=== PATIENT | male | born 1950 | race Caucasian/White ===

== ENCOUNTER → 2017-02-24 | Outpatient (CLI) | payer MEDICARE ==
[2017-02-24 10:04] LABS: Blood Urea Nitrogen 18 mg/dL (9-20); Non-African American GFR(MDRD) >60 (>60 ml/min/1.73 sqM)
--- NOTE | 2017-02-24 11:41 | CT ---
EXAMINATION TYPE: CT abdomen pelvis w con DATE OF EXAM: 02/24/2017 REFERENCE: Previous study dated 05/04/2014. HISTORY: R31.0 gross hematuria HISTORY: Gross hematuria and slow urine flow CT DLP: 1908.3 mGy Automated exposure control for dose reduction was used. TECHNIQUE: Helical acquisition through the abdomen and pelvis was obtained following the oral ingesti on of with Oral Contrast and following intravenous administration of 100 mL of Omnipaque 300. The christos a was reformatted in axial, coronal and sagittal projections. FINDINGS: There is dependent atelectasis within the dependent portions of the lungs. There is no ple ural or pericardial fluid. The heart is not enlarged. There is coronary artery and other vascular emiliano cifications present. Within the abdomen, the liver is mildly prominent measuring 19 cm. There is mild fatty infiltration o f the liver. The gallbladder is contracted. The spleen is normal. Both adrenal glands are normal. There is a 7.9 mm, nonobstructing stone in the posterior lower pole calyx of the left kidney. There i s a simple appearing 2.2 cm cyst involving the upper pole of the left kidney. There is A bladder is unremarkable. There is radiation seeds within the prostate gland. There are scattered diverticula within the left side of the colon. There is no radiographic evidence of diverticulitis. The appendix is normal. Small bowel loops are normal. There is no free fluid and no free air identified. There is degenerative disc disease, hypertrophic spondylosis and facet arthropathy within the spine. No bony destructive lesion is seen. IMPRESSION: 1. NONOBSTRUCTING LEFT RENAL CALCULUS. 2. MULTIPLE, SIMPLE APPEARING LEFT RENAL CYST. 3. HEPATOMEGALY AND FATTY INFILTRATION OF THE LIVER. 4. UNCOMPLICATED DIVERTICULAR DISEASE OF THE LEFT SIDE OF THE COLON. 5. DEGENERATIVE CHANGE WITHIN THE SPINE.
== END | disposition home or self-care (01) ==
LOC: RADCTMAIN 09:30
PROVIDERS: ATTEND Urology
DX: N20.0 Calculus of kidney (principal); K76.0 Fatty (change of) liver, not elsewhere classified; K57.90 Diverticulosis of intestine, part unspecified, without perforation or abscess without bleeding
CPT/HCPCS: 82565; 84520; 74177; 36415; Q9967

== ENCOUNTER → 2020-05-26 | Outpatient (CLI) | payer MEDICARE ==
[2020-05-26 10:11] LABS: African American GFR (CKD) >90 (>60 ml/min/1.73 sqM); Blood Urea Nitrogen 16 mg/dL (9-20); Non-African American GFR(CKD) 87 (>60 ml/min/1.73 sqM)
--- NOTE | 2020-05-26 14:45 | NM ---
EXAMINATION TYPE: NM bone scan whole body DATE OF EXAM: 05/26/2020 COMPARISON: CT 05/26/2020 HISTORY: Prostate cancer Delayed whole-body scanning was performed following the injection of 25.2 mCi Tc 99m MDP. Images acq uired 3.5 hours post injection. FINDINGS: There are too numerous to count focal lesions involving the ribs, spine, pelvis, proximal lower extre mities and left upper extremity, shoulders, calvarium and mandible. Soft tissue uptake within normal limits. IMPRESSION: Metastatic disease.
--- NOTE | 2020-05-29 09:33 | CT ---
EXAMINATION TYPE: CT ChestAbdPelvis w con DATE OF EXAM: 05/26/2020 COMPARISON: CT abdomen pelvis 02/24/2017. Nuclear medicine bone scan 05/26/2020. HISTORY: Elevated PSA, history of prostate cancer CT DLP: 2515 mGycm Automated exposure control for dose reduction was used. CONTRAST: CT scan of the chest, abdomen and pelvis is performed with Oral Contrast and with IV Contrast, patien t injected with 100 mL of Isovue 300. FINDINGS: LUNGS: Lungs are grossly clear. No concerning parenchymal mass or nodule identified. No pleural effus ion. No pneumothorax. The tracheobronchial tree is patent. MEDIASTINUM/SOFT TISSUES: No axillary, hilar, or mediastinal lymphadenopathy greater than 1 cm. Cardi ac size is normal. Calcified coronary artery disease. No pericardial effusion. Ascending thoracic aor tic ectasia measures 4.2 cm. LIVER: Normal. BILIARY SYSTEM: Normal. PANCREAS: Normal. SPLEEN: Normal. ADRENALS: Normal. KIDNEYS: There is a 10 mm nonobstructing calculus of the left renal lower pole. There is moderate lef t hydronephrosis and hydroureter.. No evidence of ureteral or bladder calculi. No right hydronephrosi s. Left-sided renal cyst redemonstrated. BOWEL: No evidence of obstruction or thickening. Colonic diverticulosis. No acute diverticulitis. PERITONEUM: Normal. LYMPH NODES: No lymphadenopathy. PELVIS: Prostate brachytherapy seeds. There is noncircumferential asymmetric thickening of the incomp letely distended urinary bladder, (3:112 and 3:112). VASCULATURE: There is infrarenal abdominal aortic ectasia measuring 2.7 cm AP. MUSCULOSKELETAL: Sclerotic lesion of the left iliac bone is new versus 02/24/2017. Sclerosis of the T9 and T2. There are a few additional areas of scattered subtle sclerosis correspond ing with same day nuclear medicine bone scan, however many of these lesions have no clear CT correlat e. There are 2 nondisplaced rib fractures with healing callus formation at left ribs 6 and 7. IMPRESSION: 1. Multifocal osseous metastatic disease, with many of the lesions better appreciated on same day nuc lear medicine bone scan. 2 healing left rib fractures are also seen. 2. Asymmetric noncircumferential bladder thickening is limited in evaluation due to incomplete urinar y bladder distention. There is also new moderate left hydronephrosis and hydroureter, with no obstruc ting urolithiasis seen. Differential includes mass lesion. Recommend correlation with CT cystoscopy. 3. Left 10 mm nonobstructing renal calculus. 4. Ascending thoracic aortic 4.2 cm ectasia.
== END | disposition home or self-care (01) ==
LOC: RADNMMAIN 09:31
PROVIDERS: ATTEND Urology
DX: C79.9 Secondary malignant neoplasm of unspecified site (principal); C61 Malignant neoplasm of prostate
CPT/HCPCS: 82565; 84520; 71260; 74177; 36415; 78306; A9503; Q9967

== ENCOUNTER → 2021-02-13 | Outpatient (CLI) | payer MEDICARE ==
--- NOTE | 2021-02-13 13:03 | CT ---
EXAMINATION TYPE: CT ChestAbdPelvis w con DATE OF EXAM: 02/13/2021 COMPARISON: 05/26/2028 HISTORY: Prostate CA CT DLP: 2244.3 mGycm CONTRAST: CT scan of the chest, abdomen and pelvis is performed with Oral Contrast and with IV Contrast, patien t injected with 50 mL of Isovue 300. CT Chest: LUNGS: The lungs are clear and free of infiltrate or atelectasis. No pulmonary nodule or mass is det ected. No pleural effusion or CT evidence of interstitial lung disease. MEDIASTINUM: Mild aneurysmal changes in the thoracic aorta unchanged from prior study approximately 4 .2 cm. The heart is not enlarged. No evidence for mediastinal mass or adenopathy. HILAR STRUCTURES: No evidence for mass. No hilar adenopathy is appreciated. OTHER: No significant abnormality. CONTRAST CT ABDOMEN AND PELVIS FINDINGS: LIVER/GB: No calcified gallstones. No space occupying hepatic lesion. Biliary tree is of normal ca liber. PANCREAS: No inflammation. No distinct mass. SPLEEN: No splenic enlargement. No lesion seen. ADRENALS: No nodule. No thickening. KIDNEYS/BLADDER: Interval development of severe left-sided hydronephrosis secondary to a distal left ureteral calculus measuring 9 point millimeters which is approximately 9 cm from the UVJ.. Moderate r ight-sided interval hydronephrosis noted as well. All no obstructing right-sided calculus appreciated with certainty. Renal cystic changes redemonstrated. Foci of air within the urinary bladder poorly c haracterized. Prostate gland seeds are in place. BOWEL: Normal appendix. Normal bowel caliber. No inflammation. GENITAL ORGANS: No gross abnormality. LYMPH NODES: No greater than 1cm abdominal or pelvic lymph nodes are appreciated. AORTA: No significant abnormality. OSSEOUS STRUCTURES: Blastic metastases are redemonstrated throughout the visualized axial skeleton. OTHER: No significant additional abnormality is seen. IMPRESSION: 1. Interval development of severe left-sided hydronephrosis secondary to an obstructing 9.5 mm distal left ureteral calculus. 2. Moderate right-sided hydronephrosis has developed in the interval as well without obstructing calc ulus visualized. 3. Blastic metastatic disease unchanged from prior study.
--- NOTE | 2021-02-13 15:54 | NM ---
EXAMINATION TYPE: NM bone scan whole body DATE OF EXAM: 02/13/2021 COMPARISON: Bone scan from 05/26/2020, CT 02/13/2021 HISTORY: Prostate cancer, C 61 Delayed whole-body scanning was performed following the injection of 23.8 mCi Tc 99m MDP. Images acq uired 3 hours post injection. FINDINGS: There is been progression in the number of foci of increased uptake to include the bilateral humeri, bilateral femurs and bilateral ribs. There is some improvement in the distribution of uptake, for exa mple posterior left 10th rib shows an improvement in uptake, uptake within the thoracic and upper lum bar spine also shows less intensity is compared to prior exam as does the calvarial lesion in the man dible lesion. The left kidney does not show uptake. IMPRESSION: There is mixed response. Hydronephrotic left kidney.
== END | disposition home or self-care (01) ==
LOC: RADNMMAIN 09:38
PROVIDERS: ATTEND Internal Medicine Hematology & Oncology
DX: C61 Malignant neoplasm of prostate (principal); N13.2 Hydronephrosis with renal and ureteral calculous obstruction
CPT/HCPCS: 82565; 84520; 71260; 74177; 36415; 78306; A9503; Q9967

== ENCOUNTER 2021-03-05 09:07 | Day surgery (SDC) | payer MEDICARE ==
--- NOTE | 2021-03-02 09:09 | P.HPIHPCON ---
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 He underwent a CT which showed evidence of bilateral hydronephrosis, and a 1 cm ureteral stone. He underwent an attempted ureteral stent placement but was unsuccessful secondary to invasion of bladder trigone from marce 10 prostate cancer. His creat is elevated to 1.6 from a baseline of 0.8. Discussed with him given his bilateral hydronephrosis, worsening creatinine and plan to start chemotherapy next step is to proceed with nephrostomy tube placement. Discussed with him the risk and benefit of the surgery. Discussed with him the left kidney is fairly atrophic and the plan would be to obtain a Mag3 renogram post nephrostomy tube placement. If split renal function is less than 10% will proceed with nephrectomy if >10% will need a PCNL. Consent for Procedure: I have explained the operation/procedure to the patient, including the risks, benefits, side effects, alternative therapies (including not receiving the proposed treatment or service), the likelihood of the patient achieving his/her goals, and potential recuperation problems for the procedure/sedation/analgesia, as well as any blood products, if indicated. I also explained to the patient the risks, benefits and side effects of the alternatives, as well as the risks related to not receiving the proposed procedure, care, treatment, or services. Past Medical History Past Medical History: Cancer, Hypertension Additional Past Medical History / Comment(s): PROSTATE CANCER (SEDUM IMPLANTS). RENAL CALCULI History of Any Multi-Drug Resistant Organisms: None Reported Past Surgical History: Heart Catheterization With Stent, Hernia Repair Additional Past Surgical History / Comment(s): LITHOTRIPSY Date of Last Stent Placement:: 2004 Past Psychological History: No Psychological Hx Reported Past Alcohol Use History: None Reported Past Drug Use History: None Reported Medications and Allergies Home Medications Medication Instructions Recorded Confirmed Type Aspirin 81 mg PO DAILY 05/06/14 05/06/14 History Lisinopril 20 mg PO QAM 05/06/14 05/09/14 History Hydrocodone/Acetaminophen [Boy[place] 1 each PO Q4HR PRN #30 tab 05/09/14 Rx 7.5-325] Allergies Allergy/AdvReac Type Severity Reaction Status Date / Time No Known Allergies Allergy Verified 05/06/14 14:16 Surgical - Exam - General no distress, no pain - Eyes PERRL, normal ocular movement - ENT normal mucosa, no hearing loss - Respiratory normal expansion, normal respiratory effort - Psychiatric oriented to time, oriented to person, oriented to place Assessment and Plan Assessment: 71 yo male with hx of bilateral hydronephrosis, and left ureteral stone -OR for bilateral PCN placement, this will be done by IR
[2021-03-02 10:15] VITALS: BMI 34.3
[~2021-03-05 09:07] MED LIST: CIPROFLOXACIN/DEXTROSE PMX 400 MG in DEXTROSE/WATER 1 200ML.BAG IVPB ONE; DEXTROSE IVPB ONE; LEVOFLOXACIN IVPB ONE; PMX IVPB ONE; WATER IVPB ONE
[2021-03-05] MEDS ORDERED: SODIUM CHLORIDE 0.9% 500 ML 500 ML IV ONE (09:32)
[2021-03-05 09:54] LABS: Glucose,Whole Blood 134 mg/dL (75-99)
[2021-03-05 10:02] LABS: Basophils % (A) 1 %; Eosinophils # (A) 0.1 k/uL (0-0.7); Eosinophils % (A) 3 %; HCT 29.4 % (39.0-53.0); HGB 9.9 gm/dL (13.0-17.5); Lymphocytes # (A) 0.9 k/uL (1.0-4.8); Lymphocytes % (A) 19 %; MCH 29.5 pg (25.0-35.0); MCHC 33.8 g/dL (31.0-37.0); MCV 87.4 fL (80.0-100.0); Mean Platelet Volume 7.4; Monocytes # (A) 0.3 k/uL (0-1.0); Monocytes % (A) 6 %; Neutrophils # (A) 3.4 k/uL (1.3-7.7); Neutrophils % (A) 71 %; Platelet Count 285 k/uL (150-450); RBC 3.37 m/uL (4.30-5.90); WBC 4.8 k/uL (3.8-10.6)
[2021-03-05 10:03] VITALS: RESP 16
[2021-03-05] MEDS ORDERED: fentaNYL (PF) 50 MCG/ML 2 ML AMP IV ONE (12:00)
[2021-03-05] MEDS ORDERED: LIDOCAINE 1% INJ 10MG/ML (20 ML MDV) SQ ONE (12:00)
[2021-03-05] MEDS ORDERED: IOPAMIDOL-250 50ML BTL IV ONE (12:11)
[2021-03-05] MEDS ORDERED: HYDROcodone/APAP 5-325MG 1 EACH TAB PO PRN (12:33)
[2021-03-05 12:39] LABS: Glucose,Whole Blood 147 mg/dL (75-99)
--- NOTE | 2021-03-05 12:49 | CT ---
EXAMINATION TYPE: CT Guided Neph New Access DATE OF EXAM: 03/05/2021 COMPARISON: NONE HISTORY: Bilateral hydronephrosis Procedure had been discussed with the patient, the risks, benefits, alternatives, were discussed and any questions were answered. Informed consent was obtained. The patient was in a semiprone position prepped and draped on the OR table in the usual sterile fashion. Utilizing CT guidance and a 15 cm length Chiba needle a single pass was made into a lower pole posterior calyx under fluoroscopic vanessa nce. An 0.018 guidewire is passed through the needle and there was placement of a 6-[place]e catheter sheath system. There was conversion to a 0.035 system was performed with passage of a guidewire int o the ureter. There is serial dilation 8 [place]e and placement of an 8 [place]e nephrostomy tube. Under CT guidance a single pass was made into a posterior mid pole calyx. An 0.018 guidewire was plac ed through the needle. Needle was removed and the remaining portion of the procedure is performed wit hin the CVL. Small amount contrast was instilled in the system. There is dilation 8 [place]e and placement 8 [place]e right nephrostomy tube. Approximately 1.2 minutes of fluoroscopy was provided. IMPRESSION: 1. Successful bilateral nephrostomy tube insertion under CT and fluoroscopic guidance.
--- NOTE | 2021-03-05 12:49 | IR ---
EXAMINATION TYPE: IR nephrostomy DATE OF EXAM: 03/05/2021 COMPARISON: NONE HISTORY: Nephrostomy tube insertion TECHNIQUE: Fluoroscopy. FINDINGS: Fluoroscopic guidance was provided during procedure 1.[address] dictation. IMPRESSION: As Above.
[2021-03-05 17:11] LABS: Glucose,Whole Blood 124 mg/dL (75-99)
[2021-03-05 20:33] LABS: Glucose,Whole Blood 137 mg/dL (75-99)
[2021-03-05] MEDS ORDERED: ATORVASTATIN 80 MG TAB PO SCH (21:00)
[2021-03-05] MEDS: METOPROLOL TARTRATE 12.5 MG TAB PO SCH (21:09)
[2021-03-05] MEDS: TAMSULOSIN 0.4 MG CAP.ER.24H PO SCH (21:09)
[2021-03-06 06:59] LABS: Glucose,Whole Blood 133 mg/dL (75-99)
[2021-03-06] MEDS ORDERED: amLODIPine 5 MG TAB PO SCH (09:00)
[2021-03-06] MEDS ORDERED: allopurinoL 100 MG TAB PO SCH (09:00)
[2021-03-06] MEDS: METOPROLOL TARTRATE 12.5 MG TAB PO SCH (10:04)
[2021-03-06] MEDS: TAMSULOSIN 0.4 MG CAP.ER.24H PO SCH (10:04)
[2021-03-06 11:56] LABS: Glucose,Whole Blood 116 mg/dL (75-99)
[2021-03-06 12:24] VITALS: BP 135/88; PULSE 74; TEMP 98.7
--- NOTE | 2021-03-06 12:54 | P.DS ---
Providers Attending physician: Armando Williamson MD Primary care physician: Stated None Hospital Course: this is a 71-year-old male with history of bilateral hydronephrosis, he underwent nephrostomy tube placement on March 05. Please see dictation by Dr. Ramirez for details of the procedure. Patient was having pain, post nephrostomy tube insertion, and he was admitted to the hospital for pain control. On postoperative day #1 he was doing well, his pain has resolved. He was discharged home with the bilateral nephrostomy tubes. At time of discharge he was tolerating a diet, ambulating, pain was controlled. The output from the right nephrostomy tube was clear, but from the left nephrostomy tube was hematuric but wasn't draining. Plan - Discharge Summary Discharge Rx Participant: Yes New Discharge Prescriptions: No Action Aspirin 81 mg PO DAILY Atorvastatin [Lipitor] 80 mg PO HS amLODIPine [Norvasc] 5 mg PO DAILY Losartan [Cozaar] 25 mg PO HS Tamsulosin [Flomax] 0.4 mg PO BID Metoprolol Tartrate [Lopressor] 12.5 mg PO BID Allopurinol [Zyloprim] 100 mg PO DAILY metFORMIN HCL [Glucophage] 500 mg PO HS metFORMIN HCL [Glucophage] 1,000 mg PO QAM Magnesium 250 mg PO DAILY Discharge Medication List Aspirin 81 mg PO DAILY 05/06/14 [History] Allopurinol [Zyloprim] 100 mg PO DAILY 03/02/21 [History] Atorvastatin [Lipitor] 80 mg PO HS 03/02/21 [History] Losartan [Cozaar] 25 mg PO HS 03/02/21 [History] Magnesium 250 mg PO DAILY 03/02/21 [History] Metoprolol Tartrate [Lopressor] 12.5 mg PO BID 03/02/21 [History] Tamsulosin [Flomax] 0.4 mg PO BID 03/02/21 [History] amLODIPine [Norvasc] 5 mg PO DAILY 03/02/21 [History] metFORMIN HCL [Glucophage] 1,000 mg PO QAM 03/02/21 [History] metFORMIN HCL [Glucophage] 500 mg PO HS 03/02/21 [History] Patient Instructions/Handouts: Nephrostomy Tube Care (DC) Activity/Diet/Wound Care/Special Instructions: If continue to have bloody output from the left nephrostomy tube can irrigate the nephrostomy tube once a day Discharge Disposition: HOME SELF-CARE
[2021-03-07] MEDS ORDERED: metFORMIN 500 MG TAB PO SCH ×2 (09:00→21:00)
== END 2021-03-06 16:46 | disposition home health service (06) ==
LOC: CATHCVL 09:07 → 5NMEDONC 15:09 → CATHCVL 03-06 16:46
PROVIDERS: ATTEND Urology
DX: N13.2 Hydronephrosis with renal and ureteral calculous obstruction (principal); I10 Essential (primary) hypertension; Z85.46 Personal history of malignant neoplasm of prostate; Z87.442 Personal history of urinary calculi; Z79.899 Other long term (current) drug therapy; Z79.82 Long term (current) use of aspirin; Z20.822 Contact with and (suspected) exposure to COVID-19
CPT/HCPCS: 50432 ×2; 85025; 87635; C1769 ×2; J2001; J3010; J0744; Q9966

== ENCOUNTER 2021-03-15 03:45 | Observation (INO) | payer MEDICARE ==
--- NOTE | 2021-03-15 04:32 | ED ---
Male Urogenital HPI - General Chief complaint: Urogenital Stated complaint: Back Pain Time Seen by Provider: 03/15/21 03:48 Source: patient, RN notes reviewed, old records reviewed Mode of arrival: ambulatory Limitations: no limitations - History of Present Illness Initial comments: This is a 71-year-old male DF for evaluation. Patient has history of severe prostate cancer with inability to urinate. Patient has bilateral nephrostomy tubes currently supposed to have stents placed in his ureters with her unable to be passed. Patient states a left nephrostomy tube does not work the right frustrated to start working last night with severe flank pain on the right side. Patient denies other complaints of fever. MD Complaint: other (Bilateral flank pain) -: hour(s) Location: right flank Severity: severe Severity scale (1-10): 8 Quality: sharp Consistency: constant Improves with: none Worsens with: none indwelling catheter (Patient has indwelling nephrostomy tubes) Reports: nausea/vomiting - Related Data Home Medications Medication Instructions Recorded Confirmed Aspirin 81 mg PO DAILY 05/06/14 03/05/21 Allopurinol [Zyloprim] 100 mg PO DAILY 03/02/21 03/05/21 Atorvastatin [Lipitor] 80 mg PO HS 03/02/21 03/05/21 Losartan [Cozaar] 25 mg PO HS 03/02/21 03/05/21 Magnesium 250 mg PO DAILY 03/02/21 03/05/21 Metoprolol Tartrate [Lopressor] 12.5 mg PO BID 03/02/21 03/05/21 Tamsulosin [Flomax] 0.4 mg PO BID 03/02/21 03/05/21 amLODIPine [Norvasc] 5 mg PO DAILY 03/02/21 03/05/21 metFORMIN HCL [Glucophage] 1,000 mg PO QAM 03/02/21 03/05/21 metFORMIN HCL [Glucophage] 500 mg PO HS 03/02/21 03/05/21 Allergies Allergy/AdvReac Type Severity Reaction Status Date / Time cephalexin [From Keflex] Allergy Diarrhea Verified 03/15/21 03:54 Review of Systems ROS Statement: Those systems with pertinent positive or pertinent negative responses have been documented in the HPI. ROS Other: All systems not noted in ROS Statement are negative. Past Medical History Past Medical History: Coronary Artery Disease (CAD), Cancer, Diabetes Mellitus, Hyperlipidemia, Hypertension, Prostate Disorder Additional Past Medical History / Comment(s): PROSTATE CANCER (SEDUM IMPLANTS). RENAL CALCULI,, gout, History of Any Multi-Drug Resistant Organisms: None Reported Past Surgical History: Coronary Bypass/CABG, Heart Catheterization, Hernia Repair, Joint Replacement Additional Past Surgical History / Comment(s): LITHOTRIPSY x 2, triple bypass 08/25/2018, rt knee replacement, elieser inguinal hernia and umbilical hernia repair, Past Anesthesia/Blood Transfusion Reactions: No Reported Reaction Date of Last Stent Placement:: 2004 Past Psychological History: No Psychological Hx Reported Smoking Status: Never smoker Past Alcohol Use History: None Reported Past Drug Use History: None Reported - Past Family History Mother Family Medical History: No Reported History General Exam General appearance: alert, in no apparent distress Head exam: Present: atraumatic, normocephalic, normal inspection Eye exam: Present: normal appearance, PERRL, EOMI. Absent: scleral icterus, conjunctival injection, periorbital swelling ENT exam: Present: normal exam, mucous membranes moist Neck exam: Present: normal inspection. Absent: tenderness, meningismus, lymphadenopathy Respiratory exam: Present: normal lung sounds bilaterally. Absent: respiratory distress, wheezes, rales, rhonchi, stridor Cardiovascular Exam: Present: regular rate, normal rhythm, normal heart sounds. Absent: systolic murmur, diastolic murmur, rubs, gallop, clicks GI/Abdominal exam: Present: soft, normal bowel sounds. Absent: distended, tenderness, guarding, rebound, rigid Extremities exam: Present: normal inspection, full ROM, normal capillary refill. Absent: tenderness, pedal edema, joint swelling, calf tenderness Back exam: Present: normal inspection Neurological exam: Present: alert, oriented X3, CN II-XII intact Psychiatric exam: Present: normal affect, normal mood Skin exam: Present: warm, dry, intact, normal color. Absent: rash Course Vital Signs 03/15/21 03/15/21 03:48 06:19 Temperature 97.9 F Pulse Rate 73 81 Respiratory 19 18 Rate Blood Pressure 118/72 115/71 O2 Sat by Pulse 99 98 Oximetry - Reevaluation(s) Reevaluation #1: 03/15/21 06:36 Medical records reviewed Reevaluation #2: 03/15/21 06:36 Patient's pain is currently well controlled - Consultations Consultation #1: Spoke with Dr. Mora who prefers admission for evaluation by interventional radiology Medical Decision Making - Medical Decision Making 71 male be admitted for evaluation, bilateral nephrostomy tubes malfunctioning. Patient will be admitted for interventional radiology - Lab Data Result diagrams: 03/15/21 05:06 03/15/21 05:06 Lab Results 03/15/21 03/15/21 Range/Units 05:06 05:06 WBC 4.5 (3.8-10.6) k/uL RBC 3.23 L (4.30-5.90) m/uL Hgb 9.6 L (13.0-17.5) gm/dL Hct 27.8 L (39.0-53.0) % MCV 86.1 (80.0-100.0) fL MCH 29.6 (25.0-35.0) pg MCHC 34.4 (31.0-37.0) g/dL RDW 13.2 (11.5-15.5) % Plt Count 262 (150-450) k/uL MPV 7.1 Neutrophils % 71 % Lymphocytes % 20 % Monocytes % 5 % Eosinophils % 3 % Basophils % 0 % Neutrophils # 3.2 (1.3-7.7) k/uL Lymphocytes # 0.9 L (1.0-4.8) k/uL Monocytes # 0.2 (0-1.0) k/uL Eosinophils # 0.1 (0-0.7) k/uL Basophils # 0.0 (0-0.2) k/uL Sodium 136 L (137-145) mmol/L Potassium 4.3 (3.5-5.1) mmol/L Chloride 104 (98-107) mmol/L Carbon Dioxide 26 (22-30) mmol/L Anion Gap 6 mmol/L BUN 19 (9-20) mg/dL Creatinine 1.32 H (0.66-1.25) mg/dL Est GFR (CKD-EPI)AfAm 63 (>60 ml/min/1.73 sqM) Est GFR (CKD-EPI)NonAf 54 (>60 ml/min/1.73 sqM) Glucose 142 H (74-99) mg/dL Calcium 8.5 (8.4-10.2) mg/dL Total Bilirubin 0.2 (0.2-1.3) mg/dL AST 38 (17-59) U/L ALT 11 (4-49) U/L Alkaline Phosphatase 950 H (38-126) U/L Total Protein 6.3 (6.3-8.2) g/dL Albumin 3.4 L (3.5-5.0) g/dL Amylase 75 (30-110) U/L Lipase 235 (23-300) U/L - Radiology Data Radiology results: report reviewed (X-ray KUB negative for acute disease), image reviewed Disposition Clinical Impression: Bilateral flank pain Disposition: ADMITTED IP TO THIS HOSP Condition: Fair Is patient prescribed a controlled substance at d/c from ED?: No
[2021-03-15] MEDS ORDERED: MORPHINE SULFATE 4 MG/ML SYRINGE IV STA (04:51)
--- NOTE | 2021-03-15 05:11 | XR ---
EXAMINATION TYPE: XR KUB DATE OF EXAM: 03/15/2021 COMPARISON: 05/16/2014 HISTORY: Nephrostomy tubes TECHNIQUE: 2 views FINDINGS: There are bilateral nephrostomy tubes. Bowel gas pattern is normal. There is no sign of int estinal obstruction or pneumoperitoneum. Fecal pattern is normal. I see no evidence of a mass. IMPRESSION: Nonacute abdomen. No definite calculus seen over the kidneys. There is clearing of 1 cm c alculus over the left upper quadrant compared to old exam.
[2021-03-15] MEDS ORDERED: MORPHINE SULFATE 4 MG/ML SYRINGE IVP STA (05:18)
[2021-03-15 05:24] LABS: Basophils % (A) 0 %; Eosinophils # (A) 0.1 k/uL (0-0.7); Eosinophils % (A) 3 %; HCT 27.8 % (39.0-53.0); HGB 9.6 gm/dL (13.0-17.5); Lymphocytes # (A) 0.9 k/uL (1.0-4.8); Lymphocytes % (A) 20 %; MCH 29.6 pg (25.0-35.0); MCHC 34.4 g/dL (31.0-37.0); MCV 86.1 fL (80.0-100.0); Mean Platelet Volume 7.1; Monocytes # (A) 0.2 k/uL (0-1.0); Monocytes % (A) 5 %; Neutrophils # (A) 3.2 k/uL (1.3-7.7); Neutrophils % (A) 71 %; Platelet Count 262 k/uL (150-450); RBC 3.23 m/uL (4.30-5.90); RDW 13.2 % (11.5-15.5); WBC 4.5 k/uL (3.8-10.6)
[2021-03-15 05:55] LABS: Albumin 3.4 g/dL (3.5-5.0); Calcium 8.5 mg/dL (8.4-10.2); Potassium 4.3 mmol/L (3.5-5.1); Total Bilirubin 0.2 mg/dL (0.2-1.3); Total Protein 6.3 g/dL (6.3-8.2)
[2021-03-15] MEDS ORDERED: DOCUSATE 100 MG CAP PO PRN (07:50)
[2021-03-15] MEDS ORDERED: ACETAMINOPHEN TAB 325 MG TAB PO PRN (07:50)
[2021-03-15] MEDS ORDERED: bisacodyL 5 MG TABLET.DR PO PRN (07:50)
[2021-03-15] MEDS ORDERED: MORPHINE SULFATE 4 MG/ML SYRINGE IV PRN (07:50)
[2021-03-15] MEDS ORDERED: NALOXONE 0.4 MG/ML 1 ML VIAL IV PRN (07:50)
[2021-03-15] MEDS ORDERED: HYDROcodone/APAP 5-325MG 1 EACH TAB PO PRN (07:50)
[2021-03-15 11:58] LABS: Appearance,Urine Clear (Clear); Bilirubin,Urine Negative (Negative); Blood,Urine Moderate (Negative); Color,Urine Yellow; Glucose,Urine (UA) Negative (Negative); Ketones,Urine Negative (Negative); Leukocyte Esterase,Urine Negative (Negative); Nitrite,Urine Negative (Negative); PH, Urine 5.5 (5.0-8.0); Protein,Urine Trace (Negative); RBC,Urine 36 /hpf (0-5); Specific Gravity,Urine 1.014 (1.001-1.035); Urobilinogen,Urine <2.0 mg/dL (<2.0); WBC,Urine 3 /hpf (0-5)
[2021-03-15 12:00] VITALS: BP 161/89; PULSE 80; RESP 16; TEMP 98
[2021-03-15 12:18] LABS: Glucose,Whole Blood 131 mg/dL (75-99)
[2021-03-15] MEDS ORDERED: INSULIN ASPART (NovoLOG) 100 UNIT/ML VIAL SQ SCH (12:30)
--- NOTE | 2021-03-15 13:00 | P.GSCN ---
History of Present Illness Consult date: 03/15/21 History of present illness: 71-year-old gentleman with metastatic prostate cancer, patient of who has bilateral nephrostomy tubes due to obstruction. Patient is tubes were placed over a week ago. He was in our office yesterday because of flank pain and perceived problems with the nephrostomy tubes. They're irrigated successfully in our office and re-taped up. He presented to the emergency room last night stating he had flank pain and leaking around the catheter. The patient is interviewed at the bedside. He states that he is feeling better and urine is draining through the nephrostomy tube present. I examined the patient and found that the small right nephrostomy tube was kinked as it was underneath the dressing. I and kinked it and then drained more freely. Its that he has no problems with the left side. No blood nor fever or chills. Review of Systems All systems: negative - Constitutional Denies fever, Denies weight loss - EENT Eyes: denies blurred vision Ears, nose, mouth and throat: Denies dysphagia - Cardiovascular Denies chest pain, Denies shortness of breath - Respiratory Denies cough, Denies 7 - Gastrointestinal Reports as per HPI - Genitourinary Denies dysuria, Denies hematuria - Integumentary Denies rash, Denies unusual bruising - Neurological Denies headaches, Denies syncope - Hematologic/Lymphatic Denies easy bleeding, Denies easy bruising Past Medical History Past Medical History: Coronary Artery Disease (CAD), Cancer, Diabetes Mellitus, Hyperlipidemia, Hypertension, Prostate Disorder Additional Past Medical History / Comment(s): PROSTATE CANCER (SEDUM IMPLANTS). RENAL CALCULI,, gout, History of Any Multi-Drug Resistant Organisms: None Reported Past Surgical History: Coronary Bypass/CABG, Heart Catheterization, Hernia Repair, Joint Replacement Additional Past Surgical History / Comment(s): LITHOTRIPSY x 2, triple bypass 08/25/2018, rt knee replacement, elieser inguinal hernia and umbilical hernia repair, Past Anesthesia/Blood Transfusion Reactions: No Reported Reaction Date of Last Stent Placement:: 2004 Past Psychological History: No Psychological Hx Reported Smoking Status: Never smoker Past Alcohol Use History: None Reported Past Drug Use History: None Reported - Past Family History Mother Family Medical History: No Reported History Medications and Allergies Home Medications Medication Instructions Recorded Confirmed Type Aspirin 81 mg PO DAILY 05/06/14 03/15/21 History Allopurinol [Zyloprim] 100 mg PO DAILY 03/02/21 03/15/21 History Atorvastatin [Lipitor] 80 mg PO HS 03/02/21 03/15/21 History Losartan [Cozaar] 25 mg PO HS 03/02/21 03/15/21 History Magnesium 250 mg PO BID 03/02/21 03/15/21 History Metoprolol Tartrate [Lopressor] 12.5 mg PO BID 03/02/21 03/15/21 History Tamsulosin [Flomax] 0.4 mg PO BID 03/02/21 03/15/21 History amLODIPine [Norvasc] 10 mg PO DAILY 03/02/21 03/15/21 History metFORMIN HCL [Glucophage] 1,000 mg PO QAM 03/02/21 03/15/21 History metFORMIN HCL [Glucophage] 500 mg PO HS 03/02/21 03/15/21 History Calcium Carbonate [Calcium] 600 mg PO DAILY 03/15/21 03/15/21 History Allergies Allergy/AdvReac Type Severity Reaction Status Date / Time cephalexin [From Keflex] AdvReac Diarrhea Verified 03/15/21 07:59 Surgical - Exam Vital Signs Temp Pulse Resp BP Pulse Ox 97.9 F 73 19 118/72 99 03/15/21 03:48 03/15/21 03:48 03/15/21 03:48 03/15/21 03:48 03/15/21 03:48 - General well developed, well nourished, no distress - ENT no hearing loss - Respiratory normal expansion, normal respiratory effort - Cardiovascular Rhythm: regular - Abdomen Nephrostomy tube draining right kidney, 6.5-[place]. It appears to be kinked. A normal left nephrostomy Abdomen: soft, non tender - Musculoskeletal normal posture - Psychiatric oriented to time, oriented to person, oriented to place, speech is normal, memory intact Results - Labs 03/15/21 05:06 03/15/21 05:06 Abnormal Lab Results - Last 24 Hours (Table) 03/15/21 03/15/21 03/15/21 Range/Units 05:06 05:06 05:06 RBC 3.23 L (4.30-5.90) m/uL Hgb 9.6 L (13.0-17.5) gm/dL Hct 27.8 L (39.0-53.0) % Lymphocytes # 0.9 L (1.0-4.8) k/uL Sodium 136 L (137-145) mmol/L Creatinine 1.32 H (0.66-1.25) mg/dL Glucose 142 H (74-99) mg/dL POC Glucose (mg/dL) (75-99) mg/dL Alkaline Phosphatase 950 H (38-126) U/L Albumin 3.4 L (3.5-5.0) g/dL Urine Protein Trace H (Negative) Urine Blood Moderate H (Negative) Urine RBC 36 H (0-5) /hpf 03/15/21 Range/Units 12:15 RBC (4.30-5.90) m/uL Hgb (13.0-17.5) gm/dL Hct (39.0-53.0) % Lymphocytes # (1.0-4.8) k/uL Sodium (137-145) mmol/L Creatinine (0.66-1.25) mg/dL Glucose (74-99) mg/dL POC Glucose (mg/dL) 131 H (75-99) mg/dL Alkaline Phosphatase (38-126) U/L Albumin (3.5-5.0) g/dL Urine Protein (Negative) Urine Blood (Negative) Urine RBC (0-5) /hpf Diabetes panel 03/15/21 Range/Units 05:06 Sodium 136 L (137-145) mmol/L Potassium 4.3 (3.5-5.1) mmol/L Chloride 104 (98-107) mmol/L Carbon Dioxide 26 (22-30) mmol/L BUN 19 (9-20) mg/dL Creatinine 1.32 H (0.66-1.25) mg/dL Glucose 142 H (74-99) mg/dL Calcium 8.5 (8.4-10.2) mg/dL AST 38 (17-59) U/L ALT 11 (4-49) U/L Alkaline Phosphatase 950 H (38-126) U/L Total Protein 6.3 (6.3-8.2) g/dL Albumin 3.4 L (3.5-5.0) g/dL Calcium panel 03/15/21 Range/Units 05:06 Calcium 8.5 (8.4-10.2) mg/dL Albumin 3.4 L (3.5-5.0) g/dL Pituitary panel 03/15/21 Range/Units 05:06 Sodium 136 L (137-145) mmol/L Potassium 4.3 (3.5-5.1) mmol/L Chloride 104 (98-107) mmol/L Carbon Dioxide 26 (22-30) mmol/L BUN 19 (9-20) mg/dL Creatinine 1.32 H (0.66-1.25) mg/dL Glucose 142 H (74-99) mg/dL Calcium 8.5 (8.4-10.2) mg/dL Adrenal panel 03/15/21 Range/Units 05:06 Sodium 136 L (137-145) mmol/L Potassium 4.3 (3.5-5.1) mmol/L Chloride 104 (98-107) mmol/L Carbon Dioxide 26 (22-30) mmol/L BUN 19 (9-20) mg/dL Creatinine 1.32 H (0.66-1.25) mg/dL Glucose 142 H (74-99) mg/dL Calcium 8.5 (8.4-10.2) mg/dL Total Bilirubin 0.2 (0.2-1.3) mg/dL AST 38 (17-59) U/L ALT 11 (4-49) U/L Alkaline Phosphatase 950 H (38-126) U/L Total Protein 6.3 (6.3-8.2) g/dL Albumin 3.4 L (3.5-5.0) g/dL Assessment and Plan Assessment: Impression: Metastatic prostate carcinoma with ureteral obstruction. Bilateral nephrostomy tubes. Recommendations: I dressed the right nephrostomy tube and found that it was kin ked. I instructed the and daughter on how to tape this so that it doesn't kinked and that it drained freely. They also understand how to irrigate it. From urologic standpoint he can be discharged home and follow-up with on March 27 as previously scheduled or sooner as needed. If the problem persists and he may need a larger nephrostomy tube.
--- NOTE | 2021-03-15 14:21 | P.DS ---
Providers Date of admission: 03/15/21 05:15 Expected date of discharge: 03/15/21 Attending physician: Mar Heck MD Consults: 03/15/21 05:15 Consult Physician Routine Consulting Provider: Gennaro Porter Consult Reason/Comments: nephrostomy tubes Do you want consulting provider notified?: Yes Primary care physician: Stated None Hospital Course: See same day H&P Patient Condition at Discharge: Good Plan - Discharge Summary New Discharge Prescriptions: No Action Aspirin 81 mg PO DAILY Atorvastatin [Lipitor] 80 mg PO HS amLODIPine [Norvasc] 10 mg PO DAILY Losartan [Cozaar] 25 mg PO HS Tamsulosin [Flomax] 0.4 mg PO BID Metoprolol Tartrate [Lopressor] 12.5 mg PO BID Allopurinol [Zyloprim] 100 mg PO DAILY metFORMIN HCL [Glucophage] 500 mg PO HS metFORMIN HCL [Glucophage] 1,000 mg PO QAM Magnesium 250 mg PO BID Calcium Carbonate [Calcium] 600 mg PO DAILY Discharge Medication List Aspirin 81 mg PO DAILY 05/06/14 [History] Allopurinol [Zyloprim] 100 mg PO DAILY 03/02/21 [History] Atorvastatin [Lipitor] 80 mg PO HS 03/02/21 [History] Losartan [Cozaar] 25 mg PO HS 03/02/21 [History] Magnesium 250 mg PO BID 03/02/21 [History] Metoprolol Tartrate [Lopressor] 12.5 mg PO BID 03/02/21 [History] Tamsulosin [Flomax] 0.4 mg PO BID 03/02/21 [History] amLODIPine [Norvasc] 10 mg PO DAILY 03/02/21 [History] metFORMIN HCL [Glucophage] 1,000 mg PO QAM 03/02/21 [History] metFORMIN HCL [Glucophage] 500 mg PO HS 03/02/21 [History] Calcium Carbonate [Calcium] 600 mg PO DAILY 03/15/21 [History] Follow up Appointment(s)/Referral(s): None,Stated [Primary Care Provider] - 1-2 days Gennaro Porter MD [STAFF PHYSICIAN] - 03/27/21 8:00 am Patient Instructions/Handouts: Nephrostomy Tube Care (DC)
--- NOTE | 2021-03-15 14:21 | P.HPIM ---
History of Present Illness H&P Date: 03/15/21 Chief Complaint: Flank Pain 71 year old man with metastatic prostate cancer with obstructive uropathy s/p b/l nephrostomy tubes presented with flank pain. Patient reports that he went to see his urology team due to flank pain and concerns that his R nephrostomy tube was not draining. While he was there, he had his tube adjusted due to a kinked off portion at the site of the bandaging. However, upon return home, he again developed flank pain and due to this concern presented to the ER for evaluation. Denies f/c, n/v/c/d, cp, abd pain, palps, cough, dyspnea, numbness/weakness. Review of Systems All Systems reviewed and pertinent positives and negatives noted in HPI, all other symptoms are negative Past Medical History Past Medical History: Coronary Artery Disease (CAD), Cancer, Diabetes Mellitus, Hyperlipidemia, Hypertension, Prostate Disorder Additional Past Medical History / Comment(s): PROSTATE CANCER (SEDUM IMPLANTS). RENAL CALCULI,, gout, History of Any Multi-Drug Resistant Organisms: None Reported Past Surgical History: Coronary Bypass/CABG, Heart Catheterization, Hernia Repair, Joint Replacement Additional Past Surgical History / Comment(s): LITHOTRIPSY x 2, triple bypass 08/25/2018, rt knee replacement, elieser inguinal hernia and umbilical hernia repair, Past Anesthesia/Blood Transfusion Reactions: No Reported Reaction Date of Last Stent Placement:: 2004 Past Psychological History: No Psychological Hx Reported Smoking Status: Never smoker Past Alcohol Use History: None Reported Past Drug Use History: None Reported - Past Family History Mother Family Medical History: No Reported History Medications and Allergies Home Medications Medication Instructions Recorded Confirmed Type Aspirin 81 mg PO DAILY 05/06/14 03/15/21 History Allopurinol [Zyloprim] 100 mg PO DAILY 03/02/21 03/15/21 History Atorvastatin [Lipitor] 80 mg PO HS 03/02/21 03/15/21 History Losartan [Cozaar] 25 mg PO HS 03/02/21 03/15/21 History Magnesium 250 mg PO BID 03/02/21 03/15/21 History Metoprolol Tartrate [Lopressor] 12.5 mg PO BID 03/02/21 03/15/21 History Tamsulosin [Flomax] 0.4 mg PO BID 03/02/21 03/15/21 History amLODIPine [Norvasc] 10 mg PO DAILY 03/02/21 03/15/21 History metFORMIN HCL [Glucophage] 1,000 mg PO QAM 03/02/21 03/15/21 History metFORMIN HCL [Glucophage] 500 mg PO HS 03/02/21 03/15/21 History Calcium Carbonate [Calcium] 600 mg PO DAILY 03/15/21 03/15/21 History Allergies Allergy/AdvReac Type Severity Reaction Status Date / Time cephalexin [From Keflex] AdvReac Diarrhea Verified 03/15/21 07:59 Physical Exam Vitals: Vital Signs Temp Pulse Pulse Resp BP BP Pulse Ox 03/15/21 11:53 98.0 F 80 16 161/89 96 03/15/21 10:21 72 18 130/79 98 03/15/21 07:37 98.3 F 72 16 121/86 97 03/15/21 06:19 81 18 115/71 98 03/15/21 03:48 97.9 F 73 19 118/72 99 Intake and Output 03/14/21 03/15/21 03/15/21 22:59 06:59 14:59 Other: Weight 111.13 kg Gen: awake, alert HEENT: normocephalic, atraumatic, good hearing acuity, moist mucous membranes Resp: good air exchange, breathing comfortably with no accessory muscle use CVS: good distal perfusion x 4, GI: soft, NTTP, ND : no SPT, right CVAT, thrasher catheter not present, bilateral nephrostomy tubes, right tube is draining well MSK: no pitting edema, no clubbing Neuro: non-focal, moving all extremities Psych: cooperative, euthymic mood Results CBC & Chem 7: 03/15/21 05:06 03/15/21 05:06 Labs: Abnormal Lab Results - Last 24 Hours (Table) 03/15/21 03/15/21 03/15/21 Range/Units 05:06 05:06 05:06 RBC 3.23 L (4.30-5.90) m/uL Hgb 9.6 L (13.0-17.5) gm/dL Hct 27.8 L (39.0-53.0) % Lymphocytes # 0.9 L (1.0-4.8) k/uL Sodium 136 L (137-145) mmol/L Creatinine 1.32 H (0.66-1.25) mg/dL Glucose 142 H (74-99) mg/dL POC Glucose (mg/dL) (75-99) mg/dL Alkaline Phosphatase 950 H (38-126) U/L Albumin 3.4 L (3.5-5.0) g/dL Urine Protein Trace H (Negative) Urine Blood Moderate H (Negative) Urine RBC 36 H (0-5) /hpf 03/15/21 Range/Units 12:15 RBC (4.30-5.90) m/uL Hgb (13.0-17.5) gm/dL Hct (39.0-53.0) % Lymphocytes # (1.0-4.8) k/uL Sodium (137-145) mmol/L Creatinine (0.66-1.25) mg/dL Glucose (74-99) mg/dL POC Glucose (mg/dL) 131 H (75-99) mg/dL Alkaline Phosphatase (38-126) U/L Albumin (3.5-5.0) g/dL Urine Protein (Negative) Urine Blood (Negative) Urine RBC (0-5) /hpf Assessment and Plan Assessment: Nephrostomy tube malfunction Metastatic prostate cancer Obstructive uropathy -Seen by urology, tube is now draining again on the right side after adjustment of the dressing -Urology educator family on appropriate dressing so that the drain does not kink off -Patient has follow-up with urology set up for March 27 -Patient flank pain has resolved -Patient was discharged home following urology evaluation.
== END 2021-03-15 14:05 | disposition home or self-care (01) ==
LOC: EC 03:45 → 6NMEDSUR 05:15
PROVIDERS: ADMIT Internal Medicine; ATTEND Internal Medicine
DX: T83.092A Other mechanical complication of nephrostomy catheter, initial encounter (principal); C61 Malignant neoplasm of prostate; C79.9 Secondary malignant neoplasm of unspecified site; N13.8 Other obstructive and reflux uropathy; E11.9 Type 2 diabetes mellitus without complications; E78.5 Hyperlipidemia, unspecified; I10 Essential (primary) hypertension; I25.10 Atherosclerotic heart disease of native coronary artery without angina pectoris; M10.9 Gout, unspecified; Z20.822 Contact with and (suspected) exposure to COVID-19; Z79.82 Long term (current) use of aspirin; Z79.84 Long term (current) use of oral hypoglycemic drugs; Z79.899 Other long term (current) drug therapy; Z88.1 Allergy status to other antibiotic agents; Z95.1 Presence of aortocoronary bypass graft; Z87.442 Personal history of urinary calculi; Z96.651 Presence of right artificial knee joint; Z98.890 Other specified postprocedural states
CPT/HCPCS: 96374; 99285 ×2; 36415; 80053; 82150; 83690; 85025; 81001; 87635; 74018; G0378; J2270

== ENCOUNTER → 2021-03-21 | Outpatient (CLI) | payer MEDICARE ==
[~2021-03-21] MED LIST changes: -CIPROFLOXACIN/DEXTROSE PMX 400 MG in DEXTROSE/WATER 1 200ML.BAG IVPB ONE; -DEXTROSE IVPB ONE; +FUROSEMIDE 10 MG/ML 2 ML VIAL IV ONE; -LEVOFLOXACIN IVPB ONE; -PMX IVPB ONE; -WATER IVPB ONE
--- NOTE | 2021-03-21 14:29 | NM ---
EXAMINATION TYPE: NM lasix renogram DATE OF EXAM: 03/21/2021 COMPARISON: NONE HISTORY: Hydronephrosis Following administration of 10.3 mCi Tc 99m MAG3 with 20mg Lasix. Immediate images post injection FINDINGS: Left: 12.5 %. Right: 87.5 %. Max renal flow left: 1.17 minutes. Max renal flow right: 87.5 minutes. Satisfactory accumulation of radiotracer within right renal collecting systems. There is reduced perf usion and uptake of radiotracer involving the left kidney. After the administration of Lasix, there i s delayed excretion from left collecting systems. Persistent hydronephrosis suspected bilaterally. T 1/2 left: NA minutes. T 1/2 right: 27.6 minutes. IMPRESSION: 1. Abnormal split renal function as noted above. This does appear to be concordant with the previous CT scan demonstrating left cortical renal thinning. 2. 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 3. Bilateral hydronephrosis.
== END | disposition home or self-care (01) ==
LOC: RADNMMAIN 12:39
PROVIDERS: ATTEND Urology
DX: N13.30 Unspecified hydronephrosis (principal)
CPT/HCPCS: 78708; A9562

== ENCOUNTER 2021-03-24 13:09 | Emergency (ER) | payer MEDICARE ==
[2021-03-24 13:13] VITALS: BP 109/72; PULSE 103; RESP 18; TEMP 97.5
--- NOTE | 2021-03-24 13:33 | ED ---
General Adult HPI - General Chief complaint: Recheck/Abnormal Lab/Rx Stated complaint: kidney problems Time Seen by Provider: 03/24/21 13:15 Source: patient, family, RN notes reviewed Mode of arrival: ambulatory Limitations: no limitations - History of Present Illness Initial comments: Patient is a pleasant 71-year-old male presenting to the emergency Department with leakage from his nephrostomy tube. Onset of symptoms was around 24 hours ago. Family did flush this without any problems. Patient has no discomfort. Patient is noticing leakage with minimal collection in the bag. This is occurring from the right side. Left side normally has normal output and this is unchanged. No fever. No abdominal pain. No vomiting. Patient has nephrostomy tubes for drainage secondary to history of prostate cancer. Tubes have been present for the past almost one month. Patient did have an episode of kinking week or 2 ago that resolved with unwinding of the tube. - Related Data Home Medications Medication Instructions Recorded Confirmed Aspirin 81 mg PO DAILY 05/06/14 03/15/21 Allopurinol [Zyloprim] 100 mg PO DAILY 03/02/21 03/15/21 Atorvastatin [Lipitor] 80 mg PO HS 03/02/21 03/15/21 Losartan [Cozaar] 25 mg PO HS 03/02/21 03/15/21 Magnesium 250 mg PO BID 03/02/21 03/15/21 Metoprolol Tartrate [Lopressor] 12.5 mg PO BID 03/02/21 03/15/21 Tamsulosin [Flomax] 0.4 mg PO BID 03/02/21 03/15/21 amLODIPine [Norvasc] 10 mg PO DAILY 03/02/21 03/15/21 metFORMIN HCL [Glucophage] 1,000 mg PO QAM 03/02/21 03/15/21 metFORMIN HCL [Glucophage] 500 mg PO HS 03/02/21 03/15/21 Calcium Carbonate [Calcium] 600 mg PO DAILY 03/15/21 03/15/21 Allergies Allergy/AdvReac Type Severity Reaction Status Date / Time cephalexin [From Keflex] AdvReac Diarrhea Verified 03/24/21 13:11 Review of Systems ROS Statement: Those systems with pertinent positive or pertinent negative responses have been documented in the HPI. ROS Other: All systems not noted in ROS Statement are negative. Constitutional: Denies: fever Eyes: Denies: eye pain ENT: Denies: ear pain Respiratory: Denies: cough Cardiovascular: Denies: chest pain Endocrine: Denies: fatigue Gastrointestinal: Denies: abdominal pain Genitourinary: Reports: as per HPI. Denies: dysuria Musculoskeletal: Denies: back pain Skin: Denies: rash Neurological: Denies: weakness Past Medical History Past Medical History: Coronary Artery Disease (CAD), Cancer, Diabetes Mellitus, Hyperlipidemia, Hypertension, Prostate Disorder Additional Past Medical History / Comment(s): PROSTATE CANCER (SEDUM IMPLANTS). RENAL CALCULI,, gout, History of Any Multi-Drug Resistant Organisms: None Reported Past Surgical History: Coronary Bypass/CABG, Heart Catheterization, Hernia Repair, Joint Replacement Additional Past Surgical History / Comment(s): LITHOTRIPSY x 2, triple bypass 08/25/2018, rt knee replacement, elieser inguinal hernia and umbilical hernia repair, Past Anesthesia/Blood Transfusion Reactions: No Reported Reaction Date of Last Stent Placement:: 2004 Past Psychological History: No Psychological Hx Reported Smoking Status: Never smoker Past Alcohol Use History: None Reported Past Drug Use History: None Reported - Past Family History Mother Family Medical History: No Reported History General Exam Limitations: no limitations General appearance: alert, in no apparent distress Head exam: Present: normocephalic Eye exam: Present: normal appearance Neck exam: Present: normal inspection Respiratory exam: Present: normal lung sounds bilaterally Cardiovascular Exam: Present: regular rate, normal rhythm GI/Abdominal exam: Present: soft. Absent: tenderness Back exam: Present: other (Right nephrostomy tube exit site without any fluid collection or abscess. No erythema or tenderness.) Psychiatric exam: Present: normal affect, normal mood Skin exam: Present: normal color Course Vital Signs 03/24/21 13:11 Temperature 97.5 F L Pulse Rate 103 H Respiratory 18 Rate Blood Pressure 109/72 O2 Sat by Pulse 97 Oximetry - Reevaluation(s) Reevaluation #1: 03/24/21 13:36 Case was discussed with Dr. Galvez who states they come and is not available at this time. He does recommend placing some sort of bag around the collection site and follow-up on Friday. 03/24/21 13:56 Attachment was removed and leg bag and tubing was taped to the distal and of the nephrostomy tube. Drainage of urine is occurring. Disposition Clinical Impression: Nephrostomy tube failure with subsequent urine leak Disposition: HOME SELF-CARE Condition: Stable Additional Instructions: Please follow-up with Dr. Williamson Friday as scheduled. Return for pain, fever, worsening or changing symptoms or other concerns. Is patient prescribed a controlled substance at d/c from ED?: No Referrals: Armando Williamson MD [STAFF PHYSICIAN] - 1-2 days Time of Disposition: 13:37
== END 2021-03-24 14:30 | disposition home or self-care (01) ==
LOC: EC 13:09
DX: T83.032A Leakage of nephrostomy catheter, initial encounter (principal); E11.9 Type 2 diabetes mellitus without complications; I10 Essential (primary) hypertension; E78.5 Hyperlipidemia, unspecified; I25.10 Atherosclerotic heart disease of native coronary artery without angina pectoris; M10.9 Gout, unspecified; Z79.82 Long term (current) use of aspirin; Z79.84 Long term (current) use of oral hypoglycemic drugs; Z79.899 Other long term (current) drug therapy; Z88.1 Allergy status to other antibiotic agents; Z95.1 Presence of aortocoronary bypass graft; Z85.46 Personal history of malignant neoplasm of prostate
CPT/HCPCS: 99283

== ENCOUNTER 2021-03-26 10:05 | Emergency (ER) | payer MEDICARE ==
[2021-03-26 10:44] VITALS: BP 103/76; PULSE 101; RESP 20; TEMP 98.3
--- NOTE | 2021-03-26 11:24 | ED ---
Recheck HPI - General Chief Complaint: Recheck/Abnormal Lab/Rx Stated Complaint: R kidney tube infection Time Seen by Provider: 03/26/21 10:56 Source: patient Mode of arrival: ambulatory Limitations: no limitations - History of Present Illness Initial Comments: 71-year-old male with history of prostate cancer and bilateral nephrostomy tubes presents to emergency Department with chief complaint of malfunctioning of the right side. Patient reports these were placed about 3 years ago but he could not called the physician who did it. Patient states he has a visiting nurse to typically comes once to twice per week to change the dressing on the nephrostomy sites. Daughter states she has noticed 1 of the sutures was beginning to be noticeable from nephrostomy site which was never the case before. She has also noticed some discharge from the region as well. States she can see the to moving in and out whenever he is breathing. Patient reports discomfort region. States the tube is otherwise draining well into the bag. - Related Data Home Medications Medication Instructions Recorded Confirmed Aspirin 81 mg PO DAILY 05/06/14 03/26/21 Allopurinol [Zyloprim] 100 mg PO DAILY 03/02/21 03/26/21 Atorvastatin [Lipitor] 80 mg PO HS 03/02/21 03/26/21 Losartan [Cozaar] 25 mg PO HS 03/02/21 03/26/21 Magnesium 250 mg PO BID 03/02/21 03/26/21 Metoprolol Tartrate [Lopressor] 12.5 mg PO BID 03/02/21 03/26/21 Tamsulosin [Flomax] 0.4 mg PO BID 03/02/21 03/26/21 amLODIPine [Norvasc] 10 mg PO DAILY 03/02/21 03/26/21 metFORMIN HCL [Glucophage] 1,000 mg PO DAILY 03/02/21 03/26/21 metFORMIN HCL [Glucophage] 500 mg PO HS 03/02/21 03/26/21 Calcium Carbonate [Calcium] 600 mg PO DAILY 03/15/21 03/26/21 Dexamethasone [Decadron] 8 mg PO DIRECTED 03/26/21 03/26/21 ondansetron HCL [Zofran] 8 mg PO Q6H PRN 03/26/21 03/26/21 Allergies Allergy/AdvReac Type Severity Reaction Status Date / Time cephalexin [From Keflex] AdvReac Diarrhea Verified 03/26/21 10:43 Review of Systems ROS Statement: Those systems with pertinent positive or pertinent negative responses have been documented in the HPI. ROS Other: All systems not noted in ROS Statement are negative. Past Medical History Past Medical History: Coronary Artery Disease (CAD), Cancer, Diabetes Mellitus, Hyperlipidemia, Hypertension, Prostate Disorder Additional Past Medical History / Comment(s): PROSTATE CANCER (SEDUM IMPLANTS). RENAL CALCULI,, gout, History of Any Multi-Drug Resistant Organisms: None Reported Past Surgical History: Coronary Bypass/CABG, Heart Catheterization, Hernia Repair, Joint Replacement Additional Past Surgical History / Comment(s): LITHOTRIPSY x 2, triple bypass , rt knee replacement, elieser inguinal hernia and umbilical hernia repair, Past Anesthesia/Blood Transfusion Reactions: No Reported Reaction Date of Last Stent Placement:: 2004 Past Psychological History: No Psychological Hx Reported Smoking Status: Never smoker Past Alcohol Use History: None Reported Past Drug Use History: None Reported - Past Family History Mother Family Medical History: No Reported History General Exam Limitations: no limitations General appearance: alert, in no apparent distress, obese Head exam: Present: atraumatic, normocephalic, normal inspection Eye exam: Present: normal appearance, PERRL, EOMI Pupils: Present: normal accommodation ENT exam: Present: normal exam, normal oropharynx, mucous membranes moist Neck exam: Present: normal inspection, full ROM. Absent: tenderness, lymphadenopathy Respiratory exam: Present: normal lung sounds bilaterally. Absent: respiratory distress, wheezes, rales, rhonchi, stridor, chest wall tenderness Cardiovascular Exam: Present: regular rate, normal rhythm, normal heart sounds. Absent: systolic murmur GI/Abdominal exam: Present: soft. Absent: distended, tenderness, guarding, rebound Extremities exam: Present: normal inspection, full ROM, normal capillary refill. Absent: tenderness Back exam: Present: full ROM. Absent: normal inspection (Bilateral nephrostomy. Small amount of excoriation near the nephrostomy symptoms no signs of infection. Suture line appears to be not tethered to the skin on the tube.) Neurological exam: Present: alert, oriented X3 Psychiatric exam: Present: normal affect, normal mood Skin exam: Present: warm, dry, intact, normal color Course Vital Signs 03/26/21 10:41 Temperature 98.3 F Pulse Rate 101 H Respiratory 20 Rate Blood Pressure 103/76 O2 Sat by Pulse 98 Oximetry Medical Decision Making - Medical Decision Making 71-year-old male with history of prostate cancer and bilateral nephrostomy tubes presents to emergency Department with chief complaint of malfunctioning of the right side. On physical examination, the urostomy tube appears to be draining well. No signs of infection near the ostomy site. I discussed the case with who states as long as the tube is functioning properly, they can follow up in outpatient basis. Patient requested symptomatic relief. I gave him 2 mg of morphine and discharged with Tylenol 3 starter pack. Return parameters were thoroughly discussed with patient Shane here. Case discussed with Disposition Clinical Impression: Nephrostomy tube displaced Disposition: HOME SELF-CARE Condition: Stable Instructions (If sedation given, give patient instructions): Nephrostomy Tube Care (ED) Additional Instructions: Please return to the Emergency Department if symptoms worsen or any other concerns. Follow-up with your urologist. Is patient prescribed a controlled substance at d/c from ED?: No Referrals: Nonstaff,Physician [Primary Care Provider] - 1-2 days Time of Disposition: 11:55
[2021-03-26] MEDS ORDERED: SODIUM CHLORIDE 0.9% 1,000 ML IV STA (11:30)
[2021-03-26] MEDS ORDERED: MORPHINE SULFATE 2 MG/ML SYRINGE IM ONE (11:53)
[2021-03-26] MEDS ORDERED: ACET/COD 300 MG/30 MG STARTER PACK 6 TAB BTL PO STA (11:53)
== END 2021-03-26 12:14 | disposition home or self-care (01) ==
LOC: EC 10:05
DX: T83.022A Displacement of nephrostomy catheter, initial encounter (principal); E11.9 Type 2 diabetes mellitus without complications; E78.5 Hyperlipidemia, unspecified; I10 Essential (primary) hypertension; I25.10 Atherosclerotic heart disease of native coronary artery without angina pectoris; Z79.82 Long term (current) use of aspirin; Z79.84 Long term (current) use of oral hypoglycemic drugs; Z85.46 Personal history of malignant neoplasm of prostate; Z95.1 Presence of aortocoronary bypass graft
CPT/HCPCS: 99283; 96372; J2270

== ENCOUNTER 2021-03-27 13:27 | Inpatient (IN) | payer MEDICARE ==
[2021-03-27] MEDS ORDERED: ONDANSETRON 4 MG/2 ML VIAL IVP PRN (20:41)
[2021-03-27] MEDS ORDERED: ACETAMINOPHEN TAB 325 MG TAB PO PRN (20:48)
[2021-03-27] MEDS: SODIUM CHLORIDE 0.9% 1,000 ML IV SCH (21:04)
[2021-03-27] MEDS: LOSARTAN 25 MG TAB PO SCH (21:07)
[2021-03-27] MEDS: MAGNESIUM OXIDE 400 MG TAB PO SCH (21:07)
[2021-03-27] MEDS: TAMSULOSIN 0.4 MG CAP.ER.24H PO SCH (21:07)
[2021-03-27] MEDS: ATORVASTATIN 80 MG TAB PO SCH (21:07)
[2021-03-27] MEDS: METOPROLOL TARTRATE 12.5 MG TAB PO SCH (21:07)
[2021-03-27 22:03] LABS: African American GFR (CKD) 61 (>60 ml/min/1.73 sqM); Anion Gap 8 mmol/L; Blood Urea Nitrogen 23 mg/dL (9-20); Calcium 7.7 mg/dL (8.4-10.2); Carbon Dioxide 24 mmol/L (22-30); Chloride 104 mmol/L (98-107); Glucose 143 mg/dL (74-99); Non-African American GFR(CKD) 52 (>60 ml/min/1.73 sqM); Potassium 4.3 mmol/L (3.5-5.1); Sodium 136 mmol/L (137-145)
[2021-03-27 22:16] LABS: Basophils # (A) 0.1 k/uL (0-0.2); Basophils % (A) 1 %; Eosinophils % (A) 0 %; HCT 24.7 % (39.0-53.0); HGB 8.4 gm/dL (13.0-17.5); Lymphocytes # (A) 0.8 k/uL (1.0-4.8); Lymphocytes % (A) 11 %; MCH 29.6 pg (25.0-35.0); MCHC 33.8 g/dL (31.0-37.0); MCV 87.5 fL (80.0-100.0); Mean Platelet Volume 6.6; Monocytes # (A) 0.4 k/uL (0-1.0); Monocytes % (A) 5 %; Neutrophils % (A) 81 %; Platelet Count 265 k/uL (150-450); RBC 2.83 m/uL (4.30-5.90); RDW 13.9 % (11.5-15.5)
[2021-03-27] MEDS ORDERED: MELATONIN 5 MG TABLET PO PRN (22:52)
[2021-03-27] MEDS: HYDROcodone/APAP 5-325MG 1 EACH TAB PO PRN (23:28)
[2021-03-27 23:32] LABS: Appearance,Urine Turbid (Clear); Bacteria,Urine Occasional /hpf; Bilirubin,Urine Negative (Negative); Blood,Urine Large (Negative); Color,Urine Yellow; Glucose,Urine (UA) Negative (Negative); Ketones,Urine Negative (Negative); Leukocyte Esterase,Urine Large (Negative); Nitrite,Urine Negative (Negative); PH, Urine 7.5 (5.0-8.0); Protein,Urine 3+ (Negative); RBC,Urine >182 /hpf (0-5); Specific Gravity,Urine 1.017 (1.001-1.035); Urobilinogen,Urine <2.0 mg/dL (<2.0); WBC,Urine >182 /hpf (0-5)
[2021-03-27 23:44] LABS: Appearance,Urine Cloudy (Clear); Bacteria,Urine Rare /hpf; Bilirubin,Urine Negative (Negative); Blood,Urine Small (Negative); Color,Urine Yellow; Glucose,Urine (UA) Negative (Negative); Ketones,Urine Negative (Negative); Leukocyte Esterase,Urine Moderate (Negative); Mucus,Urine Rare /hpf; Nitrite,Urine Positive (Negative); PH, Urine 5.5 (5.0-8.0); Protein,Urine 1+ (Negative); RBC,Urine 6 /hpf (0-5); Specific Gravity,Urine 1.011 (1.001-1.035); Squamous Epithelial Cell,Urine <1 /hpf (0-4); Urobilinogen,Urine <2.0 mg/dL (<2.0); WBC,Urine 41 /hpf (0-5)
[2021-03-28 00:31] LABS: Band Neutrophils % 23 %; Lymphocytes # (M) 1.08 k/uL (1.0-4.8); Metamyelocytes # (M) 0.07 k/uL (0); Metamyelocytes % 1 %; Monocytes # (M) 0.22 k/uL (0-1.0); Neutrophils % (M) 59 %; Nucleated Red Blood Cells 1 /100 WBC (0-0); Total Cells Counted 200; WBC 7.2 k/uL (3.8-10.6)
[2021-03-28 00:32] LABS: Anisocytosis (M) Present; Polychromasia Present
[2021-03-28 00:33] LABS: Large Platelets Present; Poikilocytosis (M) Present
[2021-03-28 05:45] LABS: HCT 22.9 % (39.0-53.0); HGB 7.8 gm/dL (13.0-17.5); MCH 29.7 pg (25.0-35.0); MCHC 34.1 g/dL (31.0-37.0); MCV 87.2 fL (80.0-100.0); Mean Platelet Volume 7.4; Platelet Count 229 k/uL (150-450); RBC 2.63 m/uL (4.30-5.90); RDW 13.6 % (11.5-15.5)
[2021-03-28 06:03] LABS: African American GFR (CKD) 59 (>60 ml/min/1.73 sqM); Anion Gap 5 mmol/L; Blood Urea Nitrogen 21 mg/dL (9-20); Calcium 7.4 mg/dL (8.4-10.2); Carbon Dioxide 25 mmol/L (22-30); Chloride 107 mmol/L (98-107); Glucose 127 mg/dL (74-99); Non-African American GFR(CKD) 51 (>60 ml/min/1.73 sqM); Potassium 4.1 mmol/L (3.5-5.1); Sodium 137 mmol/L (137-145)
[2021-03-28 07:28] LABS: Anisocytosis (M) Present; Band Neutrophils % 24 %; Eosinophils # (M) 0.08 k/uL (0-0.7); Metamyelocytes # (M) 0.08 k/uL (0); Metamyelocytes % 1 %; Monocytes # (M) 0.24 k/uL (0-1.0); Neutrophils % (M) 54 %; Nucleated Red Blood Cells 2 /100 WBC (0-0); Polychromasia Present; Total Cells Counted 200; WBC 7.9 k/uL (3.8-10.6)
[2021-03-28] MEDS: METOPROLOL TARTRATE 12.5 MG TAB PO SCH ×2 (09:10→21:12)
[2021-03-28] MEDS: MAGNESIUM OXIDE 400 MG TAB PO SCH ×2 (09:10→21:13)
[2021-03-28] MEDS: amLODIPine 10 MG TAB PO SCH (09:10)
[2021-03-28] MEDS: allopurinoL 100 MG TAB PO SCH (09:11)
[2021-03-28] MEDS: ASPIRIN 81 MG PO SCH (09:11)
[2021-03-28] MEDS: TAMSULOSIN 0.4 MG CAP.ER.24H PO SCH ×2 (09:11→21:13)
[2021-03-28] MEDS: CALCIUM CARBONATE 500 MG CHEWABLE PO SCH (09:11)
[2021-03-28] MEDS: SODIUM CHLORIDE 0.9% 1,000 ML IV SCH (09:16)
[2021-03-28 13:24] VITALS: BMI 32.5
[2021-03-28 17:17] LABS: Glucose,Whole Blood 138 mg/dL (75-99)
[2021-03-28] MEDS: HYDROcodone/APAP 5-325MG 1 EACH TAB PO PRN (17:39)
[2021-03-28] MEDS: INSULIN ASPART (NovoLOG) 100 UNIT/ML VIAL SQ SCH ×2 (17:42→21:13)
--- NOTE | 2021-03-28 17:53 | P.HPIM ---
History of Present Illness H&P Date: 03/28/21 Chief Complaint: syncope patient is [id number] male with a known history of hypertension, hyperlipidemia, diabetes type 2 [id number], coronary artery disease with history of CABG, prostate cancer , status post bilateral nephrostomy tube placement initially presented to [facility] status post syncopal episode at home. Patient states that she had an appointment with urology in the clinic around 8 PM yesterday. He was seen by Dr. Williamson and fixed his right nephrostomy tube which is leaking. He went homein the car, while he was stepping into his house, he suddenly feltlightheaded and fell outside the door. Patient states that he has been falling at least 5 times since he was placed onthe nephrostomy tubes.. Patient says that he was seen in the ER 3 timesdue to cloudiness in the urine. He was recommended to follow up in the urology clinic. At [facility] and was found to be febrile and tachycardia. He was started on antibiotics in the form of ceftriaxone for urinary tract infection. He was transferred as a direct admit for further follow-up of nephrostomy leak. patient denied any complaints of nausea or vomiting. Does have decreased oral intake recently. Loss of appetite. No complaints of chest pain or shortness of breath. No leg swelling. No cough or sputum production. Patient says that he has been having urinary incontinence as well. T-max 99.5 on admission Laboratory data showedWBC 7.2, hemoglobin 8.4 and platelets 265 Sodium 136 potassium 4.3, BUN 23 0.35, Urinalysis showedcloudy, nitrite positive, moderate leukocyte esterase and elevated RBCs and WBC counts. Review of Systems Constitutional: Patient denies any fever or chills . No generalized weakness or weight loss. Abdomen: Patient denied nausea vomiting and diarrhea and abdominal pain. Cardiovascular: Patient denies any chest pain or short of breath no palpitations. Respiratory: patient denied any cough or sputum production. No shortness of breath Neurologic: Patient denied any numbness or tingling headache. Musculoskeletal: Patient denies any complaints of joint swelling or deformity. Skin: Negative Psychiatric: Negative Endocrine: No heat or cold intolerance. No recent weight gain. Genitourinary: No dysuria or hematuria. All other 14 point ROS negative except the above Past Medical History Past Medical History: Coronary Artery Disease (CAD), Cancer, Diabetes Mellitus, Hyperlipidemia, Hypertension, Prostate Disorder Additional Past Medical History / Comment(s): PROSTATE CANCER (SEDUM IMPLANTS). RENAL CALCULI,, gout. History of Any Multi-Drug Resistant Organisms: None Reported Past Surgical History: Coronary Bypass/CABG, Heart Catheterization, Hernia Repair, Joint Replacement Additional Past Surgical History / Comment(s): LITHOTRIPSY x 2, triple bypass 08/25/2018, rt knee replacement, elieser inguinal hernia and umbilical hernia repair, Past Anesthesia/Blood Transfusion Reactions: No Reported Reaction Date of Last Stent Placement:: 2004 Past Psychological History: No Psychological Hx Reported Smoking Status: Former smoker, Never smoker Past Alcohol Use History: None Reported Past Drug Use History: None Reported - Past Family History Mother Family Medical History: No Reported History Medications and Allergies Home Medications Medication Instructions Recorded Confirmed Type Aspirin 81 mg PO DAILY 05/06/14 03/27/21 History Allopurinol [Zyloprim] 100 mg PO DAILY 03/02/21 03/27/21 History Atorvastatin [Lipitor] 80 mg PO HS 03/02/21 03/27/21 History Losartan [Cozaar] 25 mg PO HS 03/02/21 03/27/21 History Magnesium 250 mg PO BID 03/02/21 03/27/21 History Metoprolol Tartrate [Lopressor] 12.5 mg PO BID 03/02/21 03/27/21 History Tamsulosin [Flomax] 0.4 mg PO BID 03/02/21 03/27/21 History amLODIPine [Norvasc] 10 mg PO DAILY 03/02/21 03/27/21 History metFORMIN HCL [Glucophage] 1,000 mg PO DAILY 03/02/21 03/27/21 History metFORMIN HCL [Glucophage] 500 mg PO HS 03/02/21 03/27/21 History Calcium Carbonate [Calcium] 600 mg PO DAILY 03/15/21 03/27/21 History Dexamethasone [Decadron] 8 mg PO DIRECTED 03/26/21 03/27/21 History ondansetron HCL [Zofran] 8 mg PO DIRECTED PRN 03/26/21 03/27/21 History Allergies Allergy/AdvReac Type Severity Reaction Status Date / Time cephalexin [From Keflex] AdvReac Diarrhea Verified 03/27/21 19:27 Physical Exam Vitals: Vital Signs Temp Pulse Resp BP Pulse Ox 03/28/21 04:46 97.9 F 73 16 114/70 95 03/27/21 19:40 99.5 F 97 18 142/77 95 Intake and Output 03/27/21 03/28/21 03/28/21 22:59 06:59 14:59 Intake Total 950 Output Total 550 700 Balance 400 -700 Intake: Intake, IV Titration 950 Amount Sodium Chloride 0.9% 1, 900 000 ml @ 75 mls/hr IV . [id number] TATI Rx#:[id number] cefTRIAXone 1 gm In 50 Sodium Chloride 0.9% 50 ml @ 100 mls/hr IVPB Q24HR TATI Rx#:[id number] Output: Drainage 550 700 Left 200 Right 550 500 Other: Weight 109.09 kg 109.09 kg PHYSICAL EXAMINATION: Patient is lying in the bed comfortably, no acute distress, awake alert and oriented.. HEENT: Normocephalic. Neck is supple. Pupils reactive. Nostrils clear. Oral cavity is moist. Ears reveal no drainage. Neck reveals no JVD, carotid bruits, or thyromegaly. CHEST EXAMINATION: Trachea is central. Symmetrical expansion. Lung atkins clear to auscultation and percussion. CARDIAC: Normal S1, S2 with no gallops. No murmurs ABDOMEN: Soft. Bowel sounds normal. No organomegaly. No abdominal bruits. Bilateral nephrostomy tubes in place. Extremities: reveal no edema. No clubbing or cyanosis Neurologically awake, alert, oriented x3 with well-coordinated movements. No focal deficits noted Skin: No rash or skin lesions. Psychiatric: Coperative. Nonsuicidal Musculoskeletal: No joint swelling or deformity. Normal range of motion. Results CBC & Chem 7: 03/28/21 05:21 03/28/21 05:21 Labs: Abnormal Lab Results - Last 24 Hours (Table) 03/27/21 03/27/21 03/27/21 Range/Units 21:30 21:30 22:00 RBC 2.83 L (4.30-5.90) m/uL Hgb 8.4 L (13.0-17.5) gm/dL Hct 24.7 L (39.0-53.0) % Lymphocytes # 0.8 L (1.0-4.8) k/uL Metamyelocytes # (Man) 0.07 H (0) k/uL Nucleated RBCs 1 H (0-0) /100 WBC Sodium 136 L (137-145) mmol/L BUN 23 H (9-20) mg/dL Creatinine 1.35 H (0.66-1.25) mg/dL Glucose 143 H (74-99) mg/dL Calcium 7.7 L (8.4-10.2) mg/dL Urine Protein 3+ H (Negative) Urine Blood Large H (Negative) Ur Leukocyte Esterase Large H (Negative) Urine RBC >182 H (0-5) /hpf Urine WBC >182 H (0-5) /hpf Urine WBC Clumps Many H (None) /hpf Urine Bacteria Occasional H (None) /hpf Urine Mucus (None) /hpf 03/27/21 03/28/21 03/28/21 Range/Units 22:00 05:21 05:21 RBC 2.63 L (4.30-5.90) m/uL Hgb 7.8 L (13.0-17.5) gm/dL Hct 22.9 L (39.0-53.0) % Lymphocytes # (1.0-4.8) k/uL Metamyelocytes # (Man) 0.08 H (0) k/uL Nucleated RBCs 2 H (0-0) /100 WBC Sodium (137-145) mmol/L BUN 21 H (9-20) mg/dL Creatinine 1.39 H (0.66-1.25) mg/dL Glucose 127 H (74-99) mg/dL Calcium 7.4 L (8.4-10.2) mg/dL Urine Protein 1+ H (Negative) Urine Blood Small H (Negative) Ur Leukocyte Esterase Moderate H (Negative) Urine RBC 6 H (0-5) /hpf Urine WBC 41 H (0-5) /hpf Urine WBC Clumps Few H (None) /hpf Urine Bacteria Rare H (None) /hpf Urine Mucus Rare H (None) /hpf Microbiology - Last 24 Hours (Table) 03/27/21 22:00 Urine Culture - Preliminary Urine,Ureter 03/27/21 22:00 Urine Culture - Preliminary Urine,Ureter Thrombosis Risk Factor Assmnt - DVT/VTE Prophylaxis DVT/VTE Prophylaxis: Pharmacologic Prophylaxis ordered - Choose All That Apply Each Factor Represents 1 point: Obesity (BMI >25) Each Risk Factor Represents 2 Points: Age 61-74 years, Malignancy Other congenital or acquired thrombophilia - If yes, enter type in comment: No Thrombosis Risk Factor Assessment Total Risk Factor Score: 5 Thrombosis Risk Factor Assessment Level: High Risk Assessment and Plan Assessment: Acute complicated urinary tract infection with cloudy urine in the right nephrostomy tube. Syncope likely due to volume depletion and possible orthostatic hypotension Acute kidney injury likely prerenal. Hypovolemic hyponatremia Hypertension Hyperlipidemia Diabetes type 2 [id number] Prostate cancer. Plan for chemotherapy Coronary arteries with history of CABG and Previous history of smoking DVT prophylaxis Heparin subcu Plan: Patient will be continued on IV hydration with normal saline. Current ceftriaxone and follow-up urine cultures. Continue with home medications and blood pressure medications with parameters. Orthostatic vitals will be obtained. Monitor renal function. Urology was consulted for possible exchange of nephrostomy tubes. Oncology follow-up. Prognosis is guarded at this time. Time with Patient: Greater than 30
[2021-03-28 20:18] LABS: Glucose,Whole Blood 158 mg/dL (75-99)
[2021-03-28] MEDS: LOSARTAN 25 MG TAB PO SCH (21:13)
[2021-03-28] MEDS: ATORVASTATIN 80 MG TAB PO SCH (21:13)
[2021-03-29] MEDS: SODIUM CHLORIDE 0.9% 1,000 ML IV SCH ×2 (05:44→11:59)
[2021-03-29 05:49] LABS: HGB 7.8 gm/dL (13.0-17.5); MCH 29.8 pg (25.0-35.0); MCHC 34.1 g/dL (31.0-37.0); MCV 87.2 fL (80.0-100.0); Platelet Count 217 k/uL (150-450); RBC 2.64 m/uL (4.30-5.90); RDW 13.9 % (11.5-15.5)
[2021-03-29 06:19] LABS: Band Neutrophils % 17 %; Metamyelocytes # (M) 0.23 k/uL (0); Metamyelocytes % 2 %; Monocytes # (M) 0.23 k/uL (0-1.0); Neutrophils % (M) 72 %; Nucleated Red Blood Cells 1 /100 WBC (0-0); Total Cells Counted 200; WBC 11.4 k/uL (3.8-10.6)
[2021-03-29 06:21] LABS: Ovalocytes Present; Tear Drop Cells Present
[2021-03-29 07:03] LABS: Glucose,Whole Blood 142 mg/dL (75-99)
[2021-03-29] MEDS: TAMSULOSIN 0.4 MG CAP.ER.24H PO SCH (09:01)
[2021-03-29] MEDS: amLODIPine 10 MG TAB PO SCH (09:01)
[2021-03-29] MEDS: allopurinoL 100 MG TAB PO SCH (09:01)
[2021-03-29] MEDS: MAGNESIUM OXIDE 400 MG TAB PO SCH (09:01)
[2021-03-29] MEDS: ASPIRIN 81 MG PO SCH (09:01)
[2021-03-29] MEDS: CALCIUM CARBONATE 500 MG CHEWABLE PO SCH (09:01)
[2021-03-29] MEDS: METOPROLOL TARTRATE 12.5 MG TAB PO SCH (09:01)
[2021-03-29] MEDS: INSULIN ASPART (NovoLOG) 100 UNIT/ML VIAL SQ SCH ×2 (09:07→12:18)
[2021-03-29 09:43] LABS: African American GFR (CKD) 70.1 (60.0-200.0); Anion Gap 7.9 mmol/L (4.00-12.00); BUN/Creat Ratio 14.17 Ratio (12.00-20.00); Calcium 7.6 mg/dL (8.7-10.3); Carbon Dioxide 26.1 mmol/L (21.6-31.8); Non-African American GFR(CKD) 60.5 (60.0-200.0); Potassium 4.2 mmol/L (3.5-5.5)
[2021-03-29 11:41] LABS: Glucose,Whole Blood 131 mg/dL (75-99)
[2021-03-29] MEDS: HYDROcodone/APAP 5-325MG 1 EACH TAB PO PRN ×2 (11:59→17:55)
[2021-03-29 12:06] VITALS: BP 108/68; PULSE 75; RESP 17; TEMP 99
--- NOTE | 2021-03-29 12:52 | XR ---
EXAMINATION TYPE: XR Hip Limited AP view LT, XR femur LT 2 views DATE OF EXAM: 03/29/2021 Comparison: 02/13/2021 Clinical History: 71-year-old male recent fall, left leg pain Combined Findings: Brachytherapy seeds embedded in the prostate gland, partially visualized. The left hip joint appears intact. No displaced fracture on the frontal view. Subtle areas of patchy sclerosis throughout the left femoral shaft and also at the left ischial tuber osity. No acute fracture, subluxation, dislocation. Combined Impression (left hip and femur): No acute osseous abnormality seen. Patchy sclerosis left femoral shaft and left ischial tuberosity. 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
[2021-03-29 17:11] LABS: Glucose,Whole Blood 113 mg/dL (75-99)
--- NOTE | 2021-03-29 22:32 | P.GSCN ---
History of Present Illness Consult date: 03/29/21 Reason for Consult: malfunctioning nephrostomy tube History of present illness: 71 yo male that presented as a tranfer from [facility] with fever, fall and fatigue. He was recently seen in clinic and ED with complaint of leakge from the PCN site, his nephrostomy bag was changed, of note he denied any fever when seen in ED and clinic. Of note he has hx of castrate resistant metastatic prostate cancer, currently on chemotherapy by oncology, he has hx of bilateral hydronephrosis, he underwent a CT which showed evidence of bilateral hydronephrosis, and a 1 cm ureteral stone. He underwent an attempted ureteral stent placement but was unsuccessful secondary to invasion of bladder trigone from marce 10 prostate cancer. He subsquently underwent bilateral PCN placement by IR His creat improved to 1.3 from 1.6 from a baseline of 0.8. Patient had fast progression of his prostate cancer PSA increased to 64 in 02/2021 from 18 in 11/2020. Review of Systems - Constitutional Reports fever, Reports weakness - EENT Ears, nose, mouth and throat: Denies dysphagia - Cardiovascular Denies chest pain, Denies shortness of breath - Respiratory Denies cough, Denies 7 - Gastrointestinal Reports loss of appetite, Denies nausea, Denies vomiting - Genitourinary Denies dysuria, Denies hematuria - Integumentary Denies rash, Denies unusual bruising - Neurological Denies headaches, Denies syncope Past Medical History Past Medical History: Coronary Artery Disease (CAD), Cancer, Diabetes Mellitus, Hyperlipidemia, Hypertension, Prostate Disorder Additional Past Medical History / Comment(s): PROSTATE CANCER (SEDUM IMPLANTS). RENAL CALCULI,, gout. History of Any Multi-Drug Resistant Organisms: None Reported Past Surgical History: Coronary Bypass/CABG, Heart Catheterization, Hernia Repair, Joint Replacement Additional Past Surgical History / Comment(s): LITHOTRIPSY x 2, triple bypass 08/25/2018, rt knee replacement, elieser inguinal hernia and umbilical hernia repair, Past Anesthesia/Blood Transfusion Reactions: No Reported Reaction Date of Last Stent Placement:: 2004 Past Psychological History: No Psychological Hx Reported Smoking Status: Former smoker, Never smoker Past Alcohol Use History: None Reported Past Drug Use History: None Reported - Past Family History Mother Family Medical History: No Reported History Medications and Allergies Home Medications Medication Instructions Recorded Confirmed Type Aspirin 81 mg PO DAILY 05/06/14 03/27/21 History Allopurinol [Zyloprim] 100 mg PO DAILY 03/02/21 03/27/21 History Atorvastatin [Lipitor] 80 mg PO HS 03/02/21 03/27/21 History Losartan [Cozaar] 25 mg PO HS 03/02/21 03/27/21 History Magnesium 250 mg PO BID 03/02/21 03/27/21 History Metoprolol Tartrate [Lopressor] 12.5 mg PO BID 03/02/21 03/27/21 History Tamsulosin [Flomax] 0.4 mg PO BID 03/02/21 03/27/21 History amLODIPine [Norvasc] 10 mg PO DAILY 03/02/21 03/27/21 History metFORMIN HCL [Glucophage] 1,000 mg PO DAILY 03/02/21 03/27/21 History metFORMIN HCL [Glucophage] 500 mg PO HS 03/02/21 03/27/21 History Calcium Carbonate [Calcium] 600 mg PO DAILY 03/15/21 03/27/21 History Dexamethasone [Decadron] 8 mg PO DIRECTED 03/26/21 03/27/21 History ondansetron HCL [Zofran] 8 mg PO DIRECTED PRN 03/26/21 03/27/21 History Cefuroxime Axetil [Ceftin] 500 mg PO BID 7 Days #14 tab 03/29/21 Rx HYDROcodone/APAP 5-325MG [[place] 1 each PO Q6HR PRN 3 Days #12 tab 03/29/21 Rx 5-325] Ibuprofen [Motrin] 400 mg PO Q8HR PRN 7 Days #21 tab 03/29/21 Rx Allergies Allergy/AdvReac Type Severity Reaction Status Date / Time cephalexin [From Keflex] AdvReac Diarrhea Verified 03/27/21 19:27 Surgical - Exam Vital Signs Temp Pulse Resp BP Pulse Ox 99.5 F 97 18 142/77 95 03/27/21 19:40 03/27/21 19:40 03/27/21 19:40 03/27/21 19:40 03/27/21 19:40 - General no distress, no pain - Eyes PERRL, normal ocular movement - Respiratory normal expansion, normal respiratory effort - Genitourinary bilateral PCN site clean, urine clear in PCN bag - Psychiatric oriented to time, oriented to person, oriented to place Results - Labs 03/29/21 05:00 03/29/21 05:00 Abnormal Lab Results - Last 24 Hours (Table) 03/28/21 03/28/21 03/29/21 Range/Units 17:11 19:59 05:00 WBC 11.4 H (3.8-10.6) k/uL RBC 2.64 L (4.30-5.90) m/uL Hgb 7.8 L (13.0-17.5) gm/dL Hct 23.0 L (39.0-53.0) % Neutrophils # (Manual) 10.10 H (1.3-7.7) k/uL Lymphocytes # (Manual) 0.80 L (1.0-4.8) k/uL Metamyelocytes # (Man) 0.23 H (0) k/uL Nucleated RBCs 1 H (0-0) /100 WBC Glucose (70-110) mg/dL POC Glucose (mg/dL) 138 H 158 H (75-99) mg/dL Calcium (8.7-10.3) mg/dL 03/29/21 03/29/21 03/29/21 Range/Units 05:00 06:59 11:39 WBC (3.8-10.6) k/uL RBC (4.30-5.90) m/uL Hgb (13.0-17.5) gm/dL Hct (39.0-53.0) % Neutrophils # (Manual) (1.3-7.7) k/uL Lymphocytes # (Manual) (1.0-4.8) k/uL Metamyelocytes # (Man) (0) k/uL Nucleated RBCs (0-0) /100 WBC Glucose 144 H (70-110) mg/dL POC Glucose (mg/dL) 142 H 131 H (75-99) mg/dL Calcium 7.6 L (8.7-10.3) mg/dL Microbiology - Last 24 Hours (Table) 03/27/21 22:00 Urine Culture - Final Urine,Ureter Diabetes panel 03/29/21 Range/Units 05:00 Sodium 142 (135-145) mmol/L Potassium 4.2 (3.5-5.5) mmol/L Chloride 108 (96-109) mmol/L Carbon Dioxide 26.1 (21.6-31.8) mmol/L BUN 17.0 (9.0-27.0) mg/dL Creatinine 1.2 (0.6-1.5) mg/dL Glucose 144 H (70-110) mg/dL Calcium 7.6 L (8.7-10.3) mg/dL Calcium panel 03/29/21 Range/Units 05:00 Calcium 7.6 L (8.7-10.3) mg/dL Pituitary panel 03/29/21 Range/Units 05:00 Sodium 142 (135-145) mmol/L Potassium 4.2 (3.5-5.5) mmol/L Chloride 108 (96-109) mmol/L Carbon Dioxide 26.1 (21.6-31.8) mmol/L BUN 17.0 (9.0-27.0) mg/dL Creatinine 1.2 (0.6-1.5) mg/dL Glucose 144 H (70-110) mg/dL Calcium 7.6 L (8.7-10.3) mg/dL Adrenal panel 03/29/21 Range/Units 05:00 Sodium 142 (135-145) mmol/L Potassium 4.2 (3.5-5.5) mmol/L Chloride 108 (96-109) mmol/L Carbon Dioxide 26.1 (21.6-31.8) mmol/L BUN 17.0 (9.0-27.0) mg/dL Creatinine 1.2 (0.6-1.5) mg/dL Glucose 144 H (70-110) mg/dL Calcium 7.6 L (8.7-10.3) mg/dL Assessment and Plan Assessment: 71 yo male with 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 Hx of bilateral hydronephrosis secondary to obstruction from invasion of trigone from prostate cancer and 1 cm left ureteral stone. presents with possible UTI, he is been having difficulty managing his PCN. Discussed with him the option of eventually attempting anteograde stents, to address his hydronephrosis and he will need PCNL vs URS after stent placement to address his stone, he declined at this time and wants to seek a second opinion. The PCN are functioning properly, I see no signs of PCN malfunction or infection at PCN site, no indication to exchange at this time. -F/U on urine culture will need antibiotics based on culture susceptibilities once urine culture is confirmed
--- NOTE | 2021-03-30 01:34 | P.CONS ---
History of Present Illness - Reason for Consult Consult date: 03/29/21 Prostate cancer on chemotherapy. Anemia - History of Present Illness This is a 71 yr old WM, pt of Dr Real, who was diagnosed with prostate cancer in August/2005,his pre treatment PSA was 48.3,there was a nodule detected on HAYLEY,biopsies revealed poorly differentiated carcinoma involving all cores. Oncology history is as follows: On 10/16/2005,he was treated with brachytherapy and went on LHRH agonist. Then due to rising PSA he was put back on LHRH agonist in around 2008,his PSA on 10/21/2019 was less than 0.1. On 05/02/2020,PSA was up to 27.0,serum testosterone was 14.0. On 05/12/2020,repeat PSA was 35.2 On 05/26/2020,CT scan of chest/abdomen/pelvis revealed osseous mets,left hydronephrosis. On 05/26/2020,bone scan revealed diffuse osseous metastasis. He was started on xtandi at that time,however,he did not take it regulary due to his copay,but had been on it now since without interruption. he was also started on xgeva by urology. Repeat PSA on 08/29/2020 was 7.8. Repeat PSA on 11/27/2020 was 18.0. On 01/23/2021,PSA was 63.2 On 02/13/2021,bone scan revealed diffuse osseous mets,CT scan of ches t/abdomen/pelvis revealed diffuse osseous mets,no visceral disease,there was a left kidney stone causing hydronephrosis the patient subsequently had bilateral nephrostomy tubes placed treatment 03/12. He was started on chemotherapy with Taxotere on 03/20/21, and is status post 1 cycle. The patient came in this time, as he had had a syncopal episode at home, and when to [facility] from where he was transferred. He states that prior to the syncopal episode, he had had his nephrostomy tube adjusted, as it had been leaking. He reports 4-5 syncopal/near-syncopal episodes since he had the nephrostomy tubes placed. to me, he stated that he has had persistent UTI now for some time. Review of Systems Constitutional: Reports fatigue, Reports weakness Eyes: denies blurred vision, denies pain Ears: deny: decreased hearing, ear discharge, earache, tinnitus Ears, nose, mouth and throat: Denies headache, Denies sore throat Cardiovascular: Reports decreased exercise tolerance Respiratory: Denies cough Gastrointestinal: Reports constipation Genitourinary: Reports as per HPI, Reports hematuria (reports small amounts of blood per urethra.) Musculoskeletal: Reports muscle weakness Integumentary: Denies pruritus, Denies rash Neurological: Reports syncope, Reports weakness Psychiatric: Denies anxiety, Denies depression Endocrine: Reports fatigue Hematologic/Lymphatic: Reports as per HPI Past Medical History Past Medical History: Coronary Artery Disease (CAD), Cancer, Diabetes Mellitus, Hyperlipidemia, Hypertension, Prostate Disorder Additional Past Medical History / Comment(s): PROSTATE CANCER (SEDUM IMPLANTS). RENAL CALCULI,, gout. History of Any Multi-Drug Resistant Organisms: None Reported Past Surgical History: Coronary Bypass/CABG, Heart Catheterization, Hernia Repair, Joint Replacement Additional Past Surgical History / Comment(s): LITHOTRIPSY x 2, triple bypass , rt knee replacement, elieser inguinal hernia and umbilical hernia repair, Past Anesthesia/Blood Transfusion Reactions: No Reported Reaction Date of Last Stent Placement:: 2004 Past Psychological History: No Psychological Hx Reported Smoking Status: Former smoker, Never smoker Past Alcohol Use History: None Reported Past Drug Use History: None Reported - Past Family History Mother Family Medical History: No Reported History Medications and Allergies Home Medications Medication Instructions Recorded Confirmed Type Aspirin 81 mg PO DAILY 05/06/14 03/27/21 History Allopurinol [Zyloprim] 100 mg PO DAILY 03/02/21 03/27/21 History Atorvastatin [Lipitor] 80 mg PO HS 03/02/21 03/27/21 History Losartan [Cozaar] 25 mg PO HS 03/02/21 03/27/21 History Magnesium 250 mg PO BID 03/02/21 03/27/21 History Metoprolol Tartrate [Lopressor] 12.5 mg PO BID 03/02/21 03/27/21 History Tamsulosin [Flomax] 0.4 mg PO BID 03/02/21 03/27/21 History amLODIPine [Norvasc] 10 mg PO DAILY 03/02/21 03/27/21 History metFORMIN HCL [Glucophage] 1,000 mg PO DAILY 03/02/21 03/27/21 History metFORMIN HCL [Glucophage] 500 mg PO HS 03/02/21 03/27/21 History Calcium Carbonate [Calcium] 600 mg PO DAILY 03/15/21 03/27/21 History Dexamethasone [Decadron] 8 mg PO DIRECTED 03/26/21 03/27/21 History ondansetron HCL [Zofran] 8 mg PO DIRECTED PRN 03/26/21 03/27/21 History Cefuroxime Axetil [Ceftin] 500 mg PO BID 7 Days #14 tab 03/29/21 Rx HYDROcodone/APAP 5-325MG [[place] 1 each PO Q6HR PRN 3 Days #12 tab 03/29/21 Rx 5-325] Ibuprofen [Motrin] 400 mg PO Q8HR PRN 7 Days #21 tab 03/29/21 Rx Allergies Allergy/AdvReac Type Severity Reaction Status Date / Time cephalexin [From Keflex] AdvReac Diarrhea Verified 03/27/21 19:27 Physical Exam Vitals: Vital Signs Temp Pulse Resp BP Pulse Ox 03/29/21 12:06 99 F 75 17 108/68 96 03/29/21 04:45 98.2 F 77 16 121/74 94 L 03/28/21 19:53 99.2 F 80 16 111/67 96 Intake and Output 03/29/21 03/29/21 03/29/21 06:59 14:59 22:59 Output Total 1400 975 300 Balance -1400 -975 -300 Output: Drainage 800 975 300 Left 200 125 Right 600 850 300 Urine 600 Other: Voiding Method Ileal Conduit (Right) Ileal Conduit (Left) - Constitutional General appearance: no acute distress - EENT Eyes: EOMI, PERRLA ENT: hearing grossly normal, normal oropharynx - Neck Neck: no lymphadenopathy Thyroid: bilateral: normal size - Respiratory Respiratory: bilateral: CTA - Cardiovascular Rhythm: regular Heart sounds: normal: S1, S2 - Gastrointestinal General gastrointestinal: normal bowel sounds, soft - Genitourinary b/l nephrostomy tubes with somewhat cloudy urine - Integumentary Integumentary: normal - Neurologic Neurologic: CNII-XII intact - Musculoskeletal Musculoskeletal: generalized weakness, strength equal bilaterally - Psychiatric Psychiatric: A&O x's 3, appropriate affect Results CBC & Chem 7: 03/29/21 05:00 03/29/21 05:00 Labs: Abnormal Lab Results - Last 24 Hours (Table) 03/28/21 03/29/21 03/29/21 Range/Units 19:59 05:00 05:00 WBC 11.4 H (3.8-10.6) k/uL RBC 2.64 L (4.30-5.90) m/uL Hgb 7.8 L (13.0-17.5) gm/dL Hct 23.0 L (39.0-53.0) % Neutrophils # (Manual) 10.10 H (1.3-7.7) k/uL Lymphocytes # (Manual) 0.80 L (1.0-4.8) k/uL Metamyelocytes # (Man) 0.23 H (0) k/uL Nucleated RBCs 1 H (0-0) /100 WBC Glucose 144 H (70-110) mg/dL POC Glucose (mg/dL) 158 H (75-99) mg/dL Calcium 7.6 L (8.7-10.3) mg/dL 03/29/21 03/29/21 03/29/21 Range/Units 06:59 11:39 17:09 WBC (3.8-10.6) k/uL RBC (4.30-5.90) m/uL Hgb (13.0-17.5) gm/dL Hct (39.0-53.0) % Neutrophils # (Manual) (1.3-7.7) k/uL Lymphocytes # (Manual) (1.0-4.8) k/uL Metamyelocytes # (Man) (0) k/uL Nucleated RBCs (0-0) /100 WBC Glucose (70-110) mg/dL POC Glucose (mg/dL) 142 H 131 H 113 H (75-99) mg/dL Calcium (8.7-10.3) mg/dL Microbiology - Last 24 Hours (Table) 03/27/21 22:00 Urine Culture - Preliminary Urine,Ureter Presumptive Staph aureus 03/27/21 22:00 Urine Culture - Final Urine,Ureter Comments: left hip/femur x-ray report reviewed Assessment and Plan (1) Nephrostomy tube failure with subsequent urine leak Narrative/Plan: the patient had adjustment of tubes earlier in the day, and then developed a syncopal episode. He seems to attribute his syncopal episodes to the placement of the nephrostomy tubes. He was advised that this is highly unlikely. The patient does have abnormal urinalysis and may have a UTI. He states that he has been told that he has a chronic UTI. He was advised that this, and/or chemotherapy effect is much more likely the cause of of his weakness and syncopal episodes. - Urology has been consulted. Defer to them for management of nephrostomies. Status: Acute Code(s): N99.522 - MALFUNCTION OF INCONTINENT EXTERNAL STOMA OF URINARY TRACT SNOMED Code(s): 923929731 (2) Metastatic castration-resistant adenocarcinoma of prostate Narrative/Plan: diagnostic and therapeutic circumstances as described. The patient has has been started on chemotherapy. he denied any specific subjective side effects related to the chemotherapy directly. It is certainly possible that some of his weakness could be chemotherapy related. - Patient stated that at this time wanted to hold off on resuming chemotherapy detail his UTI is cleared. He was advised to follow-up with Dr. Gastelum as an outpatient to discuss the same Status: Acute Code(s): C61 - MALIGNANT NEOPLASM OF PROSTATE; Z19.2 - HORMONE RESISTANT MALIGNANCY STATUS SNOMED Code(s): 956602094 (3) Anemia Narrative/Plan: the patient did have anemia even prior to starting chemotherapy, with a hemoglobin of 9.8 in the office. This is felt to be hypoproliferative anemia likely due to metastatic malignancy. Further drop could be due to chemotherapy. As the patient's UA is abnormal, anemia of inflammation could also be a component. - Globin is in a safe range. Continue to monitor and transfuse for less than 7. - iron studies to rule out any component of blood loss Status: Acute Code(s): D64.9 - ANEMIA, UNSPECIFIED SNOMED Code(s): 083618880 Plan: due to admitting service and urology for treatment of possible UTI.
--- NOTE | 2021-03-30 16:00 | P.DS ---
Providers Date of admission: 03/27/21 18:44 Expected date of discharge: 03/29/21 Attending physician: Shayy Arguello Consults: 03/28/21 10:48 Consult Physician Routine Consulting Provider: Monica Gastelum Consult Reason/Comments: prostate CA, pt known Do you want consulting provider notified?: Yes Consult Physician Routine Consulting Provider: Armando Williamson Consult Reason/Comments: UTI, elieser. nephrostomy tube, pt known Do you want consulting provider notified?: Yes Primary care physician: Stated None Hospital Course: Discharge diagnosis Acute complicated urinary tract infection with cloudy urine in the right nephrostomy tube. Syncope likely due to volume depletion and possible orthostatic hypotension Acute kidney injury likely prerenal. Improved. Hypovolemic hyponatremia Hypertension Hyperlipidemia Diabetes type 2 [id number] Prostate cancer. Plan for chemotherapy Coronary arteries with history of CABG and Previous history of smoking DVT prophylaxis Heparin subcu Hospital course patient is [id number] male with a known history of hypertension, hyperlipidemia, diabetes type 2 [id number], coronary artery disease with history of CABG, prostate cancer , status post bilateral nephrostomy tube placement initially presented to [facility] status post syncopal episode at home. Patient states that she had an appointment with urology in the clinic around 8 PM yesterday. He was seen by Dr. Williamson and fixed his right nephrostomy tube which is leaking. He went homein the car, while he was stepping into his house, he suddenly feltlightheaded and fell outside the door. Patient states that he has been falling at least 5 times since he was placed onthe nephrostomy tubes.. Patient says that he was seen in the ER 3 timesdue to cloudiness in the urine. He was recommended to follow up in the urology clinic. At [facility] and was found to be febrile and tachycardia. He was started on antibiotics in the form of ceftriaxone for urinary tract infection. He was transferred as a direct admit for further follow-up of nephrostomy leak. patient denied any complaints of nausea or vomiting. Does have decreased oral intake recently. Loss of appetite. No complaints of chest pain or shortness of breath. No leg swelling. No cough or sputum production. Patient says that he has been having urinary incontinence as well. T-max 99.5 on admission Laboratory data showedWBC 7.2, hemoglobin 8.4 and platelets 265 Sodium 136 potassium 4.3, BUN 23 0.35, Urinalysis showedcloudy, nitrite positive, moderate leukocyte esterase and elevated RBCs and WBC counts. 03/29/2021 Patient is resting in the bed comfortably. Awake alert and oriented 3. Patient was seen by urology and recommends to continue percutaneous nephrostomy tubes at this time. No leakage noted. Patient activated his syncopal episode to his nephrostomy tubes. Patient would like second opinion regarding x-rays of tubes. Patient also was seen by oncology and off for chemotherapy. Patient would like to wait until the infection clears and does not want to be started at this time. hemoglobin is 7.8 and is stable. Renal function normalized. Urine culture showed staph aureus species. MSSA. The patient will be continued on oral antibiotic course. Patient was advised to follow with primary care physician and oncology and urology as an outpatient. Patient is able to ambulating the bathroom without any dizziness. Patient was discharged home today in stable condition. PHYSICAL EXAMINATION: Patient is lying in the bed comfortably, no acute distress, awake alert and oriented.. HEENT: Normocephalic. Neck is supple. Pupils reactive. Nostrils clear. Oral cavity is moist. Ears reveal no drainage. Neck reveals no JVD, carotid bruits, or thyromegaly. CHEST EXAMINATION: Trachea is central. Symmetrical expansion. Lung atkins clear to auscultation and percussion. CARDIAC: Normal S1, S2 with no gallops. No murmurs ABDOMEN: Soft. Bowel sounds normal. No organomegaly. No abdominal bruits. Bilateral nephrostomy tubes in place. Extremities: reveal no edema. No clubbing or cyanosis Neurologically awake, alert, oriented x3 with well-coordinated movements. No focal deficits noted Skin: No rash or skin lesions. Psychiatric: Coperative. Nonsuicidal Musculoskeletal: No joint swelling or deformity. Normal range of motion. Vitals: Vital Signs Temp Pulse Resp BP Pulse Ox 03/29/21 12:06 99 F 75 17 108/68 96 03/29/21 04:45 98.2 F 77 16 121/74 94 L 03/28/21 19:53 99.2 F 80 16 111/67 96 Intake and Output 03/29/21 03/29/21 03/29/21 06:59 14:59 22:59 Output Total 1400 975 300 Balance -1400 -975 -300 Output: Drainage 800 975 300 Left 200 125 Right 600 850 300 Urine 600 Other: Voiding Method Ileal Conduit (Right) Ileal Conduit (Left) Total time taken greater than 35 minutes including 18 minutes for counseling and coordination of care. Patient Condition at Discharge: Stable Plan - Discharge Summary Discharge Rx Participant: Yes New Discharge Prescriptions: New Ibuprofen [Motrin] 400 mg PO Q8HR PRN 7 Days #21 tab PRN Reason: Pain Cefuroxime Axetil [Ceftin] 500 mg PO BID 7 Days #14 tab HYDROcodone/APAP 5-325MG [[place] 5-325] 1 each PO Q6HR PRN 3 Days #12 tab PRN Reason: Pain Continue Aspirin 81 mg PO DAILY Atorvastatin [Lipitor] 80 mg PO HS amLODIPine [Norvasc] 10 mg PO DAILY Losartan [Cozaar] 25 mg PO HS Tamsulosin [Flomax] 0.4 mg PO BID Metoprolol Tartrate [Lopressor] 12.5 mg PO BID Allopurinol [Zyloprim] 100 mg PO DAILY metFORMIN HCL [Glucophage] 500 mg PO HS metFORMIN HCL [Glucophage] 1,000 mg PO DAILY Magnesium 250 mg PO BID Calcium Carbonate [Calcium] 600 mg PO DAILY ondansetron HCL [Zofran] 8 mg PO DIRECTED PRN PRN Reason: Nausea Dexamethasone [Decadron] 8 mg PO DIRECTED Discharge Medication List Aspirin 81 mg PO DAILY 05/06/14 [History] Allopurinol [Zyloprim] 100 mg PO DAILY 03/02/21 [History] Atorvastatin [Lipitor] 80 mg PO HS 03/02/21 [History] Losartan [Cozaar] 25 mg PO HS 03/02/21 [History] Magnesium 250 mg PO BID 03/02/21 [History] Metoprolol Tartrate [Lopressor] 12.5 mg PO BID 03/02/21 [History] Tamsulosin [Flomax] 0.4 mg PO BID 03/02/21 [History] amLODIPine [Norvasc] 10 mg PO DAILY 03/02/21 [History] metFORMIN HCL [Glucophage] 1,000 mg PO DAILY 03/02/21 [History] metFORMIN HCL [Glucophage] 500 mg PO HS 03/02/21 [History] Calcium Carbonate [Calcium] 600 mg PO DAILY 03/15/21 [History] Dexamethasone [Decadron] 8 mg PO DIRECTED 03/26/21 [History] ondansetron HCL [Zofran] 8 mg PO DIRECTED PRN 03/26/21 [History] Cefuroxime Axetil [Ceftin] 500 mg PO BID 7 Days #14 tab 03/29/21 [Rx] HYDROcodone/APAP 5-325MG [[place] 5-325] 1 each PO Q6HR PRN 3 Days #12 tab 03/29/21 [Rx] Ibuprofen [Motrin] 400 mg PO Q8HR PRN 7 Days #21 tab 03/29/21 [Rx] Follow up Appointment(s)/Referral(s): Armando Williamson MD [STAFF PHYSICIAN] - 1 Week Monica Gastelum MD [STAFF PHYSICIAN] - 1 Week Patient Instructions/Handouts: Cefuroxime (By mouth), Hydrocodone/Acetaminophen (By mouth), Ibuprofen (By mouth), Urinary Tract Infection in Men (DC), Nephrostomy Tube Care (DC) Discharge Disposition: HOME WITH HOME HEALTH SERVICES
== END 2021-03-29 18:53 | disposition home health service (06) | DRG 690 ==
LOC: 5NMEDONC 18:44
PROVIDERS: ADMIT Internal Medicine; ATTEND Internal Medicine
DX: N39.0 Urinary tract infection, site not specified (principal); N17.9 Acute kidney failure, unspecified; E87.1 Hypo-osmolality and hyponatremia; C79.51 Secondary malignant neoplasm of bone; E86.1 Hypovolemia; I10 Essential (primary) hypertension; E78.5 Hyperlipidemia, unspecified; B95.61 Methicillin susceptible Staphylococcus aureus infection as the cause of diseases classified elsewhere; D64.89 Other specified anemias; C61 Malignant neoplasm of prostate; I25.10 Atherosclerotic heart disease of native coronary artery without angina pectoris; E11.9 Type 2 diabetes mellitus without complications; M10.9 Gout, unspecified; Z87.891 Personal history of nicotine dependence; Z95.1 Presence of aortocoronary bypass graft; Z79.82 Long term (current) use of aspirin; Z87.442 Personal history of urinary calculi; Z79.899 Other long term (current) drug therapy; Z79.84 Long term (current) use of oral hypoglycemic drugs; Z93.6 Other artificial openings of urinary tract status; Z96.651 Presence of right artificial knee joint
CPT/HCPCS: 73501; 80048; 81001; 85025; 87077; 87086; 87186

== ENCOUNTER → 2021-04-03 | Outpatient (CLI) | payer MEDICARE ==
--- NOTE | 2021-04-03 13:06 | US ---
EXAMINATION TYPE: US venous doppler duplex LE LT DATE OF EXAM: 04/03/2021 12:49 PM COMPARISON: NONE CLINICAL HISTORY: M79.662 Lower left Limb pain R22.42 Swelling. Patient has left lateral thigh pain s manuel fall last Friday. SIDE PERFORMED: Left TECHNIQUE: The lower extremity deep venous system is examined utilizing real time linear array sonog alvin with graded compression, doppler sonography and color-flow sonography. VESSELS IMAGED: Common Femoral Vein Deep Femoral Vein Greater Saphenous Vein * Femoral Vein Popliteal Vein Proximal Calf Veins (* superficial vessels) Left Leg: Negative for acute DVT. Intimal wall thickening is noted in Left Upper Femoral Vein at evan ves suggesting stuck valves. No fluid is seen left lateral thigh at area of pain. IMPRESSION: Negative for acute DVT. Intimal wall thickening is noted in Left Upper Femoral Vein at v espinoza suggesting stuck valves. No fluid is seen left lateral thigh at area of pain.
== END | disposition home or self-care (01) ==
LOC: RADUSWWP 12:23
PROVIDERS: ATTEND Internal Medicine Hematology & Oncology
DX: S89.92XA Unspecified injury of left lower leg, initial encounter (principal)

== ENCOUNTER 2021-04-12 22:06 | Inpatient (IN) | payer MEDICARE ==
--- NOTE | 2021-04-12 22:32 | ED ---
Male Urogenital HPI - General Chief complaint: Urogenital Stated complaint: UTI Time Seen by Provider: 04/12/21 22:08 Source: patient, RN notes reviewed, old records reviewed Mode of arrival: ambulatory Limitations: no limitations - History of Present Illness Initial comments: This is a 71-year-old male to the ER for evaluation. Patient accepted in [facility], patient does follow-up with urology. This hospital patient does have bilateral nephrostomy tubes, coming in with or prior hospital call urinary tract infection and sepsis. Patient believes he has never completely got better from prior urinary tract infection. At this time is no significant complaints MD Complaint: dysuria, other (At other hospital patient chills weakness and fever) -: hour(s) Radiation: none Severity: moderate Severity scale (1-10): 6 Consistency: constant Improves with: none Worsens with: urination new medication (Recently off antibiotics) Reports: fever - Related Data Home Medications Medication Instructions Recorded Confirmed Aspirin 81 mg PO DAILY 05/06/14 03/27/21 Allopurinol [Zyloprim] 100 mg PO DAILY 03/02/21 03/27/21 Atorvastatin [Lipitor] 80 mg PO HS 03/02/21 03/27/21 Losartan [Cozaar] 25 mg PO HS 03/02/21 03/27/21 Magnesium 250 mg PO BID 03/02/21 03/27/21 Metoprolol Tartrate [Lopressor] 12.5 mg PO BID 03/02/21 03/27/21 Tamsulosin [Flomax] 0.4 mg PO BID 03/02/21 03/27/21 amLODIPine [Norvasc] 10 mg PO DAILY 03/02/21 03/27/21 metFORMIN HCL [Glucophage] 1,000 mg PO DAILY 03/02/21 03/27/21 metFORMIN HCL [Glucophage] 500 mg PO HS 03/02/21 03/27/21 Calcium Carbonate [Calcium] 600 mg PO DAILY 03/15/21 03/27/21 Dexamethasone [Decadron] 8 mg PO DIRECTED 03/26/21 03/27/21 ondansetron HCL [Zofran] 8 mg PO DIRECTED PRN 03/26/21 03/27/21 Previous Rx's Medication Instructions Recorded Cefuroxime Axetil [Ceftin] 500 mg PO BID 7 Days #14 tab 03/29/21 HYDROcodone/APAP 5-325MG [[place] 1 each PO Q6HR PRN 3 Days #12 tab 03/29/21 5-325] Ibuprofen [Motrin] 400 mg PO Q8HR PRN 7 Days #21 tab 03/29/21 Allergies Allergy/AdvReac Type Severity Reaction Status Date / Time cephalexin [From Keflex] AdvReac Diarrhea Verified 04/12/21 22:26 Review of Systems ROS Statement: Those systems with pertinent positive or pertinent negative responses have been documented in the HPI. ROS Other: All systems not noted in ROS Statement are negative. Past Medical History Past Medical History: Coronary Artery Disease (CAD), Cancer, Diabetes Mellitus, Hyperlipidemia, Hypertension, Prostate Disorder Additional Past Medical History / Comment(s): PROSTATE CANCER (SEDUM IMPLANTS). RENAL CALCULI,, gout. History of Any Multi-Drug Resistant Organisms: None Reported Past Surgical History: Coronary Bypass/CABG, Heart Catheterization, Hernia Repair, Joint Replacement Additional Past Surgical History / Comment(s): LITHOTRIPSY x 2, triple bypass 08/25/2018, rt knee replacement, elieser inguinal hernia and umbilical hernia repair, Past Anesthesia/Blood Transfusion Reactions: No Reported Reaction Date of Last Stent Placement:: 2004 Past Psychological History: No Psychological Hx Reported Smoking Status: Former smoker, Never smoker Past Alcohol Use History: None Reported Past Drug Use History: None Reported - Past Family History Mother Family Medical History: No Reported History General Exam Limitations: no limitations General appearance: alert, in no apparent distress Head exam: Present: atraumatic, normocephalic, normal inspection Eye exam: Present: normal appearance, PERRL, EOMI. Absent: scleral icterus, conjunctival injection, periorbital swelling ENT exam: Present: normal exam, mucous membranes moist Neck exam: Present: normal inspection. Absent: tenderness, meningismus, lymphadenopathy Respiratory exam: Present: normal lung sounds bilaterally. Absent: respiratory distress, wheezes, rales, rhonchi, stridor Cardiovascular Exam: Present: regular rate, normal rhythm, normal heart sounds. Absent: systolic murmur, diastolic murmur, rubs, gallop, clicks GI/Abdominal exam: Present: soft, normal bowel sounds. Absent: distended, tenderness, guarding, rebound, rigid Extremities exam: Present: normal inspection, full ROM, normal capillary refill. Absent: tenderness, pedal edema, joint swelling, calf tenderness Back exam: Present: normal inspection Neurological exam: Present: alert, oriented X3, CN II-XII intact Psychiatric exam: Present: normal affect, normal mood Skin exam: Present: warm, dry, intact, normal color. Absent: rash Course Vital Signs 04/12/21 22:15 Temperature 99.4 F Pulse Rate 94 Respiratory 18 Rate Blood Pressure 101/70 O2 Sat by Pulse 97 Oximetry - Reevaluation(s) Reevaluation #1: 04/12/21 23:08 Medical records reviewed Reevaluation #2: 04/12/21 23:08 Transferring paperwork is reviewed Reevaluation #3: 04/12/21 23:08 Patient informed results and questions answered Medical Decision Making - Medical Decision Making 71 male to the ER for evaluation has bilateral nephrostomy tubes, patient will be admitted for IV antibiotics secondary to urinary tract infection. Urology will be consult as they do follow with this patient Disposition Clinical Impression: UTI (urinary tract infection), Fever Disposition: ADMITTED IP TO THIS HOSP Condition: Good Is patient prescribed a controlled substance at d/c from ED?: No Referrals: Dayne Taylor DO [Primary Care Provider] - 1-2 days
[2021-04-12] MEDS ORDERED: MORPHINE SULFATE 4 MG/ML SYRINGE IV PRN (23:02)
[2021-04-12] MEDS ORDERED: NALOXONE 0.4 MG/ML 1 ML VIAL IV PRN (23:02)
[2021-04-12] MEDS ORDERED: ONDANSETRON 4 MG/2 ML VIAL IVP PRN (23:02)
[2021-04-12] MEDS ORDERED: PIPERACILLIN-TAZOBACTAM 3.375 GM in SODIUM CHLORIDE 0.9% 100 ML IVPB ONE (23:15)
[2021-04-13] MEDS: PIPERACILLIN-TAZOBACTAM 3.375 GM in SODIUM CHLORIDE 0.9% 100 ML IVPB SCH ×4 (00:01→23:19)
[2021-04-13] MEDS ORDERED: ACETAMINOPHEN TAB 500 MG TAB PO PRN (02:09)
[2021-04-13] MEDS ORDERED: IBUPROFEN 400 MG TAB PO PRN (02:11)
[2021-04-13 08:19] LABS: Anisocytosis Slight; Basophils % (A) 0 %; Eosinophils # (A) 0.1 k/uL (0-0.7); Eosinophils % (A) 1 %; HCT 21.6 % (39.0-53.0); Hypochromasia Slight; Lymphocytes # (A) 0.8 k/uL (1.0-4.8); Lymphocytes % (A) 8 %; MCH 30.2 pg (25.0-35.0); MCHC 32.2 g/dL (31.0-37.0); Mean Platelet Volume 7.2; Monocytes # (A) 0.3 k/uL (0-1.0); Monocytes % (A) 3 %; Neutrophils # (A) 9.3 k/uL (1.3-7.7); Neutrophils % (A) 88 %; Platelet Count 206 k/uL (150-450); WBC 10.6 k/uL (3.8-10.6)
[2021-04-13 08:20] LABS: MCV 93.8 fL (80.0-100.0)
[2021-04-13 08:26] LABS: Calcium 7.9 mg/dL (8.4-10.2); Magnesium 1.8 mg/dL (1.6-2.3); Phosphorus 3.4 mg/dL (2.5-4.5); Potassium 4.1 mmol/L (3.5-5.1); Total Bilirubin 0.6 mg/dL (0.2-1.3); Total Protein 5.8 g/dL (6.3-8.2)
[2021-04-13 08:53] LABS: Glucose,Whole Blood 200 mg/dL (75-99)
[2021-04-13] MEDS: INSULIN ASPART (NovoLOG) 100 UNIT/ML VIAL SQ SCH ×4 (09:34→20:27)
[2021-04-13 11:38] LABS: Glucose,Whole Blood 127 mg/dL (75-99)
[2021-04-13] MEDS ORDERED: ONDANSETRON 4 MG TAB PO PRN (11:46)
[2021-04-13] MEDS ORDERED: HYDROcodone/APAP 5-325MG 1 EACH TAB PO PRN (11:46)
--- NOTE | 2021-04-13 11:54 | P.HPIM ---
History of Present Illness 71-year-old male appears to have been transferred from outside hospital when he present today with fever and chills patient is having chills which started yesterday. Patient does have bilateral nephrostomy tubes patient was admitted with UTI do not have any available here did not have any chest x-ray is not available either. Patient was started on Zosyn. Patient nephrostomy chills were placed about a month ago. Patient does have history of prostate cancer appears to have been receiving chemotherapy for that patient has been following with urology for this prostate cancer. Patient is also found in acute renal failure with a creatinine of 1.25 to and his baseline was 1.2. Patient is fairly functional uses a walker when he is outside the house. REVIEW OF SYSTEMS: CONSTITUTIONAL: As mentioned in interval history HEENT: No recent visual problems or hearing problems. Denied any sore throat. CARDIOVASCULAR: No chest pain, orthopnea, PND, no palpitations, no syncope. PULMONARY: No shortness of breath, no cough, no hemoptysis. GASTROINTESTINAL: No diarrhea, no nausea, no vomiting, no abdominal pain. NEUROLOGICAL: No headaches, no weakness, no numbness. HEMATOLOGICAL: Denies any bleeding or petechiae. GENITOURINARY: Denies any burning micturition, frequency, or urgency. MUSCULOSKELETAL/RHEUMATOLOGICAL: Denies any joint pain, swelling, or any muscle pain. ENDOCRINE: Denies any polyuria or polydipsia. The rest of the 14-point review of systems is negative. PHYSICAL EXAMINATION: GENERAL: The patient is alert and oriented x3, not in any acute distress. Well developed, well nourished. HEENT: Pupils are round and equally reacting to light. EOMI. No scleral icterus. No conjunctival pallor. Normocephalic, atraumatic. No pharyngeal erythema. No thyromegaly. CARDIOVASCULAR: S1 and S2 present. No murmurs, rubs, or gallops. PULMONARY: Chest is clear to auscultation, no wheezing or crackles. ABDOMEN: Soft, nontender, nondistended, normoactive bowel sounds. No palpable organomegaly. And has bilateral nephrostomy tubes in place MUSCULOSKELETAL: No joint swelling or deformity. EXTREMITIES: No cyanosis, clubbing, or pedal edema. NEUROLOGICAL: Gross neurological examination did not reveal any focal deficits. As have generalized weakness and the muscle atrophy SKIN: No rashes. Assessment and plan -Sepsis: Possibility of urinary tract infection will also obtain a chest x-ray patient has been asked bilateral nephrostomy tubes, urology was consulted awaiting urine cultures and blood cultures -Acute renal failure prerenal azotemia/acute tubular necrosis may be related to sepsis patient is on losartan which will be held patient is bit hypotensive x- ray and have an hypertension patient is bit hypotensive possibly because of sepsis will temporally hold off on antidepressant medications at except for metoprolol -Diabetes mellitus: Hold off on metformin because of acute renal failure -Hyperlipidemia Hypertension #Coronary artery disease -Prostate cancer for which patient is actually receiving chemotherapy DVT prophylaxis: The cutaneous heparin Past Medical History Past Medical History: Coronary Artery Disease (CAD), Cancer, Diabetes Mellitus, Hyperlipidemia, Hypertension, Prostate Disorder Additional Past Medical History / Comment(s): PROSTATE CANCER (SEDUM IMPLANTS). RENAL CALCULI,, gout. History of Any Multi-Drug Resistant Organisms: None Reported Past Surgical History: Coronary Bypass/CABG, Heart Catheterization, Hernia Repair, Joint Replacement Additional Past Surgical History / Comment(s): LITHOTRIPSY x 2, triple bypass , rt knee replacement, elieser inguinal hernia and umbilical hernia repair, Past Anesthesia/Blood Transfusion Reactions: No Reported Reaction Date of Last Stent Placement:: 2004 Past Psychological History: No Psychological Hx Reported Smoking Status: Never smoker Past Alcohol Use History: None Reported Past Drug Use History: None Reported - Past Family History Mother Family Medical History: No Reported History Medications and Allergies Home Medications Medication Instructions Recorded Confirmed Type Aspirin 81 mg PO DAILY 05/06/14 04/13/21 History Allopurinol [Zyloprim] 100 mg PO DAILY 03/02/21 04/13/21 History Atorvastatin [Lipitor] 80 mg PO HS 03/02/21 04/13/21 History Losartan [Cozaar] 25 mg PO HS 03/02/21 04/13/21 History Magnesium 250 mg PO BID 03/02/21 04/13/21 History Metoprolol Tartrate [Lopressor] 12.5 mg PO BID 03/02/21 04/13/21 History Tamsulosin [Flomax] 0.4 mg PO BID 03/02/21 04/13/21 History amLODIPine [Norvasc] 10 mg PO DAILY 03/02/21 04/13/21 History metFORMIN HCL [Glucophage] 1,000 mg PO DAILY 03/02/21 04/13/21 History metFORMIN HCL [Glucophage] 500 mg PO HS 03/02/21 04/13/21 History Calcium Carbonate [Calcium] 600 mg PO DAILY 03/15/21 04/13/21 History Dexamethasone [Decadron] 8 mg PO DIRECTED 03/26/21 04/13/21 History ondansetron HCL [Zofran] 8 mg PO BID PRN 03/26/21 04/13/21 History Ibuprofen [Motrin] 400 mg PO Q8HR PRN 7 Days #21 tab 03/29/21 04/13/21 Rx HYDROcodone/APAP 5-325MG [[place] 1 tab PO Q6HR PRN 04/13/21 04/13/21 History 5-325] Allergies Allergy/AdvReac Type Severity Reaction Status Date / Time cephalexin [From Keflex] AdvReac Diarrhea Verified 04/13/21 09:38 Physical Exam Vitals: Vital Signs Temp Pulse Pulse Resp BP BP Pulse Ox 04/13/21 07:39 98.6 F 79 16 103/70 97 04/13/21 04:24 99.6 F 87 16 104/61 96 04/13/21 02:15 100.6 F H 04/13/21 00:20 99.6 F 107 H 16 115/68 94 L 04/13/21 00:12 99.0 F 92 16 108/78 98 04/12/21 22:15 99.4 F 94 18 101/70 97 Intake and Output 04/12/21 04/13/21 04/13/21 22:59 06:59 14:59 Output Total 400 Balance -400 Output: Drainage 400 Left 100 Right 300 Other: Voiding Method Toilet Weight 108.862 kg 108.862 kg Results CBC & Chem 7: 04/13/21 07:26 04/13/21 07:26 Labs: Abnormal Lab Results - Last 24 Hours (Table) 04/13/21 04/13/21 04/13/21 Range/Units 07:26 07:26 08:51 RBC 2.30 L (4.30-5.90) m/uL Hgb 7.0 L (13.0-17.5) gm/dL Hct 21.6 L (39.0-53.0) % RDW 17.0 H (11.5-15.5) % Neutrophils # 9.3 H (1.3-7.7) k/uL Lymphocytes # 0.8 L (1.0-4.8) k/uL Chloride 109 H (98-107) mmol/L BUN 25 H (9-20) mg/dL Creatinine 1.52 H (0.66-1.25) mg/dL Glucose 123 H (74-99) mg/dL POC Glucose (mg/dL) 200 H (75-99) mg/dL Calcium 7.9 L (8.4-10.2) mg/dL Alkaline Phosphatase 609 H (38-126) U/L Total Protein 5.8 L (6.3-8.2) g/dL Albumin 3.0 L (3.5-5.0) g/dL 04/13/21 Range/Units 11:37 RBC (4.30-5.90) m/uL Hgb (13.0-17.5) gm/dL Hct (39.0-53.0) % RDW (11.5-15.5) % Neutrophils # (1.3-7.7) k/uL Lymphocytes # (1.0-4.8) k/uL Chloride (98-107) mmol/L BUN (9-20) mg/dL Creatinine (0.66-1.25) mg/dL Glucose (74-99) mg/dL POC Glucose (mg/dL) 127 H (75-99) mg/dL Calcium (8.4-10.2) mg/dL Alkaline Phosphatase (38-126) U/L Total Protein (6.3-8.2) g/dL Albumin (3.5-5.0) g/dL Thrombosis Risk Factor Assmnt - Choose All That Apply Any of the Below Risk Factors Present?: No Other Risk Factors: Yes Each Risk Factor Represents 2 Points: Age 61-74 years Thrombosis Risk Factor Assessment Total Risk Factor Score: 2 Thrombosis Risk Factor Assessment Level: Low Risk
[2021-04-13] MEDS ORDERED: dexAMETHasone 4 MG TAB PO SCH (12:00)
--- NOTE | 2021-04-13 13:13 | XR ---
EXAMINATION TYPE: XR chest 2V DATE OF EXAM: 04/13/2021 COMPARISON: NONE HISTORY: Pneumonia TECHNIQUE: Frontal and lateral views of the chest are obtained. FINDINGS: There is no focal air space opacity, pleural effusion, or pneumothorax seen. The cardiac silhouette size is within normal limits. Patient is post median sternotomy. There are coronary arter y calcifications present. The osseous structures show evidence of sclerotic metastasis, there is thor acic spondylosis. The patient is rotated. Aorta is dense. IMPRESSION: Sclerotic bone metastasis, coronary artery disease
[2021-04-13 17:12] LABS: Glucose,Whole Blood 136 mg/dL (75-99)
[2021-04-13 17:37] LABS: Amorphous Sediment,Urine Rare /hpf; Appearance,Urine Cloudy (Clear); Bilirubin,Urine Negative (Negative); Blood,Urine Large (Negative); Color,Urine Light Red; Glucose,Urine (UA) Negative (Negative); Ketones,Urine Negative (Negative); Leukocyte Esterase,Urine Large (Negative); Nitrite,Urine Negative (Negative); Protein,Urine 1+ (Negative); RBC,Urine >182 /hpf (0-5); Specific Gravity,Urine 1.015 (1.001-1.035); Urobilinogen,Urine <2.0 mg/dL (<2.0); WBC,Urine 51 /hpf (0-5)
[2021-04-13 20:23] LABS: Glucose,Whole Blood 130 mg/dL (75-99)
[2021-04-13] MEDS: TAMSULOSIN 0.4 MG CAP.ER.24H PO SCH (20:39)
[2021-04-13] MEDS: ATORVASTATIN 80 MG TAB PO SCH (20:39)
[2021-04-13] MEDS: HEPARIN SODIUM,PORCINE/PF 5,000 UNIT/0.5 ML SYRINGE SQ SCH (20:39)
[2021-04-13] MEDS: METOPROLOL TARTRATE 12.5 MG TAB PO SCH (20:39)
[2021-04-14 07:05] LABS: Glucose,Whole Blood 120 mg/dL (75-99)
[2021-04-14] MEDS: INSULIN ASPART (NovoLOG) 100 UNIT/ML VIAL SQ SCH ×4 (07:06→22:09)
[2021-04-14] MEDS: HEPARIN SODIUM,PORCINE/PF 5,000 UNIT/0.5 ML SYRINGE SQ SCH ×2 (07:42→22:09)
[2021-04-14] MEDS: TAMSULOSIN 0.4 MG CAP.ER.24H PO SCH ×2 (07:42→22:08)
[2021-04-14] MEDS: CALCIUM CARBONATE 500 MG CHEWABLE PO SCH (07:42)
[2021-04-14] MEDS: METOPROLOL TARTRATE 12.5 MG TAB PO SCH ×2 (07:42→22:08)
[2021-04-14] MEDS: ASPIRIN 81 MG PO SCH (07:42)
[2021-04-14] MEDS: allopurinoL 100 MG TAB PO SCH (07:42)
[2021-04-14] MEDS: PIPERACILLIN-TAZOBACTAM 3.375 GM in SODIUM CHLORIDE 0.9% 100 ML IVPB SCH ×2 (07:43→16:04)
[2021-04-14 11:10] LABS: Glucose,Whole Blood 116 mg/dL (75-99)
--- NOTE | 2021-04-14 11:32 | P.PN ---
Subjective 71-year-old male appears to have been transferred from outside hospital when he present today with fever and chills patient is having chills which started yesterday. Patient does have bilateral nephrostomy tubes patient was admitted with UTI do not have any available here did not have any chest x-ray is not available either. Patient was started on Zosyn. Patient nephrostomy chills were placed about a month ago. Patient does have history of prostate cancer appears to have been receiving chemotherapy for that patient has been following with urology for this prostate cancer. Patient is also found in acute renal failure with a creatinine of 1.25 to and his baseline was 1.2. Patient is fairly functional uses a walker when he is outside the house. 04/14/2021 Patient still had fevers yesterday urine analysis was significantly abnormal, infectious disease will be consulted chest x-ray did not show any pneumonia. Constitutional: Denied any fatigue denied any fever. Cardio vascular: denied any chest pain, palpitations Gastrointestinal denied any nausea vomiting Pulmonary: Denied any shortness of breath cough Neurologic denied any new focal deficits All inpatient medications were reviewed and appropriate changes in these medications as dictated in the interval history and assessment and plan. PHYSICAL EXAMINATION: GENERAL: The patient is alert and oriented x3, not in any acute distress. Well developed, well nourished. HEENT: Pupils are round and equally reacting to light. EOMI. No scleral icterus. No conjunctival pallor. Normocephalic, atraumatic. No pharyngeal erythema. No thyromegaly. CARDIOVASCULAR: S1 and S2 present. No murmurs, rubs, or gallops. PULMONARY: Chest is clear to auscultation, no wheezing or crackles. ABDOMEN: Soft, nontender, nondistended, normoactive bowel sounds. No palpable organomegaly. And has bilateral nephrostomy tubes in place MUSCULOSKELETAL: No joint swelling or deformity. EXTREMITIES: No cyanosis, clubbing, or pedal edema. NEUROLOGICAL: Gross neurological examination did not reveal any focal deficits. As have generalized weakness and the muscle atrophy SKIN: No rashes. Assessment and plan -Sepsis: Possibility of urinary tract infection, continue Zosyn urology was consulted awaiting urine cultures and blood cultures -Acute renal failure prerenal azotemia/acute tubular necrosis may be related to sepsis patient is on losartan which will be held patient is bit hypotensive x- ray and have an hypertension patient is bit hypotensive possibly because of sepsis will temporally hold off on antidepressant medications at except for metoprolol -Diabetes mellitus: Hold off on metformin because of acute renal failure -Hyperlipidemia Hypertension #Coronary artery disease -Prostate cancer for which patient is actually receiving chemotherapy DVT prophylaxis: The cutaneous heparin Objective - Vital Signs Vital signs: Vital Signs Temp 98.7 F 04/14/21 07:35 Pulse 87 04/14/21 07:35 Resp 14 04/14/21 07:35 BP 123/67 04/14/21 07:35 Pulse Ox 95 04/14/21 07:35 Intake & Output 04/13/21 04/14/21 04/14/21 18:59 06:59 18:59 Intake Total 200 Output Total 940 200 Balance -940 -200 200 Intake: Oral 200 Output: Drainage 940 200 Left 100 Right 840 200 Other: Voiding Method Toilet Toilet - Labs CBC & Chem 7: 04/13/21 07:26 04/13/21 07:26 Labs: Abnormal Lab Results - Last 24 Hours (Table) 04/13/21 04/13/21 04/13/21 Range/Units 11:37 16:03 17:10 POC Glucose (mg/dL) 127 H 136 H (75-99) mg/dL Urine Protein 1+ H (Negative) Urine Blood Large H (Negative) Ur Leukocyte Esterase Large H (Negative) Urine RBC >182 H (0-5) /hpf Urine WBC 51 H (0-5) /hpf Amorphous Sediment Rare H (None) /hpf 04/13/21 04/14/21 04/14/21 Range/Units 20:21 07:01 11:09 POC Glucose (mg/dL) 130 H 120 H 116 H (75-99) mg/dL Urine Protein (Negative) Urine Blood (Negative) Ur Leukocyte Esterase (Negative) Urine RBC (0-5) /hpf Urine WBC (0-5) /hpf Amorphous Sediment (None) /hpf Microbiology - Last 24 Hours (Table) 04/13/21 16:03 Urine Culture - Preliminary Urine,Voided
--- NOTE | 2021-04-14 12:10 | P.GSCN ---
History of Present Illness Consult date: 04/14/21 Reason for Consult: UTI, hydronephrosis Requesting physician: Tor Dickey History of present illness: The patient is a 71-year-old white male with a complicated urologic history. He was diagnosed with prostate cancer in August 2005. His pretreatment PSA level was 48.3, and all biopsies revealed poorly differentiated adenocarcinoma. He was treated with combination radiation therapy and androgen deprivation therapy. He developed biochemical failure and was treated with androgen deprivation therapy. His PSA level was undetectable in September 2019, but january to 27 in April 2020 despite testosterone at castrate levels. A repeat PSA level was 35.2. A computed tomography scan of the abdomen and pelvis and bone scan were obtained, revealing diffuse bony metastases and left hydronephrosis. He was placed on a stand E. His PSA level dropped to 7.8 in August 2020, but january to 18.0 in November 2020. In January 2021 the PSA level increased to 63.2. Repeat imaging again showed diffuse bony metastases and bilateral hydronephrosis, worse on the left due to a 9 mm left distal ureteral calculus. He underwent attempted ureteral stent placement but this was unsuccessful due to invasion of the patient's bladder cancer into the bladder trigone. He underwent bilateral nephrostomy tube insertion last month and his serum creatinine level improved. He was started on Taxotere. He was hospitalized earlier this month with a UTI and is currently admitted with complaints of chills and weakness due to a presumed UTI. He is receiving IV antibiotics and feeling much better. Prior to nephrostomy tube placement, the patient states that he was experiencing significant urinary incontinence which is now improved somewhat. Review of Systems - Constitutional Reports chills, Reports weakness - Genitourinary Reports as per HPI Past Medical History Past Medical History: Coronary Artery Disease (CAD), Cancer, Diabetes Mellitus, Hyperlipidemia, Hypertension, Prostate Disorder Additional Past Medical History / Comment(s): PROSTATE CANCER (SEDUM IMPLANTS). RENAL CALCULI,, gout. History of Any Multi-Drug Resistant Organisms: None Reported Past Surgical History: Coronary Bypass/CABG, Heart Catheterization, Hernia Repair, Joint Replacement Additional Past Surgical History / Comment(s): LITHOTRIPSY x 2, triple bypass 08/25/2018, rt knee replacement, elieser inguinal hernia and umbilical hernia repair, Past Anesthesia/Blood Transfusion Reactions: No Reported Reaction Date of Last Stent Placement:: 2004 Past Psychological History: No Psychological Hx Reported Smoking Status: Never smoker Past Alcohol Use History: None Reported Past Drug Use History: None Reported - Past Family History Mother Family Medical History: No Reported History Medications and Allergies Home Medications Medication Instructions Recorded Confirmed Type Aspirin 81 mg PO DAILY 05/06/14 04/13/21 History Allopurinol [Zyloprim] 100 mg PO DAILY 03/02/21 04/13/21 History Atorvastatin [Lipitor] 80 mg PO HS 03/02/21 04/13/21 History Losartan [Cozaar] 25 mg PO HS 03/02/21 04/13/21 History Magnesium 250 mg PO BID 03/02/21 04/13/21 History Metoprolol Tartrate [Lopressor] 12.5 mg PO BID 03/02/21 04/13/21 History Tamsulosin [Flomax] 0.4 mg PO BID 03/02/21 04/13/21 History amLODIPine [Norvasc] 10 mg PO DAILY 03/02/21 04/13/21 History metFORMIN HCL [Glucophage] 1,000 mg PO DAILY 03/02/21 04/13/21 History metFORMIN HCL [Glucophage] 500 mg PO HS 03/02/21 04/13/21 History Calcium Carbonate [Calcium] 600 mg PO DAILY 03/15/21 04/13/21 History Dexamethasone [Decadron] 8 mg PO DIRECTED 03/26/21 04/13/21 History ondansetron HCL [Zofran] 8 mg PO BID PRN 03/26/21 04/13/21 History Ibuprofen [Motrin] 400 mg PO Q8HR PRN 7 Days #21 tab 03/29/21 04/13/21 Rx HYDROcodone/APAP 5-325MG [[place] 1 tab PO Q6HR PRN 04/13/21 04/13/21 History 5-325] Allergies Allergy/AdvReac Type Severity Reaction Status Date / Time cephalexin [From Keflex] AdvReac Diarrhea Verified 04/13/21 09:38 Surgical - Exam Vital Signs Temp Pulse Resp BP Pulse Ox 99.4 F 94 18 101/70 97 04/12/21 22:15 04/12/21 22:15 04/12/21 22:15 04/12/21 22:15 04/12/21 22:15 - General well developed, well nourished, no distress - Respiratory normal respiratory effort - Genitourinary normal penis with no external lesions, testicles non-tender - Psychiatric oriented to time, oriented to person, oriented to place, speech is normal, memory intact Results - Labs 04/13/21 07:26 04/13/21 07:26 Abnormal Lab Results - Last 24 Hours (Table) 04/13/21 04/13/21 04/13/21 Range/Units 16:03 17:10 20:21 POC Glucose (mg/dL) 136 H 130 H (75-99) mg/dL Urine Protein 1+ H (Negative) Urine Blood Large H (Negative) Ur Leukocyte Esterase Large H (Negative) Urine RBC >182 H (0-5) /hpf Urine WBC 51 H (0-5) /hpf Amorphous Sediment Rare H (None) /hpf 04/14/21 04/14/21 Range/Units 07:01 11:09 POC Glucose (mg/dL) 120 H 116 H (75-99) mg/dL Urine Protein (Negative) Urine Blood (Negative) Ur Leukocyte Esterase (Negative) Urine RBC (0-5) /hpf Urine WBC (0-5) /hpf Amorphous Sediment (None) /hpf Microbiology - Last 24 Hours (Table) 04/13/21 16:03 Urine Culture - Preliminary Urine,Voided - Imaging CT scan - abdomen: report reviewed CT scan - chest: report reviewed CT scan - pelvis: report reviewed Assessment and Plan (1) UTI (urinary tract infection) Current Visit: Yes Status: Acute Code(s): N39.0 - URINARY TRACT INFECTION, SITE NOT SPECIFIED SNOMED Code(s): 62736662 (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 The urine culture, which was obtained from the right nephrostomy tube, is pending. The urine culture performed on March 27 showed staph aureus. I had a very lengthy di scussion with the patient regarding has nephrostomy tubes, ureteral calculus, castrate resistant prostate cancer, and presumed UTI. We discussed the placement of antegrade ureteral stents, which would allow removal of the nephrostomy tubes. This would decrease his UTI risk, but in this setting may be necessary to perform antegrade ureteroscopy to remove the left distal ureteral calculus. Additionally, his urinary incontinence would worsen. He has an appointment to see Dr. Gastelum on April 16, and I have suggested that he'll wait that appointment before deciding on his next course of action. In the meantime, he shall continue to receive Zosyn pending the final urine culture result. Time with Patient: Greater than 30
[2021-04-14 13:11] LABS: HCT 20.5 % (39.6-50.0); HGB 6.4 g/dL (13.0-17.0); MCH 29.2 pg (27.0-32.0); MCHC 31.2 g/dL (32.0-37.0); MCV 93.6 fL (80.0-97.0); Mean Platelet Volume 9.1 fL (9.5-12.2); Platelet Count 191 X 10*3/uL (140-440); RBC 2.19 X 10*6/uL (4.40-5.60); RDW 16.6 % (11.5-14.5); WBC 8.67 X 10*3/uL (4.50-10.00)
[2021-04-14 15:20] LABS: African American GFR (CKD) 58.2 (60.0-200.0); Anion Gap 7.6 mmol/L (4.00-12.00); BUN/Creat Ratio 16.43 Ratio (12.00-20.00); Calcium 7.7 mg/dL (8.7-10.3); Carbon Dioxide 23.4 mmol/L (21.6-31.8); Non-African American GFR(CKD) 50.2 (60.0-200.0)
[2021-04-14 17:13] LABS: Glucose,Whole Blood 120 mg/dL (75-99)
[2021-04-14 21:19] LABS: Glucose,Whole Blood 116 mg/dL (75-99)
--- NOTE | 2021-04-14 21:21 | P.CONS ---
History of Present Illness - Reason for Consult Consult date: 04/14/21 urinary tract infection Requesting physician: Rui Chamorro - Chief Complaint Weakness and chills x one day - History of Present Illness Patient is 71-year male with a past medical history significant for prostate cancer in this patient who did have a history of combination of radiation and androgen deprivation therapy patient recently noticed to having of diffuse bony metastasis and left hydronephrosis patient underwent attempted ureteral stent placement which was unsuccessful and the patient status post bilateral nephrostomy tube placement last month patient presented to the hospital for evaluation of chills and weakness with the symptom has been going on for about a day or 2 before presentation to the hospital patient denies any suprapubic or flank pain some nausea but no vomiting no chest pain shortness of breath or cough with the symptom the patient was evaluated by ER physician on arrival to the ER the patient had low-grade fever subsequent spike a fever to 101.2 F patient did have a normal white count with left shift his creatinine wa s 1.4 urine was positive for culture showing gram-negative patient is currently being treated with Zosyn infectious disease was consulted for further management of antibiotic therapy, patient did have a chest x-ray did not show any pneumonia Review of Systems Positive point has been mentioned in the HPI rest of the systems are negative Past Medical History Past Medical History: Coronary Artery Disease (CAD), Cancer, Diabetes Mellitus, Hyperlipidemia, Hypertension, Prostate Disorder Additional Past Medical History / Comment(s): PROSTATE CANCER (SEDUM IMPLANTS). RENAL CALCULI,, gout. History of Any Multi-Drug Resistant Organisms: None Reported Past Surgical History: Coronary Bypass/CABG, Heart Catheterization, Hernia Repair, Joint Replacement Additional Past Surgical History / Comment(s): LITHOTRIPSY x 2, triple bypass 1 10/26/2017, rt knee replacement, elieser inguinal hernia and umbilical hernia repair, Past Anesthesia/Blood Transfusion Reactions: No Reported Reaction Date of Last Stent Placement:: 2004 Past Psychological History: No Psychological Hx Reported Smoking Status: Never smoker Past Alcohol Use History: None Reported Past Drug Use History: None Reported - Past Family History Mother Family Medical History: No Reported History Medications and Allergies Home Medications Medication Instructions Recorded Confirmed Type Aspirin 81 mg PO DAILY 05/06/14 04/13/21 History Allopurinol [Zyloprim] 100 mg PO DAILY 03/02/21 04/13/21 History Atorvastatin [Lipitor] 80 mg PO HS 03/02/21 04/13/21 History Losartan [Cozaar] 25 mg PO HS 03/02/21 04/13/21 History Magnesium 250 mg PO BID 03/02/21 04/13/21 History Metoprolol Tartrate [Lopressor] 12.5 mg PO BID 03/02/21 04/13/21 History Tamsulosin [Flomax] 0.4 mg PO BID 03/02/21 04/13/21 History amLODIPine [Norvasc] 10 mg PO DAILY 03/02/21 04/13/21 History metFORMIN HCL [Glucophage] 1,000 mg PO DAILY 03/02/21 04/13/21 History metFORMIN HCL [Glucophage] 500 mg PO HS 03/02/21 04/13/21 History Calcium Carbonate [Calcium] 600 mg PO DAILY 03/15/21 04/13/21 History Dexamethasone [Decadron] 8 mg PO DIRECTED 03/26/21 04/13/21 History ondansetron HCL [Zofran] 8 mg PO BID PRN 03/26/21 04/13/21 History Ibuprofen [Motrin] 400 mg PO Q8HR PRN 7 Days #21 tab 03/29/21 04/13/21 Rx HYDROcodone/APAP 5-325MG [[place] 1 tab PO Q6HR PRN 04/13/21 04/13/21 History 5-325] Allergies Allergy/AdvReac Type Severity Reaction Status Date / Time cephalexin [From Keflex] AdvReac Diarrhea Verified 04/13/21 09:38 Physical Exam Vitals: Vital Signs Temp Pulse Resp BP Pulse Ox 04/14/21 07:35 98.7 F 87 14 123/67 95 04/14/21 00:55 101.2 F H 90 15 107/64 93 L 04/13/21 19:35 90 15 04/13/21 19:06 101.7 F H 94 15 105/67 94 L 04/13/21 14:00 101 F H 94 18 127/71 95 Intake and Output 04/13/21 04/14/21 04/14/21 22:59 06:59 14:59 Intake Total 200 Output Total 690 200 Balance -690 -200 200 Intake: Oral 200 Output: Drainage 690 200 Left 100 Right 590 200 Other: Voiding Method Toilet Toilet GENERAL DESCRIPTION: Elderly male lying in bed, no distress. No tachypnea or accessory muscle of respiration use. HEENT: Shows Pallor , no scleral icterus. Oral mucous membrane is dry. No pharyngeal erythema or thrush NECK: Trachea central, no thyromegaly. LUNGS: Unlabored breathing. Clear to auscultation anteriorly. No wheeze or crackle. HEART: S1, S2, regular rate and rhythm. No loud murmur ABDOMEN: Soft, no tenderness , guarding or rigidity, no organomegaly EXTREMITIES: No edema of feet. SKIN: No rash, no masses palpable. NEUROLOGICAL: The patient is awake, alert, oriented x3, mood and affect normal. Results CBC & Chem 7: 04/14/21 07:02 04/14/21 07:02 Labs: Abnormal Lab Results - Last 24 Hours (Table) 04/13/21 04/13/21 04/13/21 Range/Units 11:37 16:03 17:10 POC Glucose (mg/dL) 127 H 136 H (75-99) mg/dL Urine Protein 1+ H (Negative) Urine Blood Large H (Negative) Ur Leukocyte Esterase Large H (Negative) Urine RBC >182 H (0-5) /hpf Urine WBC 51 H (0-5) /hpf Amorphous Sediment Rare H (None) /hpf 04/13/21 04/14/21 Range/Units 20:21 07:01 POC Glucose (mg/dL) 130 H 120 H (75-99) mg/dL Urine Protein (Negative) Urine Blood (Negative) Ur Leukocyte Esterase (Negative) Urine RBC (0-5) /hpf Urine WBC (0-5) /hpf Amorphous Sediment (None) /hpf Microbiology - Last 24 Hours (Table) 04/13/21 16:03 Urine Culture - Preliminary Urine,Voided Assessment and Plan Assessment: 1-patient presented to hospital with generalized weakness no energy from chills did have significantly cloudy UA concern for likely symptomatic urinary tract infection likely from blood gram-negative pathogen (1) UTI (urinary tract infection) Current Visit: Yes Status: Acute Code(s): N39.0 - URINARY TRACT INFECTION, SITE NOT SPECIFIED SNOMED Code(s): 32678236 Plan: 1-patient is currently covered with the Zosyn to continue in view of his cephalosporin allergies 2-May benefit from ultrasound of the kidneys to make sure no evidence of any worsening hydronephrosis We will follow on clinical condition and cultures to further adjust medication if needed Thank you for this consultation we will follow the patient along with you Time with Patient: Greater than 30
[2021-04-14] MEDS: ATORVASTATIN 80 MG TAB PO SCH (22:08)
[2021-04-14 23:05] LABS: Anisocytosis Slight; Basophils % (A) 1 %; Eosinophils # (A) 0.1 k/uL (0-0.7); Eosinophils % (A) 2 %; HCT 23.1 % (39.0-53.0); HGB 7.5 gm/dL (13.0-17.5); Lymphocytes # (A) 0.8 k/uL (1.0-4.8); Lymphocytes % (A) 12 %; MCH 29.9 pg (25.0-35.0); MCHC 32.6 g/dL (31.0-37.0); MCV 91.6 fL (80.0-100.0); Mean Platelet Volume 7.3; Monocytes # (A) 0.2 k/uL (0-1.0); Monocytes % (A) 4 %; Neutrophils # (A) 4.9 k/uL (1.3-7.7); Neutrophils % (A) 79 %; Platelet Count 218 k/uL (150-450); RBC 2.52 m/uL (4.30-5.90); WBC 6.1 k/uL (3.8-10.6)
[2021-04-15] MEDS: PIPERACILLIN-TAZOBACTAM 3.375 GM in SODIUM CHLORIDE 0.9% 100 ML IVPB SCH ×2 (00:14→08:25)
[2021-04-15 06:44] LABS: Glucose,Whole Blood 111 mg/dL (75-99)
--- NOTE | 2021-04-15 07:37 | P.PN ---
Progress Note - Text Progress Note Date: 04/15/21 The patient remains afebrile and is feeling well. His nephrostomy tubes are draining well. It was brought to my attention by the nursing staff that the right nephrostomy tube was kinked. I stressed to the patient the importance of avoiding kinking of the nephrostomy tubes, as this can result in a symptomatic infection. The preliminary urine culture shows gram-negative bacilli. The patient will be discharged home on oral antibiotics once the urine culture is complete. He intends to see Dr. Gastelum tomorrow and follow up with Dr. Porter. Please notify us if we can be of any further assistance.
[2021-04-15] MEDS: INSULIN ASPART (NovoLOG) 100 UNIT/ML VIAL SQ SCH ×2 (07:58→11:49)
[2021-04-15 08:04] VITALS: BP 129/74; PULSE 77; RESP 14; TEMP 98.1
[2021-04-15] MEDS: METOPROLOL TARTRATE 12.5 MG TAB PO SCH (08:27)
[2021-04-15] MEDS: CALCIUM CARBONATE 500 MG CHEWABLE PO SCH (08:27)
[2021-04-15] MEDS: allopurinoL 100 MG TAB PO SCH (08:27)
[2021-04-15] MEDS: TAMSULOSIN 0.4 MG CAP.ER.24H PO SCH (08:27)
[2021-04-15] MEDS: ASPIRIN 81 MG PO SCH (08:27)
[2021-04-15] MEDS: HEPARIN SODIUM,PORCINE/PF 5,000 UNIT/0.5 ML SYRINGE SQ SCH (08:28)
--- NOTE | 2021-04-15 08:58 | P.DS ---
Providers Date of admission: 04/12/21 23:04 Expected date of discharge: 04/15/21 Attending physician: Tor Dickey Consults: 04/12/21 23:03 Consult Physician Routine Consulting Provider: Karthik Gomes Consult Reason/Comments: known Do you want consulting provider notified?: Yes 04/14/21 10:21 Consult Physician Routine Consulting Provider: Jessee Haywood Consult Reason/Comments: UTI Do you want consulting provider notified?: Yes Primary care physician: Dayne Claudia [place] [facility] Course: 71-year-old male appears to have been transferred from outside hospital when he present today with fever and chills patient is having chills which started yesterday. Patient does have bilateral nephrostomy tubes patient was admitted with UTI do not have any available here did not have any chest x-ray is not available either. Patient was started on Zosyn. Patient nephrostomy chills were placed about a month ago. Patient does have history of prostate cancer appears to have been receiving chemotherapy for that patient has been following with urology for this prostate cancer. Patient is also found in acute renal failure with a creatinine of 1.25 to and his baseline was 1.2. Patient is fairly functional uses a walker when he is outside the house. 04/14/2021 Patient still had fevers yesterday urine analysis was significantly abnormal, infectious disease will be consulted chest x-ray did not show any pneumonia. 04/15/2021 No fevers over the last 24 hours. Urine culture from [facility] was obtained, growing Pseudomonas which is pansensitive. Urology is recommending antimicrobials and outpatient follow-up for possible anterograde ureteroscopy. Hemodynamically stable. Patient's creatinine 1.4 yesterday, metformin is on hold. Blood sugars have been controlled. Patient states that he has follow-up appointment with oncologist Dr. Gastelum tomorrow. Constitutional: Denied any fatigue denied any fever. Cardio vascular: denied any chest pain, palpitations Gastrointestinal denied any nausea vomiting Pulmonary: Denied any shortness of breath cough Neurologic denied any new focal deficits All inpatient medications were reviewed and appropriate changes in these medica tions as dictated in the interval history and assessment and plan. PHYSICAL EXAMINATION: GENERAL: The patient is alert and oriented x3, not in any acute distress. Well developed, well nourished. HEENT: Pupils are round and equally reacting to light. EOMI. No scleral icterus. No conjunctival pallor. Normocephalic, atraumatic. No pharyngeal erythema. No thyromegaly. CARDIOVASCULAR: S1 and S2 present. No murmurs, rubs, or gallops. PULMONARY: Chest is clear to auscultation, no wheezing or crackles. ABDOMEN: Soft, nontender, nondistended, normoactive bowel sounds. No palpable organomegaly. And has bilateral nephrostomy tubes in place MUSCULOSKELETAL: No joint swelling or deformity. EXTREMITIES: No cyanosis, clubbing, or pedal edema. NEUROLOGICAL: Gross neurological examination did not reveal any focal deficits. As have generalized weakness and the muscle atrophy SKIN: No rashes. Assessment and plan -Sepsis: Most probably due to pseudomonal UTI. Initial Urine culture from [facility] was obtained, growing pansensitive pseudomonas. Patient will be discharged home on antimicrobial therapy with Cipro for 10 days per infectious disease recommendation. -Acute renal failure: Possible ATN due to sepsis. Creatinine 1.4. Blood pressure is currently stable off of losartan and Norvasc. We will stop the losartan and Norvasc at discharge to avoid causing hypotension. -Diabetes mellitus: Metformin will be discontinued due to acute renal failure -Hyperlipidemia -Hypertension: Norvasc and losartan will be discontinued to avoid hypotension, he can continue on Lopressor 12.5 twice a day. -Coronary artery disease -Prostate cancer for which patient is actually receiving chemotherapy: follow-up with oncologist Dr. Gasteulm tomorrow Urine culture from [facility] growing pansensitive Pseudomonas, he'll be discharged home on 10 days of Cipro PO per infectious disease. As mentioned Norvasc and losartan will be discontinued due to marginal blood pressures, he can continue Lopressor 12.5 twice daily. Metformin discontinued due to elevated creatinine 1.4, blood sugars have been controlled. Follow-up with your oncologist tomorrow as scheduled. Patient Condition at Discharge: Good Plan - Discharge Summary New Discharge Prescriptions: New Ciprofloxacin HCl [Cipro] 750 mg PO Q12H 10 Days #20 tab Continue Aspirin 81 mg PO DAILY Atorvastatin [Lipitor] 80 mg PO HS HYDROcodone/APAP 5-325MG [[place] 5-325] 1 tab PO Q6HR PRN PRN Reason: Pain Tamsulosin [Flomax] 0.4 mg PO BID Metoprolol Tartrate [Lopressor] 12.5 mg PO BID Allopurinol [Zyloprim] 100 mg PO DAILY Magnesium 250 mg PO BID Calcium Carbonate [Calcium] 600 mg PO DAILY ondansetron HCL [Zofran] 8 mg PO BID PRN PRN Reason: Nausea Dexamethasone [Decadron] 8 mg PO DIRECTED Discontinued amLODIPine [Norvasc] 10 mg PO DAILY Losartan [Cozaar] 25 mg PO HS Ibuprofen [Motrin] 400 mg PO Q8HR PRN 7 Days #21 tab PRN Reason: Pain metFORMIN HCL [Glucophage] 500 mg PO HS metFORMIN HCL [Glucophage] 1,000 mg PO DAILY Discharge Medication List Aspirin 81 mg PO DAILY 05/06/14 [History] Allopurinol [Zyloprim] 100 mg PO DAILY 03/02/21 [History] Atorvastatin [Lipitor] 80 mg PO HS 03/02/21 [History] Magnesium 250 mg PO BID 03/02/21 [History] Metoprolol Tartrate [Lopressor] 12.5 mg PO BID 03/02/21 [History] Tamsulosin [Flomax] 0.4 mg PO BID 03/02/21 [History] Calcium Carbonate [Calcium] 600 mg PO DAILY 03/15/21 [History] Dexamethasone [Decadron] 8 mg PO DIRECTED 03/26/21 [History] ondansetron HCL [Zofran] 8 mg PO BID PRN 03/26/21 [History] HYDROcodone/APAP 5-325MG [[place] 5-325] 1 tab PO Q6HR PRN 04/13/21 [History] Ciprofloxacin HCl [Cipro] 750 mg PO Q12H 10 Days #20 tab 04/15/21 [Rx] Follow up Appointment(s)/Referral(s): [facility] [NON-STAFF] - Karthik Gomes MD [STAFF PHYSICIAN] - 1 Week Dayne Taylor DO [Primary Care Provider] - 3 Days Jessee Haywood MD [STAFF PHYSICIAN] - 1 Week Discharge Disposition: HOME SELF-CARE
[2021-04-15 10:12] LABS: African American GFR (CKD) 70.1 (60.0-200.0); Anion Gap 6.4 mmol/L (4.00-12.00); BUN/Creat Ratio 13.33 Ratio (12.00-20.00); Calcium 8.4 mg/dL (8.7-10.3); Carbon Dioxide 21.6 mmol/L (21.6-31.8); Non-African American GFR(CKD) 60.5 (60.0-200.0); Potassium 4.3 mmol/L (3.5-5.5)
[2021-04-15 11:46] LABS: Glucose,Whole Blood 117 mg/dL (75-99)
== END 2021-04-15 12:54 | disposition home or self-care (01) | DRG 871 ==
LOC: EC 22:06 → 4SSUR 23:04
PROVIDERS: ADMIT Hospitalist; ATTEND Hospitalist
DX: A41.9 Sepsis, unspecified organism (principal); N17.0 Acute kidney failure with tubular necrosis; C79.51 Secondary malignant neoplasm of bone; N13.6 Pyonephrosis; B96.5 Pseudomonas (aeruginosa) (mallei) (pseudomallei) as the cause of diseases classified elsewhere; B96.89 Other specified bacterial agents as the cause of diseases classified elsewhere; C61 Malignant neoplasm of prostate; C67.9 Malignant neoplasm of bladder, unspecified; E11.9 Type 2 diabetes mellitus without complications; E78.5 Hyperlipidemia, unspecified; I10 Essential (primary) hypertension; I25.10 Atherosclerotic heart disease of native coronary artery without angina pectoris; R32 Unspecified urinary incontinence; M10.9 Gout, unspecified; K40.90 Unilateral inguinal hernia, without obstruction or gangrene, not specified as recurrent; Z96.651 Presence of right artificial knee joint; Z19.2 Hormone resistant malignancy status; Z79.82 Long term (current) use of aspirin; Z79.84 Long term (current) use of oral hypoglycemic drugs; Z79.899 Other long term (current) drug therapy; Z85.46 Personal history of malignant neoplasm of prostate; Z87.440 Personal history of urinary (tract) infections; Z87.442 Personal history of urinary calculi; Z87.891 Personal history of nicotine dependence; Z95.1 Presence of aortocoronary bypass graft
CPT/HCPCS: 71046; 80048; 80053; 81001; 83735; 84100; 85025; 85027; 86850; 86900; 86901; 86920; 87077; 87086; 87186; 99285

== ENCOUNTER 2021-05-11 12:53 | Emergency (ER) | payer MEDICARE ==
[2021-05-11 13:38] VITALS: BP 105/72; PULSE 81; RESP 20; TEMP 97.9
--- NOTE | 2021-05-11 13:48 | ED ---
General Adult HPI - General Chief complaint: Recheck/Abnormal Lab/Rx Stated complaint: needs nephrostomy tube bag replaced Source: patient, RN notes reviewed Mode of arrival: wheelchair Limitations: no limitations - History of Present Illness Initial comments: 71-year-old white male, alert and oriented 4, presents to the emergency room with complaints of his nephrostomy bag leaking. He states that his daughter found a small hole in it but some gorilla glue on it but it continues to be In the day. It is not leaking at the site of insertion. He denies any other symptoms. No fever no pain no bloody drainage no tenderness at the site. - Related Data Home Medications Medication Instructions Recorded Confirmed Aspirin 81 mg PO DAILY 05/06/14 04/13/21 Allopurinol [Zyloprim] 100 mg PO DAILY 03/02/21 04/13/21 Atorvastatin [Lipitor] 80 mg PO HS 03/02/21 04/13/21 Magnesium 250 mg PO BID 03/02/21 04/13/21 Metoprolol Tartrate [Lopressor] 12.5 mg PO BID 03/02/21 04/13/21 Tamsulosin [Flomax] 0.4 mg PO BID 03/02/21 04/13/21 Calcium Carbonate [Calcium] 600 mg PO DAILY 03/15/21 04/13/21 Dexamethasone [Decadron] 8 mg PO DIRECTED 03/26/21 04/13/21 ondansetron HCL [Zofran] 8 mg PO BID PRN 03/26/21 04/13/21 HYDROcodone/APAP 5-325MG [[place] 1 tab PO Q6HR PRN 04/13/21 04/13/21 5-325] Previous Rx's Medication Instructions Recorded Ciprofloxacin HCl [Cipro] 750 mg PO Q12H 10 Days #20 tab 04/15/21 Allergies Allergy/AdvReac Type Severity Reaction Status Date / Time cephalexin [From Keflex] AdvReac Diarrhea Verified 05/11/21 13:37 Review of Systems ROS Statement: Those systems with pertinent positive or pertinent negative responses have been documented in the HPI. ROS Other: All systems not noted in ROS Statement are negative. Past Medical History Past Medical History: Coronary Artery Disease (CAD), Cancer, Diabetes Mellitus, Hyperlipidemia, Hypertension, Prostate Disorder Additional Past Medical History / Comment(s): PROSTATE CANCER (SEDUM IMPLANTS). RENAL CALCULI,, gout. History of Any Multi-Drug Resistant Organisms: None Reported Past Surgical History: Coronary Bypass/CABG, Heart Catheterization, Hernia Repair, Joint Replacement Additional Past Surgical History / Comment(s): LITHOTRIPSY x 2, triple bypass 08/25/2018, rt knee replacement, elieser inguinal hernia and umbilical hernia repair, Past Anesthesia/Blood Transfusion Reactions: No Reported Reaction Date of Last Stent Placement:: 2004 Past Psychological History: No Psychological Hx Reported Smoking Status: Never smoker Past Alcohol Use History: None Reported Past Drug Use History: None Reported - Past Family History Mother Family Medical History: No Reported History General Exam Limitations: no limitations General appearance: alert, in no apparent distress Respiratory exam: Present: normal lung sounds bilaterally. Absent: respiratory distress, wheezes, rales, rhonchi, stridor, chest wall tenderness, accessory muscle use, decreased breath sounds Cardiovascular Exam: Present: regular rate, normal rhythm, normal heart sounds. Absent: systolic murmur, diastolic murmur, rubs, gallop, clicks GI/Abdominal exam: Present: soft, normal bowel sounds. Absent: distended, tenderness, guarding, rebound, rigid Back exam: Present: normal inspection, full ROM. Absent: CVA tenderness (R), CVA tenderness (L), muscle spasm, paraspinal tenderness, vertebral tenderness, rash noted Neurological exam: Present: alert, oriented X3, CN II-XII intact Psychiatric exam: Present: normal affect, normal mood Skin exam: Present: warm, dry, intact, normal color. Absent: rash, diaphoretic Course Vital Signs 05/11/21 13:35 Temperature 97.9 F Pulse Rate 81 Respiratory 20 Rate Blood Pressure 105/72 O2 Sat by Pulse 99 Oximetry Medical Decision Making - Medical Decision Making Patient was here only for replacement of his nephrostomy bag which was leaking. He denies any pain, fevers or chest pain or shortness of breath. He states that there has not been any blood from the bag. He is patient of Dr. Porter and the nephrostomy tube was placed related to treatment of prostate cancer. He'll be directed to follow up with his urologist as already scheduled and return with any new or worsening problems. Case discussed with Dr. To Disposition Clinical Impression: Equipment malfunction Disposition: HOME SELF-CARE Condition: Good Instructions (If sedation given, give patient instructions): Nephrostomy Tube Care (ED) Additional Instructions: Return with any other complications. Follow-up with urology as directed. Is patient prescribed a controlled substance at d/c from ED?: No Referrals: None,Stated [Primary Care Provider] - 1-2 days Time of Disposition: 13:52
== END 2021-05-11 14:00 | disposition home or self-care (01) ==
LOC: EC 12:53
DX: T83.032A Leakage of nephrostomy catheter, initial encounter (principal); I10 Essential (primary) hypertension; E11.9 Type 2 diabetes mellitus without complications; E78.5 Hyperlipidemia, unspecified; I25.10 Atherosclerotic heart disease of native coronary artery without angina pectoris; M10.9 Gout, unspecified; Z79.52 Long term (current) use of systemic steroids; Z79.82 Long term (current) use of aspirin; Z85.46 Personal history of malignant neoplasm of prostate; Z88.1 Allergy status to other antibiotic agents; Z95.1 Presence of aortocoronary bypass graft
CPT/HCPCS: 99283

== ENCOUNTER 2021-05-15 20:11 | Emergency (ER) | payer MEDICARE ==
[2021-05-15 21:01] VITALS: BP 93/61; PULSE 95; RESP 18; TEMP 99
[2021-05-15 21:33] LABS: Anisocytosis Slight; Basophils % (A) 0 %; Eosinophils # (A) 0.1 k/uL (0-0.7); Eosinophils % (A) 1 %; HCT 26.8 % (39.0-53.0); HGB 8.9 gm/dL (13.0-17.5); Hypochromasia Slight; Lymphocytes # (A) 1.3 k/uL (1.0-4.8); Lymphocytes % (A) 24 %; MCHC 33.1 g/dL (31.0-37.0); MCV 93.5 fL (80.0-100.0); Mean Platelet Volume 7.5; Monocytes # (A) 0.3 k/uL (0-1.0); Monocytes % (A) 5 %; Neutrophils # (A) 3.6 k/uL (1.3-7.7); Neutrophils % (A) 68 %; Platelet Count 270 k/uL (150-450); RBC 2.87 m/uL (4.30-5.90); RDW 17.8 % (11.5-15.5); WBC 5.3 k/uL (3.8-10.6)
[2021-05-15 21:41] LABS: Albumin 3.4 g/dL (3.5-5.0); Calcium 9.2 mg/dL (8.4-10.2); Potassium 4.5 mmol/L (3.5-5.1); Total Bilirubin 0.4 mg/dL (0.2-1.3); Total Protein 5.9 g/dL (6.3-8.2)
[2021-05-15 21:43] LABS: Appearance,Urine Turbid (Clear); Bacteria,Urine Many /hpf; Bilirubin,Urine Negative (Negative); Blood,Urine Large (Negative); Color,Urine Red; Glucose,Urine (UA) Negative (Negative); Ketones,Urine Negative (Negative); Leukocyte Esterase,Urine Large (Negative); Mucus,Urine Many /hpf; Nitrite,Urine Positive (Negative); Protein,Urine 2+ (Negative); RBC,Urine >182 /hpf (0-5); Urobilinogen,Urine <2.0 mg/dL (<2.0); WBC,Urine >182 /hpf (0-5)
--- NOTE | 2021-05-15 22:11 | ED ---
Male Urogenital HPI - General Chief complaint: Urogenital Stated complaint: Blood in urine Source: patient, family, RN notes reviewed, old records reviewed Mode of arrival: ambulatory Limitations: no limitations - History of Present Illness Initial comments: 71-year-old well-appearing white male presents to the emergency room with complaints of symptoms associated with urinary tract infection. Patient has bilateral nephrostomy tubes. Family member at bedside states that they noticed that the urine was dark in color and the has been in the past associated with urinary tract infection. He denies any fevers, vomiting or diarrhea. He states that he has been eating okay. -: days(s) (2) Radiation: none Severity scale (1-10): 0 - Related Data Home Medications Medication Instructions Recorded Confirmed Aspirin 81 mg PO DAILY 05/06/14 04/13/21 Allopurinol [Zyloprim] 100 mg PO DAILY 03/02/21 04/13/21 Atorvastatin [Lipitor] 80 mg PO HS 03/02/21 04/13/21 Magnesium 250 mg PO BID 03/02/21 04/13/21 Metoprolol Tartrate [Lopressor] 12.5 mg PO BID 03/02/21 04/13/21 Tamsulosin [Flomax] 0.4 mg PO BID 03/02/21 04/13/21 Calcium Carbonate [Calcium] 600 mg PO DAILY 03/15/21 04/13/21 Dexamethasone [Decadron] 8 mg PO DIRECTED 03/26/21 04/13/21 ondansetron HCL [Zofran] 8 mg PO BID PRN 03/26/21 04/13/21 HYDROcodone/APAP 5-325MG [[place] 1 tab PO Q6HR PRN 04/13/21 04/13/21 5-325] Previous Rx's Medication Instructions Recorded Ciprofloxacin HCl [Cipro] 750 mg PO Q12H 10 Days #20 tab 04/15/21 Sulfamethox-Tmp 800-160Mg [Bactrim 1 each PO Q12HR #20 tab 05/15/21 Ds] Allergies Allergy/AdvReac Type Severity Reaction Status Date / Time cephalexin [From Keflex] AdvReac Diarrhea Verified 05/11/21 13:37 Review of Systems ROS Statement: Those systems with pertinent positive or pertinent negative responses have been documented in the HPI. ROS Other: All systems not noted in ROS Statement are negative. Past Medical History Past Medical History: Coronary Artery Disease (CAD), Cancer, Diabetes Mellitus, Hyperlipidemia, Hypertension, Prostate Disorder Additional Past Medical History / Comment(s): PROSTATE CANCER (SEDUM IMPLANTS). RENAL CALCULI,, gout. History of Any Multi-Drug Resistant Organisms: None Reported Past Surgical History: Coronary Bypass/CABG, Heart Catheterization, Hernia Repair, Joint Replacement Additional Past Surgical History / Comment(s): LITHOTRIPSY x 2, triple bypass 08/25/2018, rt knee replacement, elieser inguinal hernia and umbilical hernia repair, Past Anesthesia/Blood Transfusion Reactions: No Reported Reaction Date of Last Stent Placement:: 2004 Past Psychological History: No Psychological Hx Reported Smoking Status: Never smoker Past Alcohol Use History: None Reported Past Drug Use History: None Reported - Past Family History Mother Family Medical History: No Reported History General Exam Limitations: no limitations General appearance: alert, in no apparent distress Head exam: Present: atraumatic, normocephalic, normal inspection Eye exam: Present: normal appearance, PERRL, EOMI. Absent: scleral icterus, conjunctival injection, periorbital swelling ENT exam: Present: normal exam, normal oropharynx, mucous membranes moist Neck exam: Present: normal inspection, full ROM. Absent: tenderness, meningismus, lymphadenopathy Respiratory exam: Present: normal lung sounds bilaterally. Absent: respiratory distress, wheezes, rales, rhonchi, stridor Cardiovascular Exam: Present: regular rate, normal rhythm, normal heart sounds. Absent: systolic murmur, diastolic murmur, rubs, gallop, clicks GI/Abdominal exam: Present: soft, normal bowel sounds. Absent: distended, tenderness, guarding, rebound, rigid Back exam: Present: other (Bilateral nephrostomy tubes noted draining). Absent: tenderness, muscle spasm, paraspinal tenderness, vertebral tenderness Neurological exam: Present: alert, oriented X3, CN II-XII intact Psychiatric exam: Present: normal affect, normal mood Skin exam: Present: warm, dry, intact, normal color. Absent: rash Course Vital Signs 05/15/21 20:56 Temperature 99 F Pulse Rate 95 Respiratory 18 Rate Blood Pressure 93/61 O2 Sat by Pulse 98 Oximetry Medical Decision Making - Medical Decision Making Patient's urine is positive for nitrites, many bacteria, WBCs greater than 182, large leukocyte esterase. He just finished [employer] denies ALLERGIES to Keflex. His previous culture and sensitivity report was reviewed. He will be placed on Bactrim twice a day for the next 10 days. Directed to follow up with urology. He denies any vomiting or fevers. Family at bedside states he changed the dressing and the nephrostomy sites today and there is no redness or drainage. Case discussed with Dr Navarro - Lab Data Result diagrams: 05/15/21 21:05/15/21 21:22 Lab Results 05/15/21 05/15/21 05/15/21 Range/Units 21:22 21: 21:22 WBC 5.3 (3.8-10.6) k/uL RBC 2.87 L (4.30-5.90) m/uL Hgb 8.9 L (13.0-17.5) gm/dL Hct 26.8 L (39.0-53.0) % MCV 93.5 (80.0-100.0) fL MCH 31.0 (25.0-35.0) pg MCHC 33.1 (31.0-37.0) g/dL RDW 17.8 H (11.5-15.5) % Plt Count 270 (150-450) k/uL MPV 7.5 Neutrophils % 68 % Lymphocytes % 24 % Monocytes % 5 % Eosinophils % 1 % Basophils % 0 % Neutrophils # 3.6 (1.3-7.7) k/uL Lymphocytes # 1.3 (1.0-4.8) k/uL Monocytes # 0.3 (0-1.0) k/uL Eosinophils # 0.1 (0-0.7) k/uL Basophils # 0.0 (0-0.2) k/uL Hypochromasia Slight Anisocytosis Slight Sodium 132 L (137-145) mmol/L Potassium 4.5 (3.5-5.1) mmol/L Chloride 100 (98-107) mmol/L Carbon Dioxide 26 (22-30) mmol/L Anion Gap 6 mmol/L BUN 20 (9-20) mg/dL Creatinine 1.06 (0.66-1.25) mg/dL Est GFR (CKD-EPI)AfAm 82 (>60 ml/min/1.73 sqM) Est GFR (CKD-EPI)NonAf 71 (>60 ml/min/1.73 sqM) Glucose 134 H (74-99) mg/dL Calcium 9.2 (8.4-10.2) mg/dL Total Bilirubin 0.4 (0.2-1.3) mg/dL AST 29 (17-59) U/L ALT 14 (4-49) U/L Alkaline Phosphatase 465 H (38-126) U/L Total Protein 5.9 L (6.3-8.2) g/dL Albumin 3.4 L (3.5-5.0) g/dL Urine Color Red Urine Appearance Turbid (Clear) Urine pH 6.0 (5.0-8.0) Ur Specific [place] 1.020 (1.001-1.035) Urine Protein 2+ H (Negative) Urine Glucose (UA) Negative (Negative) Urine Ketones Negative (Negative) Urine Blood Large H (Negative) Urine Nitrite Positive (Negative) Urine Bilirubin Negative (Negative) Urine Urobilinogen <2.0 (<2.0) mg/dL Ur Leukocyte Esterase Large H (Negative) Urine RBC >182 H (0-5) /hpf Urine WBC >182 H (0-5) /hpf Urine Bacteria Many H (None) /hpf Urine Mucus Many H (None) /hpf Disposition Clinical Impression: UTI (urinary tract infection) Disposition: HOME SELF-CARE Condition: Good Instructions (If sedation given, give patient instructions): Urinary Tract Infection in Men (ED) Additional Instructions: Take the Bactrim as prescribed twice a day for the next 10 days. Follow-up with urology this week. Return if any worsening symptoms including pain, vomiting or fevers. Prescriptions: Sulfamethox-Tmp 800-160Mg [Bactrim Ds] 1 each PO Q12HR #20 tab Is patient prescribed a controlled substance at d/c from ED?: No Referrals: None,Stated [Primary Care Provider] - 1-2 days Time of Disposition: 22:23
[2021-05-15] MEDS ORDERED: SULFAMETHOX-TMP 800-160MG 1 EACH TAB PO STA (22:23)
== END 2021-05-15 22:51 | disposition home or self-care (01) ==
LOC: EC 20:11
DX: N39.0 Urinary tract infection, site not specified (principal); I25.10 Atherosclerotic heart disease of native coronary artery without angina pectoris; E11.9 Type 2 diabetes mellitus without complications; E78.5 Hyperlipidemia, unspecified; I10 Essential (primary) hypertension; M10.9 Gout, unspecified; Z85.46 Personal history of malignant neoplasm of prostate; Z79.82 Long term (current) use of aspirin; Z88.1 Allergy status to other antibiotic agents; Z95.1 Presence of aortocoronary bypass graft
CPT/HCPCS: 36415; 80053; 81001; 85025; 87086; 99283

== ENCOUNTER → 2021-05-31 | Outpatient (CLI) | payer MEDICARE ==
--- NOTE | 2021-05-31 16:16 | FL ---
EXAMINATION TYPE: FL nephrostogram DATE OF EXAM: 05/31/2021 COMPARISON: Prior CT February 13, 2021. Prior KUB x-ray March 15, 2021. Prior nuclear medicine study February 222020 HISTORY: Bilateral hydronephrosis. History of prostate cancer. TECHNIQUE: Fluoroscopic guidance was provided during bilateral nephrostogram procedure performed by aria flores. A total of 75 seconds of fluoroscopic time was utilized during the procedure and 41 spot imag es are acquired. FINDINGS: Preprocedure slate roofer helper image redemonstrates percutaneous bilateral nephrostomy tubes. There are numerous brachytherapy seeds in the lower pelvis just above pubic symphysis redemonstrated. Sternal wires and mediastinal clips inferior thorax are partially imaged. Approximately 40 cc of Isovue-370 was injected through bilateral percutaneous nephrostomy tubes. The re was leak at posterior skin on the right side. There was persistent mild to moderate left-sided isha localiectasis but excretion into the left ureter. There is slightly less prominent mild to moderate r ight-sided pyelocaliectasis. There is blunting of the calyceal fornices bilaterally. There is asymmet dharmesh delayed filling of the right pelvis and ureter. After more contrast is injected there is some inc reased pyelocalyceal prominence bilaterally. There is eventual demonstration of excretion into right ureter with overall mild to moderate diffuse hydroureter bilaterally. There is delayed filling of the bladder with only slight filling even after 35 minutes postinjection. IMPRESSION: Persistent mild to moderate bilateral hydronephrosis and hydroureter, findings are improv ed on the left since most recent CT. Some delayed excretion on the right is noted which does not guillermina elate with recent nuclear medicine study. Etiology uncertain as there is no obstructing mass or calcu duglas clearly seen.
== END | disposition home or self-care (01) ==
LOC: RADUSWWP 13:05
PROVIDERS: ATTEND Urology
DX: N13.30 Unspecified hydronephrosis (principal); N13.4 Hydroureter; Z85.46 Personal history of malignant neoplasm of prostate
CPT/HCPCS: 74425; Q9967

== ENCOUNTER 2021-06-01 07:07 | Emergency (ER) | payer MEDICARE ==
[2021-06-01 07:14] VITALS: BP 147/83; PULSE 86; RESP 18; TEMP 97.5
--- NOTE | 2021-06-01 07:46 | ED ---
General Adult HPI - General Chief complaint: Recheck/Abnormal Lab/Rx Stated complaint: kidney issue Time Seen by Provider: 06/01/21 07:15 Source: patient, family Mode of arrival: ambulatory Limitations: no limitations - History of Present Illness Initial comments: 71-year-old male with prostate cancer, bilateral nephrostomy tubes presenting to emergency Department with a chief complaint of leakage around the nephrostomy tube in the right side. Patient reports yesterday he had a nephrostogram performed and CT contrast was injected. Patient reports he felt some of the contrast leak around the nephrostomy tube but did not develop any pain. Daughter states she attempted to flush the right nephrostomy tube yesterday when she noticed some discharge around the tube from the nephrostomy site. Patient states the tube is otherwise draining well and he emptied it out this morning. He denies any fevers or chills nausea vomiting or flank pain. Denies any hematuria in the bag. - Related Data Home Medications Medication Instructions Recorded Confirmed Aspirin 81 mg PO DAILY 05/06/14 04/13/21 Allopurinol [Zyloprim] 100 mg PO DAILY 03/02/21 04/13/21 Atorvastatin [Lipitor] 80 mg PO HS 03/02/21 04/13/21 Magnesium 250 mg PO BID 03/02/21 04/13/21 Metoprolol Tartrate [Lopressor] 12.5 mg PO BID 03/02/21 04/13/21 Tamsulosin [Flomax] 0.4 mg PO BID 03/02/21 04/13/21 Calcium Carbonate [Calcium] 600 mg PO DAILY 03/15/21 04/13/21 Dexamethasone [Decadron] 8 mg PO DIRECTED 03/26/21 04/13/21 ondansetron HCL [Zofran] 8 mg PO BID PRN 03/26/21 04/13/21 HYDROcodone/APAP 5-325MG [[place] 1 tab PO Q6HR PRN 04/13/21 04/13/21 5-325] Previous Rx's Medication Instructions Recorded Ciprofloxacin HCl [Cipro] 750 mg PO Q12H 10 Days #20 tab 04/15/21 Sulfamethox-Tmp 800-160Mg [Bactrim 1 each PO Q12HR #20 tab 05/15/21 Ds] Allergies Allergy/AdvReac Type Severity Reaction Status Date / Time cephalexin [From Keflex] AdvReac Diarrhea Verified 06/01/21 07:14 Review of Systems ROS Statement: Those systems with pertinent positive or pertinent negative responses have been documented in the HPI. ROS Other: All systems not noted in ROS Statement are negative. Past Medical History Past Medical History: Coronary Artery Disease (CAD), Cancer, Diabetes Mellitus, Hyperlipidemia, Hypertension, Prostate Disorder Additional Past Medical History / Comment(s): PROSTATE CANCER (SEDUM IMPLANTS). RENAL CALCULI,, gout. History of Any Multi-Drug Resistant Organisms: None Reported Past Surgical History: Coronary Bypass/CABG, Heart Catheterization, Hernia Repair, Joint Replacement Additional Past Surgical History / Comment(s): LITHOTRIPSY x 2, triple bypass 08/25/2018, rt knee replacement, elieser inguinal hernia and umbilical hernia repair, Past Anesthesia/Blood Transfusion Reactions: No Reported Reaction Date of Last Stent Placement:: 2004 Past Psychological History: No Psychological Hx Reported Smoking Status: Never smoker Past Alcohol Use History: None Reported Past Drug Use History: None Reported - Past Family History Mother Family Medical History: No Reported History General Exam Limitations: no limitations General appearance: alert, in no apparent distress, obese Head exam: Present: atraumatic, normocephalic, normal inspection Eye exam: Present: normal appearance Pupils: Present: normal accommodation ENT exam: Present: normal exam, normal oropharynx, mucous membranes moist Neck exam: Present: normal inspection, full ROM. Absent: tenderness, lymphadenopathy Respiratory exam: Present: normal lung sounds bilaterally. Absent: respiratory distress Cardiovascular Exam: Present: regular rate, normal rhythm, normal heart sounds. Absent: systolic murmur, diastolic murmur GI/Abdominal exam: Present: soft. Absent: distended, tenderness, guarding, rebound Extremities exam: Present: normal inspection, full ROM Back exam: Present: normal inspection (Bilateral nephrostomy tubes. No signs of discharge or erythematous changes to suggest an infection), full ROM. Absent: tenderness, CVA tenderness (R), CVA tenderness (L), muscle spasm, paraspinal tenderness, vertebral tenderness Neurological exam: Present: alert, oriented X3 Psychiatric exam: Present: normal affect, normal mood Skin exam: Present: warm, dry, intact, normal color Course Vital Signs 06/01/21 07:08 Temperature 97.5 F L Pulse Rate 86 Respiratory 18 Rate Blood Pressure 147/83 O2 Sat by Pulse 99 Oximetry Medical Decision Making - Medical Decision Making 71-year-old male with history of prostate cancer and bilateral nephrostomy tubes presents emergency Department with a chief complaint of motor function on the nephrostomy site. On physical examination, no signs of infection or discharge from the nephrostomy site. With attempted to flush the nephrostomy tube in her right side multiple times and it was flushing well. Able to push and draw saline without any difficulty. Patient does not have any pain or discomfort. I consulted with Dr. Mora who who recommended that he will contact the patient either today or tomorrow regarding the results of the nephrostogram. Return parameters were thoroughly discussed with patient and daughter who understanding and agreeable. Case discussed with Dr. To Disposition Clinical Impression: Equipment malfunction Disposition: HOME SELF-CARE Condition: Stable Instructions (If sedation given, give patient instructions): Nephrostomy Tube Care (ED) Additional Instructions: Dr. Porter will contact you regarding the results of CT imaging. Please return to emergency department if symptoms worsen. Is patient prescribed a controlled substance at d/c from ED?: No Referrals: None,Stated [Primary Care Provider] - 1-2 days Time of Disposition: 07:45
== END 2021-06-01 08:03 | disposition home or self-care (01) ==
LOC: EC 07:07
DX: T83.032A Leakage of nephrostomy catheter, initial encounter (principal); I25.10 Atherosclerotic heart disease of native coronary artery without angina pectoris; E11.9 Type 2 diabetes mellitus without complications; E78.5 Hyperlipidemia, unspecified; I10 Essential (primary) hypertension; Z79.82 Long term (current) use of aspirin; Z88.1 Allergy status to other antibiotic agents; Z85.46 Personal history of malignant neoplasm of prostate; Z87.442 Personal history of urinary calculi; Z95.1 Presence of aortocoronary bypass graft; Z96.651 Presence of right artificial knee joint; Y82.8 Other medical devices associated with adverse incidents
CPT/HCPCS: 99282

== ENCOUNTER → 2021-06-13 | Day surgery (SDC) | payer MEDICARE ==
[2021-06-11 09:20] VITALS: BMI 32.4
--- NOTE | 2021-06-12 19:38 | P.GSHP ---
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 His most recent cr is 1.5 His most recent psa is 552. - Constitutional Constitutional: Denies chills, Denies fever - EENT Eyes: denies blurred vision, denies pain Ears, nose, mouth and throat: Denies headache, Denies sore throat - Cardiovascular Cardiovascular: Denies chest pain, Denies shortness of breath - Respiratory Respiratory: Denies cough, Denies 7 - Gastrointestinal Gastrointestinal: Denies abdominal pain, Denies diarrhea, Denies nausea, Denies vomiting - Genitourinary (Female) Genitourinary: Denies dysuria, Denies hematuria - Genitourinary (Male) Genitourinary: Denies dysuria, Denies hematuria - Musculoskeletal Musculoskeletal: Denies myalgias - Integumentary Integumentary: Denies pruritus, Denies rash - Neurological Neurological: Denies numbness, Denies weakness - Psychiatric Psychiatric: Denies anxiety, Denies depression - Endocrine Endocrine: Denies fatigue, Denies weight change Past Medical History Past Medical History: Coronary Artery Disease (CAD), Cancer, Diabetes Mellitus, Hyperlipidemia, Hypertension, Prostate Disorder Additional Past Medical History / Comment(s): PROSTATE CANCER (SEDUM IMPLANTS). kidney stone left kidney,, gout. on Rx for UTI currently. frequent UTI's, bone cancer-getting chemo currently History of Any Multi-Drug Resistant Organisms: None Reported Past Surgical History: Coronary Bypass/CABG, Heart Catheterization, Hernia Repair, Joint Replacement Additional Past Surgical History / Comment(s): LITHOTRIPSY x 2, triple CABG 08/25/2018, rt knee replacement, elieser inguinal hernia and umbilical hernia repair, Past Anesthesia/Blood Transfusion Reactions: No Reported Reaction Date of Last Stent Placement:: 2004 Smoking Status: Never smoker - Past Family History Mother Family Medical History: No Reported History Medications and Allergies Home Medications Medication Instructions Recorded Confirmed Type Aspirin 81 mg PO DAILY 05/06/14 06/11/21 History Allopurinol [Zyloprim] 100 mg PO DAILY 03/02/21 06/11/21 History Atorvastatin [Lipitor] 80 mg PO HS 03/02/21 06/11/21 History Magnesium 250 mg PO BID 03/02/21 06/11/21 History Metoprolol Tartrate [Lopressor] 12.5 mg PO BID 03/02/21 06/11/21 History Tamsulosin [Flomax] 0.4 mg PO BID 03/02/21 06/11/21 History Calcium Carbonate [Calcium] 600 mg PO DAILY 03/15/21 06/11/21 History ondansetron HCL [Zofran] 8 mg PO BID PRN 03/26/21 06/11/21 History HYDROcodone/APAP 5-325MG [[place] 1 tab PO Q6HR PRN 04/13/21 06/11/21 History 5-325] Ciprofloxacin HCl [Cipro] 750 mg PO Q12H 10 Days #20 tab 04/15/21 06/11/21 Rx metFORMIN HCL 1,000 mg PO QAM 06/11/21 06/11/21 History metFORMIN HCL 500 mg PO 1730 06/11/21 06/11/21 History Allergies Allergy/AdvReac Type Severity Reaction Status Date / Time cephalexin [From Keflex] AdvReac Diarrhea Verified 06/11/21 09:05 Surgical - Exam - General well developed, well nourished, no distress - Eyes PERRL - Neck no masses - Cardiovascular Rhythm: regular - Abdomen bilateral nephrostomy tube. Abdomen: soft, non tender - Genitourinary normal penis with no external lesions, testicles present - Neurologic normal sensation - Musculoskeletal normal posture - Psychiatric oriented to time, oriented to person, oriented to place, speech is normal, memory intact Results - Imaging Abdominal x-ray: report reviewed, image reviewed (antegrade nephrostograms identify patency) Assessment and Plan Assessment: Impression. 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 Plan; Conversion to antegrade stents bilaterally if possible.
[~2021-06-13] MED LIST changes: +AMPICILLIN 1,000 MG in SODIUM CHLORIDE 0.9% 50 ML IVPB ONE; -FUROSEMIDE 10 MG/ML 2 ML VIAL IV ONE; +GENTAMICIN 130 MG in SODIUM CHLORIDE 0.9% 100 ML IVPB ONE; +IOPAMIDOL-250 100ML BTL IV ONE; +LIDOCAINE 1% INJ 10MG/ML (20 ML MDV) SQ ONE; +MIDAZOLAM 2 MG/2 ML VIAL IV ONE; +SODIUM CHLORIDE 0.9% 1,000 ML IV ONE; +fentaNYL (PF) 50 MCG/ML 2 ML AMP IV ONE
[2021-06-13 07:41] VITALS: TEMP 98.3
[2021-06-13 07:44] LABS: Glucose,Whole Blood 130 mg/dL (75-99)
[2021-06-13 07:49] LABS: Anisocytosis Slight; HCT 24.3 % (39.0-53.0); HGB 7.7 gm/dL (13.0-17.5); MCH 30.1 pg (25.0-35.0); MCHC 31.9 g/dL (31.0-37.0); MCV 94.5 fL (80.0-100.0); Mean Platelet Volume 7.5; Platelet Count 264 k/uL (150-450); RBC 2.57 m/uL (4.30-5.90); RDW 17.7 % (11.5-15.5); WBC 4.5 k/uL (3.8-10.6)
[2021-06-13 08:21] LABS: Calcium 8.8 mg/dL (8.4-10.2)
[2021-06-13 11:11] VITALS: BP 150/75; PULSE 76; RESP 16
--- NOTE | 2021-06-13 11:55 | IR ---
Left-sided nephrostomy tube change, right-sided antegrade ureteral stent placement HISTORY: Hydronephrosis, prostate carcinoma After informed consent the skin surrounding the bilateral nephrostomy tubes in the indwelling tubes w ere prepped and draped in a sterile fashion. Lidocaine was used for local anesthesia of the site of t he tube insertions. On the right gentle hand-injection of contrast material was performed under fluoroscopic observation. Tube was subsequently cut and a 0.035 inch angled Glidewire was advanced through the tube and the wi re was negotiated with a 5 [place] hockey-stick catheter into the urinary bladder. A 24 cm long double -J ureteral stent was then advanced over the wire and placed appropriately, wire was removed. Images document the procedure. On the left indwelling tube was cut following gentle hand-injection of contrast material. The 0.035 i nch angled Glidewire was advanced distally and with the aid of the hockey-stick catheter was advanced into the bladder however the catheter could not be advanced beyond the region of the right iliac fos sa region. The 8.5 [place] nephrostomy tube was exchanged and fixed in place within the right renal pe lvis. Patient remained in stable condition. There is no immediate complication. 11 minutes fluoroscopy time, 834 intraoperative images document the procedure. Conscious sedation yolanda e 27 minutes, patient was monitored by an independent trained observer. IMPRESSION: Status post antegrade stent placement in the right ureter, status post left nephrostomy t ube exchange. 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 This procedure p erformed by the undersigned.
== END ==
LOC: CATHCVL 07:22
PROVIDERS: ATTEND Radiology Diagnostic Radiology
DX: C61 Malignant neoplasm of prostate (principal); N13.30 Unspecified hydronephrosis
CPT/HCPCS: 50693; 50435; 80048; 85027; C2625; C1729; C1769 ×2; J2250; J2001; J3010; J1580; J0290; Q9966

== ENCOUNTER 2021-06-14 19:08 | Emergency (ER) | payer MEDICARE ==
[2021-06-14 19:22] VITALS: RESP 18; TEMP 98.6
[2021-06-14] MEDS ORDERED: SODIUM CHLORIDE 0.9% 1,000 ML IV STA (20:02)
[2021-06-14 20:30] LABS: Anisocytosis Slight; Basophils % (A) 0 %; Eosinophils % (A) 0 %; HCT 23.3 % (39.0-53.0); HGB 7.5 gm/dL (13.0-17.5); Lymphocytes # (A) 0.9 k/uL (1.0-4.8); Lymphocytes % (A) 27 %; MCH 30.1 pg (25.0-35.0); MCHC 32.2 g/dL (31.0-37.0); MCV 93.6 fL (80.0-100.0); Mean Platelet Volume 7.2; Monocytes # (A) 0.2 k/uL (0-1.0); Monocytes % (A) 7 %; Neutrophils # (A) 2.1 k/uL (1.3-7.7); Neutrophils % (A) 63 %; Platelet Count 242 k/uL (150-450); RBC 2.49 m/uL (4.30-5.90); RDW 17.4 % (11.5-15.5); WBC 3.3 k/uL (3.8-10.6)
[2021-06-14 20:37] LABS: Appearance,Urine Turbid (Clear); Bilirubin,Urine Negative (Negative); Blood,Urine Large (Negative); Color,Urine Red; Glucose,Urine (UA) Trace (Negative); Ketones,Urine Negative (Negative); Leukocyte Esterase,Urine Large (Negative); Mucus,Urine Few /hpf; Nitrite,Urine Negative (Negative); PH, Urine 6.5 (5.0-8.0); Protein,Urine 3+ (Negative); RBC,Urine >182 /hpf (0-5); Specific Gravity,Urine 1.019 (1.001-1.035); Urobilinogen,Urine <2.0 mg/dL (<2.0); WBC,Urine 150 /hpf (0-5)
--- NOTE | 2021-06-14 20:37 | ED ---
General Adult HPI - General Chief complaint: Recheck/Abnormal Lab/Rx Stated complaint: Kidney tube plugged Time Seen by Provider: 06/14/21 19:39 Source: patient, RN notes reviewed Mode of arrival: ambulatory - History of Present Illness Initial comments: 71-year-old male presents to the emergency room for a chief complaint of leaking incision. Patient states he has had bilateral nephrostomy tubes for the past couple months. He states that yesterday the right tube was removed and an antegrade stent was placed. The left side could not be removed as he did have some high-grade obstruction in the distal ureter. Patient was concerned because of some leaking of the site on the right where the tube was removed. He also wants to make sure he does not have a UTI as he had chills last night. History of chemotherapy last week. Patient has no other complaints at this time in cluding shortness of breath, chest pain, abdominal pain, nausea or vomiting, headache, or visual changes. - Related Data Home Medications Medication Instructions Recorded Confirmed Aspirin 81 mg PO DAILY 05/06/14 06/13/21 Allopurinol [Zyloprim] 100 mg PO DAILY 03/02/21 06/13/21 Atorvastatin [Lipitor] 80 mg PO HS 03/02/21 06/13/21 Magnesium 250 mg PO BID 03/02/21 06/13/21 Metoprolol Tartrate [Lopressor] 12.5 mg PO BID 03/02/21 06/13/21 Tamsulosin [Flomax] 0.4 mg PO BID 03/02/21 06/13/21 Calcium Carbonate [Calcium] 600 mg PO DAILY 03/15/21 06/13/21 ondansetron HCL [Zofran] 8 mg PO BID PRN 03/26/21 06/11/21 metFORMIN HCL 1,000 mg PO QAM 06/11/21 06/13/21 metFORMIN HCL 500 mg PO 1730 06/11/21 06/13/21 Ciprofloxacin HCl [Cipro] 500 mg PO Q12H 06/13/21 06/13/21 Allergies Allergy/AdvReac Type Severity Reaction Status Date / Time cephalexin [From Keflex] AdvReac Diarrhea Verified 06/14/21 19:22 Review of Systems ROS Statement: Those systems with pertinent positive or pertinent negative responses have been documented in the HPI. ROS Other: All systems not noted in ROS Statement are negative. Past Medical History Past Medical History: Coronary Artery Disease (CAD), Cancer, Diabetes Mellitus, Hyperlipidemia, Hypertension, Prostate Disorder Additional Past Medical History / Comment(s): PROSTATE CANCER (SEDUM IMPLANTS). kidney stone left kidney,, gout. on Rx for UTI currently. frequent UTI's, bone cancer-getting chemo currently History of Any Multi-Drug Resistant Organisms: None Reported Past Surgical History: Coronary Bypass/CABG, Heart Catheterization, Hernia Repair, Joint Replacement Additional Past Surgical History / Comment(s): LITHOTRIPSY x 2, triple CABG 08/25/2018, rt knee replacement, elieser inguinal hernia and umbilical hernia repair, Past Anesthesia/Blood Transfusion Reactions: No Reported Reaction Date of Last Stent Placement:: 2004 Past Psychological History: No Psychological Hx Reported Smoking Status: Never smoker Past Alcohol Use History: None Reported Past Drug Use History: None Reported - Past Family History Mother Family Medical History: No Reported History General Exam General appearance: alert, in no apparent distress Head exam: Present: atraumatic Eye exam: Present: normal appearance, PERRL, EOMI. Absent: scleral icterus, conjunctival injection ENT exam: Present: normal exam, mucous membranes moist Neck exam: Present: normal inspection, full ROM. Absent: tenderness Respiratory exam: Present: normal lung sounds bilaterally. Absent: respiratory distress, wheezes Cardiovascular Exam: Present: regular rate, normal rhythm, normal heart sounds GI/Abdominal exam: Present: soft, normal bowel sounds. Absent: distended, tenderness Back exam: Present: other (Patient has small healing incision on the right were nephrostomy tube was pulled. There is slight serous drainage. No purulent drainage or signs of infection. Wound is shallow and healing. Nephrostomy tube is noted on the left.) Course Vital Signs 06/14/21 19:18 Temperature 98.6 F Pulse Rate 89 Respiratory 18 Rate Blood Pressure 104/70 O2 Sat by Pulse 98 Oximetry Medical Decision Making - Medical Decision Making Vitals are stable. There is a small incision on the right flank. There is minimal serous drainage from this area. Laboratory evaluation was initiated. CBC is please sign. CMP does reveal a normal kidney function. Slightly dehydrated, patient was given fluids. Urinalysis does not show any bacteria. S uspect white blood cells are related to red blood cells. Culture will be ordered. Patient is already on Cipro which she will continue. At this time patient has urinated several times today and twice in the emergency room. Suspect that nephrostomy tube and stent are functioning properly. He has no flank pain. At this time he can be discharged home. He will call his urologist tomorrow. He will return for any worsening symptoms.I discussed this case with attending Dr. Bautista who agrees with this assessment and treatment plan. - Lab Data Result diagrams: 06/14/21 20:07 06/14/21 20:07 Lab Results 06/14/21 06/14/21 06/14/21 Range/Units 20:07 20:07 20:07 WBC 3.3 L (3.8-10.6) k/uL RBC 2.49 L (4.30-5.90) m/uL Hgb 7.5 L (13.0-17.5) gm/dL Hct 23.3 L (39.0-53.0) % MCV 93.6 (80.0-100.0) fL MCH 30.1 (25.0-35.0) pg MCHC 32.2 (31.0-37.0) g/dL RDW 17.4 H (11.5-15.5) % Plt Count 242 (150-450) k/uL MPV 7.2 Neutrophils % 63 % Lymphocytes % 27 % Monocytes % 7 % Eosinophils % 0 % Basophils % 0 % Neutrophils # 2.1 (1.3-7.7) k/uL Lymphocytes # 0.9 L (1.0-4.8) k/uL Monocytes # 0.2 (0-1.0) k/uL Eosinophils # 0.0 (0-0.7) k/uL Basophils # 0.0 (0-0.2) k/uL Anisocytosis Slight Sodium 137 (137-145) mmol/L Potassium 4.2 (3.5-5.1) mmol/L Chloride 107 (98-107) mmol/L Carbon Dioxide 23 (22-30) mmol/L Anion Gap 7 mmol/L BUN 21 H (9-20) mg/dL Creatinine 1.25 (0.66-1.25) mg/dL Est GFR (CKD-EPI)AfAm 67 (>60 ml/min/1.73 sqM) Est GFR (CKD-EPI)NonAf 58 (>60 ml/min/1.73 sqM) Glucose 111 H (74-99) mg/dL Calcium 8.6 (8.4-10.2) mg/dL Total Bilirubin 0.7 (0.2-1.3) mg/dL AST 33 (17-59) U/L ALT 16 (4-49) U/L Alkaline Phosphatase 231 H (38-126) U/L Total Protein 5.6 L (6.3-8.2) g/dL Albumin 3.0 L (3.5-5.0) g/dL Urine Color Red Urine Appearance Turbid (Clear) Urine pH 6.5 (5.0-8.0) Ur Specific [place] 1.019 (1.001-1.035) Urine Protein 3+ H (Negative) Urine Glucose (UA) Trace H (Negative) Urine Ketones Negative (Negative) Urine Blood Large H (Negative) Urine Nitrite Negative (Negative) Urine Bilirubin Negative (Negative) Urine Urobilinogen <2.0 (<2.0) mg/dL Ur Leukocyte Esterase Large H (Negative) Urine RBC >182 H (0-5) /hpf Urine WBC 150 H (0-5) /hpf Urine Mucus Few H (None) /hpf Disposition Clinical Impression: Hx of nephrostomy, Hematuria Disposition: HOME SELF-CARE Condition: Good Instructions (If sedation given, give patient instructions): Nephrostomy Tube Care (ED) Additional Instructions: Please call your urologist tomorrow. Return for any worsening symptoms. Is patient prescribed a controlled substance at d/c from ED?: No Referrals: Nonstaff,Physician [Primary Care Provider] - 1-2 days Gennaro Porter MD [STAFF PHYSICIAN] - 1-2 days Time of Disposition: 21:43
[2021-06-14 20:45] LABS: Calcium 8.6 mg/dL (8.4-10.2); Potassium 4.2 mmol/L (3.5-5.1); Total Bilirubin 0.7 mg/dL (0.2-1.3); Total Protein 5.6 g/dL (6.3-8.2)
[2021-06-14 22:13] VITALS: BP 118/86; PULSE 77
== END 2021-06-14 20:48 | disposition home or self-care (01) ==
LOC: EC 19:08
DX: T83.032A Leakage of nephrostomy catheter, initial encounter (principal); R31.9 Hematuria, unspecified; E11.9 Type 2 diabetes mellitus without complications; I10 Essential (primary) hypertension; I25.10 Atherosclerotic heart disease of native coronary artery without angina pectoris; E78.5 Hyperlipidemia, unspecified; Z93.6 Other artificial openings of urinary tract status; Z79.82 Long term (current) use of aspirin; Z79.84 Long term (current) use of oral hypoglycemic drugs; Z88.1 Allergy status to other antibiotic agents; Z85.46 Personal history of malignant neoplasm of prostate; Z87.442 Personal history of urinary calculi; Z92.21 Personal history of antineoplastic chemotherapy; Z95.1 Presence of aortocoronary bypass graft; Z87.440 Personal history of urinary (tract) infections; Z96.651 Presence of right artificial knee joint; Y82.8 Other medical devices associated with adverse incidents
CPT/HCPCS: 36415; 80053; 81001; 85025; 87086; 96360; 99283

== ENCOUNTER 2021-06-18 18:38 | Inpatient (IN) | payer MEDICARE ==
[2021-06-18] MEDS ORDERED: SODIUM CHLORIDE 0.9% 1,000 ML IV STA (21:33)
[2021-06-18] MEDS ORDERED: ACETAMINOPHEN TAB 500 MG TAB PO STA (21:33)
[2021-06-18] MEDS ORDERED: KETOROLAC 15 MG/ML 1 ML VIAL IVP STA (21:33)
[2021-06-18] MEDS ORDERED: DEXAMETHASONE SOD PHOSPHATE 10 MG/ML 1 ML VIAL IV STA (21:33)
--- NOTE | 2021-06-18 21:34 | ED ---
Weakness HPI - General Chief complaint: Weakness Stated complaint: headache, tired Time Seen by Provider: 06/18/21 21:30 Source: patient Mode of arrival: wheelchair Limitations: no limitations - Related Data Home Medications Medication Instructions Recorded Confirmed Aspirin 81 mg PO DAILY 05/06/14 06/18/21 Allopurinol [Zyloprim] 100 mg PO DAILY 03/02/21 06/18/21 Atorvastatin [Lipitor] 80 mg PO HS 03/02/21 06/18/21 Metoprolol Tartrate [Lopressor] 12.5 mg PO BID 03/02/21 06/18/21 Tamsulosin [Flomax] 0.4 mg PO BID 03/02/21 06/18/21 ondansetron HCL [Zofran] 8 mg PO BID PRN 03/26/21 06/18/21 metFORMIN HCL 1,000 mg PO DAILY 06/11/21 06/18/21 metFORMIN HCL 500 mg PO HS 06/11/21 06/18/21 Calcium Carbonate/Vitamin D3 1 cap PO BID 06/18/21 06/18/21 [Calcium 600 mg-Vit D3 5 mcg (200 unit)] Dexamethasone [Decadron] 4 mg PO BID PRN 06/18/21 06/18/21 Ibuprofen [Motrin Ib] 800 mg PO Q8H PRN 06/18/21 06/18/21 Magnesium Citrate 250 mg PO BID 06/18/21 06/18/21 Allergies Allergy/AdvReac Type Severity Reaction Status Date / Time cephalexin [From Keflex] AdvReac Diarrhea Verified 06/18/21 23:03 Review of Systems ROS Statement: Those systems with pertinent positive or pertinent negative responses have been documented in the HPI. ROS Other: All systems not noted in ROS Statement are negative. Past Medical History Past Medical History: Coronary Artery Disease (CAD), Cancer, Diabetes Mellitus, Hyperlipidemia, Hypertension, Prostate Disorder Additional Past Medical History / Comment(s): PROSTATE CANCER (SEDUM IMPLANTS). kidney stone left kidney,, gout. on Rx for UTI currently. frequent UTI's, bone cancer-getting chemo currently History of Any Multi-Drug Resistant Organisms: None Reported Past Surgical History: Coronary Bypass/CABG, Heart Catheterization, Hernia Repair, Joint Replacement Additional Past Surgical History / Comment(s): LITHOTRIPSY x 2, triple CABG 08/25/2018, rt knee replacement, elieser inguinal hernia and umbilical hernia repair, Past Anesthesia/Blood Transfusion Reactions: No Reported Reaction Date of Last Stent Placement:: 2004 Past Psychological History: No Psychological Hx Reported Smoking Status: Never smoker Past Alcohol Use History: None Reported Past Drug Use History: None Reported - Past Family History Mother Family Medical History: No Reported History General Exam Limitations: no limitations Course Vital Signs 06/18/21 19:36 Temperature 100.1 F H Pulse Rate 123 H Respiratory 18 Rate Blood Pressure 95/54 O2 Sat by Pulse 98 Oximetry EKG Findings - EKG Comments: EKG Findings:: EKG shows sinus tachycardia 102 IA 186 QRS 120 QTc 516 Medical Decision Making - Lab Data Result diagrams: 06/18/21 22:34 06/18/21 22:34 Lab Results 06/18/21 06/18/21 06/18/21 Range/Units 22:34 22:34 22:34 WBC 4.1 (3.8-10.6) k/uL RBC 2.67 L (4.30-5.90) m/uL Hgb 8.0 L (13.0-17.5) gm/dL Hct 24.7 L (39.0-53.0) % MCV 92.5 (80.0-100.0) fL MCH 30.1 (25.0-35.0) pg MCHC 32.5 (31.0-37.0) g/dL RDW 17.7 H (11.5-15.5) % Plt Count 313 (150-450) k/uL MPV 7.1 Neutrophils % 70 % Lymphocytes % 20 % Monocytes % 6 % Eosinophils % 0 % Basophils % 0 % Neutrophils # 2.9 (1.3-7.7) k/uL Lymphocytes # 0.8 L (1.0-4.8) k/uL Monocytes # 0.3 (0-1.0) k/uL Eosinophils # 0.0 (0-0.7) k/uL Basophils # 0.0 (0-0.2) k/uL Hypochromasia Slight Poikilocytosis Slight Anisocytosis Slight PT 9.7 (9.0-12.0) sec INR 0.9 (<1.2) APTT 22.6 (22.0-30.0) sec Sodium 136 L (137-145) mmol/L Potassium 4.6 (3.5-5.1) mmol/L Chloride 105 (98-107) mmol/L Carbon Dioxide 25 (22-30) mmol/L Anion Gap 6 mmol/L BUN 19 (9-20) mg/dL Creatinine 1.27 H (0.66-1.25) mg/dL Est GFR (CKD-EPI)AfAm 65 (>60 ml/min/1.73 sqM) Est GFR (CKD-EPI)NonAf 57 (>60 ml/min/1.73 sqM) Glucose 118 H (74-99) mg/dL Plasma Lactic Acid [place] (0.7-2.0) mmol/L Calcium 9.0 (8.4-10.2) mg/dL Magnesium 1.9 (1.6-2.3) mg/dL Total Bilirubin 0.5 (0.2-1.3) mg/dL AST 52 (17-59) U/L ALT 13 (4-49) U/L Alkaline Phosphatase 396 H (38-126) U/L Lactate Dehydrogenase 1433 H (313-618) U/L C-Reactive Protein 3.1 H (<1.0) mg/dL Total Protein 5.9 L (6.3-8.2) g/dL Albumin 3.2 L (3.5-5.0) g/dL Urine Color Urine Appearance (Clear) Urine pH (5.0-8.0) Ur Specific [place] (1.001-1.035) Urine Protein (Negative) Urine Glucose (UA) (Negative) Urine Ketones (Negative) Urine Blood (Negative) Urine Nitrite (Negative) Urine Bilirubin (Negative) Urine Urobilinogen (<2.0) mg/dL Ur Leukocyte Esterase (Negative) Urine RBC (0-5) /hpf Urine WBC (0-5) /hpf Urine WBC Clumps (None) /hpf Ur Squamous Epith Cells (0-4) /hpf Amorphous Sediment (None) /hpf Urine Bacteria (None) /hpf Urine Mucus (None) /hpf 06/18/21 06/18/21 06/18/21 Range/Units 22:34 22:59 23:10 WBC (3.8-10.6) k/uL RBC (4.30-5.90) m/uL Hgb (13.0-17.5) gm/dL Hct (39.0-53.0) % MCV (80.0-100.0) fL MCH (25.0-35.0) pg MCHC (31.0-37.0) g/dL RDW (11.5-15.5) % Plt Count (150-450) k/uL MPV Neutrophils % % Lymphocytes % % Monocytes % % Eosinophils % % Basophils % % Neutrophils # (1.3-7.7) k/uL Lymphocytes # (1.0-4.8) k/uL Monocytes # (0-1.0) k/uL Eosinophils # (0-0.7) k/uL Basophils # (0-0.2) k/uL Hypochromasia Poikilocytosis Anisocytosis PT (9.0-12.0) sec INR (<1.2) APTT (22.0-30.0) sec Sodium (137-145) mmol/L Potassium (3.5-5.1) mmol/L Chloride (98-107) mmol/L Carbon Dioxide (22-30) mmol/L Anion Gap mmol/L BUN (9-20) mg/dL Creatinine (0.66-1.25) mg/dL Est GFR (CKD-EPI)AfAm (>60 ml/min/1.73 sqM) Est GFR (CKD-EPI)NonAf (>60 ml/min/1.73 sqM) Glucose (74-99) mg/dL Plasma Lactic Acid [place] 2.0 (0.7-2.0) mmol/L Calcium (8.4-10.2) mg/dL Magnesium (1.6-2.3) mg/dL Total Bilirubin (0.2-1.3) mg/dL AST (17-59) U/L ALT (4-49) U/L Alkaline Phosphatase (38-126) U/L Lactate Dehydrogenase (313-618) U/L C-Reactive Protein (<1.0) mg/dL Total Protein (6.3-8.2) g/dL Albumin (3.5-5.0) g/dL Urine Color Light Yellow Light Red Urine Appearance Turbid Cloudy (Clear) Urine pH 8.0 6.0 (5.0-8.0) Ur Specific [place] 1.012 1.018 (1.001-1.035) Urine Protein 3+ H 3+ H (Negative) Urine Glucose (UA) Negative Negative (Negative) Urine Ketones Negative Negative (Negative) Urine Blood Moderate H Large H (Negative) Urine Nitrite Negative Negative (Negative) Urine Bilirubin Negative Negative (Negative) Urine Urobilinogen <2.0 <2.0 (<2.0) mg/dL Ur Leukocyte Esterase Large H Moderate H (Negative) Urine RBC 161 H >182 H (0-5) /hpf Urine WBC >182 H 75 H (0-5) /hpf Urine WBC Clumps Many H (None) /hpf Ur Squamous Epith Cells 1 (0-4) /hpf Amorphous Sediment Rare H (None) /hpf Urine Bacteria Many H (None) /hpf Urine Mucus Rare H (None) /hpf Disposition Clinical Impression: UTI (urinary tract infection), Fever, Dehydration Disposition: ADMITTED IP TO THIS HOSP Condition: Fair Is patient prescribed a controlled substance at d/c from ED?: No Referrals: Zac Braden MD [Primary Care Provider] - 1-2 days
--- NOTE | 2021-06-18 22:43 | XR ---
EXAMINATION TYPE: XR chest 1V portable DATE OF EXAM: 06/18/2021 COMPARISON: 04/13/2021 HISTORY: Pneumonia. Headache. Weakness. TECHNIQUE: Single view FINDINGS: Heart is normal. There is sternal wires and previous cardiac surgery. Lungs are clear of co nsolidation. There are no hilar masses. Costophrenic angles are clear. IMPRESSION: No active cardiopulmonary disease. Normal heart. No adverse change.
[2021-06-18 23:09] LABS: Anisocytosis Slight; Basophils % (A) 0 %; Eosinophils % (A) 0 %; HCT 24.7 % (39.0-53.0); Hypochromasia Slight; Lymphocytes # (A) 0.8 k/uL (1.0-4.8); Lymphocytes % (A) 20 %; MCH 30.1 pg (25.0-35.0); MCHC 32.5 g/dL (31.0-37.0); MCV 92.5 fL (80.0-100.0); Mean Platelet Volume 7.1; Monocytes # (A) 0.3 k/uL (0-1.0); Monocytes % (A) 6 %; Neutrophils # (A) 2.9 k/uL (1.3-7.7); Neutrophils % (A) 70 %; Platelet Count 313 k/uL (150-450); Poikilocytosis Slight; RBC 2.67 m/uL (4.30-5.90); RDW 17.7 % (11.5-15.5); WBC 4.1 k/uL (3.8-10.6)
[2021-06-18 23:26] LABS: Appearance,Urine Cloudy (Clear); Bilirubin,Urine Negative (Negative); Blood,Urine Large (Negative); Color,Urine Light Red; Glucose,Urine (UA) Negative (Negative); Ketones,Urine Negative (Negative); Leukocyte Esterase,Urine Moderate (Negative); Mucus,Urine Rare /hpf; Nitrite,Urine Negative (Negative); Protein,Urine 3+ (Negative); RBC,Urine >182 /hpf (0-5); Specific Gravity,Urine 1.018 (1.001-1.035); Squamous Epithelial Cell,Urine 1 /hpf (0-4); Urobilinogen,Urine <2.0 mg/dL (<2.0); WBC,Urine 75 /hpf (0-5)
[2021-06-18 23:34] LABS: INR 0.9 (<1.2); Partial Thromboplastin Time 22.6 sec (22.0-30.0); Prothrombin Time 9.7 sec (9.0-12.0)
[2021-06-18 23:36] LABS: Amorphous Sediment,Urine Rare /hpf; Appearance,Urine Turbid (Clear); Bacteria,Urine Many /hpf; Bilirubin,Urine Negative (Negative); Blood,Urine Moderate (Negative); Color,Urine Light Yellow; Glucose,Urine (UA) Negative (Negative); Ketones,Urine Negative (Negative); Leukocyte Esterase,Urine Large (Negative); Nitrite,Urine Negative (Negative); Protein,Urine 3+ (Negative); RBC,Urine 161 /hpf (0-5); Specific Gravity,Urine 1.012 (1.001-1.035); Urobilinogen,Urine <2.0 mg/dL (<2.0); WBC,Urine >182 /hpf (0-5)
[2021-06-18 23:36] LABS: Albumin 3.2 g/dL (3.5-5.0); C Reactive Protein 3.1 mg/dL (<1.0); Magnesium 1.9 mg/dL (1.6-2.3); Total Bilirubin 0.5 mg/dL (0.2-1.3); Total Protein 5.9 g/dL (6.3-8.2)
[2021-06-18 23:45] LABS: Potassium 4.6 mmol/L (3.5-5.1)
[2021-06-18] MEDS ORDERED: LEVOFLOXACIN 750MG-D5W PMX 750 MG in DEXTROSE/WATER 1 150ML.BAG IVPB SCH (23:45)
[2021-06-18] MEDS ORDERED: NALOXONE 0.4 MG/ML 1 ML VIAL IV PRN (23:59)
[2021-06-18] MEDS ORDERED: LEVOFLOXACIN 750MG-D5W PMX 750 MG in DEXTROSE/WATER 1 150ML.BAG IVPB STA (23:59)
[2021-06-18] MEDS ORDERED: ONDANSETRON 4 MG/2 ML VIAL IVP PRN (23:59)
[2021-06-19] MEDS ORDERED: LEVOFLOXACIN 750MG-D5W PMX 750 MG in DEXTROSE/WATER 1 150ML.BAG IVPB ONE (00:15)
[2021-06-19] MEDS: SODIUM CHLORIDE 0.9% 1,000 ML IV SCH ×3 (03:49→16:47)
[2021-06-19] MEDS: CEFEPIME 1 GM in SODIUM CHLORIDE 0.9% 50 ML IVPB SCH ×2 (09:09→20:47)
--- NOTE | 2021-06-19 10:12 | P.HPIM ---
History of Present Illness This is a pleasant 71 years old male with past medical history of Coronary Artery Disease,Diabetes Mellitus, Hyperlipidemia, Hypertension, PROSTATE CANCER (SEDUM IMPLANTS). kidney stone left kidney, gout. on Rx for UTI currently. frequent UTI's, bone cancer-getting chemo currently with Dr. Gastelum, last dose was less than [address] Gastelum call him yesterday with recommendation to stop his chemotherapy because they don't think it's working per patient Presents because of generalized weakness and fatigue and fever. Patient says that he has been sleeping a lot over the last 2 days and when he goes for example to the bathroom he feels lightheadedness and dizzy. He denies chest pain or coughing or dyspnea. No diarrhea Or vomiting. Patient denies any dysuria or urgency. No discomfort with his urination but his urine is leaking a lot. Last week his right side nephrostomy change to ureteral stent but left-sided nephrostomy tube was kept in a Place Denies smoking, alcohol or illicit tracts On admission he had a fever of 100.1. Labs are reviewed, CBC is unremarkable except for anemia with hemoglobin of 8.0, previous hemoglobin was 6.4-7.7. BMP and liver enzymes are unremarkable except for elevated creatinine of 1.27 which is close to baseline of 1.1-1.25. Elevated lactate dehydrogenase 1433 and C-reactive protein of 3.1. Urine analysis 2 suspicious for infections with protein blood and leukocyte esterase elevated in the urine Urine culture are pending. EKG showing sinus tachycardia with 102 and elevated QTC of 516. Right bundle- branch block Chest x-ray showing no acute cardiopulmonary disease 1 week ago patient underwent placement of urethral stents and exchange of bilat eral nephrostomy catheter on 06/13 secondary to obstructive uropathy from his prostate cancer In the emergency room patient received dexamethasone, Toradol, Levaquin and normal saline at 1 30 mL/h this as well later of NS Bolus In the emergency room oncology and urology service were consulted He has documented ALLERGY to Keflex showing only diarrhea. Patient denies any other signs of ALLERGIC reaction when I reviewed with him. Most likely this is a side effect Review of Systems CONSTITUTIONAL: No fever, no malaise, no fatigue. HEENT: No recent visual problems or hearing problems. Denied any sore throat. CARDIOVASCULAR: No orthopnea, PND, no palpitations, no syncope. PULMONARY: No shortness of breath, no cough, no hemoptysis. GASTROINTESTINAL: No diarrhea, no nausea, no vomiting, no abdominal pain. Normoactive bowel sounds. NEUROLOGICAL: No headaches, no weakness, no numbness. HEMATOLOGICAL: Denies any bleeding or petechiae. GENITOURINARY: Denies any burning micturition, frequency, or urgency. MUSCULOSKELETAL/RHEUMATOLOGICAL: Denies any joint pain, swelling, or any muscle pain. ENDOCRINE: Denies any polyuria or polydipsia. Past Medical History Past Medical History: Coronary Artery Disease (CAD), Cancer, Diabetes Mellitus, Hyperlipidemia, Hypertension, Prostate Disorder Additional Past Medical History / Comment(s): PROSTATE CANCER (SEDUM IMPLANTS). kidney stone left kidney,, gout. on Rx for UTI currently. frequent UTI's, bone cancer-getting chemo currently History of Any Multi-Drug Resistant Organisms: None Reported Past Surgical History: Coronary Bypass/CABG, Heart Catheterization, Hernia Repair, Joint Replacement Additional Past Surgical History / Comment(s): LITHOTRIPSY x 2, triple CABG 08/25/2018, rt knee replacement, elieser inguinal hernia and umbilical hernia repair, Past Anesthesia/Blood Transfusion Reactions: No Reported Reaction Date of Last Stent Placement:: 2004 Past Psychological History: No Psychological Hx Reported Smoking Status: Never smoker Past Alcohol Use History: None Reported Past Drug Use History: None Reported - Past Family History Mother Family Medical History: No Reported History Medications and Allergies Home Medications Medication Instructions Recorded Confirmed Type Aspirin 81 mg PO DAILY 05/06/14 06/18/21 History Allopurinol [Zyloprim] 100 mg PO DAILY 03/02/21 06/18/21 History Atorvastatin [Lipitor] 80 mg PO HS 03/02/21 06/18/21 History Metoprolol Tartrate [Lopressor] 12.5 mg PO BID 03/02/21 06/18/21 History Tamsulosin [Flomax] 0.4 mg PO BID 03/02/21 06/18/21 History ondansetron HCL [Zofran] 8 mg PO BID PRN 03/26/21 06/18/21 History metFORMIN HCL 1,000 mg PO DAILY 06/11/21 06/18/21 History metFORMIN HCL 500 mg PO HS 06/11/21 06/18/21 History Calcium Carbonate/Vitamin D3 1 cap PO BID 06/18/21 06/18/21 History [Calcium 600 mg-Vit D3 5 mcg (200 unit)] Dexamethasone [Decadron] 4 mg PO BID PRN 06/18/21 06/18/21 History Ibuprofen [Motrin Ib] 800 mg PO Q8H PRN 06/18/21 06/18/21 History Magnesium Citrate 250 mg PO BID 06/18/21 06/18/21 History Allergies Allergy/AdvReac Type Severity Reaction Status Date / Time cephalexin [From Keflex] AdvReac Diarrhea Verified 06/18/21 23:03 Physical Exam Vitals: Vital Signs Temp Pulse Resp BP Pulse Ox 06/19/21 05:00 87 119/73 99 06/19/21 04:00 97.4 F L 90 111/100 99 06/19/21 03:00 94 125/78 95 06/19/21 02:00 94 126/71 95 06/19/21 01:00 96 121/71 97 06/19/21 00:00 98.7 F 97 18 121/71 96 06/18/21 19:36 100.1 F H 123 H 18 95/54 98 Intake and Output 06/18/21 06/19/21 06/19/21 22:59 06:59 14:59 Other: Weight 110.223 kg -GENERAL: The patient is alert and oriented x3, not in any acute distress. Obese HEENT: Pupils are round and equally reacting to light. EOMI. No scleral icterus. No conjunctival pallor. Normocephalic, atraumatic. No pharyngeal erythema. No thyromegaly. CARDIOVASCULAR: S1 and S2 present. No murmurs, rubs, or gallops. PULMONARY: Chest is clear to auscultation, no wheezing or crackles. -ABDOMEN: Soft, nontender, nondistended, normoactive bowel sounds. No palpable organomegaly. Right-sided nephrostomy puncture wound is closed and healing, no surrounding cellulitis. Nephrostomy tube is in place MUSCULOSKELETAL: No joint swelling or deformity. EXTREMITIES: No cyanosis, clubbing, or pedal edema. NEUROLOGICAL: Gross neurological examination did not reveal any focal deficits. SKIN: No rashes. No petechiae Results CBC & Chem 7: 06/18/21 22:34 06/18/21 22:34 Labs: Abnormal Lab Results - Last 24 Hours (Table) 06/18/21 06/18/21 06/18/21 Range/Units 22:34 22:34 22:59 RBC 2.67 L (4.30-5.90) m/uL Hgb 8.0 L (13.0-17.5) gm/dL Hct 24.7 L (39.0-53.0) % RDW 17.7 H (11.5-15.5) % Lymphocytes # 0.8 L (1.0-4.8) k/uL Sodium 136 L (137-145) mmol/L Creatinine 1.27 H (0.66-1.25) mg/dL Glucose 118 H (74-99) mg/dL Alkaline Phosphatase 396 H (38-126) U/L Lactate Dehydrogenase 1433 H (313-618) U/L C-Reactive Protein 3.1 H (<1.0) mg/dL Total Protein 5.9 L (6.3-8.2) g/dL Albumin 3.2 L (3.5-5.0) g/dL Urine Protein 3+ H (Negative) Urine Blood Moderate H (Negative) Ur Leukocyte Esterase Large H (Negative) Urine RBC 161 H (0-5) /hpf Urine WBC >182 H (0-5) /hpf Urine WBC Clumps Many H (None) /hpf Amorphous Sediment Rare H (None) /hpf Urine Bacteria Many H (None) /hpf Urine Mucus (None) /hpf 06/18/21 Range/Units 23:10 RBC (4.30-5.90) m/uL Hgb (13.0-17.5) gm/dL Hct (39.0-53.0) % RDW (11.5-15.5) % Lymphocytes # (1.0-4.8) k/uL Sodium (137-145) mmol/L Creatinine (0.66-1.25) mg/dL Glucose (74-99) mg/dL Alkaline Phosphatase (38-126) U/L Lactate Dehydrogenase (313-618) U/L C-Reactive Protein (<1.0) mg/dL Total Protein (6.3-8.2) g/dL Albumin (3.5-5.0) g/dL Urine Protein 3+ H (Negative) Urine Blood Large H (Negative) Ur Leukocyte Esterase Moderate H (Negative) Urine RBC >182 H (0-5) /hpf Urine WBC 75 H (0-5) /hpf Urine WBC Clumps (None) /hpf Amorphous Sediment (None) /hpf Urine Bacteria (None) /hpf Urine Mucus Rare H (None) /hpf Microbiology - Last 24 Hours (Table) 06/18/21 22:59 Urine Culture - Preliminary Urine,Catheterized 06/18/21 23:10 Urine Culture - Preliminary Urine,Catheterized Assessment and Plan Assessment: Recurrent urinary tract infection 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 And status post bilateral nephrostomy tube secondary to obstructive uropathy bilateral nephrostomy tube secondary to obstructive uropathy. Right-sided nephrostomy tube changed to a ureteral stent last week Possible chronic kidney disease stage 2-3 Hypertension Diabetes mellitus Hyperlipidemia History Of coronary artery disease History of kidney stone History of gout Obesity with BMI of 33.0 Plan: This is a pleasant 71 years old male who presents with fever and recurrent UTI secondary to urethral stents from prostate cancer obstructive uropathy Continue with IV fluid Follow-up oncology and urology services We will start the patient on cefepime and follow-up urine culture Labs and medication were reviewed.. Continue same treatment. Continue with symptomatic treatment. Resume home medication. Monitor lytes and vitals. DVT and GI prophylaxis. Further recommendations depends on the clinical course of the patient DVT prophylaxis: Subcutaneous heparin GI Prophylaxis: Pepcid PT/OT: Pending Prognosis is guarded
--- NOTE | 2021-06-19 14:09 | P.CONS ---
History of Present Illness - Reason for Consult Consult date: 06/19/21 prostate cancer, on treatment Requesting physician: Adama Navarro - Chief Complaint fever, UTI - History of Present Illness Mr. Madrigal is a very pleasant male pt of Dr. Gastelum diagnosed with prostate cancer 08/2005, PSA 48.3, nodule detected on HAYLEY, biopsies poorly differentiated carcinoma involving all cores. 10/16/05 treated with brachytherapy and went on LHRH agonist. Due to a rising PSA he was put back on LHRH agonist in around 2008. All went well, PSA 10/21/19 was less than 0.1. 05/02/20 PSA was up to 27.0, serum testosterone was 14.0. 05/12/20 PSA was 35.2. 05/26/20 CT CAP revealed osseous mets, left hydronephrosis. 05/26/20 bone scan revealed diffuse osseous metastasis. He was started on xtandi at that time, however,he did not take it regularly due to his copay, but started taking regularly. He was started on xgeva by urology. PSA 08/29/20 was 7.8. PSA 11/27/20 was 18.0. 01/23/21 PSA was 63.2. 02/13/21 bone scan revealed diffuse osseous mets, CT CAP revealed diffuse osseous mets, no visceral disease, there was a left kidney stone causing hydronephrosis. Saw Urologist, ended up with bilateral urostomies due to hydronephrosis. He declined to have provenge. He started taxotere on 03/20/21. 04/04/21 PSA was 274. He developed UTI after his first cycle of chemo. He resumed taxotere (changed to weekly dosing due to tolerance) 04/19/21. He has a left nephrostomy tube placed on 06/13/21. He had 3 cycles, days 1 & 8. He saw Dr. Gastelum last week and was feeling well. He was still on abx for UTI (2nd course from the March UTI). He completed abx on Friday, started not feeling well 3 days later, he noted fever, malaise, came to ER for evaluation, UA suspicious for UTI. He feels ok after fluids and start of abx, denied chills/rigors, sore throat, cough, chest pain, palpitations, N,V, abd pain, diarrhea, constipation, dysuria, hematuria, he does have slow urinary stream, chronic, no bleeding, swelling or rashes to report. Review of Systems 10 point ROS is neg except as stated in HPI Past Medical History Past Medical History: Coronary Artery Disease (CAD), Cancer, Diabetes Mellitus, Hyperlipidemia, Hypertension, Prostate Disorder Additional Past Medical History / Comment(s): PROSTATE CANCER (SEDUM IMPLANTS). kidney stone left kidney,, gout. on Rx for UTI currently. frequent UTI's, bone cancer-getting chemo currently History of Any Multi-Drug Resistant Organisms: None Reported Past Surgical History: Coronary Bypass/CABG, Heart Catheterization, Hernia Repair, Joint Replacement Additional Past Surgical History / Comment(s): LITHOTRIPSY x 2, triple CABG 08/25/2018, rt knee replacement, elieser inguinal hernia and umbilical hernia repair, Past Anesthesia/Blood Transfusion Reactions: No Reported Reaction Date of Last Stent Placement:: 2004 Past Psychological History: No Psychological Hx Reported Smoking Status: Never smoker Past Alcohol Use History: None Reported Past Drug Use History: None Reported - Past Family History Mother Family Medical History: No Reported History Medications and Allergies Home Medications Medication Instructions Recorded Confirmed Type Aspirin 81 mg PO DAILY 05/06/14 06/18/21 History Allopurinol [Zyloprim] 100 mg PO DAILY 03/02/21 06/18/21 History Atorvastatin [Lipitor] 80 mg PO HS 03/02/21 06/18/21 History Metoprolol Tartrate [Lopressor] 12.5 mg PO BID 03/02/21 06/18/21 History Tamsulosin [Flomax] 0.4 mg PO BID 03/02/21 06/18/21 History ondansetron HCL [Zofran] 8 mg PO BID PRN 03/26/21 06/18/21 History metFORMIN HCL 1,000 mg PO DAILY 06/11/21 06/18/21 History metFORMIN HCL 500 mg PO HS 06/11/21 06/18/21 History Calcium Carbonate/Vitamin D3 1 cap PO BID 06/18/21 06/18/21 History [Calcium 600 mg-Vit D3 5 mcg (200 unit)] Dexamethasone [Decadron] 4 mg PO BID PRN 06/18/21 06/18/21 History Ibuprofen [Motrin Ib] 800 mg PO Q8H PRN 06/18/21 06/18/21 History Magnesium Citrate 250 mg PO BID 06/18/21 06/18/21 History Allergies Allergy/AdvReac Type Severity Reaction Status Date / Time cephalexin [From Keflex] AdvReac Diarrhea Verified 06/18/21 23:03 Physical Exam Vitals: Vital Signs Temp Pulse Resp BP Pulse Ox 06/19/21 09:07 81 18 139/80 96 06/19/21 05:00 87 119/73 99 06/19/21 04:00 97.4 F L 90 111/100 99 06/19/21 03:00 94 125/78 95 06/19/21 02:00 94 126/71 95 06/19/21 01:00 96 121/71 97 06/19/21 00:00 98.7 F 97 18 121/71 96 06/18/21 19:36 100.1 F H 123 H 18 95/54 98 Intake and Output 06/18/21 06/19/21 06/19/21 22:59 06:59 14:59 Other: Weight 110.223 kg - Constitutional General appearance: cooperative, no acute distress, obese - EENT Eyes: anicteric sclerae, EOMI ENT: hearing grossly normal, normal oropharynx - Neck Neck: no lymphadenopathy - Respiratory Respiratory: bilateral: CTA - Cardiovascular Rhythm: regular Heart sounds: normal: S1, S2 Abnormal Heart Sounds: no systolic murmur, no diastolic murmur, no rub, no S3 Gallop, no S4 Gallop, no click, no other leg Peripheral Edema: bilateral: Trace - Gastrointestinal General gastrointestinal: no absent bowel sounds, no decreased bowel sounds, no distended, no hepatomegaly, no hyperactive bowel sounds, normal bowel sounds, no organomegaly, no rigid, no scaphoid, soft, no splenomegaly, no tenderness, no umbilical hernia, no ventral hernia - Integumentary Integumentary: normal - Neurologic Neurologic: CNII-XII intact - Musculoskeletal Musculoskeletal: strength equal bilaterally - Psychiatric Psychiatric: A&O x's 3, appropriate affect, intact judgment & insight Results CBC & Chem 7: 06/18/21 22:34 06/18/21 22:34 Labs: Abnormal Lab Results - Last 24 Hours (Table) 06/18/21 06/18/21 06/18/21 Range/Units 22:34 22:34 22:59 RBC 2.67 L (4.30-5.90) m/uL Hgb 8.0 L (13.0-17.5) gm/dL Hct 24.7 L (39.0-53.0) % RDW 17.7 H (11.5-15.5) % Lymphocytes # 0.8 L (1.0-4.8) k/uL Sodium 136 L (137-145) mmol/L Creatinine 1.27 H (0.66-1.25) mg/dL Glucose 118 H (74-99) mg/dL Alkaline Phosphatase 396 H (38-126) U/L Lactate Dehydrogenase 1433 H (313-618) U/L C-Reactive Protein 3.1 H (<1.0) mg/dL Total Protein 5.9 L (6.3-8.2) g/dL Albumin 3.2 L (3.5-5.0) g/dL Urine Protein 3+ H (Negative) Urine Blood Moderate H (Negative) Ur Leukocyte Esterase Large H (Negative) Urine RBC 161 H (0-5) /hpf Urine WBC >182 H (0-5) /hpf Urine WBC Clumps Many H (None) /hpf Amorphous Sediment Rare H (None) /hpf Urine Bacteria Many H (None) /hpf Urine Mucus (None) /hpf 06/18/21 Range/Units 23:10 RBC (4.30-5.90) m/uL Hgb (13.0-17.5) gm/dL Hct (39.0-53.0) % RDW (11.5-15.5) % Lymphocytes # (1.0-4.8) k/uL Sodium (137-145) mmol/L Creatinine (0.66-1.25) mg/dL Glucose (74-99) mg/dL Alkaline Phosphatase (38-126) U/L Lactate Dehydrogenase (313-618) U/L C-Reactive Protein (<1.0) mg/dL Total Protein (6.3-8.2) g/dL Albumin (3.5-5.0) g/dL Urine Protein 3+ H (Negative) Urine Blood Large H (Negative) Ur Leukocyte Esterase Moderate H (Negative) Urine RBC >182 H (0-5) /hpf Urine WBC 75 H (0-5) /hpf Urine WBC Clumps (None) /hpf Amorphous Sediment (None) /hpf Urine Bacteria (None) /hpf Urine Mucus Rare H (None) /hpf Microbiology - Last 24 Hours (Table) 06/18/21 22:59 Urine Culture - Preliminary Urine,Catheterized 06/18/21 23:10 Urine Culture - Preliminary Urine,Catheterized Chest x-ray: report reviewed Assessment and Plan (1) UTI (urinary tract infection) Narrative/Plan: Recurrent. He was off abx for 3 days. Discussed briefly with ID who will see pt-pending culture completion-and he will make recommendations about prophyl actic abx therapy. Urology is consulted. 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 Gastelum spoke with pt last night, taxotere is being discontinued as pt PSA is rising (05/25 553, 06/13 726). Orders have been sent for oral Abiraterone and prednisone ( I confirmed this in ofc. Pt knew he was getting new "pill", I will give him info tomorrow). Plan will be to start once drugs approved and received from specialty pharmacy. He will continue on lupron every 6mo and xgeva every 4 mo. Current problem not a direct result of prostate cancer. Pt feels better with some fluids and antibiotics. Current Visit: Yes Status: Chronic Priority: High Code(s): C61 - MALIGNANT NEOPLASM OF PROSTATE; Z19.2 - HORMONE RESISTANT MALIGNANCY STATUS SNOMED Code(s): 075905224
[2021-06-19] MEDS: ACETAMINOPHEN TAB 325 MG TAB PO PRN (20:47)
--- NOTE | 2021-06-19 23:32 | P.CONS ---
History of Present Illness - Reason for Consult Consult date: 06/19/21 recurrent UTI Requesting physician: Radha Bojorquez - Chief Complaint Weakness and fever x few days - History of Present Illness History of present illness : Patient is 71-year male with a past medical history significant for diabetes mellitus coronary disease history of prostate cancer left ureteral stone patient is under chemotherapy patient also have hydronephrosis requiring right nephrostomy tube placement patient presented to the [facility] ER for evaluation of generalized weakness fatigue and fever his abdomen has been getting worse for the last 2 days patient has been feeling weak and sleeping a lot has been complaining of feeling lightheadedness and dizzy he denies having any headache no chest pain shortness breath or cough no nausea no vomiting no abdominal pain patient has been complaining of some decreased urine output but no discernible comfort on urination and urine has been pretty clear in his nephrostomy tube patient on presentation to the hospital did have a fever of 100.1 200.4 degree form height patient did have a normal white count with lymphopenia creatinine was mildly elevated did have elevated LDH and a CRP patient did have a positive UA hawley PCR was negative urine cultures are currently pending patient has recently grown Pseudomonas and Serratia in his urine cultures patient was started on cefepime with consult infectious disease for a recurrent urine tract infection patient did have a chest x-ray that was negative for acute cardiopulmonary disease Review of system: CONSTITUTIONAL: Positive for weakness along with the fever. EYES: No complaint. ENT: No complaint. RESPIRATORY: No complaint. CARDIOVASCULAR: No complaint. GENITOURINARY as per history of present illness. GASTROINTESTINAL: No complaint. MUSCULOSKELETAL: No complaint. INTEGUMENTARY: No complaint. PSYCHOLOGIC: No complaint. ENDOCRINE: No complaint. NEUROLOGIC: No complaint. Past medical history : Reviewed, documented below Past surgical history : Reviewed, documented below Social history: Reviewed, documented below Medications: Reviewed, as documented below EXAMINATION: Vital sigans= Reviewed and documented below GENERAL DESCRIPTION: Elderly male lying in bed, no distress. No tachypnea or accessory muscle of respiration use. HEENT: Shows Pallor , no scleral icterus. Oral mucous membrane is dry. NECK: Trachea central, no thyromegaly. LUNGS: Unlabored breathing. Clear to auscultation anteriorly. No wheeze or crack le. HEART: S1, S2, regular rate and rhythm. ABDOMEN: Soft, no tenderness , guarding or rigidity EXTREMITIES: No edema of feet. SKIN: No rash, no masses palpable. NEUROLOGICAL: The patient is awake, alert, oriented x3, mood and affect normal. LABS AND RADIOLOGY: Reviewed results see below Assessment : 1-Patient presented to hospital with generalized weakness lightheadedness did have a fever in this patient who did have a left nephrostomy tube with significantly positive UA likely asymptomatic urinary tract infection in this patient recent urine culture positive for Serratia and Pseudomonas ae ruginosa both of them are sensitive to cefepime 2-cephalexin allergy has been mostly nausea and vomiting in order to allergy Plan: 1-cefepime 2 g every 12hr while waiting for the culture to finalize 2-gentle IV fluid We will follow on clinical condition and cultures to further adjust medication i f needed Thank you for this consultation we will follow the patient along with you Past Medical History Past Medical History: Coronary Artery Disease (CAD), Cancer, Diabetes Mellitus, Hyperlipidemia, Hypertension, Prostate Disorder Additional Past Medical History / Comment(s): PROSTATE CANCER (SEDUM IMPLANTS). kidney stone left kidney,, gout. on Rx for UTI currently. frequent UTI's, bone cancer-getting chemo currently History of Any Multi-Drug Resistant Organisms: None Reported Past Surgical History: Coronary Bypass/CABG, Heart Catheterization, Hernia Repair, Joint Replacement Additional Past Surgical History / Comment(s): LITHOTRIPSY x 2, triple CABG 08/25/2018, rt knee replacement, elieser inguinal hernia and umbilical hernia repair, Past Anesthesia/Blood Transfusion Reactions: No Reported Reaction Date of Last Stent Placement:: 2004 Past Psychological History: No Psychological Hx Reported Smoking Status: Never smoker Past Alcohol Use History: None Reported Past Drug Use History: None Reported - Past Family History Mother Family Medical History: No Reported History Medications and Allergies Home Medications Medication Instructions Recorded Confirmed Type Aspirin 81 mg PO DAILY 05/06/14 06/18/21 History Allopurinol [Zyloprim] 100 mg PO DAILY 03/02/21 06/18/21 History Atorvastatin [Lipitor] 80 mg PO HS 03/02/21 06/18/21 History Metoprolol Tartrate [Lopressor] 12.5 mg PO BID 03/02/21 06/18/21 History Tamsulosin [Flomax] 0.4 mg PO BID 03/02/21 06/18/21 History ondansetron HCL [Zofran] 8 mg PO BID PRN 03/26/21 06/18/21 History metFORMIN HCL 1,000 mg PO DAILY 06/11/21 06/18/21 History metFORMIN HCL 500 mg PO HS 06/11/21 06/18/21 History Calcium Carbonate/Vitamin D3 1 cap PO BID 06/18/21 06/18/21 History [Calcium 600 mg-Vit D3 5 mcg (200 unit)] Dexamethasone [Decadron] 4 mg PO BID PRN 06/18/21 06/18/21 History Ibuprofen [Motrin Ib] 800 mg PO Q8H PRN 06/18/21 06/18/21 History Magnesium Citrate 250 mg PO BID 06/18/21 06/18/21 History Allergies Allergy/AdvReac Type Severity Reaction Status Date / Time cephalexin [From Keflex] AdvReac Diarrhea Verified 06/18/21 23:03 Physical Exam Vitals: Vital Signs Temp Pulse Resp BP Pulse Ox 06/19/21 09:07 81 18 139/80 96 06/19/21 05:00 87 119/73 99 06/19/21 04:00 97.4 F L 90 111/100 99 06/19/21 03:00 94 125/78 95 06/19/21 02:00 94 126/71 95 06/19/21 01:00 96 121/71 97 06/19/21 00:00 98.7 F 97 18 121/71 96 06/18/21 19:36 100.1 F H 123 H 18 95/54 98 Intake and Output 06/18/21 06/19/21 06/19/21 22:59 06:59 14:59 Other: Weight 110.223 kg Results CBC & Chem 7: 06/18/21 22:34 06/18/21 22:34 Labs: Abnormal Lab Results - Last 24 Hours (Table) 06/18/21 06/18/21 06/18/21 Range/Units 22:34 22:34 22:59 RBC 2.67 L (4.30-5.90) m/uL Hgb 8.0 L (13.0-17.5) gm/dL Hct 24.7 L (39.0-53.0) % RDW 17.7 H (11.5-15.5) % Lymphocytes # 0.8 L (1.0-4.8) k/uL Sodium 136 L (137-145) mmol/L Creatinine 1.27 H (0.66-1.25) mg/dL Glucose 118 H (74-99) mg/dL Alkaline Phosphatase 396 H (38-126) U/L Lactate Dehydrogenase 1433 H (313-618) U/L C-Reactive Protein 3.1 H (<1.0) mg/dL Total Protein 5.9 L (6.3-8.2) g/dL Albumin 3.2 L (3.5-5.0) g/dL Urine Protein 3+ H (Negative) Urine Blood Moderate H (Negative) Ur Leukocyte Esterase Large H (Negative) Urine RBC 161 H (0-5) /hpf Urine WBC >182 H (0-5) /hpf Urine WBC Clumps Many H (None) /hpf Amorphous Sediment Rare H (None) /hpf Urine Bacteria Many H (None) /hpf Urine Mucus (None) /hpf 06/18/21 Range/Units 23:10 RBC (4.30-5.90) m/uL Hgb (13.0-17.5) gm/dL Hct (39.0-53.0) % RDW (11.5-15.5) % Lymphocytes # (1.0-4.8) k/uL Sodium (137-145) mmol/L Creatinine (0.66-1.25) mg/dL Glucose (74-99) mg/dL Alkaline Phosphatase (38-126) U/L Lactate Dehydrogenase (313-618) U/L C-Reactive Protein (<1.0) mg/dL Total Protein (6.3-8.2) g/dL Albumin (3.5-5.0) g/dL Urine Protein 3+ H (Negative) Urine Blood Large H (Negative) Ur Leukocyte Esterase Moderate H (Negative) Urine RBC >182 H (0-5) /hpf Urine WBC 75 H (0-5) /hpf Urine WBC Clumps (None) /hpf Amorphous Sediment (None) /hpf Urine Bacteria (None) /hpf Urine Mucus Rare H (None) /hpf Microbiology - Last 24 Hours (Table) 06/18/21 22:59 Urine Culture - Preliminary Urine,Catheterized 06/18/21 23:10 Urine Culture - Preliminary Urine,Catheterized
[2021-06-20] MEDS: SODIUM CHLORIDE 0.9% 1,000 ML IV SCH ×3 (01:15→21:33)
[2021-06-20] MEDS: HEPARIN SODIUM,PORCINE/PF 5,000 UNIT/0.5 ML SYRINGE SQ SCH ×3 (01:28→21:34)
[2021-06-20] MEDS: ACETAMINOPHEN TAB 325 MG TAB PO PRN (05:47)
[2021-06-20 06:45] LABS: Anisocytosis Slight; Basophils % (A) 0 %; Eosinophils % (A) 1 %; HCT 23.3 % (39.0-53.0); HGB 7.5 gm/dL (13.0-17.5); Hypochromasia Slight; Lymphocytes % (A) 22 %; MCH 30.3 pg (25.0-35.0); MCV 94.7 fL (80.0-100.0); Mean Platelet Volume 6.8; Monocytes # (A) 0.3 k/uL (0-1.0); Monocytes % (A) 6 %; Neutrophils # (A) 3.2 k/uL (1.3-7.7); Neutrophils % (A) 70 %; Platelet Count 260 k/uL (150-450); Poikilocytosis Slight; RBC 2.46 m/uL (4.30-5.90); WBC 4.6 k/uL (3.8-10.6)
[2021-06-20 06:55] LABS: ALT 10 U/L (4-49); AST 50 U/L (17-59); African American GFR (CKD) 78 (>60 ml/min/1.73 sqM); Albumin 2.8 g/dL (3.5-5.0); Albumin/Globulin Ratio 1.2; Alkaline Phosphatase 366 U/L (38-126); Anion Gap 6 mmol/L; Blood Urea Nitrogen 14 mg/dL (9-20); Calcium 8.6 mg/dL (8.4-10.2); Carbon Dioxide 23 mmol/L (22-30); Chloride 106 mmol/L (98-107); Globulin 2.4 g/dL; Glucose 105 mg/dL (74-99); LDH 1017 U/L (313-618); Magnesium 1.8 mg/dL (1.6-2.3); Non-African American GFR(CKD) 67 (>60 ml/min/1.73 sqM); Phosphorus 3.3 mg/dL (2.5-4.5); Potassium 4.2 mmol/L (3.5-5.1); Sodium 135 mmol/L (137-145); Total Bilirubin 0.4 mg/dL (0.2-1.3); Total Protein 5.2 g/dL (6.3-8.2)
[2021-06-20] MEDS: FAMOTIDINE 20 MG/2 ML VIAL IV SCH ×2 (08:54→21:34)
[2021-06-20] MEDS: CEFEPIME 1 GM in SODIUM CHLORIDE 0.9% 50 ML IVPB SCH (08:54)
--- NOTE | 2021-06-20 12:53 | P.PN ---
Subjective This is a pleasant 71 years old male with past medical history of Coronary Artery Disease,Diabetes Mellitus, Hyperlipidemia, Hypertension, PROSTATE CANCER (SEDUM IMPLANTS). kidney stone left kidney, gout. on Rx for UTI currently. frequent UTI's, bone cancer-getting chemo currently with Dr. Gastelum, last dose was less than [address] Gastelum call him yesterday with recommendation to stop his chemotherapy because they don't think it's working per patient Presents because of generalized weakness and fatigue and fever. Patient says that he has been sleeping a lot over the last 2 days and when he goes for example to the bathroom he feels lightheadedness and dizzy. He denies chest pain or coughing or dyspnea. No diarrhea Or vomiting. Patient denies any dysuria or urgency. No discomfort with his urination but his urine is leaking a lot. Last week his right side nephrostomy change to ureteral stent but left-sided nephrostomy tube was kept in a Place Denies smoking, alcohol or illicit tracts On admission he had a fever of 100.1. Labs are reviewed, CBC is unremarkable except for anemia with hemoglobin of 8.0, previous hemoglobin was 6.4-7.7. BMP and liver enzymes are unremarkable except for elevated creatinine of 1.27 which is close to baseline of 1.1-1.25. Elevated lactate dehydrogenase 1433 and C-reactive protein of 3.1. Urine analysis 2 suspicious for infections with protein blood and leukocyte esterase elevated in the urine Urine culture are pending. EKG showing sinus tachycardia with 102 and elevated QTC of 516. Right bundle- branch block Chest x-ray showing no acute cardiopulmonary disease 1 week ago patient underwent placement of urethral stents and exchange of bilateral nephrostomy catheter on 06/13 secondary to obstructive uropathy from his prostate cancer In the emergency room patient received dexamethasone, Toradol, Levaquin and normal saline at 1 30 mL/h this as well later of NS Bolus In the emergency room oncology and urology service were consulted He has documented ALLERGY to Keflex showing only diarrhea. Patient denies any other signs of ALLERGIC reaction when I reviewed with him. Most likely this is a side effect 06/20/2021 Patient is asymptomatic, no fever since yesterday. No urinary complaints Hemoglobin 7.5. Creatinine improved within the reference range down to 1.1. Urine cultures are still pending She remains on cefepime 2 g twice a day and normal saline and 100 mL per hour with ID team on the case Patient wants TO be DO NOT RESUSCITATE Urology and oncology team were consulted Objective - Vital Signs Vital signs: Vital Signs Temp 99.6 F 06/20/21 12:17 Pulse 96 06/20/21 12:17 Resp 17 06/20/21 12:17 BP 142/81 06/20/21 12:17 Pulse Ox 96 06/20/21 12:17 Intake & Output 06/19/21 06/20/21 06/20/21 18:59 06:59 18:59 Intake Total 1610 Output Total 0 Balance 1610 Weight 110.223 kg Intake: Intake, IV Titration 1610 Amount Cefepime 1 gm In Sodium 50 Chloride 0.9% 50 ml @ 12. 5 mls/hr IVPB Q12HR [facility] Rx#:[id number] Sodium Chloride 0.9% 1, 1560 000 ml @ 130 mls/hr IV . Q7H42M [facility] Rx#:[id number] Output: Drainage 0 Left Back 0 Other: Voiding Method Toilet Toilet - Exam -GENERAL: The patient is alert and oriented x3, not in any acute distress. Obese HEENT: Pupils are round and equally reacting to light. EOMI. No scleral icterus. No conjunctival pallor. Normocephalic, atraumatic. No pharyngeal erythema. No thyromegaly. CARDIOVASCULAR: S1 and S2 present. No murmurs, rubs, or gallops. PULMONARY: Chest is clear to auscultation, no wheezing or crackles. -ABDOMEN: Soft, nontender, nondistended, normoactive bowel sounds. No palpable organomegaly. Right-sided nephrostomy puncture wound is closed and healing, no surrounding cellulitis. Nephrostomy tube is in place MUSCULOSKELETAL: No joint swelling or deformity. EXTREMITIES: No cyanosis, clubbing, or pedal edema. NEUROLOGICAL: Gross neurological examination did not reveal any focal deficits. SKIN: No rashes. No petechiae - Labs CBC & Chem 7: 06/20/21 06:06 06/20/21 06:06 Labs: Abnormal Lab Results - Last 24 Hours (Table) 06/20/21 06/20/21 Range/Units 06:06 06:06 RBC 2.46 L (4.30-5.90) m/uL Hgb 7.5 L (13.0-17.5) gm/dL Hct 23.3 L (39.0-53.0) % RDW 17.0 H (11.5-15.5) % Sodium 135 L (137-145) mmol/L Glucose 105 H (74-99) mg/dL Alkaline Phosphatase 366 H (38-126) U/L Lactate Dehydrogenase 1017 H (313-618) U/L Total Protein 5.2 L (6.3-8.2) g/dL Albumin 2.8 L (3.5-5.0) g/dL Microbiology - Last 24 Hours (Table) 06/18/21 22:34 Blood Culture - Preliminary Blood No Growth after 24 hours 06/18/21 22:34 Blood Culture - Preliminary Blood No Growth after 24 hours Assessment and Plan Assessment: Recurrent urinary tract infection 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 And status post bilateral nephrostomy tube secondary to obstructive uropathy bilateral nephrostomy tube secondary to obstructive uropathy. Right-sided nephrostomy tube changed to a ureteral stent last week Possible chronic kidney disease stage 2-3 Hypertension Diabetes mellitus Hyperlipidemia History Of coronary artery disease History of kidney stone History of gout Obesity with BMI of 33.0 Plan: This is a pleasant 71 years old male who presents with fever and recurrent UTI secondary to urethral stents from prostate cancer obstructive uropathy Continue with IV fluid Follow-up oncology and urology services We will start the patient on cefepime and follow-up urine culture Labs and medication were reviewed.. Continue same treatment. Continue with symptomatic treatment. Resume home medication. Monitor lytes and vitals. DVT and GI prophylaxis. Further recommendations depends on the clinical course of the patient DVT prophylaxis: Subcutaneous heparin GI Prophylaxis: Pepcid PT/OT: Pending Prognosis is guarded
--- NOTE | 2021-06-20 15:54 | P.PN ---
Subjective Progress Note Date: 06/20/21 Principal diagnosis: fever, UTI, prostate adenocarcinoma In f/u today pt feels much better then on admit, no recent fever,he is eating and drinking, maybe feels a little stronger. Objective - Vital Signs Vital signs: Vital Signs Temp 99.0 F 06/20/21 04:33 Pulse 88 06/20/21 04:33 Resp 18 06/20/21 04:33 BP 133/76 06/20/21 04:33 Pulse Ox 96 06/20/21 04:33 Intake & Output 06/19/21 06/20/21 06/20/21 18:59 06:59 18:59 Intake Total 1610 Output Total 0 Balance 1610 Weight 110.223 kg Intake: Intake, IV Titration 1610 Amount Cefepime 1 gm In Sodium 50 Chloride 0.9% 50 ml @ 12. 5 mls/hr IVPB Q12HR [facility] Rx#:[id number] Sodium Chloride 0.9% 1, 1560 000 ml @ 130 mls/hr IV . Q7H42M [facility] Rx#:[id number] Output: Drainage 0 Left Back 0 Other: Voiding Method Toilet Toilet - Constitutional General appearance: Present: average body habitus, cooperative, no acute distress - EENT Eyes: Present: anicteric sclerae, EOMI ENT: Present: hearing grossly normal, normal oropharynx - Respiratory Respiratory: bilateral: CTA - Cardiovascular Rhythm: regular Heart sounds: normal: S1, S2 Abnormal Heart Sounds: Absent: systolic murmur, diastolic murmur, rub, S3 Gallop, S4 Gallop, click, other - Peripheral edema leg Peripheral Edema: bilateral: None - Gastrointestinal General gastrointestinal: Present: normal bowel sounds, soft - Genitourinary Genitourinary Comment(s): left nephrostomy tube intact - Neurologic Neurologic: Present: CNII-XII intact - Musculoskeletal Musculoskeletal: Present: strength equal bilaterally - Psychiatric Psychiatric: Present: A&O x's 3, appropriate affect, intact judgment & insight - Labs CBC & Chem 7: 06/20/21 06:06 06/20/21 06:06 Labs: Abnormal Lab Results - Last 24 Hours (Table) 06/20/21 06/20/21 Range/Units 06:06 06:06 RBC 2.46 L (4.30-5.90) m/uL Hgb 7.5 L (13.0-17.5) gm/dL Hct 23.3 L (39.0-53.0) % RDW 17.0 H (11.5-15.5) % Sodium 135 L (137-145) mmol/L Glucose 105 H (74-99) mg/dL Alkaline Phosphatase 366 H (38-126) U/L Lactate Dehydrogenase 1017 H (313-618) U/L Total Protein 5.2 L (6.3-8.2) g/dL Albumin 2.8 L (3.5-5.0) g/dL Microbiology - Last 24 Hours (Table) 06/18/21 22:34 Blood Culture - Preliminary Blood No Growth after 24 hours 06/18/21 22:34 Blood Culture - Preliminary Blood No Growth after 24 hours Assessment and Plan (1) UTI (urinary tract infection) Narrative/Plan: Recurrent. He was off abx for 3 days before recurrence. ID has seen pt and is waiting for culture and will make recommendations about prophylactic abx therapy. Urology is consulted. 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 Oral Abiraterone and prednisone Rx sent, pending ins and copay info. Plan will be to start once drugs approved and received from specialty pharmacy. He will continue on lupron every 6mo and xgeva every 4 mo-due this week, will adjust his appt to receive when he is discharged. Current Visit: Yes Status: Chronic Priority: High Code(s): C61 - MALIGNANT NEOPLASM OF PROSTATE; Z19.2 - HORMONE RESISTANT MALIGNANCY STATUS SNOMED Code(s): 296622727 Plan: Doctor attests: I performed a history and physical examination of this patient, developed i mpression and plan of care, discussed with dictator. I agree with dictators note, documented as a scribe.
[2021-06-20] MEDS ORDERED: CEFEPIME 2 GM in SODIUM CHLORIDE 0.9% 50 ML IVPB SCH (21:00)
[2021-06-20] MEDS: CEFEPIME 2 GM in SODIUM CHLORIDE 0.9% 100 ML IVPB SCH (21:33)
[2021-06-20 21:47] LABS: Glucose,Whole Blood 128 mg/dL (75-99)
[2021-06-21] MEDS: SODIUM CHLORIDE 0.9% 1,000 ML IV SCH ×2 (06:23→15:42)
[2021-06-21 06:28] LABS: Anisocytosis Slight; Basophils % (A) 0 %; Eosinophils % (A) 1 %; HCT 22.6 % (39.0-53.0); Hypochromasia Moderate; Lymphocytes # (A) 0.8 k/uL (1.0-4.8); Lymphocytes % (A) 21 %; MCH 29.7 pg (25.0-35.0); MCHC 31.1 g/dL (31.0-37.0); MCV 95.5 fL (80.0-100.0); Monocytes # (A) 0.3 k/uL (0-1.0); Monocytes % (A) 7 %; Neutrophils # (A) 2.8 k/uL (1.3-7.7); Neutrophils % (A) 70 %; Platelet Count 250 k/uL (150-450); Poikilocytosis Slight; RBC 2.37 m/uL (4.30-5.90); RDW 16.7 % (11.5-15.5)
[2021-06-21 07:44] LABS: African American GFR (CKD) 86 (>60 ml/min/1.73 sqM); Anion Gap 4 mmol/L; Blood Urea Nitrogen 11 mg/dL (9-20); Calcium 8.4 mg/dL (8.4-10.2); Carbon Dioxide 24 mmol/L (22-30); Chloride 106 mmol/L (98-107); Glucose 108 mg/dL (74-99); Non-African American GFR(CKD) 75 (>60 ml/min/1.73 sqM); Potassium 3.9 mmol/L (3.5-5.1); Sodium 134 mmol/L (137-145)
[2021-06-21] MEDS: CEFEPIME 2 GM in SODIUM CHLORIDE 0.9% 100 ML IVPB SCH ×2 (08:19→20:22)
[2021-06-21] MEDS: FAMOTIDINE 20 MG/2 ML VIAL IV SCH (08:19)
[2021-06-21] MEDS: HEPARIN SODIUM,PORCINE/PF 5,000 UNIT/0.5 ML SYRINGE SQ SCH ×2 (08:26→20:22)
--- NOTE | 2021-06-21 08:53 | PN ---
PROGRESS NOTE DATE OF SERVICE: 06/20/2021 REASON FOR FOLLOWUP: Urinary tract infection. INTERVAL HISTORY: The patient is afebrile. The patient is breathing comfortably. The patient denies having any chest pain. No shortness of breath or cough. No abdominal pain. PHYSICAL EXAMINATION: Blood pressure 142/81 with a pulse of 93. Temperature 99.6. He is 96% on room air. General description is an elderly male up in the bed in no distress. Respiratory system: Unlabored breathing, clear to auscultation anteriorly. Heart S1, S2. Regular rate and rhythm. Abdomen soft, no tenderness. LABS: Hemoglobin 7.5, white count 4.6, BUN of 14, creatinine 1.10. DIAGNOSTIC IMPRESSION AND PLAN: Patient with complicated urinary tract infection with left nephrostomy tube. Urine culture is currently pending. Patient is covered with cefepime with discharge antibiotic based on culture report. Continue supportive care. MMODL / IJN: [id number] /
--- NOTE | 2021-06-21 10:44 | P.PN ---
Subjective Progress Note Date: 06/21/21 Principal diagnosis: fever, UTI, prostate adenocarcinoma In f/u today pt cont to do well, he is noting SALCIDO, frontal, feels sinus related as he is experiencing sinus drainage. No fever,he is eating and drinking. He received a text about his new meds for prostate adenocarcinoma Objective - Vital Signs Vital signs: Vital Signs Temp 99.7 F H 06/21/21 04:45 Pulse 90 06/21/21 04:45 Resp 20 06/21/21 04:45 BP 147/78 06/21/21 04:45 Pulse Ox 95 06/21/21 04:45 Intake & Output 06/20/21 06/21/21 06/21/21 18:59 06:59 18:59 Intake Total 1300 Output Total 10 Balance 1290 Intake: Intake, IV Titration 1300 Amount Cefepime 2 gm In Sodium 100 Chloride 0.9% 100 ml @ 25 mls/hr IVPB Q12HR [facility] Rx #:[id number] Sodium Chloride 0.9% 1, 1200 000 ml @ 100 mls/hr IV . Q10H [facility] Rx#:[id number] Output: Drainage 10 Left Back 10 Other: Voiding Method Toilet Toilet Urinal # Voids 2 - Constitutional General appearance: Present: average body habitus, cooperative, no acute distress - EENT Eyes: Present: anicteric sclerae, EOMI ENT: Present: hearing grossly normal, normal oropharynx - Respiratory Respiratory: bilateral: CTA - Cardiovascular Rhythm: regular Heart sounds: normal: S1, S2 Abnormal Heart Sounds: Absent: systolic murmur, diastolic murmur, rub, S3 Gallop, S4 Gallop, click, other - Peripheral edema leg Peripheral Edema: bilateral: None - Gastrointestinal General gastrointestinal: Present: normal bowel sounds, soft - Neurologic Neurologic: Present: CNII-XII intact - Musculoskeletal Musculoskeletal: Present: generalized weakness, strength equal bilaterally - Psychiatric Psychiatric: Present: A&O x's 3, appropriate affect, intact judgment & insight - Labs CBC & Chem 7: 06/21/21 05:59 06/21/21 05:59 Labs: Abnormal Lab Results - Last 24 Hours (Table) 06/20/21 06/21/21 06/21/21 Range/Units 21:46 05:59 05:59 RBC 2.37 L (4.30-5.90) m/uL Hgb 7.0 L (13.0-17.5) gm/dL Hct 22.6 L (39.0-53.0) % RDW 16.7 H (11.5-15.5) % Lymphocytes # 0.8 L (1.0-4.8) k/uL Sodium 134 L (137-145) mmol/L Glucose 108 H (74-99) mg/dL POC Glucose (mg/dL) 128 H (75-99) mg/dL Microbiology - Last 24 Hours (Table) 06/18/21 22:34 Blood Culture - Preliminary Blood No Growth after 48 hours 06/18/21 22:34 Blood Culture - Preliminary Blood No Growth after 48 hours 06/18/21 23:10 Urine Culture - Final Urine,Catheterized Assessment and Plan (1) UTI (urinary tract infection) Narrative/Plan: Recurrent. He was off abx for 3 days before recurrence. ID has seen pt and is waiting for culture and will make recommendations about prophylactic abx therapy. Urology is consulted. 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 Oral Abiraterone and prednisone Rx sent, pt received text from specialty pharmacy to deliver. Plan will be to start once drugs approved and received from specialty pharmacy. Pt had some questions and I reviewed what I could. Will make an appt to f/u with [employer] for a education session so he takes medications safely. He will continue on lupron every 6mo and xgeva every 4 mo-due this week, will adjust his appt to receive when he is discharged. Current Visit: Yes Status: Chronic Priority: High Code(s): C61 - MALIGNANT NEOPLASM OF PROSTATE; Z19.2 - HORMONE RESISTANT MALIGNANCY STATUS SNOMED Code(s): 242358282 Plan: Ordered a claritin for his sinus c/o, he states this is what he uses at home for similar symptoms.
[2021-06-21] MEDS: LORATADINE 10 MG TAB PO SCH (11:33)
--- NOTE | 2021-06-21 12:10 | P.PN ---
Subjective This is a pleasant 71 years old male with past medical history of Coronary Artery Disease,Diabetes Mellitus, Hyperlipidemia, Hypertension, PROSTATE CANCER (SEDUM IMPLANTS). kidney stone left kidney, gout. on Rx for UTI currently. frequent UTI's, bone cancer-getting chemo currently with Dr. Gastelum, last dose was less than [address] Gastelum call him yesterday with recommendation to stop his chemotherapy because they don't think it's working per patient Presents because of generalized weakness and fatigue and fever. Patient says that he has been sleeping a lot over the last 2 days and when he goes for example to the bathroom he feels lightheadedness and dizzy. He denies chest pain or coughing or dyspnea. No diarrhea Or vomiting. Patient denies any dysuria or urgency. No discomfort with his urination but his urine is leaking a lot. Last week his right side nephrostomy change to ureteral stent but left-sided nephrostomy tube was kept in a Place Denies smoking, alcohol or illicit tracts On admission he had a fever of 100.1. Labs are reviewed, CBC is unremarkable except for anemia with hemoglobin of 8.0, previous hemoglobin was 6.4-7.7. BMP and liver enzymes are unremarkable except for elevated creatinine of 1.27 which is close to baseline of 1.1-1.25. Elevated lactate dehydrogenase 1433 and C-reactive protein of 3.1. Urine analysis 2 suspicious for infections with protein blood and leukocyte esterase elevated in the urine Urine culture are pending. EKG showing sinus tachycardia with 102 and elevated QTC of 516. Right bundle- branch block Chest x-ray showing no acute cardiopulmonary disease 1 week ago patient underwent placement of urethral stents and exchange of bilateral nephrostomy catheter on 06/13 secondary to obstructive uropathy from his prostate cancer In the emergency room patient received dexamethasone, Toradol, Levaquin and normal saline at 1 30 mL/h this as well later of NS Bolus In the emergency room oncology and urology service were consulted He has documented ALLERGY to Keflex showing only diarrhea. Patient denies any other signs of ALLERGIC reaction when I reviewed with him. Most likely this is a side effect 06/20/2021 Patient is asymptomatic, no fever since yesterday. No urinary complaints Hemoglobin 7.5. Creatinine improved within the reference range down to 1.1. Urine cultures are still pending She remains on cefepime 2 g twice a day and normal saline and 100 mL per hour with ID team on the case Patient wants TO be DO NOT RESUSCITATE Urology and oncology team were consulted 06/21/2021 Patient clinically doing well, no specific complaints other than generalized weakness. No dysuria. No nausea vomiting or chest pain. The distal have low-grade temperature of 99.7. No leukocytosis. Hemoglobin had dropped to 7.0 to percussion 0.0 point admi ssion. Anemia workup last month showing no iron deficiency anemia but low B12 at 142 and folate at 9.6. We going to repeat anemia workup and start the patient on B12 and folate replacement. There were normal saline to 50 mL per hour continue with cefepime pending final urine culture results, 1 urine culture has been finalized showing no growth pending the second urine culture Physical therapy ordered Objective - Vital Signs Vital signs: Vital Signs Temp 99.7 F H 06/21/21 04:45 Pulse 90 06/21/21 04:45 Resp 20 06/21/21 04:45 BP 147/78 06/21/21 04:45 Pulse Ox 95 06/21/21 04:45 Intake & Output 06/20/21 06/21/21 06/21/21 18:59 06:59 18:59 Intake Total 1300 Output Total 10 Balance 1290 Intake: Intake, IV Titration 1300 Amount Cefepime 2 gm In Sodium 100 Chloride 0.9% 100 ml @ 25 mls/hr IVPB Q12HR [facility] Rx #:[id number] Sodium Chloride 0.9% 1, 1200 000 ml @ 100 mls/hr IV . Q10H [facility] Rx#:[id number] Output: Drainage 10 Left Back 10 Other: Voiding Method Toilet Toilet Toilet Urinal Urinal # Voids 2 - Exam -GENERAL: The patient is alert and oriented x3, not in any acute distress. Obese HEENT: Pupils are round and equally reacting to light. EOMI. No scleral icterus. No conjunctival pallor. Normocephalic, atraumatic. No pharyngeal erythema. No thyromegaly. CARDIOVASCULAR: S1 and S2 present. No murmurs, rubs, or gallops. PULMONARY: Chest is clear to auscultation, no wheezing or crackles. -ABDOMEN: Soft, nontender, nondistended, normoactive bowel sounds. No palpable organomegaly. Right-sided nephrostomy puncture wound is closed and healing, no surrounding cellulitis. Nephrostomy tube is in place MUSCULOSKELETAL: No joint swelling or deformity. EXTREMITIES: No cyanosis, clubbing, or pedal edema. NEUROLOGICAL: Gross neurological examination did not reveal any focal deficits. SKIN: No rashes. No petechiae - Labs CBC & Chem 7: 06/21/21 05:59 06/21/21 05:59 Labs: Abnormal Lab Results - Last 24 Hours (Table) 06/20/21 06/21/21 06/21/21 Range/Units 21:46 05:59 05:59 RBC 2.37 L (4.30-5.90) m/uL Hgb 7.0 L (13.0-17.5) gm/dL Hct 22.6 L (39.0-53.0) % RDW 16.7 H (11.5-15.5) % Lymphocytes # 0.8 L (1.0-4.8) k/uL Sodium 134 L (137-145) mmol/L Glucose 108 H (74-99) mg/dL POC Glucose (mg/dL) 128 H (75-99) mg/dL Microbiology - Last 24 Hours (Table) 06/18/21 22:34 Blood Culture - Preliminary Blood No Growth after 48 hours 06/18/21 22:34 Blood Culture - Preliminary Blood No Growth after 48 hours 06/18/21 23:10 Urine Culture - Final Urine,Catheterized Assessment and Plan Assessment: Recurrent urinary tract infection 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 And status post bilateral nephrostomy tube secondary to obstructive uropathy bilateral nephrostomy tube secondary to obstructive uropathy. Right-sided nephrostomy tube changed to a ureteral stent last week Anemia, most likely secondary to B12 and folate deficiency Possible chronic kidney disease stage 2 Hypertension Diabetes mellitus Hyperlipidemia History Of coronary artery disease History of kidney stone History of gout Obesity with BMI of 33.0 Plan: This is a pleasant 71 years old male who presents with fever and recurrent UTI secondary to urethral stents from prostate cancer obstructive uropathy Continue with IV fluid Follow-up oncology and urology services. ID team on the case We will start the patient on cefepime and follow-up urine culture Labs and medication were reviewed.. Continue same treatment. Continue with symptomatic treatment. Resume home medication. Monitor lytes and vitals. DVT and GI prophylaxis. Further recommendations depends on the clinical course of the patient DVT prophylaxis: Subcutaneous heparin GI Prophylaxis: Pepcid PT/OT: Pending
[2021-06-21] MEDS ORDERED: CYANOCOBALAMIN 1,000 MCG/ML 1 ML VIAL IM ONE (12:30)
[2021-06-21] MEDS: FOLIC ACID 1 MG TAB PO SCH (14:47)
[2021-06-21] MEDS: FAMOTIDINE 20 MG TAB PO SCH (20:22)
[2021-06-21 22:05] VITALS: RESP 20
--- NOTE | 2021-06-22 01:18 | PN ---
PROGRESS NOTE DATE OF SERVICE: 06/21/2021 REASON FOR FOLLOWUP VISIT: Complicated urinary tract infection. INTERVAL HISTORY: The patient is afebrile. The patient is breathing comfortably. No chest pain, shortness of breath or cough. No nausea, vomiting. No abdominal pain. No diarrhea. PHYSICAL EXAMINATION: Blood pressure 154/82 with a pulse of 108, temperature 99.8. He is 97% on room air. General description is an elderly male up in the bed in no distress. Respiratory system: Unlabored breathing, clear to auscultation. Heart S1, S2. Regular rate and rhythm. Abdomen soft, no tenderness. LABS: Hemoglobin 7.1, white count 4.0, BUN of 11, creatinine 1.01. DIAGNOSTIC IMPRESSION AND PLAN: Patient with complicated urinary tract infection with nephrostomy tube. Cultures currently pending that will determine his discharge antibiotics. Continue with cefepime at this point and monitor clinical course closely. MMVINCEL / IJN: [id number] /
[2021-06-22 01:52] LABS: % Iron Saturation 8.03 (15.00-50.00)
[2021-06-22] MEDS: SODIUM CHLORIDE 0.9% 1,000 ML IV SCH (03:32)
[2021-06-22] MEDS ORDERED: CYANOCOBALAMIN 500 MCG TAB PO SCH (09:00)
[2021-06-22] MEDS: FOLIC ACID 1 MG TAB PO SCH (09:13)
[2021-06-22] MEDS: FAMOTIDINE 20 MG TAB PO SCH (09:13)
[2021-06-22] MEDS: LORATADINE 10 MG TAB PO SCH (09:13)
[2021-06-22] MEDS: CEFEPIME 2 GM in SODIUM CHLORIDE 0.9% 100 ML IVPB SCH (09:13)
[2021-06-22] MEDS: HEPARIN SODIUM,PORCINE/PF 5,000 UNIT/0.5 ML SYRINGE SQ SCH ×2 (09:15→09:16)
[2021-06-22 09:34] LABS: Anisocytosis Slight; Basophils % (A) 1 %; Eosinophils # (A) 0.1 k/uL (0-0.7); Eosinophils % (A) 2 %; HCT 22.3 % (39.0-53.0); Hypochromasia Moderate; Lymphocytes # (A) 0.7 k/uL (1.0-4.8); Lymphocytes % (A) 22 %; MCH 29.6 pg (25.0-35.0); MCHC 31.5 g/dL (31.0-37.0); MCV 94.1 fL (80.0-100.0); Mean Platelet Volume 6.7; Monocytes # (A) 0.2 k/uL (0-1.0); Monocytes % (A) 6 %; Neutrophils # (A) 2.1 k/uL (1.3-7.7); Neutrophils % (A) 68 %; Platelet Count 249 k/uL (150-450); Poikilocytosis Slight; RBC 2.36 m/uL (4.30-5.90); RDW 16.6 % (11.5-15.5); WBC 3.1 k/uL (3.8-10.6)
[2021-06-22 12:00] VITALS: BP 135/80; PULSE 88; TEMP 98.2
--- NOTE | 2021-06-22 15:14 | PN ---
PROGRESS NOTE DATE OF SERVICE: 06/22/2021 REASON FOR FOLLOWUP: Complicated urinary tract infection. INTERVAL HISTORY: The patient is afebrile. The patient is feeling better, breathing comfortably, and wants to go home. No chest pain, shortness of breath or cough. No abdominal pain or diarrhea. PHYSICAL EXAMINATION: Blood pressure is 135/80 with a pulse of 88, temperature 98.2. He is 96% on room air. GENERAL DESCRIPTION: General description is an elderly male up in the bed in no distress. RESPIRATORY SYSTEM: Unlabored breathing. Clear to auscultation anteriorly. HEART: S1, S2. Regular rate and rhythm. ABDOMEN: Soft. No tenderness. LABS: Hemoglobin 7, white count 3.1. Urine culture has been negative so far. Blood culture negative. DIAGNOSTIC IMPRESSION AND PLAN: Patient with a complicated urinary tract infection in this patient who did have left nephrostomy tube. Culture has been negative so far. On the basis of previous culture which grew Serratia that was sensitive to Cipro, we will keep the patient on a course of oral Cipro on discharge with close outpatient followup. Prescriptions sent. Questions and concerns were answered. MMODL / IJN: [id number] /
--- NOTE | 2021-06-22 16:31 | P.GSCN ---
History of Present Illness Consult date: 06/22/21 History of present illness: CHIEF COMPLAINT: Weakness HISTORY OF PRESENT ILLNESS: This is a 71-year-old male who presents to the hospital with generalized weakness and fever. He is currently being treated for recurrent urinary tract infection. He has history of hydronephrosis with nephrostomy tube and history of prostate cancer. Patient has been having hematuria for the last 6 months. Surgical services consult in regards to patient's anemia. Patient denies any blood in his stools or black stools. His hemoglobin is low at 7.0 and has evidence of iron deficiency. PAST MEDICAL HISTORY: Coronary Artery Disease (CAD), prostate Cancer, Diabetes Mellitus, Hype rlipidemia, Hypertension, recurrent UTIs, coronary artery disease with CABG PAST SURGICAL HISTORY: Coronary Bypass/CABG, Heart Catheterization, Hernia Repair, Joint Replacement, lithotripsy, bilateral inguinal hernia and umbilical hernia repair MEDICATIONS: See list. ALLERGIES: See list. SOCIAL HISTORY: No illicit drug use. REVIEW OF SYSTEMS: CONSTITUTIONAL: Denies fever or chills. HEENT: Denies blurred vision, vision changes, or eye pain. Denies hemoptysis CARDIOVASCULAR: Denies chest pain or pressure. RESPIRATORY: No shortness of breath. GASTROINTESTINAL: See HPI for pertinent findings HEMATOLOGIC: Denies bleeding disorders. GENITOURINARY: Denies any blood in urine or increased urinary frequency. SKIN: Denies pruitis. Denies rash. PHYSICAL EXAM: VITAL SIGNS: Reviewed GENERAL: Well-developed in no acute distress. HEENT: No sclera icterus. Extraocular movements grossly intact. Moist buccal mucosa. Head is atraumatic, normocephalic. No nasal drainage. ABDOMEN: Soft. Nondistended. Nontender NEUROLOGIC: Alert and oriented. Cranial nerves II through XII grossly intact. LABORATORY DATA: WBC 3.1 hemoglobin 7.0 platelets 249 Total iron 19 IMAGING: ASSESSMENT: 1. Anemia with no active signs of GI bleed. Patient is reporting hematuria. 2. Iron deficiency anemia PLAN: -Patient was offered EGD and colonoscopy for further evaluation of his anemia. -EGD and colonoscopy was tentatively scheduled for 06/25/[address] Jarvis -At this time patient refused to have EGD and colonoscopy during his hospitalization. Attending has discharge patient home today. Thank you for this consultation Physician Petroleum Engineering Professor note has been reviewed by physician. Signing provider agrees with the documented findings, assessment, and plan of care. Past Medical History Past Medical History: Coronary Artery Disease (CAD), Cancer, Diabetes Mellitus, Hyperlipidemia, Hypertension, Prostate Disorder Additional Past Medical History / Comment(s): PROSTATE CANCER (SEDUM IMPLANTS). kidney stone left kidney,, gout. on Rx for UTI currently. frequent UTI's, bone cancer-getting chemo currently History of Any Multi-Drug Resistant Organisms: None Reported Past Surgical History: Coronary Bypass/CABG, Heart Catheterization, Hernia Repair, Joint Replacement Additional Past Surgical History / Comment(s): LITHOTRIPSY x 2, triple CABG 08/25/2018, rt knee replacement, elieser inguinal hernia and umbilical hernia repair, Past Anesthesia/Blood Transfusion Reactions: No Reported Reaction Date of Last Stent Placement:: 2004 Past Psychological History: No Psychological Hx Reported Smoking Status: Never smoker Past Alcohol Use History: None Reported Past Drug Use History: None Reported - Past Family History Mother Family Medical History: No Reported History Medications and Allergies Home Medications Medication Instructions Recorded Confirmed Type Aspirin 81 mg PO DAILY 05/06/14 06/18/21 History Allopurinol [Zyloprim] 100 mg PO DAILY 03/02/21 06/18/21 History Atorvastatin [Lipitor] 80 mg PO HS 03/02/21 06/18/21 History Metoprolol Tartrate [Lopressor] 12.5 mg PO BID 03/02/21 06/18/21 History Tamsulosin [Flomax] 0.4 mg PO BID 03/02/21 06/18/21 History ondansetron HCL [Zofran] 8 mg PO BID PRN 03/26/21 06/18/21 History metFORMIN HCL 1,000 mg PO DAILY 06/11/21 06/18/21 History metFORMIN HCL 500 mg PO HS 06/11/21 06/18/21 History Calcium Carbonate/Vitamin D3 1 cap PO BID 06/18/21 06/18/21 History [Calcium 600 mg-Vit D3 5 mcg (200 unit)] Dexamethasone [Decadron] 4 mg PO BID PRN 06/18/21 06/18/21 History Ibuprofen [Motrin Ib] 800 mg PO Q8H PRN 06/18/21 06/18/21 History Magnesium Citrate 250 mg PO BID 06/18/21 06/18/21 History Ciprofloxacin HCl [Cipro] 500 mg PO Q12H 7 Days #14 tab 06/22/21 Rx Cyanocobalamin [Vitamin B-12] 1,000 mcg PO DAILY tab 06/22/21 Rx Folic Acid 1 mg PO DAILY tab 06/22/21 Rx Allergies Allergy/AdvReac Type Severity Reaction Status Date / Time cephalexin [From Keflex] AdvReac Diarrhea Verified 06/18/21 23:03 Surgical - Exam Vital Signs Temp Pulse Resp BP Pulse Ox 100.1 F H 123 H 18 95/54 98 06/18/21 19:36 06/18/21 19:36 06/18/21 19:36 06/18/21 19:36 06/18/21 19:36 Results - Labs 06/22/21 09:01 06/21/21 05:59 Abnormal Lab Results - Last 24 Hours (Table) 06/21/21 06/22/21 Range/Units 05:59 09:01 WBC 3.1 L (3.8-10.6) k/uL RBC 2.36 L (4.30-5.90) m/uL Hgb 7.0 L (13.0-17.5) gm/dL Hct 22.3 L (39.0-53.0) % RDW 16.6 H (11.5-15.5) % Lymphocytes # 0.7 L (1.0-4.8) k/uL Iron 19 L (65-175) ug/dL % Saturation 8.03 L (15.00-50.00) Transferrin 170.0 L (204.0-354.0) mg/dL Ferritin 868.0 H (22.0-322.0) ng/mL Microbiology - Last 24 Hours (Table) 06/18/21 22:34 Blood Culture - Preliminary Blood No Growth after 72 hours 06/18/21 22:34 Blood Culture - Preliminary Blood No Growth after 72 hours
== END 2021-06-22 15:58 | disposition home or self-care (01) | DRG 699 ==
LOC: EC 18:38 → SUPCPDRO 18:38 → 5NMEDONC 23:59
PROVIDERS: ADMIT Hospitalist; ATTEND Hospitalist
DX: T83.593A Infection and inflammatory reaction due to other urinary stents, initial encounter (principal); N39.0 Urinary tract infection, site not specified; C79.51 Secondary malignant neoplasm of bone; E86.0 Dehydration; I25.10 Atherosclerotic heart disease of native coronary artery without angina pectoris; E78.5 Hyperlipidemia, unspecified; C61 Malignant neoplasm of prostate; D50.9 Iron deficiency anemia, unspecified; I12.9 Hypertensive chronic kidney disease with stage 1 through stage 4 chronic kidney disease, or unspecified chronic kidney disease; E53.8 Deficiency of other specified B group vitamins; E11.22 Type 2 diabetes mellitus with diabetic chronic kidney disease; N18.2 Chronic kidney disease, stage 2 (mild); E66.9 Obesity, unspecified; N13.9 Obstructive and reflux uropathy, unspecified; Z96.651 Presence of right artificial knee joint; M10.9 Gout, unspecified; Y73.2 Prosthetic and other implants, materials and accessory gastroenterology and urology devices associated with adverse incidents; Z20.828 Contact with and (suspected) exposure to other viral communicable diseases; Z66 Do not resuscitate; Z68.33 Body mass index [BMI] 33.0-33.9, adult; Z19.2 Hormone resistant malignancy status; Z79.82 Long term (current) use of aspirin; Z79.84 Long term (current) use of oral hypoglycemic drugs; Z79.899 Other long term (current) drug therapy; Z85.46 Personal history of malignant neoplasm of prostate; Z87.440 Personal history of urinary (tract) infections; Z87.442 Personal history of urinary calculi; Z88.1 Allergy status to other antibiotic agents; Z95.1 Presence of aortocoronary bypass graft; Z95.5 Presence of coronary angioplasty implant and graft; Z93.6 Other artificial openings of urinary tract status
CPT/HCPCS: 36415; 71045; 80048; 80053; 81001; 82607; 82728; 82746; 83540; 83550; 83605; 83615; 83735; 84100; 85025; 85610; 85730; 86140; 87040; 87086; 87635; 93005; 96360; 99285

== ENCOUNTER 2021-08-01 05:43 | Day surgery (SDC) | payer MEDICARE ==
[2021-07-30 15:24] VITALS: BMI 32.5
--- NOTE | 2021-07-31 17:43 | P.GSHP ---
History of Present Illness H&P Date: 07/31/21 70 yo male with hormone insensitive prostate cancer. He has been treated withh brachytherapy, ebrt, lhrh, chemotherapy. His most recent psa was 552[05/24/2021] He has a left nephrotomy tube and a right doube j catheter due to locally advancing prostate cancer causing obstruction the stent was placed about one month ago. He feels due to the decreasing urine output that the stent is obstructed He comes for right stent change, - Constitutional Constitutional: Denies chills, Denies fever - EENT Eyes: denies blurred vision, denies pain Ears, nose, mouth and throat: Denies headache, Denies sore throat - Cardiovascular Cardiovascular: Denies chest pain, Denies shortness of breath - Respiratory Respiratory: Denies cough, Denies 7 - Gastrointestinal Gastrointestinal: Denies abdominal pain, Denies diarrhea, Denies nausea, Denies vomiting - Genitourinary (Female) Genitourinary: Denies dysuria, Denies hematuria - Genitourinary (Male) Genitourinary: Denies dysuria, Denies hematuria - Musculoskeletal Musculoskeletal: Denies myalgias - Integumentary Integumentary: Denies pruritus, Denies rash - Neurological Neurological: Denies numbness, Denies weakness - Psychiatric Psychiatric: Denies anxiety, Denies depression - Endocrine Endocrine: Denies fatigue, Denies weight change Past Medical History Past Medical History: Coronary Artery Disease (CAD), Cancer, Diabetes Mellitus, Hyperlipidemia, Hypertension, Prostate Disorder Additional Past Medical History / Comment(s): PROSTATE CANCER (SEED IMPLANTS). kidney stones, gout, frequent UTI's, bone cancer-getting chemo currently, anemia History of Any Multi-Drug Resistant Organisms: None Reported Past Surgical History: Coronary Bypass/CABG, Heart Catheterization, Hernia Repair, Joint Replacement Additional Past Surgical History / Comment(s): LITHOTRIPSY x 2, triple CABG 08/25/2018, rt knee replacement, elieser inguinal hernia and umbilical hernia repair, Past Anesthesia/Blood Transfusion Reactions: No Reported Reaction Date of Last Stent Placement:: 2004 Past Psychological History: No Psychological Hx Reported Smoking Status: Never smoker Past Alcohol Use History: None Reported Past Drug Use History: None Reported - Past Family History Mother Family Medical History: Myocardial Infarction ([place]) Father Family Medical History: Myocardial Infarction ([place]) Medications and Allergies Home Medications Medication Instructions Recorded Confirmed Type Aspirin 81 mg PO DAILY 05/06/14 07/30/21 History Allopurinol [Zyloprim] 100 mg PO DAILY 03/02/21 07/30/21 History Atorvastatin [Lipitor] 80 mg PO HS 03/02/21 07/30/21 History Metoprolol Tartrate [Lopressor] 12.5 mg PO BID 03/02/21 07/30/21 History Tamsulosin [Flomax] 0.4 mg PO BID 03/02/21 07/30/21 History ondansetron HCL [Zofran] 8 mg PO BID PRN 03/26/21 07/30/21 History metFORMIN HCL 1,000 mg PO DAILY 06/11/21 07/30/21 History metFORMIN HCL 500 mg PO HS 06/11/21 07/30/21 History Calcium Carbonate/Vitamin D3 1 cap PO BID 06/18/21 07/30/21 History [Calcium 600 mg-Vit D3 5 mcg (200 unit)] Magnesium Citrate 250 mg PO BID 06/18/21 07/30/21 History Abiraterone Acetate [Zytiga] 1,000 mg PO QAM 07/27/21 07/30/21 History predniSONE 5 mg PO DAILY 07/27/21 07/30/21 History Fluconazole [Diflucan] 100 mg PO DAILY 07/30/21 07/30/21 History Losartan [Cozaar] 25 mg PO DAILY 07/30/21 07/30/21 History Pantoprazole [Protonix] 40 mg PO HS 07/30/21 07/30/21 History amLODIPine [Norvasc] 5 mg PO DAILY 07/30/21 07/30/21 History Allergies Allergy/AdvReac Type Severity Reaction Status Date / Time cephalexin [From Keflex] AdvReac Diarrhea Verified 07/30/21 15:06 Surgical - Exam - General well developed, well nourished - Eyes PERRL - ENT normal mucosa, no hearing loss - Neck trachea midline - Respiratory normal expansion, normal respiratory effort - Cardiovascular Rhythm: regular - Abdomen left nephrostomy tube. Abdomen: soft, non tender - Neurologic normal sensation - Musculoskeletal normal posture - Psychiatric oriented to time, oriented to person, oriented to place, speech is normal, memory intact Assessment and Plan Assessment: Impression: metastatic, hormone insensitive prostate cancer with occluded double j catheter right. Plan: cysto with exchange of double catheter right
[~2021-08-01 05:43] MED LIST changes: -AMPICILLIN 1,000 MG in SODIUM CHLORIDE 0.9% 50 ML IVPB ONE; +AMPICILLIN 1,000 MG in SODIUM CHLORIDE 0.9% 50 ML IVPB PRN; -GENTAMICIN 130 MG in SODIUM CHLORIDE 0.9% 100 ML IVPB ONE; +GENTAMICIN 140 MG in SODIUM CHLORIDE 0.9% 100 ML IVPB PRN; -IOPAMIDOL-250 100ML BTL IV ONE; -LIDOCAINE 1% INJ 10MG/ML (20 ML MDV) SQ ONE; -MIDAZOLAM 2 MG/2 ML VIAL IV ONE; -SODIUM CHLORIDE 0.9% 1,000 ML IV ONE; -fentaNYL (PF) 50 MCG/ML 2 ML AMP IV ONE
[2021-08-01] MEDS ORDERED: DEXAMETHASONE SOD PHOSPHATE 4 MG/ML 1 ML VIAL IV ONE (06:02)
[2021-08-01] MEDS ORDERED: LIDOCAINE 1% (10MG/ML) FOR IV START INTRADERMA PRN (06:02)
[2021-08-01] MEDS ORDERED: MIDAZOLAM 2 MG/2 ML VIAL IV PRN (06:02)
[2021-08-01] MEDS ORDERED: ONDANSETRON 4 MG/2 ML VIAL IVP ONE (06:02)
[2021-08-01] MEDS ORDERED: LACTATED RINGERS 1,000 ML IV SCH (06:02)
[2021-08-01 06:30] VITALS: RESP 16
[2021-08-01 06:31] LABS: Glucose,Whole Blood 107 mg/dL (75-99)
[2021-08-01 06:52] LABS: ALT 13 U/L (4-49); AST 33 U/L (17-59); African American GFR (CKD) >90 (>60 ml/min/1.73 sqM); Albumin 2.6 g/dL (3.5-5.0); Alkaline Phosphatase 624 U/L (38-126); Anion Gap 6 mmol/L; Blood Urea Nitrogen 11 mg/dL (9-20); Calcium 6.8 mg/dL (8.4-10.2); Carbon Dioxide 26 mmol/L (22-30); Chloride 104 mmol/L (98-107); Glucose 109 mg/dL (74-99); Non-African American GFR(CKD) 87 (>60 ml/min/1.73 sqM); Potassium 3.3 mmol/L (3.5-5.1); Sodium 136 mmol/L (137-145); Total Bilirubin 0.5 mg/dL (0.2-1.3); Total Protein 5.8 g/dL (6.3-8.2)
[2021-08-01] MEDS ORDERED: HYDROmorphone 0.5 MG/0.5 ML SYRINGE IVP PRN (07:00)
[2021-08-01 07:13] LABS: Anisocytosis Slight; Basophils % (A) 1 %; Eosinophils # (A) 0.1 k/uL (0-0.7); Eosinophils % (A) 2 %; HCT 28.1 % (39.0-53.0); Hypochromasia Slight; Lymphocytes # (A) 0.9 k/uL (1.0-4.8); Lymphocytes % (A) 23 %; MCH 28.5 pg (25.0-35.0); MCHC 32.6 g/dL (31.0-37.0); Mean Platelet Volume 6.8; Monocytes # (A) 0.2 k/uL (0-1.0); Monocytes % (A) 4 %; Neutrophils # (A) 2.7 k/uL (1.3-7.7); Neutrophils % (A) 69 %; Platelet Count 323 k/uL (150-450); Poikilocytosis Moderate; RBC 3.21 m/uL (4.30-5.90); RDW 17.2 % (11.5-15.5)
[2021-08-01 07:15] LABS: HGB 9.2 gm/dL (13.0-17.5)
[2021-08-01 07:16] LABS: MCV 87.6 fL (80.0-100.0)
[2021-08-01] MEDS ORDERED: fentaNYL (PF) 50 MCG/ML 2 ML AMP ONE (07:32)
[2021-08-01] MEDS ORDERED: LIDOCAINE 1% INJ 10MG/ML (20 ML MDV) ONE (07:32)
[2021-08-01] MEDS ORDERED: MIDAZOLAM 2 MG/2 ML VIAL ONE (07:32)
[2021-08-01] MEDS ORDERED: PROPOFOL 10 MG/ML 20 ML VIAL IV ONE (07:32)
--- NOTE | 2021-08-01 08:11 | P.OP ---
Date of Procedure: 08/01/21 Preoperative Diagnosis: Right ureteral obstruction secondary to locally invasive and metastatic prostate cancer. Postoperative Diagnosis: Same Procedure(s) Performed: Cystoscopy with exchange of double-J catheter right 6 x 26 Anesthesia: MAC Surgeon: Gennaro Porter Estimated Blood Loss (ml): 0 Pathology: none sent Condition: stable Disposition: PACU Indications for Procedure: The patient is 71. He has hormone insensitive metastatic prostate cancer. Is been previously treated with brachytherapy external beam radiation therapy LHRH therapy and chemotherapy. His last PSA in May is 550. He has a left nephrostomy tube for left ureteral obstruction. He has a right internal double- J catheter for right ureteral obstruction. He has locally advanced prostate cancer into the trigone. He is chronically incontinent due to the cancer and treatment for this. I assumed his care a few Months ago. He had bilateral nephrostomy tubes in the right side was converted to an internal tube by radiology. He states that he has pain on the right side and his urine output is decreased. He wonders if the tube is obstructed. He comes for exchange. Description of Procedure: The patient is brought to the operating suite. He is given IV sedation. He's placed in lithotomy position with a sterile prep and drape. Cystoscopy Foroblique lens and 22-Nepali sheath identifies a normal anterior urethra. The prostate is inflamed and fixed and bloody. I entered the bladder and there is a significant amount of prostate cancer encroaching upon the trigone bilaterally. The visualization is poor due to the inflammation bleeding of the prostate cancer. The right double-J catheters eventually identified grasped and pulled to the urethral meatus. An 035 wire easily slips up the stent into the kidney. I remove the old stent and backloaded the wire onto the cystoscope and passing a 6 x 24 double-J catheter into the right kidney confirmed fluoroscopically and endoscopically. I attempted identify the left ureteral orifice. but Due to the amount of cancer in the trigone I'm unable to do so. The bladder is drained the patient is awakened and returned recovery room good condition. He'll be discharged home upon recovery and follow in the office in one week.
[2021-08-01 08:20] VITALS: TEMP 96.8
[2021-08-01 10:10] VITALS: BP 148/91; PULSE 76
--- NOTE | 2021-08-01 12:56 | FL ---
EXAMINATION TYPE: FL guidance operating room DATE OF EXAM: 08/01/2021 HISTORY: Fluoroscopy time 10 seconds of fluoroscopy provided. IMPRESSION: 1. Fluoroscopy time.
== END 2021-08-01 10:28 | disposition home or self-care (01) ==
LOC: OR 05:43
PROVIDERS: ATTEND Urology
DX: N13.5 Crossing vessel and stricture of ureter without hydronephrosis (principal); C61 Malignant neoplasm of prostate; I25.10 Atherosclerotic heart disease of native coronary artery without angina pectoris; E11.9 Type 2 diabetes mellitus without complications; E78.5 Hyperlipidemia, unspecified; I10 Essential (primary) hypertension; Z95.1 Presence of aortocoronary bypass graft; Z96.651 Presence of right artificial knee joint; Z82.49 Family history of ischemic heart disease and other diseases of the circulatory system
CPT/HCPCS: 52332; 80053; 85025; C2625; C1769; J2250; J1100; J2405; J2001; J3010; J1580; J0290; J2704

== ENCOUNTER 2021-09-05 13:52 | Day surgery (SDC) | payer MEDICARE ==
[2021-09-05 14:48] VITALS: BP 94/66; PULSE 114; RESP 16; TEMP 98.3
== END 2021-09-05 14:49 | disposition home or self-care (01) ==
LOC: RADPROMAIN 13:52
PROVIDERS: ATTEND Urology
DX: Z43.6 Encounter for attention to other artificial openings of urinary tract (principal)

== ENCOUNTER 2021-09-10 03:20 | Inpatient (IN) | payer MEDICARE ==
--- NOTE | 2021-09-10 03:26 | ED ---
Recheck HPI - General Stated Complaint: Nausea Time Seen by Provider: 09/10/21 03:24 Source: RN notes reviewed, old records reviewed - History of Present Illness Initial Comments: This is a 71-year-old male who is brought in for evaluation regarding nausea vomiting. Patient accepted in transfer no history of cancer or weakness positive vomiting and anemia patient's anemia was treated appropriately facility with transfusion patient's in nausea vomiting persistently still feels very weak with nausea and vomiting MD Complaint: abnormal lab -: hour(s) Returns Today for: Called Because of Abnormal Lab/Test, persistent/worsening pain related to initial visit Symptoms Since Prior Visit: worsening pain Associated Symptoms: none Treatments Prior to Arrival: urinary catheter in place - Related Data Home Medications Medication Instructions Recorded Confirmed Aspirin 81 mg PO DAILY 05/06/14 08/01/21 Allopurinol [Zyloprim] 100 mg PO DAILY 03/02/21 08/01/21 Atorvastatin [Lipitor] 80 mg PO HS 03/02/21 08/01/21 Metoprolol Tartrate [Lopressor] 12.5 mg PO BID 03/02/21 08/01/21 Tamsulosin [Flomax] 0.4 mg PO BID 03/02/21 08/01/21 ondansetron HCL [Zofran] 8 mg PO BID PRN 03/26/21 08/01/21 metFORMIN HCL 1,000 mg PO DAILY 06/11/21 08/01/21 metFORMIN HCL 500 mg PO HS 06/11/21 08/01/21 Calcium Carbonate/Vitamin D3 1 cap PO BID 06/18/21 08/01/21 [Calcium 600 mg-Vit D3 5 mcg (200 unit)] Magnesium Citrate 250 mg PO BID 06/18/21 08/01/21 Abiraterone Acetate [Zytiga] 1,000 mg PO QAM 07/27/21 08/01/21 predniSONE 5 mg PO DAILY 07/27/21 08/01/21 Fluconazole [Diflucan] 100 mg PO DAILY 07/30/21 08/01/21 Losartan [Cozaar] 25 mg PO DAILY 07/30/21 08/01/21 Pantoprazole [Protonix] 40 mg PO HS 07/30/21 08/01/21 amLODIPine [Norvasc] 5 mg PO DAILY 07/30/21 08/01/21 Allergies Allergy/AdvReac Type Severity Reaction Status Date / Time cephalexin [From Keflex] AdvReac Diarrhea Verified 07/30/21 15:06 Review of Systems ROS Statement: Those systems with pertinent positive or pertinent negative responses have been documented in the HPI. ROS Other: All systems not noted in ROS Statement are negative. Past Medical History Past Medical History: Coronary Artery Disease (CAD), Cancer, Diabetes Mellitus, Hyperlipidemia, Hypertension, Prostate Disorder Additional Past Medical History / Comment(s): PROSTATE CANCER (SEED IMPLANTS). kidney stones, gout, frequent UTI's, bone cancer-getting chemo currently, anemia History of Any Multi-Drug Resistant Organisms: None Reported Past Surgical History: Coronary Bypass/CABG, Heart Catheterization, Hernia Repair, Joint Replacement Additional Past Surgical History / Comment(s): LITHOTRIPSY x 2, triple CABG 08/25/2018, rt knee replacement, elieser inguinal hernia and umbilical hernia repair, Past Anesthesia/Blood Transfusion Reactions: No Reported Reaction Date of Last Stent Placement:: 2004 Past Psychological History: No Psychological Hx Reported Smoking Status: Never smoker Past Alcohol Use History: None Reported Past Drug Use History: None Reported - Past Family History Mother Family Medical History: Myocardial Infarction ([place]) Father Family Medical History: Myocardial Infarction ([place]) General Exam General appearance: alert, in no apparent distress Head exam: Present: atraumatic, normocephalic, normal inspection Eye exam: Present: normal appearance, PERRL, EOMI. Absent: scleral icterus, conjunctival injection, periorbital swelling ENT exam: Present: normal exam, mucous membranes moist Neck exam: Present: normal inspection. Absent: tenderness, meningismus, lymphadenopathy Respiratory exam: Present: normal lung sounds bilaterally. Absent: respiratory distress, wheezes, rales, rhonchi, stridor Cardiovascular Exam: Present: regular rate, normal rhythm, tachycardia, normal heart sounds. Absent: systolic murmur, diastolic murmur, rubs, gallop, clicks GI/Abdominal exam: Present: soft, normal bowel sounds. Absent: distended, tenderness, guarding, rebound, rigid Extremities exam: Present: normal inspection, full ROM, normal capillary refill. Absent: tenderness, pedal edema, joint swelling, calf tenderness Back exam: Present: normal inspection Neurological exam: Present: alert, oriented X3, CN II-XII intact Psychiatric exam: Present: normal affect, normal mood Skin exam: Present: warm, dry, intact, normal color. Absent: rash Course Vital Signs 09/10/21 09/10/21 03:25 04:44 Temperature 99 F Pulse Rate 124 H 110 H Respiratory 18 18 Rate Blood Pressure 144/85 142/92 O2 Sat by Pulse 98 96 Oximetry - Reevaluation(s) Reevaluation #1: 09/10/21 06:38 Record is reviewed 09/10/21 06:38 Transferring paperwork is reviewed Reevaluation #2: 09/10/21 06:38 Patient relatively asymptomatic upon arrival to the emergency department Reevaluation #3: 09/10/21 06:38 Patient is informed of results and questions have been answered - Consultations Consultation #1: Spoke with the ER may show greater than admit this patient Medical Decision Making - Medical Decision Making 71 male who is accepted by transfer for anemia weakness no history of underlying cancer, indwelling Schwartz with hematuria, nausea or vomiting which is not well- controlled per patient will be admitted for supportive care Disposition Clinical Impression: Dehydration, Anemia, At risk for readmission to hospital, Hematuria, Nausea & vomiting Disposition: ADMITTED IP TO THIS HOSP Condition: Fair Is patient prescribed a controlled substance at d/c from ED?: No
[2021-09-10] MEDS ORDERED: ONDANSETRON 4 MG/2 ML VIAL IVP PRN (03:49)
[2021-09-10] MEDS ORDERED: MORPHINE SULFATE 4 MG/ML SYRINGE IV PRN (03:49)
[2021-09-10] MEDS ORDERED: NALOXONE 0.4 MG/ML 1 ML VIAL IV PRN (03:49)
[2021-09-10 09:25] LABS: Anisocytosis Slight; Basophils % (A) 0 %; Eosinophils # (A) 0.1 k/uL (0-0.7); Eosinophils % (A) 1 %; HCT 28.9 % (39.0-53.0); HGB 9.1 gm/dL (13.0-17.5); Hypochromasia Marked; Lymphocytes # (A) 0.8 k/uL (1.0-4.8); Lymphocytes % (A) 15 %; MCH 28.4 pg (25.0-35.0); MCHC 31.4 g/dL (31.0-37.0); MCV 90.5 fL (80.0-100.0); Mean Platelet Volume 7.6; Monocytes # (A) 0.3 k/uL (0-1.0); Monocytes % (A) 5 %; Neutrophils # (A) 4.3 k/uL (1.3-7.7); Neutrophils % (A) 76 %; Platelet Count 227 k/uL (150-450); Poikilocytosis Moderate; RBC 3.19 m/uL (4.30-5.90); RDW 17.9 % (11.5-15.5); WBC 5.6 k/uL (3.8-10.6)
[2021-09-10 09:40] LABS: ALT 10 U/L (4-49); AST 40 U/L (17-59); African American GFR (CKD) 36 (>60 ml/min/1.73 sqM); Albumin 2.7 g/dL (3.5-5.0); Albumin/Globulin Ratio 0.9; Alkaline Phosphatase 1297 U/L (38-126); Anion Gap 5 mmol/L; Blood Urea Nitrogen 22 mg/dL (9-20); Calcium 7.1 mg/dL (8.4-10.2); Carbon Dioxide 24 mmol/L (22-30); Chloride 105 mmol/L (98-107); Glucose 125 mg/dL (74-99); Non-African American GFR(CKD) 31 (>60 ml/min/1.73 sqM); Potassium 4.3 mmol/L (3.5-5.1); Sodium 134 mmol/L (137-145); Total Bilirubin 0.7 mg/dL (0.2-1.3); Total Protein 5.7 g/dL (6.3-8.2)
[2021-09-10] MEDS: ACETAMINOPHEN TAB 325 MG TAB PO PRN (11:55)
[2021-09-10] MEDS ORDERED: PANTOPRAZOLE 40 MG TABLET PO PRN (13:56)
[2021-09-10] MEDS ORDERED: traMADol 50 MG TAB PO PRN (13:57)
--- NOTE | 2021-09-10 14:35 | XR ---
EXAMINATION TYPE: XR chest 2V DATE OF EXAM: 09/10/2021 COMPARISON: 06/18/2021 TECHNIQUE: PA and lateral views submitted. HISTORY: Cough FINDINGS: The lungs are clear and there is no pneumothorax, pleural effusion, or focal pneumonia. Heart is en larged and there is a postoperative change. The use osseous sclerosis suggestive of osseous metastase s. Hypertrophic degenerative change of the spine. Sternotomy changes seen. IMPRESSION: 1. No acute process. Correlate for diffuse osseous metastases.
[2021-09-10 14:40] LABS: Appearance,Urine Cloudy (Clear); Bacteria,Urine Occasional /hpf; Bilirubin,Urine Negative (Negative); Blood,Urine Small (Negative); Budding Yeast,Urine Many /hpf; Color,Urine Light Yellow; Glucose,Urine (UA) Negative (Negative); Ketones,Urine Negative (Negative); Leukocyte Esterase,Urine Large (Negative); Mucus,Urine Rare /hpf; Nitrite,Urine Negative (Negative); PH, Urine 7.5 (5.0-8.0); Protein,Urine 2+ (Negative); RBC,Urine 17 /hpf (0-5); Specific Gravity,Urine 1.008 (1.001-1.035); Squamous Epithelial Cell,Urine <1 /hpf (0-4); Urobilinogen,Urine <2.0 mg/dL (<2.0); WBC,Urine 106 /hpf (0-5)
[2021-09-10] MEDS: SODIUM CHLORIDE 0.9% 1,000 ML IV SCH (15:06)
[2021-09-10] MEDS: ABIRATERONE ACETATE 500 MG PO SCH (15:06)
--- NOTE | 2021-09-10 15:15 | P.HPIM ---
History of Present Illness Patient is pleasant 71-year-old male was transferred from a other hospital where he presented with nausea and vomiting. Patient was really doesn't have any nausea vomiting although patient appeared to be dehydrated with creatinine of 4 around to baseline around 0.8. Patient is also found to have fever because of which obtained a septic workup chest x-ray showing diffuse metastatic disease, oncology is evaluating the patient patient does have history of prostate cancer with metastasis. Patient denied any abdominal pain, abdominal CT was ordered at a different facility from where we are trying to get the reports from. Patient is bit hyponatremic patient denied any dysuria although patient the has a left nephrostomy tube right-sided nephrostomy tube was removed. Blood cultures urine cultures and urinalysis are being ordered. Patient leaks urine. REVIEW OF SYSTEMS: CONSTITUTIONAL: As mentioned in HPI HEENT: No recent visual problems or hearing problems. Denied any sore throat. CARDIOVASCULAR: No chest pain, orthopnea, PND, no palpitations, no syncope. PULMONARY: No shortness of breath, no cough, no hemoptysis. GASTROINTESTINAL: No diarrhea,no abdominal pain. NEUROLOGICAL: No headaches, no weakness, no numbness. HEMATOLOGICAL: Denies any bleeding or petechiae. GENITOURINARY: Denies any burning micturition, frequency, or urgency. MUSCULOSKELETAL/RHEUMATOLOGICAL: Denies any joint pain, swelling, or any muscle pain. ENDOCRINE: Denies any polyuria or polydipsia. The rest of the 14-point review of systems is negative. PHYSICAL EXAMINATION: GENERAL: The patient is alert and oriented x3, not in any acute distress. Well developed, well nourished. HEENT: Pupils are round and equally reacting to light. EOMI. No scleral icterus. No conjunctival pallor. Normocephalic, atraumatic. No pharyngeal erythema. No thyromegaly. CARDIOVASCULAR: S1 and S2 present. No murmurs, rubs, or gallops. PULMONARY: Chest is clear to auscultation, no wheezing or crackles. ABDOMEN: Soft, nontender, nondistended, normoactive bowel sounds. No palpable organomegaly. Left-sided nephrostomy MUSCULOSKELETAL: No joint swelling or deformity. EXTREMITIES: No cyanosis, clubbing, or pedal edema. NEUROLOGICAL: Gross neurological examination did not reveal any focal deficits. SKIN: No rashes. Assessment and plan -Sepsis: Source is not clear possibility of urinary tract infection because of hardware that is nephrostomy tube in place the site looks clear. Infectious disease was consulted patient will be started on cefepime after obtaining blood cultures urine analysis in urine cultures chest x-ray did not show any pneumonia showed diffuse metastatic disease. -Metastatic prostate cancer for which patient is receiving hormonal therapy and chemotherapy -Coronary artery disease -Type 2 diabetes mellitus patient is on metformin l. Because of renal failure will hold off metformin patient will be started on sliding scale insulin -Hyperlipidemia 5 acute renal failure related azotemia secondary to infection patient will be started on IV fluids. -Hypertension DVT prophylaxis: Lovenox Past Medical History Past Medical History: Coronary Artery Disease (CAD), Cancer, Diabetes Mellitus, Hyperlipidemia, Hypertension, Prostate Disorder Additional Past Medical History / Comment(s): PROSTATE CANCER (SEED IMPLANTS). kidney stones, gout, frequent UTI's, bone cancer-getting chemo currently, anemia History of Any Multi-Drug Resistant Organisms: None Reported Past Surgical History: Coronary Bypass/CABG, Heart Catheterization, Hernia Repair, Joint Replacement Additional Past Surgical History / Comment(s): LITHOTRIPSY x 2, triple CABG 08/25/2018, rt knee replacement, elieser inguinal hernia and umbilical hernia repair, Past Anesthesia/Blood Transfusion Reactions: No Reported Reaction Date of Last Stent Placement:: 2004 Past Psychological History: No Psychological Hx Reported Smoking Status: Never smoker Past Alcohol Use History: None Reported Past Drug Use History: None Reported - Past Family History Mother Family Medical History: Myocardial Infarction ([place]) Father Family Medical History: Myocardial Infarction ([place]) Medications and Allergies Home Medications Medication Instructions Recorded Confirmed Type Aspirin 81 mg PO DAILY 05/06/14 09/10/21 History Allopurinol [Zyloprim] 100 mg PO DAILY 03/02/21 09/10/21 History Atorvastatin [Lipitor] 80 mg PO HS 03/02/21 09/10/21 History Tamsulosin [Flomax] 0.4 mg PO BID 03/02/21 09/10/21 History ondansetron HCL [Zofran] 8 mg PO DAILY 03/26/21 09/10/21 History metFORMIN HCL 1,000 mg PO DAILY 06/11/21 09/10/21 History metFORMIN HCL 500 mg PO HS 06/11/21 09/10/21 History Calcium Carbonate/Vitamin D3 1 cap PO BID 06/18/21 09/10/21 History [Calcium 600 mg-Vit D3 5 mcg (200 unit)] Abiraterone Acetate [Zytiga] 1,000 mg PO DAILY 07/27/21 09/10/21 History predniSONE 5 mg PO DAILY 07/27/21 09/10/21 History Pantoprazole [Protonix] 40 mg PO DAILY PRN 07/30/21 09/10/21 History Cyanocobalamin (Vitamin B-12) 1,000 mcg PO DAILY 09/10/21 09/10/21 History [Vitamin B-12] Magnesium 250 mg PO BID 09/10/21 09/10/21 History ondansetron HCL [Zofran] 8 mg PO Q6H PRN 09/10/21 09/10/21 History Allergies Allergy/AdvReac Type Severity Reaction Status Date / Time cephalexin [From Keflex] AdvReac Diarrhea Verified 09/10/21 08:30 Physical Exam Vitals: Vital Signs Temp Pulse Pulse Resp BP BP Pulse Ox 09/10/21 12:39 100.2 F H 09/10/21 11:46 100.2 F H 109 H 18 127/81 98 09/10/21 08:00 18 09/10/21 06:50 99.1 F 116 H 18 130/83 97 09/10/21 04:44 110 H 18 142/92 96 09/10/21 03:25 99 F 124 H 18 144/85 98 Intake and Output 09/10/21 09/10/21 09/10/21 06:59 14:59 22:59 Other: Voiding Method Indwelling Catheter Urinal Diaper Indwelling Catheter # Voids 1 Weight 98.883 kg Results CBC & Chem 7: 09/10/21 08:50 09/10/21 08:50 Labs: Abnormal Lab Results - Last 24 Hours (Table) 09/10/21 09/10/21 09/10/21 Range/Units 08:50 08:50 14:28 RBC 3.19 L (4.30-5.90) m/uL Hgb 9.1 L (13.0-17.5) gm/dL Hct 28.9 L (39.0-53.0) % RDW 17.9 H (11.5-15.5) % Lymphocytes # 0.8 L (1.0-4.8) k/uL Sodium 134 L (137-145) mmol/L BUN 22 H (9-20) mg/dL Creatinine 2.07 H (0.66-1.25) mg/dL Glucose 125 H (74-99) mg/dL Calcium 7.1 L (8.4-10.2) mg/dL Alkaline Phosphatase 1297 H (38-126) U/L Total Protein 5.7 L (6.3-8.2) g/dL Albumin 2.7 L (3.5-5.0) g/dL Urine Protein 2+ H (Negative) Urine Blood Small H (Negative) Ur Leukocyte Esterase Large H (Negative) Urine RBC 17 H (0-5) /hpf Urine WBC 106 H (0-5) /hpf Urine Bacteria Occasional H (None) /hpf Urine Mucus Rare H (None) /hpf Urine Yeast (Budding) Many H (None) /hpf
[2021-09-10] MEDS: CEFEPIME 1 GM in SODIUM CHLORIDE 0.9% 50 ML IVPB SCH (16:31)
--- NOTE | 2021-09-10 16:49 | P.CONS ---
History of Present Illness - Reason for Consult Consult date: 09/10/21 N,V Requesting physician: Adama Navarro - Chief Complaint weak - History of Present Illness Mr. Madrigal is a very pleasant male pt of Dr. Gastelum diagnosed with prostate cancer 08/2005, PSA 48.3, nodule detected on HAYLEY, biopsies poorly differentiated carcinoma involving all cores. 10/16/05 treated with brachytherapy and went on LHRH agonist. Due to a rising PSA he was put back on LHRH agonist in around 2008. All went well, PSA 10/21/19 was less than 0.1. 05/02/20 PSA was up to 27.0, serum testosterone was 14.0. 05/12/20 PSA was 35.2. 05/26/20 CT CAP revealed osseous mets, left hydronephrosis. 05/26/20 bone scan revealed diffuse osseous metastasis. He was started on xtandi at that time, however,he did not take it regularly due to his copay, but started taking regularly. He was started on xgeva by urology. PSA 08/29/20 was 7.8. PSA 11/27/20 was 18.0. 01/23/21 PSA was 63.2. 02/13/21 bone scan revealed diffuse osseous mets, CT CAP revealed diffuse osseous mets, no visceral disease, there was a left kidney stone causing hydronephrosis. Saw Urologist, ended up with bilateral urostomies due to hydronephrosis. He declined to have provenge. He started taxotere on 03/20/21. 04/04/21 PSA was 274. He developed UTI after his first cycle of chemo. He resumed taxotere (changed to weekly dosing due to tolerance) 04/19/21. He has a left nephrostomy tube placed on 06/13/21. He was treated for UTI 04/11 treated with oral but failed outpt therapy and was admitted. He started zytiga and pred 07/12, continues on lupron and xgeva. In ER currently for intractable dry heaves (he states he is not vomiting) and weakness x 2 days, he states he has been able to keep his meds down. Reports fever, chills, malaise, denies chest pain, SOB, new cough, abd pain or cramping, he is asking for food. No acute changed in bowel habits. Did not report urine color, odor changes. His renal function indicative of dehydration Review of Systems 10 point ROS is neg except as stated in HPI Past Medical History Past Medical History: Coronary Artery Disease (CAD), Cancer, Diabetes Mellitus, Hyperlipidemia, Hypertension, Prostate Disorder Additional Past Medical History / Comment(s): PROSTATE CANCER (SEED IMPLANTS). kidney stones, gout, frequent UTI's, bone cancer-getting chemo currently, anemia History of Any Multi-Drug Resistant Organisms: None Reported Past Surgical History: Coronary Bypass/CABG, Heart Catheterization, Hernia Repair, Joint Replacement Additional Past Surgical History / Comment(s): LITHOTRIPSY x 2, triple CABG 08/25/2018, rt knee replacement, elieser inguinal hernia and umbilical hernia repair, Past Anesthesia/Blood Transfusion Reactions: No Reported Reaction Date of Last Stent Placement:: 2004 Past Psychological History: No Psychological Hx Reported Smoking Status: Never smoker Past Alcohol Use History: None Reported Past Drug Use History: None Reported - Past Family History Mother Family Medical History: Myocardial Infarction (MS) Father Family Medical History: Myocardial Infarction (MS) Medications and Allergies Home Medications Medication Instructions Recorded Confirmed Type Aspirin 81 mg PO DAILY 05/06/14 09/10/21 History Allopurinol [Zyloprim] 100 mg PO DAILY 03/02/21 09/10/21 History Atorvastatin [Lipitor] 80 mg PO HS 03/02/21 09/10/21 History Tamsulosin [Flomax] 0.4 mg PO BID 03/02/21 09/10/21 History ondansetron HCL [Zofran] 8 mg PO DAILY 03/26/21 09/10/21 History metFORMIN HCL 1,000 mg PO DAILY 06/11/21 09/10/21 History metFORMIN HCL 500 mg PO HS 06/11/21 09/10/21 History Calcium Carbonate/Vitamin D3 1 cap PO BID 06/18/21 09/10/21 History [Calcium 600 mg-Vit D3 5 mcg (200 unit)] Abiraterone Acetate [Zytiga] 1,000 mg PO DAILY 07/27/21 09/10/21 History predniSONE 5 mg PO DAILY 07/27/21 09/10/21 History Pantoprazole [Protonix] 40 mg PO DAILY PRN 07/30/21 09/10/21 History Cyanocobalamin (Vitamin B-12) 1,000 mcg PO DAILY 09/10/21 09/10/21 History [Vitamin B-12] Magnesium 250 mg PO BID 09/10/21 09/10/21 History ondansetron HCL [Zofran] 8 mg PO Q6H PRN 09/10/21 09/10/21 History Allergies Allergy/AdvReac Type Severity Reaction Status Date / Time cephalexin [From Keflex] AdvReac Diarrhea Verified 09/10/21 08:30 Physical Exam Vitals: Vital Signs Temp Pulse Resp BP Pulse Ox 09/10/21 08:00 18 09/10/21 06:50 99.1 F 116 H 18 130/83 97 09/10/21 04:44 110 H 18 142/92 96 09/10/21 03:25 99 F 124 H 18 144/85 98 Intake and Output 09/09/21 09/10/21 09/10/21 22:59 06:59 14:59 Other: Voiding Method Indwelling Catheter Urinal Diaper Indwelling Catheter Weight 98.883 kg - Constitutional General appearance: average body habitus, cooperative, no acute distress - EENT Eyes: anicteric sclerae, EOMI ENT: hearing grossly normal, normal oropharynx - Neck Neck: no lymphadenopathy - Respiratory Respiratory: bilateral: CTA - Cardiovascular Rhythm: regular Heart sounds: normal: S1, S2 Abnormal Heart Sounds: no systolic murmur, no diastolic murmur, no rub, no S3 Gallop, no S4 Gallop, no click, no other leg Peripheral Edema: bilateral: None - Gastrointestinal General gastrointestinal: no absent bowel sounds, no decreased bowel sounds, no distended, no hepatomegaly, no hyperactive bowel sounds, normal bowel sounds, no organomegaly, no rigid, no scaphoid, soft, no splenomegaly, no tenderness, no umbilical hernia, no ventral hernia - Integumentary Integumentary: pale - Neurologic Neurologic: CNII-XII intact - Musculoskeletal Musculoskeletal: strength equal bilaterally - Psychiatric Psychiatric: A&O x's 3, appropriate affect, intact judgment & insight Results CBC & Chem 7: 09/10/21 08:50 09/10/21 08:50 Labs: Abnormal Lab Results - Last 24 Hours (Table) 09/10/21 09/10/21 Range/Units 08:50 08:50 RBC 3.19 L (4.30-5.90) m/uL Hgb 9.1 L (13.0-17.5) gm/dL Hct 28.9 L (39.0-53.0) % RDW 17.9 H (11.5-15.5) % Lymphocytes # 0.8 L (1.0-4.8) k/uL Sodium 134 L (137-145) mmol/L BUN 22 H (9-20) mg/dL Creatinine 2.07 H (0.66-1.25) mg/dL Glucose 125 H (74-99) mg/dL Calcium 7.1 L (8.4-10.2) mg/dL Alkaline Phosphatase 1297 H (38-126) U/L Total Protein 5.7 L (6.3-8.2) g/dL Albumin 2.7 L (3.5-5.0) g/dL Chest x-ray: report reviewed (no acute pulm process) Assessment and Plan (1) Dehydration Narrative/Plan: Pt typically has normal renal function. Agree with hydration-defer to IM. Current Visit: Yes Status: Acute Priority: High Code(s): E86.0 - DEHYDRATION SNOMED Code(s): 01477120 (2) Fever Narrative/Plan: ID consulted, pancultures pending. 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 Recent PSA 583, down from 726. Hold zytiga for just a few days, cont pred. Current Visit: Yes Status: Chronic Priority: Medium Code(s): C61 - MALIGNANT NEOPLASM OF PROSTATE; Z19.2 - HORMONE RESISTANT MALIGNANCY STATUS SNOMED Code(s): 520798331
[2021-09-10] MEDS: CALCIUM CARB-VIT D 500 MG-5 MCG TAB PO SCH (22:07)
[2021-09-10] MEDS: MAGNESIUM OXIDE 400 MG TAB PO SCH (22:08)
[2021-09-10] MEDS: ATORVASTATIN 80 MG TAB PO SCH (22:08)
[2021-09-10] MEDS: TAMSULOSIN 0.4 MG CAP.ER.24H PO SCH (22:08)
[2021-09-10] MEDS: predniSONE 5 MG TAB PO SCH (22:09)
[2021-09-11] MEDS: SODIUM CHLORIDE 0.9% 1,000 ML IV SCH ×3 (02:55→20:43)
[2021-09-11 04:19] LABS: Glucose,Whole Blood 116 mg/dL (75-99)
[2021-09-11] MEDS: CEFEPIME 1 GM in SODIUM CHLORIDE 0.9% 50 ML IVPB SCH ×2 (04:33→14:57)
[2021-09-11 06:09] LABS: Anisocytosis Slight; Basophils % (A) 0 %; Eosinophils # (A) 0.1 k/uL (0-0.7); Eosinophils % (A) 1 %; HCT 25.9 % (39.0-53.0); HGB 8.2 gm/dL (13.0-17.5); Hypochromasia Marked; Lymphocytes # (A) 0.7 k/uL (1.0-4.8); Lymphocytes % (A) 13 %; MCH 28.6 pg (25.0-35.0); MCHC 31.5 g/dL (31.0-37.0); MCV 90.7 fL (80.0-100.0); Mean Platelet Volume 7.6; Monocytes # (A) 0.2 k/uL (0-1.0); Monocytes % (A) 4 %; Neutrophils % (A) 80 %; Platelet Count 227 k/uL (150-450); Poikilocytosis Slight; RBC 2.86 m/uL (4.30-5.90); RDW 17.8 % (11.5-15.5)
[2021-09-11] MEDS ORDERED: predniSONE 5 MG TAB PO SCH (09:00)
[2021-09-11] MEDS: TAMSULOSIN 0.4 MG CAP.ER.24H PO SCH ×2 (09:25→20:43)
[2021-09-11] MEDS: MAGNESIUM OXIDE 400 MG TAB PO SCH ×2 (09:25→20:42)
[2021-09-11] MEDS: allopurinoL 100 MG TAB PO SCH (09:25)
[2021-09-11] MEDS: ONDANSETRON 4 MG TAB PO SCH (09:25)
[2021-09-11] MEDS: CALCIUM CARB-VIT D 500 MG-5 MCG TAB PO SCH ×2 (09:25→20:42)
[2021-09-11] MEDS: CYANOCOBALAMIN 500 MCG TAB PO SCH (09:26)
[2021-09-11] MEDS: ABIRATERONE ACETATE 500 MG PO SCH (09:26)
[2021-09-11] MEDS: predniSONE 5 MG TAB PO SCH ×2 (09:26→20:42)
[2021-09-11 09:59] LABS: Magnesium 2.3 mg/dL (1.5-2.4); Phosphorus 2.1 mg/dL (2.4-5.1)
[2021-09-11 10:17] LABS: Albumin 2.5 g/dL (3.8-4.9); Albumin/Globulin Ratio 1.04 (1.60-3.17); Anion Gap 10.4 mmol/L (10.00-18.00); BUN/Creat Ratio 12.65 Ratio (12.00-20.00); Blood Urea Nitrogen 21.5 mg/dL (9.0-27.0); Calcium 6.8 mg/dL (8.7-10.3); Carbon Dioxide 20.6 mmol/L (20.0-27.5); Globulin 2.4 g/dL (1.6-3.3); Non-African American GFR(CKD) 39.7 (60.0-200.0); Potassium 3.9 mmol/L (3.5-5.5); Total Bilirubin 0.4 mg/dL (0.30-1.20); Total Protein 4.9 g/dL (6.2-8.2)
[2021-09-11] MEDS: SALT AND SODA MOUTHWASH 1,000 ML PO SCH ×3 (12:19→23:13)
[2021-09-11] MEDS: MAG HYDROX/AL HYDROX/SIMETH 30 ML, diphenhydrAMINE ELIXIR 75 MG, LIDOCAINE VISCOUS 30 ML PO SCH ×9 (12:20→23:11)
[2021-09-11] MEDS: FLUCONAZOLE 100 MG TAB PO SCH (12:20)
--- NOTE | 2021-09-11 15:41 | P.PN ---
Subjective Progress Note Date: 09/11/21 Patient is pleasant 71-year-old male was transferred from a other hospital where he presented with nausea and vomiting. Patient was really doesn't have any nausea vomiting although patient appeared to be dehydrated with creatinine of 4 around to baseline around 0.8. Patient is also found to have fever because of which obtained a septic workup chest x-ray showing diffuse metastatic disease, oncology is evaluating the patient patient does have history of prostate cancer with metastasis. Patient denied any abdominal pain, abdominal CT was ordered at a different facility from where we are trying to get the reports from. Patient is bit hyponatremic patient denied any dysuria although patient the has a left nephrostomy tube right-sided nephrostomy tube was removed. Blood cultures urine cultures and urinalysis are being ordered. Patient leaks urine. 09/11/2021 Patient is seen and evaluated in follow-up this morning continues with general malaise and fatigue and abdominal discomfort. Patient reports nausea with no reports of vomiting today. Patient continues on IV cefepime and infectious disease is consulted. Continue IV normal saline gentle hydration for acute kidney injury and is slowly improving. Patient is also on oral Diflucan for oral candidiasis. Oncology is following closely. Patient also continues on oral prednisone and oncology managing this. She denies any chest pain or shortness of breath. Patient continues with low-grade fevers. Labs: WBC is 5.0, hemoglobin is 8.2, platelets are 227, sodium is 138, potassium is 3.9, BUN is 21.5, creatinine is trending down at 1.7, phosphorus is 2.1, calcium is 6.8, AST is 88, ALT is 6, alk phos is 1310, urine culture is received in pending Review of systems: Constitutional: reports of fatigue, fever, generalized weakness Cardiovascular: No reports of chest pain or palpitations Respiratory: No reports of shortness of breath or cough GI: reports of nausea, no reports of vomiting, or diarrhea : No reports of dysuria or retention Neurovascular: Reports generalized weakness All medications have been reviewed Active Medications Acetaminophen (Acetaminophen Tab 325 Mg Tab) 650 mg PO Q6HR PRN PRN Reason: Fever and/ or Pain Last Admin: 09/10/21 11:55 Dose: 650 mg Documented by: Allopurinol (Allopurinol 100 Mg Tab) 100 mg PO DAILY TATI Last Admin: 09/11/21 09:25 Dose: 100 mg Documented by: Atorvastatin Calcium (Atorvastatin 80 Mg Tab) 80 mg PO HS [facility] Last Admin: 09/10/21 22:08 Dose: 80 mg Documented by: Calcium Carbonate (Calcium Carb-Vit D 500 Mg-5 Mcg Tab) 1 each PO BID [facility] Last Admin: 09/11/21 09:25 Dose: 1 each Documented by: Al Hydroxide/Mg Hydroxide 30 ml/ Diphenhydramine HCl 75 mg/Lidocaine HCl 30 ml 0 ml PO TID [facility] Last Admin: 09/11/21 12:20 Dose: 5 ml Documented by: Cyanocobalamin (Cyanocobalamin 500 Mcg Tab) 1,000 mcg PO DAILY [facility] Last Admin: 09/11/21 09:26 Dose: 1,000 mcg Documented by: Fluconazole (Fluconazole 100 Mg Tab) 100 mg PO DAILY [facility] Stop: 09/17/21 09:01 Last Admin: 09/11/21 12:20 Dose: 100 mg Documented by: Sodium Chloride (Saline 0.9%) 1,000 mls @ 100 mls/hr IV .Q10H [facility] Last Admin: 09/11/21 12:24 Dose: 100 mls/hr Documented by: Cefepime HCl 1 gm/ Sodium (Chloride) 50 mls @ 12.5 mls/hr IVPB Q12H [facility] Last Admin: 09/11/21 14:57 Dose: 12.5 mls/hr Documented by: Magnesium Oxide (Magnesium Oxide 400 Mg Tab) 400 mg PO BID [facility] Last Admin: 09/11/21 09:25 Dose: 400 mg Documented by: Naloxone HCl (Naloxone 0.4 Mg/Ml 1 Ml Vial) 0.2 mg IV Q2M PRN PRN Reason: Opioid Reversal Non-Formulary Medication (Abiraterone Acetate [Zytiga]) 1,000 mg PO DAILY [facility] Last Admin: 09/11/21 09:26 Dose: Not Given Documented by: Ondansetron HCl (Ondansetron 4 Mg/2 Ml Vial) 4 mg IVP Q8HR PRN PRN Reason: Nausea And Vomiting Ondansetron HCl (Ondansetron 4 Mg Tab) 8 mg PO DAILY [facility] Last Admin: 09/11/21 09:25 Dose: 8 mg Documented by: Pantoprazole Sodium (Pantoprazole 40 Mg Tablet) 40 mg PO DAILY PRN PRN Reason: Heartburn Prednisone (Prednisone 5 Mg Tab) 5 mg PO BID [facility] Last Admin: 09/11/21 09:26 Dose: 5 mg Documented by: Sodium Bicarbonate (Salt And Soda Mouthwash 1,000 Ml) 5 ml PO 5XD [facility] Last Admin: 09/11/21 12:19 Dose: 5 ml Documented by: Tamsulosin HCl (Tamsulosin 0.4 Mg Cap.Er.24h) 0.4 mg PO BID [facility] Last Admin: 09/11/21 09:25 Dose: 0.4 mg Documented by: Tramadol HCl (Tramadol 50 Mg Tab) 50 mg PO QID PRN PRN Reason: Pain/Discomfort PHYSICAL EXAMINATION: GENERAL: The patient is alert and oriented x3, not in any acute distress. Well developed, well nourished. HEENT: Pupils are round and equally reacting to light. EOMI. No scleral icterus. No conjunctival pallor. Normocephalic, atraumatic. No pharyngeal erythema. No thyromegaly. CARDIOVASCULAR: S1 and S2 present. No murmurs, rubs, or gallops. PULMONARY: Chest is clear to auscultation, no wheezing or crackles. ABDOMEN: Soft, nontender, nondistended, normoactive bowel sounds. No palpable organomegaly. Left-sided nephrostomy MUSCULOSKELETAL: No joint swelling or deformity. EXTREMITIES: No cyanosis, clubbing, or pedal edema. NEUROLOGICAL: Gross neurological examination did not reveal any focal deficits. SKIN: No rashes. Assessment: -Sepsis: Source is not clear possibility of urinary tract infection because of hardware that is nephrostomy tube in place the site looks clear. Infectious disease following an patient is maintained on IV cefepime and urine culture pending at this time. -Metastatic prostate cancer for which patient is receiving hormonal therapy and chemotherapy, oncology following -Coronary artery disease -Type 2 diabetes mellitus, continue sliding scale hold metformin for now -Hyperlipidemia -acute renal failure related azotemia secondary to infection patient continued on IV fluids. creatinine is trending down. -Hypertension -DVT prophylaxis: Lovenox -full code plan: Recommend continue with gentle IV hydration and oncology following along with infectious disease. Patient is maintained on IV cefepime and awaiting for urine cultures to finalize. Patient continues with some nausea although no reports of vomiting and slowly advancing diet. Patient's kidney functions improving slowly and trending down and will continue gentle IV hydration with repeat labs in the morning. Recommend continue to replace electrolytes per protocol and encouraged increase oral intake and increased activity as tolerated. Patient encouraged to get up out of the bed more often. Possible discharge in 24-48 hours. Objective - Vital Signs Vital signs: Vital Signs Temp 99.7 F H 09/11/21 05:42 Pulse 110 H 09/11/21 05:42 Resp 16 09/11/21 05:42 BP 115/67 09/11/21 05:42 Pulse Ox 95 09/11/21 05:42 Intake & Output 09/10/21 09/11/21 09/11/21 18:59 06:59 18:59 Intake Total 200 Balance 200 Intake: IV 200 Sodium Chloride 0.9% 1, 200 000 ml @ 100 mls/hr IV . Q10H [facility] Rx#:[id number] Other: Voiding Method Urinal Diaper Diaper Indwelling Catheter # Voids 1 - Labs CBC & Chem 7: 09/11/21 05:38 09/11/21 05:38 Labs: Abnormal Lab Results - Last 24 Hours (Table) 09/10/21 09/10/21 09/10/21 Range/Units 08:50 08:50 14:28 RBC 3.19 L (4.30-5.90) m/uL Hgb 9.1 L (13.0-17.5) gm/dL Hct 28.9 L (39.0-53.0) % RDW 17.9 H (11.5-15.5) % Lymphocytes # 0.8 L (1.0-4.8) k/uL Sodium 134 L (137-145) mmol/L BUN 22 H (9-20) mg/dL Creatinine 2.07 H (0.66-1.25) mg/dL Glucose 125 H (74-99) mg/dL POC Glucose (mg/dL) (75-99) mg/dL Calcium 7.1 L (8.4-10.2) mg/dL Alkaline Phosphatase 1297 H (38-126) U/L Total Protein 5.7 L (6.3-8.2) g/dL Albumin 2.7 L (3.5-5.0) g/dL Urine Protein 2+ H (Negative) Urine Blood Small H (Negative) Ur Leukocyte Esterase Large H (Negative) Urine RBC 17 H (0-5) /hpf Urine WBC 106 H (0-5) /hpf Urine Bacteria Occasional H (None) /hpf Urine Mucus Rare H (None) /hpf Urine Yeast (Budding) Many H (None) /hpf 09/11/21 09/11/21 Range/Units 04:18 05:38 RBC 2.86 L (4.30-5.90) m/uL Hgb 8.2 L (13.0-17.5) gm/dL Hct 25.9 L (39.0-53.0) % RDW 17.8 H (11.5-15.5) % Lymphocytes # 0.7 L (1.0-4.8) k/uL Sodium (137-145) mmol/L BUN (9-20) mg/dL Creatinine (0.66-1.25) mg/dL Glucose (74-99) mg/dL POC Glucose (mg/dL) 116 H (75-99) mg/dL Calcium (8.4-10.2) mg/dL Alkaline Phosphatase (38-126) U/L Total Protein (6.3-8.2) g/dL Albumin (3.5-5.0) g/dL Urine Protein (Negative) Urine Blood (Negative) Ur Leukocyte Esterase (Negative) Urine RBC (0-5) /hpf Urine WBC (0-5) /hpf Urine Bacteria (None) /hpf Urine Mucus (None) /hpf Urine Yeast (Budding) (None) /hpf Microbiology - Last 24 Hours (Table) 09/10/21 14:28 Urine Culture - Preliminary Urine,Voided
[2021-09-11 18:19] LABS: Glucose,Whole Blood 137 mg/dL (75-99)
[2021-09-11] MEDS: INSULIN ASPART (NovoLOG) 100 UNIT/ML VIAL SQ SCH (18:24)
--- NOTE | 2021-09-11 19:23 | P.PN ---
Subjective Progress Note Date: 09/11/21 Principal diagnosis: Dry heaves and weakness In f/u today pt is reporting less upset stomach, weakness persists. Fever pattern has abated. Mouth is still sore. No new symptoms to report. Objective - Vital Signs Vital signs: Vital Signs Temp 99.7 F H 09/11/21 05:42 Pulse 110 H 09/11/21 05:42 Resp 16 09/11/21 05:42 BP 115/67 09/11/21 05:42 Pulse Ox 95 09/11/21 05:42 Intake & Output 09/10/21 09/11/21 09/11/21 18:59 06:59 18:59 Intake Total 200 Balance 200 Intake: IV 200 Sodium Chloride 0.9% 1, 200 000 ml @ 100 mls/hr IV . Q10H [facility] Rx#:[id number] Other: Voiding Method Urinal Diaper Diaper Diaper Indwelling Catheter # Voids 1 - Constitutional General appearance: Present: average body habitus, cooperative, no acute distress - EENT Eyes: Present: anicteric sclerae, EOMI ENT: Present: hearing grossly normal, thrush - Respiratory Respiratory: bilateral: CTA - Cardiovascular Rhythm: regular Heart sounds: normal: S1, S2 Abnormal Heart Sounds: Absent: systolic murmur, diastolic murmur, rub, S3 Gallop, S4 Gallop, click, other - Peripheral edema leg Peripheral Edema: bilateral: None - Gastrointestinal General gastrointestinal: Present: normal bowel sounds, soft - Integumentary Integumentary: Present: normal - Neurologic Neurologic: Present: CNII-XII intact - Musculoskeletal Musculoskeletal: Present: strength equal bilaterally - Psychiatric Psychiatric: Present: A&O x's 3, appropriate affect, intact judgment & insight - Labs CBC & Chem 7: 09/11/21 05:38 09/11/21 05:38 Labs: Abnormal Lab Results - Last 24 Hours (Table) 09/10/21 09/11/21 09/11/21 Range/Units 14:28 04:18 05:38 RBC 2.86 L (4.30-5.90) m/uL Hgb 8.2 L (13.0-17.5) gm/dL Hct 25.9 L (39.0-53.0) % RDW 17.8 H (11.5-15.5) % Lymphocytes # 0.7 L (1.0-4.8) k/uL Creatinine (0.6-1.5) mg/dL Est GFR (CKD-EPI)AfAm (60.0-200.0) Est GFR (CKD-EPI)NonAf (60.0-200.0) Glucose (70-110) mg/dL POC Glucose (mg/dL) 116 H (75-99) mg/dL Calcium (8.7-10.3) mg/dL Phosphorus (2.4-5.1) mg/dL AST (14-35) U/L ALT (10-49) U/L Alkaline Phosphatase (41-126) U/L Total Protein (6.2-8.2) g/dL Albumin (3.8-4.9) g/dL Albumin/Globulin Ratio (1.60-3.17) g/dL Urine Protein 2+ H (Negative) Urine Blood Small H (Negative) Ur Leukocyte Esterase Large H (Negative) Urine RBC 17 H (0-5) /hpf Urine WBC 106 H (0-5) /hpf Urine Bacteria Occasional H (None) /hpf Urine Mucus Rare H (None) /hpf Urine Yeast (Budding) Many H (None) /hpf 09/11/21 Range/Units 05:38 RBC (4.30-5.90) m/uL Hgb (13.0-17.5) gm/dL Hct (39.0-53.0) % RDW (11.5-15.5) % Lymphocytes # (1.0-4.8) k/uL Creatinine 1.7 H (0.6-1.5) mg/dL Est GFR (CKD-EPI)AfAm 46.0 L (60.0-200.0) Est GFR (CKD-EPI)NonAf 39.7 L (60.0-200.0) Glucose 127 H (70-110) mg/dL POC Glucose (mg/dL) (75-99) mg/dL Calcium 6.8 L (8.7-10.3) mg/dL Phosphorus 2.1 L (2.4-5.1) mg/dL AST 88 H (14-35) U/L ALT 6 L (10-49) U/L Alkaline Phosphatase 1310 H (41-126) U/L Total Protein 4.9 L (6.2-8.2) g/dL Albumin 2.5 L (3.8-4.9) g/dL Albumin/Globulin Ratio 1.04 L (1.60-3.17) g/dL Urine Protein (Negative) Urine Blood (Negative) Ur Leukocyte Esterase (Negative) Urine RBC (0-5) /hpf Urine WBC (0-5) /hpf Urine Bacteria (None) /hpf Urine Mucus (None) /hpf Urine Yeast (Budding) (None) /hpf Microbiology - Last 24 Hours (Table) 09/10/21 14:28 Urine Culture - Preliminary Urine,Voided - Imaging and Cardiology Chest x-ray: report reviewed Assessment and Plan (1) Dehydration Narrative/Plan: Pt typically has normal renal function. Agree with hydration-defer to IM. BUN/Cr much improved today Current Visit: Yes Status: Acute Priority: High Code(s): E86.0 - DEHYDRATION SNOMED Code(s): 74966447 (2) Fever Narrative/Plan: ID consulted, pancultures pending. Fever pattern has abated. Per Dr. Romero, did NOT hold zytiga or prednisone. Need to see of pt gets better while on. 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 Recent PSA 583 on lab draw from 08/30, down from 726. Current Visit: Yes Status: Chronic Priority: Medium Code(s): C61 - MALIGNA NT NEOPLASM OF PROSTATE; Z19.2 - HORMONE RESISTANT MALIGNANCY STATUS SNOMED Code(s): 391033389 (4) Thrush, oral Narrative/Plan: Diflucan, salt and soda, kools and Q 4 hour oral care Current Visit: Yes Status: Acute Priority: High Code(s): B37.0 - CANDIDAL STOMATITIS SNOMED Code(s): 17092076 Plan: Attests: I have performed H&P, seen and examined pt, developed impression and plan of care. Discussed with dictator. Agree with dictation, documented as a scribe.
[2021-09-11 20:20] LABS: Glucose,Whole Blood 120 mg/dL (75-99)
[2021-09-11] MEDS: CEFEPIME 2 GM in SODIUM CHLORIDE 0.9% 100 ML IVPB SCH (20:42)
[2021-09-11] MEDS: ATORVASTATIN 80 MG TAB PO SCH (20:42)
[2021-09-11] MEDS: ACETAMINOPHEN TAB 325 MG TAB PO PRN (20:42)
--- NOTE | 2021-09-11 22:51 | P.CONS ---
History of Present Illness - Reason for Consult Consult date: 09/11/21 sepsis Requesting physician: Rui Chamorro - Chief Complaint weakness and blood in urine x few days - History of Present Illness History of present illness : Patient is a 71-year-old male with a past medical history significant for prostate cancer is being treated with the brachytherapy and LHRH and advanced in this patient subsequent work-up patient with evidence of diffuse osseous metastasis and has been on chemotherapy in the form of Lupron and Xgeva patient presenting to the ER for evaluation of dry heaves and weakness that been getting worse for the last 2 days patient was complaining of able to keep his medication down patient denies having any chest pain shortness of breath or cough no nausea no vomiting no abdominal pain no diarrhea has been complaining of some hematuria patient on presentation the hospital did have a fever 100.9 200.3 F no significant hypoxemia need for supplemental oxygen patient did have a normal white count with lymphopenia creatinine was elevated liver enzymes mildly elevated on repeat testing patient did have a positive UA, PCR was negative blood culture has been negative patient did have a chest x-ray no acute process correlate for diffuse osseous metastasis patient was started on cefepime with concern for urinary tract infection infectious disease was consulted for further management of antibiotic therapy Review of system: CONSTITUTIONAL: Positive for weakness along with the fever. EYES: No complaint. ENT: No complaint. RESPIRATORY: No complaint. CARDIOVASCULAR: No complaint. GENITOURINARY: As per history of present illness. GASTROINTESTINAL: No complaint. MUSCULOSKELETAL: No complaint. INTEGUMENTARY: No complaint. PSYCHOLOGIC: No complaint. ENDOCRINE: No complaint. NEUROLOGIC: No complaint. Past medical history : Reviewed, documented below Past surgical history : Reviewed, documented below Social history: Reviewed, documented below Medications: Reviewed, as documented below EXAMINATION: Vital sigans= Reviewed and documented below GENERAL DESCRIPTION: Elderly male lying in bed, no distress. No tachypnea or accessory muscle of respiration use. HEENT: Shows Pallor , no scleral icterus. Oral mucous membrane is dry. NECK: Trachea central, no thyromegaly. LUNGS: Unlabored breathing. Clear to auscultation anteriorly. No wheeze or crackle. HEART: S1, S2, regular rate and rhythm. ABDOMEN: Soft, no tenderness , guarding or rigidity EXTREMITIES: No edema of feet. SKIN: No rash, no masses palpable. NEUROLOGICAL: The patient is awake, alert, oriented x3, mood and affect normal. LABS AND RADIOLOGY: Reviewed results see below Assessment : Patient is rehospitalized weakness in this patient with a history of metastatic prostate cancer has been on chemo therapy in this patient complaining of hematuria and some urinary symptoms have a positive UA likely the source of his infection need to cover for the gram-negative with a likely pathogen, currently with no other obvious focus of infection Plan: 1-we will obtain influenza and RSV PCR to complete the work-up 2-patient to continue on cefepime while waiting for the culture finalize 3-gentle IV fluid We will follow on clinical condition and cultures to further adjust medication if needed Thank you for this consultation we will follow the patient along with you Past Medical History Past Medical History: Coronary Artery Disease (CAD), Cancer, Diabetes Mellitus, Hyperlipidemia, Hypertension, Prostate Disorder Additional Past Medical History / Comment(s): PROSTATE CANCER (SEED IMPLANTS). kidney stones, gout, frequent UTI's, bone cancer-getting chemo currently, anemia History of Any Multi-Drug Resistant Organisms: None Reported Past Surgical History: Coronary Bypass/CABG, Heart Catheterization, Hernia Repair, Joint Replacement Additional Past Surgical History / Comment(s): LITHOTRIPSY x 2, triple CABG 08/25/2018, rt knee replacement, elieser inguinal hernia and umbilical hernia repair, Past Anesthesia/Blood Transfusion Reactions: No Reported Reaction Date of Last Stent Placement:: 2004 Past Psychological History: No Psychological Hx Reported Smoking Status: Never smoker Past Alcohol Use History: None Reported Past Drug Use History: None Reported - Past Family History Mother Family Medical History: Myocardial Infarction (NM) Father Family Medical History: Myocardial Infarction (NM) Medications and Allergies Home Medications Medication Instructions Recorded Confirmed Type Aspirin 81 mg PO DAILY 05/06/14 09/10/21 History Allopurinol [Zyloprim] 100 mg PO DAILY 03/02/21 09/10/21 History Atorvastatin [Lipitor] 80 mg PO HS 03/02/21 09/10/21 History Tamsulosin [Flomax] 0.4 mg PO BID 03/02/21 09/10/21 History ondansetron HCL [Zofran] 8 mg PO DAILY 03/26/21 09/10/21 History metFORMIN HCL 1,000 mg PO DAILY 06/11/21 09/10/21 History metFORMIN HCL 500 mg PO HS 06/11/21 09/10/21 History Calcium Carbonate/Vitamin D3 1 cap PO BID 06/18/21 09/10/21 History [Calcium 600 mg-Vit D3 5 mcg (200 unit)] Abiraterone Acetate [Zytiga] 1,000 mg PO DAILY 07/27/21 09/10/21 History predniSONE 5 mg PO DAILY 07/27/21 09/10/21 History Pantoprazole [Protonix] 40 mg PO DAILY PRN 07/30/21 09/10/21 History Cyanocobalamin (Vitamin B-12) 1,000 mcg PO DAILY 09/10/21 09/10/21 History [Vitamin B-12] Magnesium 250 mg PO BID 09/10/21 09/10/21 History ondansetron HCL [Zofran] 8 mg PO Q6H PRN 09/10/21 09/10/21 History Allergies Allergy/AdvReac Type Severity Reaction Status Date / Time cephalexin [From Keflex] AdvReac Diarrhea Verified 09/10/21 08:30 Physical Exam Vitals: Vital Signs Temp Pulse Resp BP Pulse Ox 09/11/21 05:42 99.7 F H 110 H 16 115/67 95 09/10/21 21:33 98.9 F 109 H 16 146/89 95 09/10/21 19:30 99.3 F 98 16 124/79 100 09/10/21 17:51 98.7 F 09/10/21 16:16 100.9 F H 96 18 126/83 95 09/10/21 12:39 100.2 F H 09/10/21 11:46 100.2 F H 109 H 18 127/81 98 Intake and Output 09/10/21 09/11/21 09/11/21 22:59 06:59 14:59 Intake Total 200 Balance 200 Intake: IV 200 Sodium Chloride 0.9% 1, 200 000 ml @ 100 mls/hr IV . Q10H [facility] Rx#:[id number] Other: Voiding Method Diaper Diaper Results CBC & Chem 7: 09/11/21 05:38 09/11/21 05:38 Labs: Abnormal Lab Results - Last 24 Hours (Table) 09/10/21 09/11/21 09/11/21 Range/Units 14:28 04:18 05:38 RBC 2.86 L (4.30-5.90) m/uL Hgb 8.2 L (13.0-17.5) gm/dL Hct 25.9 L (39.0-53.0) % RDW 17.8 H (11.5-15.5) % Lymphocytes # 0.7 L (1.0-4.8) k/uL Creatinine (0.6-1.5) mg/dL Est GFR (CKD-EPI)AfAm (60.0-200.0) Est GFR (CKD-EPI)NonAf (60.0-200.0) Glucose (70-110) mg/dL POC Glucose (mg/dL) 116 H (75-99) mg/dL Calcium (8.7-10.3) mg/dL Phosphorus (2.4-5.1) mg/dL AST (14-35) U/L ALT (10-49) U/L Alkaline Phosphatase (41-126) U/L Total Protein (6.2-8.2) g/dL Albumin (3.8-4.9) g/dL Albumin/Globulin Ratio (1.60-3.17) g/dL Urine Protein 2+ H (Negative) Urine Blood Small H (Negative) Ur Leukocyte Esterase Large H (Negative) Urine RBC 17 H (0-5) /hpf Urine WBC 106 H (0-5) /hpf Urine Bacteria Occasional H (None) /hpf Urine Mucus Rare H (None) /hpf Urine Yeast (Budding) Many H (None) /hpf 09/11/21 Range/Units 05:38 RBC (4.30-5.90) m/uL Hgb (13.0-17.5) gm/dL Hct (39.0-53.0) % RDW (11.5-15.5) % Lymphocytes # (1.0-4.8) k/uL Creatinine 1.7 H (0.6-1.5) mg/dL Est GFR (CKD-EPI)AfAm 46.0 L (60.0-200.0) Est GFR (CKD-EPI)NonAf 39.7 L (60.0-200.0) Glucose 127 H (70-110) mg/dL POC Glucose (mg/dL) (75-99) mg/dL Calcium 6.8 L (8.7-10.3) mg/dL Phosphorus 2.1 L (2.4-5.1) mg/dL AST 88 H (14-35) U/L ALT 6 L (10-49) U/L Alkaline Phosphatase 1310 H (41-126) U/L Total Protein 4.9 L (6.2-8.2) g/dL Albumin 2.5 L (3.8-4.9) g/dL Albumin/Globulin Ratio 1.04 L (1.60-3.17) g/dL Urine Protein (Negative) Urine Blood (Negative) Ur Leukocyte Esterase (Negative) Urine RBC (0-5) /hpf Urine WBC (0-5) /hpf Urine Bacteria (None) /hpf Urine Mucus (None) /hpf Urine Yeast (Budding) (None) /hpf Microbiology - Last 24 Hours (Table) 09/10/21 14:28 Urine Culture - Preliminary Urine,Voided
[2021-09-12] MEDS: INSULIN ASPART (NovoLOG) 100 UNIT/ML VIAL SQ SCH ×5 (00:01→21:41)
[2021-09-12] MEDS: SALT AND SODA MOUTHWASH 1,000 ML PO SCH ×5 (00:02→23:57)
[2021-09-12] MEDS: ABIRATERONE ACETATE 500 MG PO SCH (05:47)
[2021-09-12] MEDS: SODIUM CHLORIDE 0.9% 1,000 ML IV SCH ×2 (05:48→17:22)
[2021-09-12 07:37] LABS: Glucose,Whole Blood 125 mg/dL (75-99)
[2021-09-12] MEDS: ONDANSETRON 4 MG TAB PO SCH (09:14)
[2021-09-12] MEDS: CYANOCOBALAMIN 500 MCG TAB PO SCH (09:15)
[2021-09-12] MEDS: CALCIUM CARB-VIT D 500 MG-5 MCG TAB PO SCH ×2 (09:15→21:41)
[2021-09-12] MEDS: MAGNESIUM OXIDE 400 MG TAB PO SCH ×2 (09:15→21:41)
[2021-09-12] MEDS: allopurinoL 100 MG TAB PO SCH (09:15)
[2021-09-12] MEDS: CEFEPIME 2 GM in SODIUM CHLORIDE 0.9% 100 ML IVPB SCH ×2 (09:15→21:40)
[2021-09-12] MEDS: predniSONE 5 MG TAB PO SCH ×2 (09:15→21:42)
[2021-09-12] MEDS: MAG HYDROX/AL HYDROX/SIMETH 30 ML, diphenhydrAMINE ELIXIR 75 MG, LIDOCAINE VISCOUS 30 ML PO SCH ×9 (09:18→21:42)
[2021-09-12 09:43] LABS: Anisocytosis Slight; Basophils % (A) 0 %; Eosinophils % (A) 1 %; HCT 26.3 % (39.0-53.0); HGB 7.8 gm/dL (13.0-17.5); Hypochromasia Marked; Lymphocytes # (A) 0.7 k/uL (1.0-4.8); Lymphocytes % (A) 15 %; MCH 27.8 pg (25.0-35.0); MCHC 29.8 g/dL (31.0-37.0); MCV 93.6 fL (80.0-100.0); Mean Platelet Volume 7.8; Monocytes # (A) 0.2 k/uL (0-1.0); Monocytes % (A) 4 %; Neutrophils # (A) 3.5 k/uL (1.3-7.7); Neutrophils % (A) 78 %; Platelet Count 241 k/uL (150-450); Poikilocytosis Slight; RBC 2.81 m/uL (4.30-5.90); RDW 17.9 % (11.5-15.5); WBC 4.5 k/uL (3.8-10.6)
[2021-09-12 10:08] LABS: African American GFR (CKD) 58 (>60 ml/min/1.73 sqM); Anion Gap 6 mmol/L; Blood Urea Nitrogen 22 mg/dL (9-20); Carbon Dioxide 22 mmol/L (22-30); Chloride 110 mmol/L (98-107); Glucose 134 mg/dL (74-99); Magnesium 2.3 mg/dL (1.6-2.3); Non-African American GFR(CKD) 50 (>60 ml/min/1.73 sqM); Potassium 3.7 mmol/L (3.5-5.1); Sodium 138 mmol/L (137-145)
[2021-09-12 10:15] LABS: Calcium 6.3 mg/dL (8.4-10.2)
[2021-09-12] MEDS ORDERED: CALCIUM GLUCONATE 2 GM in SODIUM CHLORIDE 0.9% 100 ML IVPB ONE (12:00)
[2021-09-12 12:45] LABS: Glucose,Whole Blood 127 mg/dL (75-99)
[2021-09-12] MEDS: TAMSULOSIN 0.4 MG CAP.ER.24H PO SCH ×2 (13:48→21:41)
[2021-09-12] MEDS: FLUCONAZOLE 100 MG TAB PO SCH (13:48)
--- NOTE | 2021-09-12 16:33 | P.PN ---
Subjective Progress Note Date: 09/12/21 Patient is pleasant 71-year-old male was transferred from a other hospital where he presented with nausea and vomiting. Patient was really doesn't have any nausea vomiting although patient appeared to be dehydrated with creatinine of 4 around to baseline around 0.8. Patient is also found to have fever because of which obtained a septic workup chest x-ray showing diffuse metastatic disease, oncology is evaluating the patient patient does have history of prostate cancer with metastasis. Patient denied any abdominal pain, abdominal CT was ordered at a different facility from where we are trying to get the reports from. Patient is bit hyponatremic patient denied any dysuria although patient the has a left nephrostomy tube right-sided nephrostomy tube was removed. Blood cultures urine cultures and urinalysis are being ordered. Patient leaks urine. 09/11/2021 Patient is seen and evaluated in follow-up this morning continues with general malaise and fatigue and abdominal discomfort. Patient reports nausea with no reports of vomiting today. Patient continues on IV cefepime and infectious disease is consulted. Continue IV normal saline gentle hydration for acute kidney injury and is slowly improving. Patient is also on oral Diflucan for oral candidiasis. Oncology is following closely. Patient also continues on oral prednisone and oncology managing this. She denies any chest pain or shortness of breath. Patient continues with low-grade fevers. 09/12/2021 Patient is seen and evaluated in follow-up states is feeling better. Patient continued on IV hydration and no further reports of vomiting noted. Infectious disease following an patient is maintained on IV cefepime. Cultures from outside facility currently being faxed here per nursing staff. Reports of gram-positive rods which is most likely a contaminant although will wait for report. Urine culture shows apparent skin pasquale Labs: WBC is 4.5, hemoglobin is 7.8, platelets are 241, sodium is 138, potassium is 3 .7, BUN is 22, creatinine is trending down at 1.40, calcium is 6.7, magnesium is 2.3, CRP is 21.7, pro calcitonin 0.33 Review of systems: Constitutional: reports of fatigue, fever, generalized weakness Cardiovascular: No reports of chest pain or palpitations Respiratory: No reports of shortness of breath or cough GI: reports of occasional nausea, no reports of vomiting, or diarrhea : No reports of dysuria or retention Neurovascular: Reports generalized weakness All medications have been reviewed Active Medications Acetaminophen (Acetaminophen Tab 325 Mg Tab) 650 mg PO Q6HR PRN PRN Reason: Fever and/ or Pain Last Admin: 09/11/21 20:42 Dose: 650 mg Documented by: Allopurinol (Allopurinol 100 Mg Tab) 100 mg PO DAILY [facility] Last Admin: 09/12/21 09:15 Dose: 100 mg Documented by: Atorvastatin Calcium (Atorvastatin 80 Mg Tab) 80 mg PO HS [facility] Last Admin: 09/11/21 20:42 Dose: 80 mg Documented by: Calcium Carbonate (Calcium Carb-Vit D 500 Mg-5 Mcg Tab) 1 each PO BID [facility] Last Admin: 09/12/21 09:15 Dose: 1 each Documented by: Al Hydroxide/Mg Hydroxide 30 ml/ Diphenhydramine HCl 75 mg/Lidocaine HCl 30 ml 0 ml PO TID [facility] Last Admin: 09/12/21 09:18 Dose: 5 ml Documented by: Cyanocobalamin (Cyanocobalamin 500 Mcg Tab) 1,000 mcg PO DAILY [facility] Last Admin: 09/12/21 09:15 Dose: 1,000 mcg Documented by: Fluconazole (Fluconazole 100 Mg Tab) 100 mg PO DAILY [facility] Stop: 09/17/21 09:01 Last Admin: 09/12/21 13:48 Dose: 100 mg Documented by: Sodium Chloride (Saline 0.9%) 1,000 mls @ 100 mls/hr IV .Q10H [facility] Last Admin: 09/12/21 05:48 Dose: 100 mls/hr Documented by: Cefepime HCl 2 gm/ Sodium (Chloride) 100 mls @ 25 mls/hr IVPB Q12HR [facility] Last Admin: 09/12/21 09:15 Dose: 25 mls/hr Documented by: Insulin Aspart (Insulin Aspart (Novolog) 100 Unit/Ml Vial) 0 unit SQ ACHS [facility]; Protocol Last Admin: 09/12/21 13:50 Dose: Not Given Documented by: Magnesium Oxide (Magnesium Oxide 400 Mg Tab) 400 mg PO BID [facility] Last Admin: 09/12/21 09:15 Dose: 400 mg Documented by: Naloxone HCl (Naloxone 0.4 Mg/Ml 1 Ml Vial) 0.2 mg IV Q2M PRN PRN Reason: Opioid Reversal Non-Formulary Medication (Abiraterone Acetate [Zytiga]) 1,000 mg PO DAILY@0630 [facility] Last Admin: 09/12/21 05:47 Dose: 1,000 mg Documented by: Ondansetron HCl (Ondansetron 4 Mg/2 Ml Vial) 4 mg IVP Q8HR PRN PRN Reason: Nausea And Vomiting Ondansetron HCl (Ondansetron 4 Mg Tab) 8 mg PO DAILY [facility] Last Admin: 09/12/21 09:14 Dose: 8 mg Documented by: Pantoprazole Sodium (Pantoprazole 40 Mg Tablet) 40 mg PO DAILY PRN PRN Reason: Heartburn Prednisone (Prednisone 5 Mg Tab) 5 mg PO BID [facility] Last Admin: 09/12/21 09:15 Dose: 5 mg Documented by: Sodium Bicarbonate (Salt And Soda Mouthwash 1,000 Ml) 5 ml PO 5XD [facility] Last Admin: 09/12/21 13:48 Dose: 5 ml Documented by: Tamsulosin HCl (Tamsulosin 0.4 Mg Cap.Er.24h) 0.4 mg PO BID [facility] Last Admin: 09/12/21 13:48 Dose: 0.4 mg Documented by: Tramadol HCl (Tramadol 50 Mg Tab) 50 mg PO QID PRN PRN Reason: Pain/Discomfort PHYSICAL EXAMINATION: GENERAL: The patient is alert and oriented x3, not in any acute distress. Well developed, well nourished. HEENT: Pupils are round and equally reacting to light. EOMI. No scleral icterus. No conjunctival pallor. Normocephalic, atraumatic. No pharyngeal erythema. No thyromegaly. CARDIOVASCULAR: S1 and S2 present. No murmurs, rubs, or gallops. PULMONARY: Chest is clear to auscultation, no wheezing or crackles. ABDOMEN: Soft, nontender, nondistended, normoactive bowel sounds. No palpable organomegaly. Left-sided nephrostomy MUSCULOSKELETAL: No joint swelling or deformity. EXTREMITIES: No cyanosis, clubbing, or pedal edema. NEUROLOGICAL: Gross neurological examination did not reveal any focal deficits. SKIN: No rashes. Assessment: -Sepsis: Source is not clear possibility of urinary tract infection because of hardware that is nephrostomy tube in place the site looks clear. Infectious disease following an patient is maintained on IV cefepime and urine culture is negative -Metastatic prostate cancer for which patient is receiving hormonal therapy and chemotherapy, oncology following -Coronary artery disease -Type 2 diabetes mellitus, continue sliding scale hold metformin for now -Hyperlipidemia -acute renal failure related azotemia secondary to infection patient continued on IV fluids. creatinine is trending down. -Hypertension -DVT prophylaxis: Lovenox -full code plan: Recommend continue with gentle IV hydration and oncology following along with infectious disease. Patient is maintained on IV cefepime and urine culture showing apparent skin and/or genital pasquale. P Patient's kidney functions improving slowly and trending down and will continue gentle IV hydration with repeat labs in the morning. Recommend continue to replace electrolytes per protocol and encouraged increase oral intake and increased activity as tolerated. Patient encouraged to get up out of the bed more often. Possible discharge in 24-48 hours. Objective - Vital Signs Vital signs: Vital Signs Temp 98.1 F 09/12/21 04:38 Pulse 84 09/12/21 04:38 Resp 18 09/12/21 04:38 BP 152/88 09/12/21 04:38 Pulse Ox 96 09/12/21 04:38 Intake & Output 09/11/21 09/12/21 09/12/21 18:59 06:59 18:59 Intake Total 100 Output Total 150 Balance -50 Intake: Intake, IV Titration 100 Amount Cefepime 2 gm In Sodium 100 Chloride 0.9% 100 ml @ 25 mls/hr IVPB Q12HR [facility] Rx #:[id number] Output: Drainage 150 Left Back 150 Other: Voiding Method Diaper Diaper # Voids 3 # Bowel Movements 1 - Labs CBC & Chem 7: 09/12/21 04:36 09/12/21 04:36 Labs: Abnormal Lab Results - Last 24 Hours (Table) 09/11/21 09/11/21 09/11/21 Range/Units 05:38 18:18 20:19 Creatinine 1.7 H (0.6-1.5) mg/dL Est GFR (CKD-EPI)AfAm 46.0 L (60.0-200.0) Est GFR (CKD-EPI)NonAf 39.7 L (60.0-200.0) Glucose 127 H (70-110) mg/dL POC Glucose (mg/dL) 137 H 120 H (75-99) mg/dL Calcium 6.8 L (8.7-10.3) mg/dL Phosphorus 2.1 L (2.4-5.1) mg/dL AST 88 H (14-35) U/L ALT 6 L (10-49) U/L Alkaline Phosphatase 1310 H (41-126) U/L Total Protein 4.9 L (6.2-8.2) g/dL Albumin 2.5 L (3.8-4.9) g/dL Albumin/Globulin Ratio 1.04 L (1.60-3.17) g/dL 09/12/21 Range/Units 07:36 Creatinine (0.6-1.5) mg/dL Est GFR (CKD-EPI)AfAm (60.0-200.0) Est GFR (CKD-EPI)NonAf (60.0-200.0) Glucose (70-110) mg/dL POC Glucose (mg/dL) 125 H (75-99) mg/dL Calcium (8.7-10.3) mg/dL Phosphorus (2.4-5.1) mg/dL AST (14-35) U/L ALT (10-49) U/L Alkaline Phosphatase (41-126) U/L Total Protein (6.2-8.2) g/dL Albumin (3.8-4.9) g/dL Albumin/Globulin Ratio (1.60-3.17) g/dL Microbiology - Last 24 Hours (Table) 09/10/21 14:28 Urine Culture - Final Urine,Voided 09/10/21 15:50 Blood Culture - Preliminary Blood No Growth after 24 hours 09/10/21 15:48 Blood Culture - Preliminary Blood No Growth after 24 hours
--- NOTE | 2021-09-12 16:50 | P.PN ---
Subjective Progress Note Date: 09/12/21 Principal diagnosis: Dry heaves and weakness In f/u today pt had a T-max of 101.1 Fahrenheit overnight, he denies any nausea, vomiting, dry heaves currently still feeling pretty weak, appetite is poor, he is denying ear pain, sore throat, no acute changes in bowel or bladder at this time. Thinks he may have a sinus infection. Objective - Vital Signs Vital signs: Vital Signs Temp 98.2 F 09/12/21 12:35 Pulse 82 09/12/21 12:35 Resp 18 09/12/21 12:35 BP 143/85 09/12/21 12:35 Pulse Ox 96 09/12/21 12:35 Intake & Output 09/11/21 09/12/21 09/12/21 18:59 06:59 18:59 Intake Total 100 Output Total 150 Balance -50 Intake: Intake, IV Titration 100 Amount Cefepime 2 gm In Sodium 100 Chloride 0.9% 100 ml @ 25 mls/hr IVPB Q12HR [facility] Rx #:[id number] Output: Drainage 150 Left Back 150 Other: Voiding Method Diaper Diaper Diaper # Voids 3 # Bowel Movements 1 - Constitutional General appearance: Present: average body habitus, cooperative, no acute distress - EENT EENT Comment(s): Severe glossal ulcerations and thrush Eyes: Present: anicteric sclerae, EOMI ENT: Present: hearing grossly normal - Neck Neck: Present: normal ROM. Absent: lymphadenopathy - Respiratory Respiratory: bilateral: CTA - Cardiovascular Rhythm: regular Heart sounds: normal: S1, S2 Abnormal Heart Sounds: Absent: systolic murmur, diastolic murmur, rub, S3 Gallop, S4 Gallop, click, other - Peripheral edema leg Peripheral Edema: bilateral: None - Gastrointestinal General gastrointestinal: Present: normal bowel sounds, soft - Integumentary Integumentary: Present: pale - Neurologic Neurologic: Present: CNII-XII intact - Musculoskeletal Musculoskeletal: Present: strength equal bilaterally - Psychiatric Psychiatric: Present: A&O x's 3, appropriate affect, intact judgment & insight - Labs CBC & Chem 7: 09/12/21 04:36 09/12/21 04:36 Labs: Abnormal Lab Results - Last 24 Hours (Table) 09/11/21 09/11/21 09/12/21 Range/Units 18:18 20:19 04:36 RBC (4.30-5.90) m/uL Hgb (13.0-17.5) gm/dL Hct (39.0-53.0) % MCHC (31.0-37.0) g/dL RDW (11.5-15.5) % Lymphocytes # (1.0-4.8) k/uL Chloride (98-107) mmol/L BUN (9-20) mg/dL Creatinine (0.66-1.25) mg/dL Glucose (74-99) mg/dL POC Glucose (mg/dL) 137 H 120 H (75-99) mg/dL Calcium (8.4-10.2) mg/dL C-Reactive Protein (0.00-0.80) mg/dL Procalcitonin 0.33 H (0.02-0.09) ng/mL 09/12/21 09/12/21 09/12/21 Range/Units 04:36 04:36 04:36 RBC 2.81 L (4.30-5.90) m/uL Hgb 7.8 L (13.0-17.5) gm/dL Hct 26.3 L (39.0-53.0) % MCHC 29.8 L (31.0-37.0) g/dL RDW 17.9 H (11.5-15.5) % Lymphocytes # 0.7 L (1.0-4.8) k/uL Chloride 110 H (98-107) mmol/L BUN 22 H (9-20) mg/dL Creatinine 1.40 H (0.66-1.25) mg/dL Glucose 134 H (74-99) mg/dL POC Glucose (mg/dL) (75-99) mg/dL Calcium 6.3 L* (8.4-10.2) mg/dL C-Reactive Protein 21.70 H (0.00-0.80) mg/dL Procalcitonin (0.02-0.09) ng/mL 09/12/21 09/12/21 Range/Units 07:36 12:42 RBC (4.30-5.90) m/uL Hgb (13.0-17.5) gm/dL Hct (39.0-53.0) % MCHC (31.0-37.0) g/dL RDW (11.5-15.5) % Lymphocytes # (1.0-4.8) k/uL Chloride (98-107) mmol/L BUN (9-20) mg/dL Creatinine (0.66-1.25) mg/dL Glucose (74-99) mg/dL POC Glucose (mg/dL) 125 H 127 H (75-99) mg/dL Calcium (8.4-10.2) mg/dL C-Reactive Protein (0.00-0.80) mg/dL Procalcitonin (0.02-0.09) ng/mL Microbiology - Last 24 Hours (Table) 09/10/21 14:28 Urine Culture - Final Urine,Voided 09/10/21 15:50 Blood Culture - Preliminary Blood No Growth after 24 hours 09/10/21 15:48 Blood Culture - Preliminary Blood No Growth after 24 hours Assessment and Plan (1) Dehydration Narrative/Plan: Pt typically has normal renal function. Agree with hydration-defer to IM. BU N/Cr continue to improve Current Visit: Yes Status: Acute Priority: High Code(s): E86.0 - DEHY DRATION SNOMED Code(s): 03678719 (2) Fever Narrative/Plan: ID consulted, pancultures pending. Fever last night of 101.1 Fahrenheit. Patient is on antibiotics. Per Dr. Romero, did NOT hold zytiga or prednisone. Need to see of pt gets better while on. 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 Recent PSA 583 on lab draw from 08/30, down from 726. Continue oral therapy. Current Visit: Yes Status: Chronic Priority: Medium Code(s): C61 - MALIGNANT NEOPLASM OF PROSTATE; Z19.2 - HORMONE RESISTANT MALIGNANCY STATUS SNOMED Code(s): 887414526 (4) Thrush, oral Narrative/Plan: Persists. Continue Diflucan, salt and soda, kools and Q 4 hour oral care. Current Visit: Yes Status: Acute Priority: High Code(s): B37.0 - CANDIDAL STOMATITIS SNOMED Code(s): 22060495 Plan: Corrected calcium 8. Calcium gluconate ordered.
[2021-09-12 17:36] LABS: Glucose,Whole Blood 127 mg/dL (75-99)
[2021-09-12 20:25] LABS: Glucose,Whole Blood 138 mg/dL (75-99)
[2021-09-12] MEDS: ATORVASTATIN 80 MG TAB PO SCH (21:41)
--- NOTE | 2021-09-12 23:45 | PN ---
PROGRESS NOTE DATE OF SERVICE: 09/12/2021 REASON FOR FOLLOWUP: Fever, possible complicated UTI. INTERVAL HISTORY: The patient is afebrile. The patient is breathing comfortably. The denies having any chest pain or shortness of breath or cough. No nausea, no vomiting. No abdominal pain or diarrhea. PHYSICAL EXAMINATION: Blood pressure is 138/77, pulse of 96, temperature 98.3. He is 96% on room air. General description is an elderly male lying in bed in no distress. Respiratory system: Unlabored breathing, decreased breath sounds at the base. No wheeze. Heart S1, S2. Regular rate and rhythm. Abdomen soft, no tenderness. LABS: Hemoglobin is 7.1, white count 4.5, creatinine 1.40. CRP improved that was mildly elevated. Influenza RSV negative. Cultures currently pending. DIAGNOSTIC IMPRESSION AND PLAN: Patient with a fever concerning for a complicated urinary tract infection in this patient with a history of prostate cancer with hematuria. No other obvious focus. The patient is currently covered with cefepime and fever has responded. That will continue while monitoring his clinical course closely. MMODL / IJN: [id number] /
[2021-09-13 07:25] LABS: Glucose,Whole Blood 118 mg/dL (75-99)
[2021-09-13] MEDS: SALT AND SODA MOUTHWASH 1,000 ML PO SCH ×3 (10:32→16:06)
[2021-09-13] MEDS: SODIUM CHLORIDE 0.9% 1,000 ML IV SCH ×2 (10:32→13:05)
[2021-09-13] MEDS: ABIRATERONE ACETATE 500 MG PO SCH (10:33)
[2021-09-13] MEDS: allopurinoL 100 MG TAB PO SCH (10:36)
[2021-09-13] MEDS: CYANOCOBALAMIN 500 MCG TAB PO SCH (10:36)
[2021-09-13] MEDS: CALCIUM CARB-VIT D 500 MG-5 MCG TAB PO SCH (10:36)
[2021-09-13] MEDS: MAGNESIUM OXIDE 400 MG TAB PO SCH (10:36)
[2021-09-13] MEDS: ONDANSETRON 4 MG TAB PO SCH (10:36)
[2021-09-13] MEDS: predniSONE 5 MG TAB PO SCH (10:37)
[2021-09-13] MEDS: FLUCONAZOLE 100 MG TAB PO SCH (10:37)
[2021-09-13] MEDS: MAG HYDROX/AL HYDROX/SIMETH 30 ML, diphenhydrAMINE ELIXIR 75 MG, LIDOCAINE VISCOUS 30 ML PO SCH ×6 (10:37→16:06)
[2021-09-13] MEDS: TAMSULOSIN 0.4 MG CAP.ER.24H PO SCH (10:37)
[2021-09-13] MEDS: INSULIN ASPART (NovoLOG) 100 UNIT/ML VIAL SQ SCH ×3 (10:48→17:24)
[2021-09-13 12:03] LABS: Glucose,Whole Blood 108 mg/dL (75-99)
[2021-09-13 12:47] VITALS: BP 161/92; PULSE 83; RESP 17; TEMP 98.6
[2021-09-13] MEDS: CEFEPIME 2 GM in SODIUM CHLORIDE 0.9% 100 ML IVPB SCH (13:04)
--- NOTE | 2021-09-13 14:06 | P.DS ---
Providers Date of admission: 09/11/21 11:02 Attending physician: Tor Dickey Consults: 09/10/21 03:49 Consult Physician Routine Consulting Provider: Monica Gastelum Consult Reason/Comments: nv Do you want consulting provider notified?: Yes 09/10/21 14:02 Consult Physician Routine Consulting Provider: Jessee Haywood Consult Reason/Comments: Sepsis Do you want consulting provider notified?: Yes Primary care physician: Physician Nonstaff Hospital Course: Patient is pleasant 71-year-old male was transferred from a other hospital where he presented with nausea and vomiting. Patient was really doesn't have any nausea vomiting although patient appeared to be dehydrated with creatinine of 4 around to baseline around 0.8. Patient is also found to have fever because of which obtained a septic workup chest x-ray showing diffuse metastatic disease, oncology is evaluating the patient patient does have history of prostate cancer with metastasis. Patient denied any abdominal pain, abdominal CT was ordered at a different facility from where we are trying to get the reports from. Patient is bit hyponatremic patient denied any dysuria although patient the has a left nephrostomy tube right-sided nephrostomy tube was removed. Blood cultures urine cultures and urinalysis are being ordered. Patient leaks urine. 09/11/2021 Patient is seen and evaluated in follow-up this morning continues with general malaise and fatigue and abdominal discomfort. Patient reports nausea with no reports of vomiting today. Patient continues on IV cefepime and infectious disease is consulted. Continue IV normal saline gentle hydration for acute kidney injury and is slowly improving. Patient is also on oral Diflucan for oral candidiasis. Oncology is following closely. Patient also continues on oral prednisone and oncology managing this. She denies any chest pain or shortness of breath. Patient continues with low-grade fevers. 09/12/2021 Patient is seen and evaluated in follow-up states is feeling better. Patient continued on IV hydration and no further reports of vomiting noted. Infectious disease following an patient is maintained on IV cefepime. Cultures from outside facility currently being faxed here per nursing staff. Reports of gram- positive rods which is most likely a contaminant although will wait for report. Urine culture shows apparent skin pasquale 09/13/2021 Patient is afebrile for last couple days patient is clinically doing well discussed with infectious disease is recommending Ceftin upon discharge patient will be discharged on Ceftin although cultures are so far negative to date patient's creatinine couple days ago was 1.4 which is an improvement from his admission. PHYSICAL EXAMINATION: GENERAL: The patient is alert and oriented x3, not in any acute distress. Well developed, well nourished. HEENT: Pupils are round and equally reacting to light. EOMI. No scleral icterus. No conjunctival pallor. Normocephalic, atraumatic. No pharyngeal erythema. No thyromegaly. CARDIOVASCULAR: S1 and S2 present. No murmurs, rubs, or gallops. PULMONARY: Chest is clear to auscultation, no wheezing or crackles. ABDOMEN: Soft, nontender, nondistended, normoactive bowel sounds. No palpable organomegaly. Left-sided nephrostomy MUSCULOSKELETAL: No joint swelling or deformity. EXTREMITIES: No cyanosis, clubbing, or pedal edema. NEUROLOGICAL: Gross neurological examination did not reveal any focal deficits. SKIN: No rashes. Assessment: -Sepsis: Source is not clear possibility of urinary tract infection because of hardware that is nephrostomy tube in place the site looks clear. She wasn't cefepime all the cultures are so far negative patient is being discharged on empiric Ceftin -Metastatic prostate cancer for which patient is receiving hormonal therapy and chemotherapy, oncology following -Coronary artery disease -Type 2 diabetes mellitus, continue sliding scale hold metformin for now -Hyperlipidemia -acute renal failure related azotemia secondary to infection patient continued on IV fluids. creatinine is trending down. -Hypertension Patient Condition at Discharge: Fair Plan - Discharge Summary New Discharge Prescriptions: New Cefuroxime Axetil [Ceftin] 500 mg PO BID 7 Days #14 tab Continue Aspirin 81 mg PO DAILY Atorvastatin [Lipitor] 80 mg PO HS metFORMIN HCL 1,000 mg PO DAILY Calcium Carbonate/Vitamin D3 [Calcium 600 mg-Vit D3 5 mcg (200 unit)] 1 cap PO BID predniSONE 5 mg PO DAILY Pantoprazole [Protonix] 40 mg PO DAILY PRN PRN Reason: Heartburn Magnesium 250 mg PO BID ondansetron HCL [Zofran] 8 mg PO Q6H PRN PRN Reason: Nausea Tamsulosin [Flomax] 0.4 mg PO BID Allopurinol [Zyloprim] 100 mg PO DAILY ondansetron HCL [Zofran] 8 mg PO DAILY metFORMIN HCL 500 mg PO HS Abiraterone Acetate [Zytiga] 1,000 mg PO DAILY Cyanocobalamin (Vitamin B-12) [Vitamin B-12] 1,000 mcg PO DAILY Discharge Medication List Aspirin 81 mg PO DAILY 05/06/14 [History] Allopurinol [Zyloprim] 100 mg PO DAILY 03/02/21 [History] Atorvastatin [Lipitor] 80 mg PO HS 03/02/21 [History] Tamsulosin [Flomax] 0.4 mg PO BID 03/02/21 [History] ondansetron HCL [Zofran] 8 mg PO DAILY 03/26/21 [History] metFORMIN HCL 1,000 mg PO DAILY 06/11/21 [History] metFORMIN HCL 500 mg PO HS 06/11/21 [History] Calcium Carbonate/Vitamin D3 [Calcium 600 mg-Vit D3 5 mcg (200 unit)] 1 cap PO BID 06/18/21 [History] Abiraterone Acetate [Zytiga] 1,000 mg PO DAILY 07/27/21 [History] predniSONE 5 mg PO DAILY 07/27/21 [History] Pantoprazole [Protonix] 40 mg PO DAILY PRN 07/30/21 [History] Cyanocobalamin (Vitamin B-12) [Vitamin B-12] 1,000 mcg PO DAILY 09/10/21 [History] Magnesium 250 mg PO BID 09/10/21 [History] ondansetron HCL [Zofran] 8 mg PO Q6H PRN 09/10/21 [History] Cefuroxime Axetil [Ceftin] 500 mg PO BID 7 Days #14 tab 09/13/21 [Rx] Follow up Appointment(s)/Referral(s): [facility] [NON-STAFF] - As Needed Consuelo Diallo NPC [REFERRING] - 1-2 Days Nonstaff,Physician [Primary Care Provider] - 1-2 days Monica Gastelum MD [STAFF PHYSICIAN] - 09/21/21 10:00 am (09/21/21 is injection at 10AM Dr. Gastelum's ofc. Pt has appt with Dr. Gastelum already scheduled in Sep) Patient Instructions/Handouts: Cefuroxime (By mouth), Acute Nausea and Vomiting (DC) Activity/Diet/Wound Care/Special Instructions: diet as tolerated Activity limited until sen by Dr. Velasquez Disposition: HOME SELF-CARE
--- NOTE | 2021-09-13 15:52 | PN ---
PROGRESS NOTE DATE OF SERVICE: 09/13/2021 REASON FOR FOLLOWUP: Fever, possible urinary tract infection. INTERVAL HISTORY: The patient has been afebrile for the last 48 hours. The patient is feeling better. He is breathing comfortably. Denies having any chest pain or shortness of breath. Occasional cough. No abdominal pain or diarrhea. PHYSICAL EXAMINATION: Blood pressure 151/92 with a pulse of 83, temperature 98.6. He is 98% on room air. General description is an elderly male up in the chair in no distress. Respiratory system: Unlabored breathing, decreased intensity of breath sounds. No wheeze. Heart S1, S2. Regular rate and rhythm. Abdomen soft, no tenderness. LABS: No new labs have been obtained today. Culture has been negative so far. DIAGNOSTIC IMPRESSION AND PLAN: Patient admitted with a fever, possible urinary source. Did have positive UA and some urinary symptoms. cultures negative for resistant any pathogen. Will give a short course of oral Ceftin and close outpatient followup. MMODL / IJN: [id number] /
--- NOTE | 2021-09-13 18:19 | P.PN ---
Subjective Progress Note Date: 09/13/21 Principal diagnosis: Dry heaves and weakness In f/u today pt fever pattern abated, denies any nausea, vomiting, dry heaves, starting to feel a little better. Objective - Vital Signs Vital signs: Vital Signs Temp 98.6 F 09/13/21 11:56 Pulse 83 09/13/21 11:56 Resp 17 09/13/21 11:56 BP 161/92 09/13/21 11:56 Pulse Ox 98 09/13/21 11:56 Intake & Output 09/12/21 09/13/21 09/13/21 18:59 06:59 18:59 Intake Total 240 Output Total 400 100 Balance -160 -100 Intake: Oral 240 Output: Drainage 100 Left Back 100 Urine 400 Other: Voiding Method Diaper Diaper Diaper # Bowel Movements 1 - Constitutional General appearance: Present: average body habitus, cooperative, no acute distres s - EENT EENT Comment(s): glossal ulcerations Eyes: Present: anicteric sclerae, EOMI ENT: Present: hearing grossly normal, thrush - Respiratory Respiratory: bilateral: CTA - Cardiovascular Rhythm: regular Heart sounds: normal: S1, S2 Abnormal Heart Sounds: Absent: systolic murmur, diastolic murmur, rub, S3 Gallop, S4 Gallop, click, other - Peripheral edema leg Peripheral Edema: bilateral: None - Gastrointestinal General gastrointestinal: Present: normal bowel sounds, soft - Integumentary Integumentary Comment(s): better color today Integumentary: Present: normal - Neurologic Neurologic: Present: CNII-XII intact - Musculoskeletal Musculoskeletal: Present: generalized weakness, strength equal bilaterally - Psychiatric Psychiatric: Present: A&O x's 3, appropriate affect, intact judgment & insight - Labs CBC & Chem 7: 09/12/21 04:36 09/12/21 04:36 Labs: Abnormal Lab Results - Last 24 Hours (Table) 09/12/21 09/13/21 09/13/21 Range/Units 20:24 07:21 12:02 POC Glucose (mg/dL) 138 H 118 H 108 H (75-99) mg/dL Microbiology - Last 24 Hours (Table) 09/10/21 15:48 Blood Culture - Preliminary Blood No Growth after 72 hours 09/10/21 15:50 Blood Culture - Preliminary Blood No Growth after 48 hours Assessment and Plan (1) Dehydration Narrative/Plan: Pt typically has normal renal function. Agree with hydration-defer to IM. Status: Acute Priority: High Code(s): E86.0 - DEHYDRATION SNOMED Code(s): 75543886 (2) Fever Narrative/Plan: ID consulted, pancultures pending. Fever last night of 101.1 Fahrenheit. Patient is on antibiotics. Per Dr. Romero, did NOT hold zytiga or prednisone. Need to see of pt gets better while on. 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 Recent PSA 583 on lab draw from 08/30, down from 726. Continue oral therapy. Status: Chronic Priority: Medium Code(s): C61 - MALIGNANT NEOPLASM OF PROSTATE; Z19.2 - HORMONE RESISTANT MALIGNANCY STATUS SNOMED Code(s): 772233275 (4) Thrush, oral Narrative/Plan: Persists, only mild improvement. Continue Diflucan, salt and soda, kools and Q 4 hour oral care. Status: Acute Priority: High Code(s): B37.0 - CANDIDAL STOMATITIS SNOMED Code(s): 56699626 Plan: Calcium gluconate given for corrected calcium 8.1, pt tolerated well
== END 2021-09-13 18:13 | disposition home health service (06) | DRG 872 ==
LOC: EC 03:20 → 5NMEDONC 03:49 → OBSVTOIN 09-11 11:02
PROVIDERS: ADMIT Hospitalist; ATTEND Hospitalist
DX: A41.9 Sepsis, unspecified organism (principal); N17.9 Acute kidney failure, unspecified; C79.51 Secondary malignant neoplasm of bone; E87.1 Hypo-osmolality and hyponatremia; B37.0 Candidal stomatitis; N13.6 Pyonephrosis; C61 Malignant neoplasm of prostate; D63.0 Anemia in neoplastic disease; E86.0 Dehydration; E11.9 Type 2 diabetes mellitus without complications; Z43.6 Encounter for attention to other artificial openings of urinary tract; Z20.822 Contact with and (suspected) exposure to COVID-19; E78.5 Hyperlipidemia, unspecified; R31.9 Hematuria, unspecified; I10 Essential (primary) hypertension; I25.10 Atherosclerotic heart disease of native coronary artery without angina pectoris; M10.9 Gout, unspecified; Z79.82 Long term (current) use of aspirin; Z79.84 Long term (current) use of oral hypoglycemic drugs; Z79.899 Other long term (current) drug therapy; Z19.2 Hormone resistant malignancy status; Z87.442 Personal history of urinary calculi; Z92.3 Personal history of irradiation; Z87.440 Personal history of urinary (tract) infections; Z95.1 Presence of aortocoronary bypass graft; Z87.19 Personal history of other diseases of the digestive system; Z96.651 Presence of right artificial knee joint; Z98.890 Other specified postprocedural states; Z88.1 Allergy status to other antibiotic agents; Z82.49 Family history of ischemic heart disease and other diseases of the circulatory system
CPT/HCPCS: 71046; 80048; 80053; 81001; 83735; 84100; 84145; 85025; 86140; 87040; 87086; 87502; 87634; 87635; 99285

== ENCOUNTER 2021-09-15 17:18 | Inpatient (IN) | payer MEDICARE ==
--- NOTE | 2021-09-15 17:37 | ED ---
Nausea/Vomiting/Diarrhea HPI - General Chief complaint: Nausea/Vomiting/Diarrhea Stated complaint: Weakness Time Seen by Provider: 09/15/21 17:18 Source: patient, EMS, RN notes reviewed, old records reviewed Mode of arrival: EMS - History of Present Illness Initial comments: 71-year-old male with a history of metastatic prostate cancer with colostomy was discharged in the hospital 2 days ago after being diagnosed with sepsis believed to be secondary to UTI S of the history type 2 diabetes and did have also acute renal failure who presents today with complaints of generalized weakness almost passing out falling down earlier today. He started developing diarrhea yesterday. He is on oral antibiotics this time. No reports of fevers chills nausea vomiting no overt abdominal pain at this time. Was brought in for evaluation by EMS. MD complaint: diarrhea, other - Related Data Home Medications Medication Instructions Recorded Confirmed Aspirin 81 mg PO DAILY 05/06/14 09/10/21 Allopurinol [Zyloprim] 100 mg PO DAILY 03/02/21 09/10/21 Atorvastatin [Lipitor] 80 mg PO HS 03/02/21 09/10/21 Tamsulosin [Flomax] 0.4 mg PO BID 03/02/21 09/10/21 ondansetron HCL [Zofran] 8 mg PO DAILY 03/26/21 09/10/21 metFORMIN HCL 1,000 mg PO DAILY 06/11/21 09/10/21 metFORMIN HCL 500 mg PO HS 06/11/21 09/10/21 Calcium Carbonate/Vitamin D3 1 cap PO BID 06/18/21 09/10/21 [Calcium 600 mg-Vit D3 5 mcg (200 unit)] Abiraterone Acetate [Zytiga] 1,000 mg PO DAILY 07/27/21 09/10/21 predniSONE 5 mg PO DAILY 07/27/21 09/10/21 Pantoprazole [Protonix] 40 mg PO DAILY PRN 07/30/21 09/10/21 Cyanocobalamin (Vitamin B-12) 1,000 mcg PO DAILY 09/10/21 09/10/21 [Vitamin B-12] Magnesium 250 mg PO BID 09/10/21 09/10/21 ondansetron HCL [Zofran] 8 mg PO Q6H PRN 09/10/21 09/10/21 Previous Rx's Medication Instructions Recorded Cefuroxime Axetil [Ceftin] 500 mg PO BID 7 Days #14 tab 09/13/21 Allergies Allergy/AdvReac Type Severity Reaction Status Date / Time cephalexin [From Keflex] AdvReac Diarrhea Verified 09/15/21 17:32 Review of Systems ROS Statement: Those systems with pertinent positive or pertinent negative responses have been documented in the HPI. ROS Other: All systems not noted in ROS Statement are negative. Past Medical History Past Medical History: Coronary Artery Disease (CAD), Cancer, Diabetes Mellitus, Hyperlipidemia, Hypertension, Prostate Disorder Additional Past Medical History / Comment(s): PROSTATE CANCER (SEED IMPLANTS). kidney stones, gout, frequent UTI's, bone cancer-getting chemo currently, anemia History of Any Multi-Drug Resistant Organisms: None Reported Past Surgical History: Coronary Bypass/CABG, Heart Catheterization, Hernia Repair, Joint Replacement Additional Past Surgical History / Comment(s): LITHOTRIPSY x 2, triple CABG 08/25/2018, rt knee replacement, elieser inguinal hernia and umbilical hernia repair, Past Anesthesia/Blood Transfusion Reactions: No Reported Reaction Date of Last Stent Placement:: 2004 Past Psychological History: No Psychological Hx Reported Smoking Status: Never smoker Past Alcohol Use History: None Reported Past Drug Use History: None Reported - Past Family History Mother Family Medical History: Myocardial Infarction ([place]) Father Family Medical History: Myocardial Infarction ([place]) General Exam - General Exam Comments Initial Comments: This is a well-developed well-nourished awake alert oriented times 3 male General appearance: alert, in no apparent distress Head exam: Present: atraumatic, normocephalic, normal inspection Eye exam: Present: normal appearance, PERRL, EOMI. Absent: scleral icterus, conjunctival injection, periorbital swelling ENT exam: Present: mucous membranes dry Neck exam: Present: normal inspection, full ROM, other (No stridor JVD or bruits). Absent: tenderness, meningismus, lymphadenopathy Respiratory exam: Present: normal lung sounds bilaterally. Absent: respiratory distress, wheezes, rales, rhonchi, stridor Cardiovascular Exam: Present: normal rhythm, tachycardia, normal heart sounds. Absent: systolic murmur, diastolic murmur, rubs, gallop, clicks GI/Abdominal exam: Present: soft, normal bowel sounds, other (Colostomy present). Absent: distended, tenderness, guarding, rebound, rigid, bruit, pulsatile mass Extremities exam: Present: normal inspection, full ROM, normal capillary refill. Absent: tenderness, pedal edema, joint swelling, calf tenderness Back exam: Present: normal inspection Neurological exam: Present: alert, oriented X3, CN II-XII intact Psychiatric exam: Present: normal affect, normal mood Skin exam: Present: warm, dry, intact, normal color. Absent: rash Course Vital Signs 09/15/21 17:29 Temperature 98.8 F Pulse Rate 108 H Respiratory 18 Rate Blood Pressure 139/100 O2 Sat by Pulse 95 Oximetry - Reevaluation(s) Reevaluation #1: 09/15/21 20:22 Reevaluation the patient feels tired and weak at this time further information he did feel lightheaded dizzy when he had walk or be upright and ambulatory. Medical Decision Making - Medical Decision Making I did discuss the findings with the patient and with Dr. Tapia. Patient will be admitted to the hospital for near syncope dehydration and weakness evidence right. C. difficile test is pending Dr. Amador will be consulted - Lab Data Result diagrams: 09/15/21 17:40 09/15/21 17:40 Lab Results 09/15/21 09/15/21 09/15/21 Range/Units 17:40 17:40 17:40 WBC 3.8 (3.8-10.6) k/uL RBC 3.55 L (4.30-5.90) m/uL Hgb 9.9 L D (13.0-17.5) gm/dL Hct 32.5 L (39.0-53.0) % MCV 91.7 (80.0-100.0) fL MCH 27.8 (25.0-35.0) pg MCHC 30.3 L (31.0-37.0) g/dL RDW 17.6 H (11.5-15.5) % Plt Count 187 (150-450) k/uL MPV 7.7 Neutrophils % 81 % Lymphocytes % 12 % Monocytes % 5 % Eosinophils % 1 % Basophils % 0 % Neutrophils # 3.1 (1.3-7.7) k/uL Lymphocytes # 0.5 L (1.0-4.8) k/uL Monocytes # 0.2 (0-1.0) k/uL Eosinophils # 0.0 (0-0.7) k/uL Basophils # 0.0 (0-0.2) k/uL Hypochromasia Marked Poikilocytosis Slight Anisocytosis Slight Sodium 138 (137-145) mmol/L Potassium 3.5 (3.5-5.1) mmol/L Chloride 107 (98-107) mmol/L Carbon Dioxide 22 (22-30) mmol/L Anion Gap 9 mmol/L BUN 17 (9-20) mg/dL Creatinine 1.35 H (0.66-1.25) mg/dL Est GFR (CKD-EPI)AfAm 61 (>60 ml/min/1.73 sqM) Est GFR (CKD-EPI)NonAf 52 (>60 ml/min/1.73 sqM) Glucose 145 H (74-99) mg/dL Plasma Lactic Acid Mitchell 1.5 (0.7-2.0) mmol/L Calcium 7.1 L (8.4-10.2) mg/dL Magnesium 1.9 (1.6-2.3) mg/dL Total Bilirubin 0.5 (0.2-1.3) mg/dL AST 126 H (17-59) U/L ALT 11 (4-49) U/L Alkaline Phosphatase 1318 H (38-126) U/L Creatine Kinase 78 (55-170) U/L Troponin I (0.000-0.034) ng/mL Total Protein 5.3 L (6.3-8.2) g/dL Albumin 2.3 L (3.5-5.0) g/dL Lipase 36 (23-300) U/L // Range/Units 17:40 WBC (3.8-10.6) k/uL RBC (4.30-5.90) m/uL Hgb (13.0-17.5) gm/dL Hct (39.0-53.0) % MCV (80.0-100.0) fL MCH (25.0-35.0) pg MCHC (31.0-37.0) g/dL RDW (11.5-15.5) % Plt Count (150-450) k/uL MPV Neutrophils % % Lymphocytes % % Monocytes % % Eosinophils % % Basophils % % Neutrophils # (1.3-7.7) k/uL Lymphocytes # (1.0-4.8) k/uL Monocytes # (0-1.0) k/uL Eosinophils # (0-0.7) k/uL Basophils # (0-0.2) k/uL Hypochromasia Poikilocytosis Anisocytosis Sodium (137-145) mmol/L Potassium (3.5-5.1) mmol/L Chloride (98-107) mmol/L Carbon Dioxide (22-30) mmol/L Anion Gap mmol/L BUN (9-20) mg/dL Creatinine (0.66-1.25) mg/dL Est GFR (CKD-EPI)AfAm (>60 ml/min/1.73 sqM) Est GFR (CKD-EPI)NonAf (>60 ml/min/1.73 sqM) Glucose (74-99) mg/dL Plasma Lactic Acid Mitchell (0.7-2.0) mmol/L Calcium (8.4-10.2) mg/dL Magnesium (1.6-2.3) mg/dL Total Bilirubin (0.2-1.3) mg/dL AST (17-59) U/L ALT (4-49) U/L Alkaline Phosphatase (38-126) U/L Creatine Kinase (55-170) U/L Troponin I 0.020 (0.000-0.034) ng/mL Total Protein (6.3-8.2) g/dL Albumin (3.5-5.0) g/dL Lipase (23-300) U/L - EKG Data -: EKG Interpreted by [place] EKG shows normal: sinus rhythm EKG Comments: Sinus tachycardia rate of 109. Interval 156 QRS duration 128 daily since QTC 392/5.7) bundle-branch block. This compared with an EKG dated 06/18/21 which appears similar in configuration - Radiology Data Radiology results: report reviewed, image reviewed Disposition Clinical Impression: Near syncope, Dehydration, Weakness, Diarrhea, Failure to thrive Disposition: ADMITTED IP TO THIS [facility] Condition: Fair Referrals: Consuelo Diallo, NPC [Primary Care Provider] - 1-2 days
[2021-09-15 17:58] LABS: Anisocytosis Slight; Basophils % (A) 0 %; Eosinophils % (A) 1 %; HCT 32.5 % (39.0-53.0); Hypochromasia Marked; Lymphocytes # (A) 0.5 k/uL (1.0-4.8); Lymphocytes % (A) 12 %; MCH 27.8 pg (25.0-35.0); MCHC 30.3 g/dL (31.0-37.0); MCV 91.7 fL (80.0-100.0); Mean Platelet Volume 7.7; Monocytes # (A) 0.2 k/uL (0-1.0); Monocytes % (A) 5 %; Neutrophils # (A) 3.1 k/uL (1.3-7.7); Neutrophils % (A) 81 %; Platelet Count 187 k/uL (150-450); Poikilocytosis Slight; RBC 3.55 m/uL (4.30-5.90); RDW 17.6 % (11.5-15.5); WBC 3.8 k/uL (3.8-10.6)
[2021-09-15 18:03] LABS: HGB 9.9 gm/dL (13.0-17.5)
--- NOTE | 2021-09-15 18:23 | XR ---
EXAMINATION TYPE: XR KUB DATE OF EXAM: 09/15/2021 COMPARISON: 05/31/2021 HISTORY: Diarrhea TECHNIQUE: 2 views supine FINDINGS: There is no sign of intestinal obstruction or pneumoperitoneum. There is right-sided ureter al stent. There is left side nephrostomy tube noted. There is no evidence of abdominal mass. There ar e no pathologic calcifications definitely seen over the kidneys. There are prostate implants. IMPRESSION: Nonacute abdomen.
--- NOTE | 2021-09-15 18:27 | XR ---
EXAMINATION TYPE: XR chest 2V DATE OF EXAM: 09/15/2021 COMPARISON: 09/10/2021 HISTORY: Weakness FINDINGS: There is no heart failure nor confluent pneumonic infiltrate. There are sternal wires. Heart size is normal. There are no hilar masses. There are osteoblastic changes in the thoracic spine. There are ch est leads. Costophrenic angles are clear. IMPRESSION: No active cardiopulmonary disease. No change.
[2021-09-15 18:35] LABS: Albumin 2.3 g/dL (3.5-5.0); Calcium 7.1 mg/dL (8.4-10.2); Magnesium 1.9 mg/dL (1.6-2.3); Potassium 3.5 mmol/L (3.5-5.1); Total Bilirubin 0.5 mg/dL (0.2-1.3); Total Protein 5.3 g/dL (6.3-8.2)
[2021-09-15] MEDS ORDERED: NALOXONE 0.4 MG/ML 1 ML VIAL IV PRN (20:25)
[2021-09-15] MEDS ORDERED: ACETAMINOPHEN TAB 325 MG TAB PO PRN (20:25)
[2021-09-15] MEDS ORDERED: PANTOPRAZOLE 40 MG TABLET PO PRN (20:28)
[2021-09-15] MEDS: ATORVASTATIN 80 MG TAB PO SCH (22:38)
[2021-09-15] MEDS: TAMSULOSIN 0.4 MG CAP.ER.24H PO SCH (22:38)
[2021-09-15] MEDS: MAGNESIUM OXIDE 400 MG TAB PO SCH (22:38)
[2021-09-15] MEDS: SODIUM CHLORIDE 0.9% 1,000 ML IV SCH (22:39)
[2021-09-15 23:42] LABS: Glucose,Whole Blood 110 mg/dL (75-99)
[2021-09-15] MEDS: CALCIUM CARB-VIT D 500 MG-5 MCG TAB PO SCH (23:43)
[2021-09-15] MEDS: INSULIN ASPART (NovoLOG) 100 UNIT/ML VIAL SQ SCH (23:44)
[2021-09-16 06:52] LABS: Anisocytosis Slight; HCT 24.9 % (39.0-53.0); Hypochromasia Marked; MCHC 30.3 g/dL (31.0-37.0); MCV 95.6 fL (80.0-100.0); Mean Platelet Volume 7.5; Platelet Count 186 k/uL (150-450); Poikilocytosis Slight; RDW 17.5 % (11.5-15.5); WBC 4.8 k/uL (3.8-10.6)
[2021-09-16 07:11] LABS: HGB 7.5 gm/dL (13.0-17.5)
[2021-09-16 07:19] LABS: Glucose,Whole Blood 107 mg/dL (75-99)
[2021-09-16] MEDS: SODIUM CHLORIDE 0.9% 1,000 ML IV SCH ×2 (07:39→08:31)
[2021-09-16] MEDS: INSULIN ASPART (NovoLOG) 100 UNIT/ML VIAL SQ SCH ×4 (07:40→21:04)
[2021-09-16] MEDS: allopurinoL 100 MG TAB PO SCH (08:30)
[2021-09-16] MEDS: TAMSULOSIN 0.4 MG CAP.ER.24H PO SCH ×2 (08:30→21:12)
[2021-09-16] MEDS: CALCIUM CARB-VIT D 500 MG-5 MCG TAB PO SCH ×2 (08:30→21:11)
[2021-09-16] MEDS: ASPIRIN 81 MG PO SCH (08:30)
[2021-09-16] MEDS: CYANOCOBALAMIN 500 MCG TAB PO SCH (08:30)
[2021-09-16] MEDS: MAGNESIUM OXIDE 400 MG TAB PO SCH ×2 (08:30→21:11)
[2021-09-16] MEDS: ONDANSETRON 4 MG TAB PO SCH (08:30)
[2021-09-16] MEDS: HEPARIN SODIUM,PORCINE/PF 5,000 UNIT/0.5 ML SYRINGE SQ SCH ×2 (08:30→21:11)
[2021-09-16] MEDS: predniSONE 5 MG TAB PO SCH (08:31)
--- NOTE | 2021-09-16 08:40 | P.HPIM ---
History of Present Illness 71-year-old male who was discharged from my service after he presented with sepsis which was believed to be secondary to urinary tract infection although all the cultures came back negative patient was discharged on empiric Ceftin we nt home on 13 of September came back because he felt weak and almost fell was supported by the family members denied any syncopal episode patient denied any any fever chills on admission but had fever high-grade today morning his Covid 19 is negative. Patient has not been eating or drinking well at home because patient usually has diarrhea whenever he eats. Patient denied any coughing patient denied any UTI symptoms patient has history of metastatic prostate cancer, patient has a left-sided nephrostomy tube. Patient is still on Ceftin. REVIEW OF SYSTEMS: CONSTITUTIONAL: No fever, no malaise, no fatigue. HEENT: No recent visual problems or hearing problems. Denied any sore throat. CARDIOVASCULAR: No chest pain, orthopnea, PND, no palpitations, no syncope. PULMONARY: No shortness of breath, no cough, no hemoptysis. GASTROINTESTINAL: No diarrhea, no nausea, no vomiting, no abdominal pain. NEUROLOGICAL: No headaches, no weakness, no numbness. HEMATOLOGICAL: Denies any bleeding or petechiae. GENITOURINARY: Denies any burning micturition, frequency, or urgency. MUSCULOSKELETAL/RHEUMATOLOGICAL: Denies any joint pain, swelling, or any muscle pain. ENDOCRINE: Denies any polyuria or polydipsia. The rest of the 14-point review of systems is negative. PHYSICAL EXAMINATION: GENERAL: The patient is alert and oriented x3, not in any acute distress. Well developed, well nourished. HEENT: Pupils are round and equally reacting to light. EOMI. No scleral icterus. No conjunctival pallor. Normocephalic, atraumatic. No pharyngeal erythema. No thyromegaly. CARDIOVASCULAR: S1 and S2 present. No murmurs, rubs, or gallops. PULMONARY: Chest is clear to auscultation, no wheezing or crackles. ABDOMEN: Soft, nontender, nondistended, normoactive bowel sounds. No palpable o rganomegaly.left Sided nephrostomy MUSCULOSKELETAL: No joint swelling or deformity. EXTREMITIES: No cyanosis, clubbing, or pedal edema. NEUROLOGICAL: Gross neurological examination did not reveal any focal deficits. SKIN: No rashes. Assessment and plan -Generalized weakness and fall secondary to age-related muscle atrophy, cancer, possible infection which can be taken because of considering his fever. Physical therapy and outpatient therapy will be consulted and patient probably will need the placement in subacute rehabilitation -Fever: Will do the septic workup again with blood cultures see a urine cultures chest x-ray, infectious disease will be consulted. Continue with Ceftin for now after getting all these cultures. -Possible chronic kidney disease stage III patient creatinine is 1.3 this appears to be his baseline patient probably has diabetic nephropathy -Type 2 diabetes mellitus hold off on metformin patient will be started on sliding scale insulin -Metastatic prostate cancer -Up attention -Hyperlipidemia DVT prophylaxis: Lovenox Past Medical History Past Medical History: Coronary Artery Disease (CAD), Cancer, Diabetes Mellitus, Hyperlipidemia, Hypertension, Prostate Disorder Additional Past Medical History / Comment(s): PROSTATE CANCER (SEED IMPLANTS). kidney stones, gout, frequent UTI's, bone cancer-getting chemo currently, anemia History of Any Multi-Drug Resistant Organisms: None Reported Past Surgical History: Coronary Bypass/CABG, Heart Catheterization, Hernia Repair, Joint Replacement Additional Past Surgical History / Comment(s): LITHOTRIPSY x 2, triple CABG 08/25/2018, rt knee replacement, elieser inguinal hernia and umbilical hernia repair, Past Anesthesia/Blood Transfusion Reactions: No Reported Reaction Date of Last Stent Placement:: 2004 Past Psychological History: No Psychological Hx Reported Smoking Status: Unknown if ever smoked Past Alcohol Use History: None Reported Past Drug Use History: None Reported - Past Family History Mother Family Medical History: Myocardial Infarction ([place]) Father Family Medical History: Myocardial Infarction ([place]) Medications and Allergies Home Medications Medication Instructions Recorded Confirmed Type Aspirin 81 mg PO DAILY 05/06/14 09/15/21 History Allopurinol [Zyloprim] 100 mg PO DAILY 03/02/21 09/15/21 History Atorvastatin [Lipitor] 80 mg PO HS 03/02/21 09/15/21 History Tamsulosin [Flomax] 0.4 mg PO BID 03/02/21 09/15/21 History ondansetron HCL [Zofran] 8 mg PO DAILY 03/26/21 09/15/21 History metFORMIN HCL 1,000 mg PO DAILY 06/11/21 09/15/21 History metFORMIN HCL 500 mg PO HS 06/11/21 09/15/21 History Calcium Carbonate/Vitamin D3 1 cap PO BID 06/18/21 09/15/21 History [Calcium 600 mg-Vit D3 5 mcg (200 unit)] Abiraterone Acetate [Zytiga] 1,000 mg PO DAILY 07/27/21 09/15/21 History predniSONE 5 mg PO BID 07/27/21 09/15/21 History Pantoprazole [Protonix] 40 mg PO DAILY PRN 07/30/21 09/15/21 History Cyanocobalamin (Vitamin B-12) 1,000 mcg PO DAILY 09/10/21 09/15/21 History [Vitamin B-12] Magnesium 250 mg PO BID 09/10/21 09/15/21 History ondansetron HCL [Zofran] 8 mg PO Q6H PRN 09/10/21 09/15/21 History Cefuroxime Axetil [Ceftin] 500 mg PO BID 7 Days #14 tab 09/13/21 09/15/21 Rx Allergies Allergy/AdvReac Type Severity Reaction Status Date / Time cephalexin [From Keflex] AdvReac Diarrhea Verified 09/15/21 20:57 Physical Exam Vitals: Vital Signs Temp Pulse Pulse Resp BP BP Pulse Ox 09/16/21 02:00 101.2 F H 107 H 16 116/74 96 09/15/21 23:15 99.4 F 101 H 16 110/64 95 09/15/21 22:45 108 H 18 128/78 95 09/15/21 20:37 98.5 F 105 H 18 133/78 98 09/15/21 17:29 98.8 F 108 H 18 139/100 95 Intake and Output 09/15/21 09/16/21 09/16/21 22:59 06:59 14:59 Intake Total 250 Balance 250 Intake: Oral 250 Other: Weight 98.883 kg Results CBC & Chem 7: 09/16/21 06:14 09/15/21 17:40 Labs: Abnormal Lab Results - Last 24 Hours (Table) 09/15/21 09/15/21 09/15/21 Range/Units 17:40 17:40 23:36 RBC 3.55 L (4.30-5.90) m/uL Hgb 9.9 L D (13.0-17.5) gm/dL Hct 32.5 L (39.0-53.0) % MCHC 30.3 L (31.0-37.0) g/dL RDW 17.6 H (11.5-15.5) % Lymphocytes # 0.5 L (1.0-4.8) k/uL Creatinine 1.35 H (0.66-1.25) mg/dL Glucose 145 H (74-99) mg/dL POC Glucose (mg/dL) 110 H (75-99) mg/dL Calcium 7.1 L (8.4-10.2) mg/dL AST 126 H (17-59) U/L Alkaline Phosphatase 1318 H (38-126) U/L Total Protein 5.3 L (6.3-8.2) g/dL Albumin 2.3 L (3.5-5.0) g/dL 09/16/21 09/16/21 Range/Units 06:14 07:14 RBC 2.60 L (4.30-5.90) m/uL Hgb 7.5 L D (13.0-17.5) gm/dL Hct 24.9 L (39.0-53.0) % MCHC 30.3 L (31.0-37.0) g/dL RDW 17.5 H (11.5-15.5) % Lymphocytes # (1.0-4.8) k/uL Creatinine (0.66-1.25) mg/dL Glucose (74-99) mg/dL POC Glucose (mg/dL) 107 H (75-99) mg/dL Calcium (8.4-10.2) mg/dL AST (17-59) U/L Alkaline Phosphatase (38-126) U/L Total Protein (6.3-8.2) g/dL Albumin (3.5-5.0) g/dL
[2021-09-16] MEDS ORDERED: ABIRATERONE ACETATE 500 MG PO SCH (09:00)
[2021-09-16 09:51] LABS: Magnesium 1.9 mg/dL (1.5-2.4)
[2021-09-16 10:11] LABS: African American GFR (CKD) 53.5 (60.0-200.0); Albumin 2.2 g/dL (3.8-4.9); Albumin/Globulin Ratio 0.92 (1.60-3.17); Anion Gap 12.1 mmol/L (10.00-18.00); BUN/Creat Ratio 12.93 Ratio (12.00-20.00); Band Neutrophils % 3 %; Blood Urea Nitrogen 19.4 mg/dL (9.0-27.0); Calcium 6.5 mg/dL (8.7-10.3); Carbon Dioxide 18.9 mmol/L (20.0-27.5); Eosinophils # (M) 0.05 k/uL (0-0.7); Globulin 2.4 g/dL (1.6-3.3); Lymphocytes # (M) 0.77 k/uL (1.0-4.8); Metamyelocytes # (M) 0.05 k/uL (0); Metamyelocytes % 1 %; Monocytes # (M) 0.38 k/uL (0-1.0); Myelocytes % 2 %; Neutrophils % (M) 71 %; Non-African American GFR(CKD) 46.2 (60.0-200.0); Nucleated Red Blood Cells 0 /100 WBC (0-0); Potassium 3.7 mmol/L (3.5-5.5); Total Bilirubin 0.3 mg/dL (0.30-1.20); Total Cells Counted 200; Total Protein 4.6 g/dL (6.2-8.2)
[2021-09-16] MEDS: CEFDINIR 300 MG CAP PO SCH ×2 (10:11→10:16)
[2021-09-16 10:12] LABS: Tear Drop Cells Present
[2021-09-16 11:55] LABS: Glucose,Whole Blood 119 mg/dL (75-99)
--- NOTE | 2021-09-16 12:22 | XR ---
EXAMINATION TYPE: XR chest 2V DATE OF EXAM: 09/16/2021 COMPARISON: 09/15/2021 HISTORY: 71-year-old male pneumonia TECHNIQUE: AP and lateral views FINDINGS: Median sternotomy wires are present post-CABG clips in the mediastinum. Heart is mildly enlarged. Dis h in the mid to lower thoracic spine. No progressive consolidation or pleural effusion seen. IMPRESSION: Mild cardiomegaly and post-CABG changes. No definite acute process.
[2021-09-16 16:40] LABS: Appearance,Urine Clear (Clear); Bacteria,Urine Rare /hpf; Bilirubin,Urine Negative (Negative); Blood,Urine Moderate (Negative); Color,Urine Light Yellow; Glucose,Urine (UA) Trace (Negative); Ketones,Urine Negative (Negative); Leukocyte Esterase,Urine Large (Negative); Mucus,Urine Rare /hpf; Nitrite,Urine Negative (Negative); PH, Urine 7.5 (5.0-8.0); Protein,Urine 2+ (Negative); RBC,Urine 7 /hpf (0-5); Specific Gravity,Urine 1.008 (1.001-1.035); Squamous Epithelial Cell,Urine <1 /hpf (0-4); Urobilinogen,Urine <2.0 mg/dL (<2.0); WBC,Urine 9 /hpf (0-5)
[2021-09-16 17:23] LABS: Glucose,Whole Blood 104 mg/dL (75-99)
[2021-09-16 20:19] LABS: Glucose,Whole Blood 108 mg/dL (75-99)
[2021-09-16] MEDS: ATORVASTATIN 80 MG TAB PO SCH (21:11)
[2021-09-16] MEDS ORDERED: IOPAMIDOL CONTRAST (ORAL USE) VIAL PO PRN (23:39)
--- NOTE | 2021-09-16 23:39 | P.CONS ---
History of Present Illness - Reason for Consult Consult date: 09/16/21 Fever Requesting physician: Rui Chamorro - Chief Complaint weakness x 1 day - History of Present Illness History of present illness : Patient is 71-year male with a past medical history significant for metastatic prostate cancer with urinary outflow obstruction in this patient did have a left nephrostomy patient was recently admitted to this facility and was treated for possible UTI, patient did have extensive work-up which was negative, patient culture were negative subsequently was discharged on oral Ceftin patient now presenting back to the hospital last evening for evaluation of generalized weakness and almost passed out falling down earlier today apparently the patient was having some diarrhea and was helped to the bathroom by his family patient feels so weak that he almost passed out but actually did not pass out and did not have any fall patient denies high- grade fever or chills at home however early this morning the patient spike a fever of 101.2 F patient is mildly tachycardic patient did have a normal white count with no left shift be admitted normal AST is mildly elevated urine has not been collected hawley PCR was negative patient did have a chest x-ray did not show any acute cardiopulmonary disease patient was started on Rocephin has been admitted to hospital infectious disease was consulted for further management of antibiotic therapy Review of system: CONSTITUTIONAL: Positive for weakness along with the fever. EYES: No complaint. ENT: No complaint. RESPIRATORY: No complaint. CARDIOVASCULAR: No complaint. GENITOURINARY: As per history of present illness. GASTROINTESTINAL: No complaint. MUSCULOSKELETAL: No complaint. INTEGUMENTARY: No complaint. PSYCHOLOGIC: No complaint. ENDOCRINE: No complaint. NEUROLOGIC: No complaint. Past medical history : Reviewed, documented below Past surgical history : Reviewed, documented below Social history: Reviewed, documented below Medications: Reviewed, as documented below EXAMINATION: Vital sigans= Reviewed and documented below GENERAL DESCRIPTION: Elderly male lying in bed, no distress. No tachypnea or accessory muscle of respiration use. HEENT: Shows Pallor , no scleral icterus. Oral mucous membrane is dry. NECK: Trachea central, no thyromegaly. LUNGS: Unlabored breathing. Decreased breath sound at the base. No wheeze or crackle. HEART: S1, S2, regular rate and rhythm. ABDOMEN: Soft, no tenderness , guarding or rigidity EXTREMITIES: No edema of feet. SKIN: No rash, no masses palpable. NEUROLOGICAL: The patient is awake, alert, oriented x3, mood and affect normal. LABS AND RADIOLOGY: Reviewed results see below Assessment :1- Patient presented to hospital generalized weakness and near syncopal episode in this patient subsequently spiked a fever of 101 F in this patient with a history of metastatic prostate cancer he did have a left nephros vanna tube however overall urine in the bag looks clean patient currently do not have any respiratory symptoms chest x-ray was negative no evidence of any cellulitis concern for possible and abdominal source for his fever 2-patient with cephalexin allergy questionably to allergy the patient has li ated Rocephin without any problem Plan: 1-UA and cultures will be obtained from the nephrostomy tube 2-we will obtain a CT of abdominal pelvis with contrast 3-continue with Rocephin We will follow on clinical condition and cultures to further adjust medication if needed Thank you for this consultation we will follow the patient along with you Past Medical History Past Medical History: Coronary Artery Disease (CAD), Cancer, Diabetes Mellitus, Hyperlipidemia, Hypertension, Prostate Disorder Additional Past Medical History / Comment(s): PROSTATE CANCER (SEED IMPLANTS). kidney stones, gout, frequent UTI's, bone cancer-getting chemo currently, anemia History of Any Multi-Drug Resistant Organisms: None Reported Past Surgical History: Coronary Bypass/CABG, Heart Catheterization, Hernia Repair, Joint Replacement Additional Past Surgical History / Comment(s): LITHOTRIPSY x 2, triple CABG 08/25/2018, rt knee replacement, elieser inguinal hernia and umbilical hernia repair, Past Anesthesia/Blood Transfusion Reactions: No Reported Reaction Date of Last Stent Placement:: 2004 Past Psychological History: No Psychological Hx Reported Smoking Status: Unknown if ever smoked Past Alcohol Use History: None Reported Past Drug Use History: None Reported - Past Family History Mother Family Medical History: Myocardial Infarction ([place]) Father Family Medical History: Myocardial Infarction ([place]) Medications and Allergies Home Medications Medication Instructions Recorded Confirmed Type Aspirin 81 mg PO DAILY 05/06/14 09/15/21 History Allopurinol [Zyloprim] 100 mg PO DAILY 03/02/21 09/15/21 History Atorvastatin [Lipitor] 80 mg PO HS 03/02/21 09/15/21 History Tamsulosin [Flomax] 0.4 mg PO BID 03/02/21 09/15/21 History ondansetron HCL [Zofran] 8 mg PO DAILY 03/26/21 09/15/21 History metFORMIN HCL 1,000 mg PO DAILY 06/11/21 09/15/21 History metFORMIN HCL 500 mg PO HS 06/11/21 09/15/21 History Calcium Carbonate/Vitamin D3 1 cap PO BID 06/18/21 09/15/21 History [Calcium 600 mg-Vit D3 5 mcg (200 unit)] Abiraterone Acetate [Zytiga] 1,000 mg PO DAILY 07/27/21 09/15/21 History predniSONE 5 mg PO BID 07/27/21 09/15/21 History Pantoprazole [Protonix] 40 mg PO DAILY PRN 07/30/21 09/15/21 History Cyanocobalamin (Vitamin B-12) 1,000 mcg PO DAILY 09/10/21 09/15/21 History [Vitamin B-12] Magnesium 250 mg PO BID 09/10/21 09/15/21 History ondansetron HCL [Zofran] 8 mg PO Q6H PRN 09/10/21 09/15/21 History Cefuroxime Axetil [Ceftin] 500 mg PO BID 7 Days #14 tab 09/13/21 09/15/21 Rx Allergies Allergy/AdvReac Type Severity Reaction Status Date / Time cephalexin [From Keflex] AdvReac Diarrhea Verified 09/15/21 20:57 Physical Exam Vitals: Vital Signs Temp Pulse Pulse Resp BP BP Pulse Ox 09/16/21 11:14 98.4 F 92 16 133/77 93 L 09/16/21 02:00 101.2 F H 107 H 16 116/74 96 09/15/21 23:15 99.4 F 101 H 16 110/64 95 09/15/21 22:45 108 H 18 128/78 95 09/15/21 20:37 98.5 F 105 H 18 133/78 98 09/15/21 17:29 98.8 F 108 H 18 139/100 95 Intake and Output 09/16/21 09/16/21 09/16/21 06:59 14:59 22:59 Intake Total 250 Balance 250 Intake: Oral 250 Other: Voiding Method Incontinent Ileal Conduit (Left) # Voids 1 Results CBC & Chem 7: 09/16/21 06:14 09/16/21 06:14 Labs: Abnormal Lab Results - Last 24 Hours (Table) 09/15/21 09/15/21 09/15/21 Range/Units 17:40 17:40 23:36 RBC 3.55 L (4.30-5.90) m/uL Hgb 9.9 L D (13.0-17.5) gm/dL Hct 32.5 L (39.0-53.0) % MCHC 30.3 L (31.0-37.0) g/dL RDW 17.6 H (11.5-15.5) % Lymphocytes # 0.5 L (1.0-4.8) k/uL Lymphocytes # (Manual) (1.0-4.8) k/uL Metamyelocytes # (Man) (0) k/uL Myelocytes # (Manual) (0) k/uL Chloride (96-109) mmol/L Carbon Dioxide (20.0-27.5) mmol/L Creatinine 1.35 H (0.66-1.25) mg/dL Est GFR (CKD-EPI)AfAm (60.0-200.0) Est GFR (CKD-EPI)NonAf (60.0-200.0) Glucose 145 H (74-99) mg/dL POC Glucose (mg/dL) 110 H (75-99) mg/dL Calcium 7.1 L (8.4-10.2) mg/dL AST 126 H (17-59) U/L Alkaline Phosphatase 1318 H (38-126) U/L Total Protein 5.3 L (6.3-8.2) g/dL Albumin 2.3 L (3.5-5.0) g/dL Albumin/Globulin Ratio (1.60-3.17) g/dL 09/16/21 09/16/21 09/16/21 Range/Units 06:14 06:14 07:14 RBC 2.60 L (4.30-5.90) m/uL Hgb 7.5 L D (13.0-17.5) gm/dL Hct 24.9 L (39.0-53.0) % MCHC 30.3 L (31.0-37.0) g/dL RDW 17.5 H (11.5-15.5) % Lymphocytes # (1.0-4.8) k/uL Lymphocytes # (Manual) 0.77 L (1.0-4.8) k/uL Metamyelocytes # (Man) 0.05 H (0) k/uL Myelocytes # (Manual) 0.10 H (0) k/uL Chloride 110 H (96-109) mmol/L Carbon Dioxide 18.9 L (20.0-27.5) mmol/L Creatinine (0.66-1.25) mg/dL Est GFR (CKD-EPI)AfAm 53.5 L (60.0-200.0) Est GFR (CKD-EPI)NonAf 46.2 L (60.0-200.0) Glucose (74-99) mg/dL POC Glucose (mg/dL) 107 H (75-99) mg/dL Calcium 6.5 L (8.4-10.2) mg/dL AST 112 H (17-59) U/L Alkaline Phosphatase 1257 H (38-126) U/L Total Protein 4.6 L (6.3-8.2) g/dL Albumin 2.2 L (3.5-5.0) g/dL Albumin/Globulin Ratio 0.92 L (1.60-3.17) g/dL 09/16/21 Range/Units 11:43 RBC (4.30-5.90) m/uL Hgb (13.0-17.5) gm/dL Hct (39.0-53.0) % MCHC (31.0-37.0) g/dL RDW (11.5-15.5) % Lymphocytes # (1.0-4.8) k/uL Lymphocytes # (Manual) (1.0-4.8) k/uL Metamyelocytes # (Man) (0) k/uL Myelocytes # (Manual) (0) k/uL Chloride (96-109) mmol/L Carbon Dioxide (20.0-27.5) mmol/L Creatinine (0.66-1.25) mg/dL Est GFR (CKD-EPI)AfAm (60.0-200.0) Est GFR (CKD-EPI)NonAf (60.0-200.0) Glucose (74-99) mg/dL POC Glucose (mg/dL) 119 H (75-99) mg/dL Calcium (8.4-10.2) mg/dL AST (17-59) U/L Alkaline Phosphatase (38-126) U/L Total Protein (6.3-8.2) g/dL Albumin (3.5-5.0) g/dL Albumin/Globulin Ratio (1.60-3.17) g/dL
[2021-09-17] MEDS: SODIUM CHLORIDE 0.9% 1,000 ML IV SCH ×3 (01:59→15:23)
[2021-09-17] MEDS: ABIRATERONE ACETATE 500 MG PO SCH (04:11)
[2021-09-17 07:21] LABS: Glucose,Whole Blood 110 mg/dL (75-99)
--- NOTE | 2021-09-17 08:01 | CT ---
EXAMINATION TYPE: CT abdomen pelvis w con DATE OF EXAM: 09/17/2021 COMPARISON: 03/05/2021 HISTORY: fever CT DLP: 1602 mGycm CONTRAST: CT scan of the abdomen and pelvis is performed without Oral Contrast and with IV Contrast, patient in jected with 80 mL of Isovue 300. FINDINGS: LUNG BASES-: No visible nodule. No infiltrate. Small bilateral pleural effusions noted. LIVER/GB: No calcified gallstones. There is evidence of hepatic steatosis. No space occupying hepa tic lesion. Biliary tree is of normal caliber. PANCREAS: No inflammation. No distinct mass. SPLEEN: No splenic enlargement. No lesion seen. ADRENALS: No nodule. No thickening. KIDNEYS/BLADDER: Atrophic changes of the left kidney. Percutaneous nephrostomy tube is noted to be in place. Right-sided ureteral stent is noted with persistent right-sided hydronephrosis moderate in de gree. There is wall thickening of the urinary bladder which may reflect underlying neoplasm versus cy stitis. BOWEL: Normal appendix. Normal bowel caliber. No inflammation. GENITAL ORGANS: Prostate seeds are in place. LYMPH NODES: No greater than 1cm abdominal or pelvic lymph nodes are appreciated. AORTA: Diffuse atheromatous and ectatic change of the abdominal aorta and iliac vessels. OSSEOUS STRUCTURES: No significant abnormality is seen. OTHER: No significant additional abnormality is seen. IMPRESSION: 1. Moderate right-sided hydronephrosis of uncertain etiology. 2. Urinary bladder wall thickening could reflect cystitis however underlying neoplasm is not excluded . 3. Atrophic changes of the left kidney with percutaneous nephrostomy tube in place. 4. Small basilar pleural effusions and compressive atelectasis.
[2021-09-17] MEDS: HEPARIN SODIUM,PORCINE/PF 5,000 UNIT/0.5 ML SYRINGE SQ SCH ×3 (08:15→21:31)
[2021-09-17] MEDS: INSULIN ASPART (NovoLOG) 100 UNIT/ML VIAL SQ SCH ×4 (08:15→21:27)
[2021-09-17] MEDS: CYANOCOBALAMIN 500 MCG TAB PO SCH (08:16)
[2021-09-17] MEDS: ASPIRIN 81 MG PO SCH (08:16)
[2021-09-17] MEDS: allopurinoL 100 MG TAB PO SCH (08:16)
[2021-09-17] MEDS: MAGNESIUM OXIDE 400 MG TAB PO SCH ×2 (08:16→21:31)
[2021-09-17] MEDS: ONDANSETRON 4 MG TAB PO SCH (08:16)
[2021-09-17] MEDS: TAMSULOSIN 0.4 MG CAP.ER.24H PO SCH ×2 (08:17→21:31)
[2021-09-17] MEDS: predniSONE 5 MG TAB PO SCH (08:17)
[2021-09-17] MEDS: CALCIUM CARB-VIT D 500 MG-5 MCG TAB PO SCH ×2 (08:17→21:31)
--- NOTE | 2021-09-17 12:01 | P.PN ---
Subjective 71-year-old male who was discharged from my service after he presented with sepsis which was believed to be secondary to urinary tract infection although all the cultures came back negative patient was discharged on empiric Ceftin went home on 13 of September came back because he felt weak and almost fell was supported by the family members denied any syncopal episode patient denied any any fever chills on admission but had fever high-grade today morning his Covid 19 is negative. Patient has not been eating or drinking well at home because patient usually has diarrhea whenever he eats. Patient denied any coughing patient denied any UTI symptoms patient has history of metastatic prostate cancer, patient has a left-sided nephrostomy tube. Patient is still on Ceftin. 09/17/2021 Patient the doesn't have any lightheadedness today patient will be evaluated by physical therapy and occupational therapy patient doesn't have any more fevers. Remains on Rocephin so far all the cultures are negative Constitutional: Denied any fatigue denied any fever. Cardio vascular: denied any chest pain, palpitations Gastrointestinal denied any nausea vomiting Pulmonary: Denied any shortness of breath cough Neurologic denied any new focal deficits All inpatient medications were reviewed and appropriate changes in these medications as dictated in the interval history and assessment and plan. PHYSICAL EXAMINATION: GENERAL: The patient is alert and oriented x3, not in any acute distress. Well developed, well nourished. HEENT: Pupils are round and equally reacting to light. EOMI. No scleral icterus. No conjunctival pallor. Normocephalic, atraumatic. No pharyngeal erythema. No thyromegaly. CARDIOVASCULAR: S1 and S2 present. No murmurs, rubs, or gallops. PULMONARY: Chest is clear to auscultation, no wheezing or crackles. ABDOMEN: Soft, nontender, nondistended, normoactive bowel sounds. No palpable organomegaly.left Sided nephrostomy MUSCULOSKELETAL: No joint swelling or deformity. EXTREMITIES: No cyanosis, clubbing, or pedal edema. NEUROLOGICAL: Gross neurological examination did not reveal any focal deficits. SKIN: No rashes. Assessment and plan -Generalized weakness and fall secondary to age-related muscle atrophy, cancer, possible infection which can be taken because of considering his fever. Physical therapy and outpatient therapy were consulted and patient probably will need the placement in subacute rehabilitation had orthostatic vitals that are positive patient is probably dehydrated and receiving IV normal saline at 75 mL/h repeat basic metabolic profile tomorrow. -Fever: Will do the septic workup again with blood cultures see a urine cultures chest x-ray, infectious disease will be consulted. And is presently on Rocephin -Possible chronic kidney disease stage III patient creatinine is 1.3 this appears to be his baseline patient probably has diabetic nephropathy -Type 2 diabetes mellitus hold off on metformin patient will be started on sliding scale insulin -Metastatic prostate cancer -Up attention -Hyperlipidemia DVT prophylaxis: Lovenox Objective - Vital Signs Vital signs: Vital Signs Temp 99 F 09/17/21 04:45 Pulse 109 H 09/17/21 04:45 Resp 7 L 09/17/21 08:00 BP 103/68 09/17/21 10:24 Pulse Ox 95 09/17/21 04:45 Intake & Output 09/16/21 09/17/21 09/17/21 18:59 06:59 18:59 Intake Total 1000 Balance 1000 Intake: Intake, IV Titration 900 Amount Sodium Chloride 0.9% 1, 900 000 ml @ 75 mls/hr IV . [id number] [facility] Rx#:[id number] Oral 100 Other: Voiding Method Incontinent Incontinent Incontinent Ileal Conduit (Left) Ileal Conduit (Left) Ileal Conduit (Left) # Voids 1 - Labs CBC & Chem 7: 09/16/21 06:14 09/16/21 06:14 Labs: Abnormal Lab Results - Last 24 Hours (Table) 09/16/21 09/16/21 09/16/21 Range/Units 16:14 17:11 20:14 POC Glucose (mg/dL) 104 H 108 H (75-99) mg/dL Urine Protein 2+ H (Negative) Urine Glucose (UA) Trace H (Negative) Urine Blood Moderate H (Negative) Ur Leukocyte Esterase Large H (Negative) Urine RBC 7 H (0-5) /hpf Urine WBC 9 H (0-5) /hpf Urine Bacteria Rare H (None) /hpf Urine Mucus Rare H (None) /hpf 09/17/21 Range/Units 07:20 POC Glucose (mg/dL) 110 H (75-99) mg/dL Urine Protein (Negative) Urine Glucose (UA) (Negative) Urine Blood (Negative) Ur Leukocyte Esterase (Negative) Urine RBC (0-5) /hpf Urine WBC (0-5) /hpf Urine Bacteria (None) /hpf Urine Mucus (None) /hpf Microbiology - Last 24 Hours (Table) 09/16/21 09:01 Blood Culture - Preliminary Blood No Growth after 24 hours 09/16/21 09:03 Blood Culture - Preliminary Blood No Growth after 24 hours
[2021-09-17 12:30] LABS: Glucose,Whole Blood 137 mg/dL (75-99)
[2021-09-17] MEDS: LOPERAMIDE 2 MG CAP PO PRN (13:12)
[2021-09-17 17:41] LABS: Glucose,Whole Blood 133 mg/dL (75-99)
--- NOTE | 2021-09-17 17:44 | PN ---
PROGRESS NOTE DATE OF SERVICE: 09/17/2021 REASON FOR FOLLOWUP: Fever, complicated UTI. INTERVAL HISTORY: The patient is running a low-grade fever of 99.2. Overall fever pattern has improved, though. Patient has been complaining of extreme weakness, unable to get up and around. No chest pain, shortness of breath or cough. No abdominal pain or diarrhea. PHYSICAL EXAMINATION: Blood pressure 100/60 with a pulse of 73, temperature 99.2. He is 91% on room air. General description is an elderly male lying in bed in no distress. Respiratory system: Unlabored breathing. Clear to auscultation anteriorly. Heart S1, S2. Regular rate and rhythm. Abdomen soft, no tenderness. LABS: CT of abdomen and pelvis did show evidence of right-sided hydronephrosis. DIAGNOSTIC IMPRESSION AND PLAN: Patient admitted to hospital with fever. Source is likely complicated UTI with right- sided hydronephrosis; and did have left-sided nephrostomy tube. Will benefit from urology evaluation and possible placement of either stent or a nephrostomy on the right side to drain the right kidney infection. Continue with supportive care. Continue with Rocephin for now. MMODL / IJN: [id number] /
[2021-09-17 20:28] LABS: Glucose,Whole Blood 100 mg/dL (75-99)
[2021-09-17] MEDS: ATORVASTATIN 80 MG TAB PO SCH (21:31)
[2021-09-18] MEDS: ABIRATERONE ACETATE 500 MG PO SCH (06:18)
[2021-09-18 07:22] LABS: Glucose,Whole Blood 111 mg/dL (75-99)
[2021-09-18] MEDS: INSULIN ASPART (NovoLOG) 100 UNIT/ML VIAL SQ SCH ×4 (07:30→20:11)
[2021-09-18] MEDS: MAGNESIUM OXIDE 400 MG TAB PO SCH ×2 (08:26→20:14)
[2021-09-18] MEDS: ONDANSETRON 4 MG TAB PO SCH (08:26)
[2021-09-18] MEDS: CYANOCOBALAMIN 500 MCG TAB PO SCH (08:26)
[2021-09-18] MEDS: allopurinoL 100 MG TAB PO SCH (08:26)
[2021-09-18] MEDS: TAMSULOSIN 0.4 MG CAP.ER.24H PO SCH ×2 (08:26→20:14)
[2021-09-18] MEDS: CALCIUM CARB-VIT D 500 MG-5 MCG TAB PO SCH ×2 (08:26→20:14)
[2021-09-18] MEDS: ASPIRIN 81 MG PO SCH (08:26)
[2021-09-18] MEDS: HEPARIN SODIUM,PORCINE/PF 5,000 UNIT/0.5 ML SYRINGE SQ SCH ×3 (08:27→20:16)
[2021-09-18] MEDS: predniSONE 5 MG TAB PO SCH (08:28)
[2021-09-18 10:59] LABS: African American GFR (CKD) 77.9 (60.0-200.0); Anion Gap 11.9 mmol/L (10.00-18.00); BUN/Creat Ratio 13.91 Ratio (12.00-20.00); Blood Urea Nitrogen 15.3 mg/dL (9.0-27.0); Calcium 6.5 mg/dL (8.7-10.3); Carbon Dioxide 21.1 mmol/L (20.0-27.5); Non-African American GFR(CKD) 67.2 (60.0-200.0); Potassium 3.5 mmol/L (3.5-5.5)
[2021-09-18 11:02] LABS: Anisocytosis Slight; HCT 23.9 % (39.0-53.0); HGB 7.1 gm/dL (13.0-17.5); Hypochromasia Marked; MCH 28.2 pg (25.0-35.0); MCHC 29.8 g/dL (31.0-37.0); MCV 94.8 fL (80.0-100.0); Mean Platelet Volume 8.7; Platelet Count 185 k/uL (150-450); Poikilocytosis Slight; RBC 2.52 m/uL (4.30-5.90); RDW 17.5 % (11.5-15.5); WBC 6.2 k/uL (3.8-10.6)
[2021-09-18 12:13] LABS: Glucose,Whole Blood 142 mg/dL (75-99)
[2021-09-18] MEDS: LOPERAMIDE 2 MG CAP PO PRN ×2 (13:48→20:14)
[2021-09-18] MEDS: SODIUM CHLORIDE 0.9% 1,000 ML IV SCH (13:49)
[2021-09-18 17:26] LABS: Glucose,Whole Blood 141 mg/dL (75-99)
[2021-09-18 20:08] LABS: Glucose,Whole Blood 109 mg/dL (75-99)
[2021-09-18] MEDS: ATORVASTATIN 80 MG TAB PO SCH (20:14)
--- NOTE | 2021-09-18 21:47 | P.PN ---
Subjective Progress Note Date: 09/18/21 71-year-old male who was discharged from my service after he presented with sepsis which was believed to be secondary to urinary tract infection although all the cultures came back negative patient was discharged on empiric Ceftin went home on 13 of September came back because he felt weak and almost fell was supported by the family members denied any syncopal episode patient denied any any fever chills on admission but had fever high-grade today morning his Covid 19 is negative. Patient has not been eating or drinking well at home because patient usually has diarrhea whenever he eats. Patient denied any coughing patient denied any UTI symptoms patient has history of metastatic prostate cancer, patient has a left-sided nephrostomy tube. Patient is still on Ceftin. 09/17/2021 Patient the doesn't have any lightheadedness today patient will be evaluated by physical therapy and occupational therapy patient doesn't have any more fevers. Remains on Rocephin so far all the cultures are negative 09/18/2021 Patient is seen this morning and continues to be weak and recommending [facility] for continued PT/OT therapy. Patient continues on IV ceftriaxone with ID following. Urology consulted for right side hydronephrosis and is pending at this time. Hemoglobin is 7.1 today and patient states he feels weak and more tired and usually needs a blood transfusion when feeling like this. Will order one unit of PRBC and repeat labs. Per nursing staff, patient is still eating very poorly and discussed with the patient about the importance of nutrition. [facility] and pending urology evaluation. Review of systems: Constitutional: Denied any fatigue denied any fever. Cardio vascular: denied any chest pain, palpitations Gastrointestinal denied any nausea vomiting Pulmonary: Denied any shortness of breath cough Neurologic denied any new focal deficits, reports generalized weakness All inpatient medications were reviewed and appropriate changes in these medications as dictated in the interval history and assessment and plan. Active Medications Acetaminophen (Acetaminophen Tab 325 Mg Tab) 650 mg PO Q6HR PRN PRN Reason: Mild Pain or Fever > 100.5 Last Admin: 09/16/21 04:31 Dose: 650 mg Documented by: Allopurinol (Allopurinol 100 Mg Tab) 100 mg PO DAILY [facility] Last Admin: 09/18/21 08:26 Dose: 100 mg Documented by: Aspirin (Aspirin 81 Mg) 81 mg PO DAILY [facility] Last Admin: 09/18/21 08:26 Dose: 81 mg Documented by: Atorvastatin Calcium (Atorvastatin 80 Mg Tab) 80 mg PO HS [facility] Last Admin: 09/18/21 20:14 Dose: 80 mg Documented by: Calcium Carbonate (Calcium Carb-Vit D 500 Mg-5 Mcg Tab) 1 each PO BID [facility] Last Admin: 09/18/21 20:14 Dose: 1 each Documented by: Cyanocobalamin (Cyanocobalamin 500 Mcg Tab) 1,000 mcg PO DAILY [facility] Last Admin: 09/18/21 08:26 Dose: 1,000 mcg Documented by: Heparin Sodium (Porcine) (Heparin Sodium,Porcine/Pf 5,000 Unit/0.5 Ml Syringe) 5,000 unit SQ Q12HR [facility] Last Admin: 09/18/21 20:16 Dose: Not Given Documented by: Sodium Chloride (Saline 0.9%) 1,000 mls @ 75 mls/hr IV .[id number] [facility] Last Admin: 09/18/21 13:49 Dose: 75 mls/hr Documented by: Ceftriaxone Sodium 1 gm/ (Sodium Chloride) 50 mls @ 100 mls/hr IVPB Q24HR [facility] Last Admin: 09/18/21 09:32 Dose: 100 mls/hr Documented by: Insulin Aspart (Insulin Aspart (Novolog) 100 Unit/Ml Vial) 0 unit SQ ACHS [facility]; Protocol Last Admin: 09/18/21 20:11 Dose: Not Given Documented by: Loperamide HCl (Loperamide 2 Mg Cap) 2 mg PO QID PRN PRN Reason: Diarrhea Last Admin: 09/18/21 20:14 Dose: 2 mg Documented by: Magnesium Oxide (Magnesium Oxide 400 Mg Tab) 400 mg PO BID [facility] Last Admin: 09/18/21 20:14 Dose: 400 mg Documented by: Naloxone HCl (Naloxone 0.4 Mg/Ml 1 Ml Vial) 0.2 mg IV Q2M PRN PRN Reason: Opioid Reversal Abiraterone Acetate [Zytiga] 500 Mg Tablet 1,000 mg PO DAILY@0600 [facility] Last Admin: 09/18/21 06:18 Dose: 1,000 mg Documented by: Ondansetron HCl (Ondansetron 4 Mg Tab) 8 mg PO DAILY [facility] Last Admin: 09/18/21 08:26 Dose: 8 mg Documented by: Pantoprazole Sodium (Pantoprazole 40 Mg Tablet) 40 mg PO DAILY PRN PRN Reason: Heartburn Prednisone (Prednisone 5 Mg Tab) 5 mg PO DAILY [facility] Last Admin: 09/18/21 08:28 Dose: 5 mg Documented by: Tamsulosin HCl (Tamsulosin 0.4 Mg Cap.Er.24h) 0.4 mg PO BID [facility] Last Admin: 09/18/21 20:14 Dose: 0.4 mg Documented by: PHYSICAL EXAMINATION: GENERAL: The patient is alert and oriented x3, not in any acute distress. Well developed, well nourished. HEENT: Pupils are round and equally reacting to light. EOMI. No scleral icterus. No conjunctival pallor. Normocephalic, atraumatic. No pharyngeal erythema. No thyromegaly. CARDIOVASCULAR: S1 and S2 present. No murmurs, rubs, or gallops. PULMONARY: Chest is clear to auscultation, no wheezing or crackles. ABDOMEN: Soft, nontender, nondistended, normoactive bowel sounds. No palpable organomegaly. left Sided nephrostomy MUSCULOSKELETAL: No joint swelling or deformity. EXTREMITIES: No cyanosis, clubbing, or pedal edema. NEUROLOGICAL: Gross neurological examination did not reveal any focal deficits. SKIN: No rashes. Assessment and plan: -Generalized weakness and fall secondary to age-related muscle atrophy, cancer, possible infection with fever. -mild dehydration secondary to diarrhea and poor oral intake. -possible acute urinary tract infection -gait dysfunction -Fevers, possibly secondary to acute urinary infection -Possible chronic kidney disease stage III patient creatinine is 1.3 this appears to be his baseline patient probably has diabetic nephropathy -anemia of chronic disease -Type 2 diabetes uncontrolled with hyperglycemia -Metastatic prostate cancer -hypertension -Hyperlipidemia -DVT prophylaxis: Lovenox -Full code Plan: Recommend to continue with IV antibiotics and gentle IV hydration and will repeat am labs. Hemoglobin is 7.1 today and will give 1 unit of PRBC. Urology consulted and pending. ID following and maintained on IV ceftriaxone. Patient is afebrile today. Patient is weak and has been accepted at [facility]. Social work following and working on discharge planning. Patient also follows with oncology and will continue in the outpatient setting. Encouraged oral intake. Possible discharge in 24 hours. Objective - Vital Signs Vital signs: Vital Signs Temp 99.4 F 09/18/21 04:20 Pulse 100 12/28/21 04:20 Resp 18 09/17/21 20:51 BP 143/73 09/18/21 04:20 Pulse Ox 92 L 09/18/21 04:20 Intake & Output 09/17/21 09/18/21 09/18/21 18:59 06:59 18:59 Intake Total 900 Balance 900 Intake: Intake, IV Titration 900 Amount Sodium Chloride 0.9% 1, 900 000 ml @ 75 mls/hr IV . [id number] [facility] Rx#:[id number] Other: Voiding Method Incontinent Incontinent Ileal Conduit (Left) Ileal Conduit (Left) # Voids 5 # Bowel Movements 8 - Labs CBC & Chem 7: 09/18/21 06:38 09/18/21 06:38 Labs: Abnormal Lab Results - Last 24 Hours (Table) 09/17/21 09/17/21 09/17/21 Range/Units 12: 17:38 20:27 POC Glucose (mg/dL) 137 H 133 H 100 H (75-99) mg/dL 09/18/21 Range/Units 07:20 POC Glucose (mg/dL) 111 H (75-99) mg/dL Microbiology - Last 24 Hours (Table) 09/16/21 09:01 Blood Culture - Preliminary Blood No Growth after 24 hours 09/16/21 09:03 Blood Culture - Preliminary Blood No Growth after 24 hours
--- NOTE | 2021-09-18 23:27 | PN ---
PROGRESS NOTE DATE OF SERVICE: 09/18/2021 REASON FOR FOLLOWUP: Complicated urinary tract infection. INTERVAL HISTORY: The patient is afebrile. Still complaining of feeling weak, no energy. Patient denies having any chest pain, shortness of breath or cough. No abdominal pain or diarrhea. PHYSICAL EXAMINATION: Blood pressure is 160/80 with a pulse of 87, temperature 98.7. He is 96% on room air. General description is an elderly male lying in bed in no distress. Respiratory system: Unlabored breathing, decreased intensity of breath sounds. No wheeze. Heart S1, S2. Regular rate and rhythm. Abdomen soft, no tenderness. LABS: Hemoglobin is 7.9, white count 6.2, creatinine is 1.1. Blood culture negative. Urine was not done. DIAGNOSTIC IMPRESSION AND PLAN: Patient with a complicated urinary tract infection with evidence of right-sided hydronephrosis. Urology has been consulted. Patient to continue on Rocephin. Urine cultures will be followed, in view of overall improvement of his fever with Rocephin. To finish therapy with oral Ceftin once cleared by Urology. Continue supportive care. MMODL / IJN: [id number] / MTDHerber
[2021-09-19] MEDS: SODIUM CHLORIDE 0.9% 1,000 ML IV SCH (00:26)
[2021-09-19] MEDS: ABIRATERONE ACETATE 500 MG PO SCH (05:39)
[2021-09-19 07:18] LABS: Glucose,Whole Blood 143 mg/dL (75-99)
[2021-09-19] MEDS: INSULIN ASPART (NovoLOG) 100 UNIT/ML VIAL SQ SCH ×2 (08:26→13:12)
[2021-09-19] MEDS: allopurinoL 100 MG TAB PO SCH (08:30)
[2021-09-19] MEDS: CALCIUM CARB-VIT D 500 MG-5 MCG TAB PO SCH (08:31)
[2021-09-19] MEDS: MAGNESIUM OXIDE 400 MG TAB PO SCH (08:31)
[2021-09-19] MEDS: HEPARIN SODIUM,PORCINE/PF 5,000 UNIT/0.5 ML SYRINGE SQ SCH ×2 (08:31→08:46)
[2021-09-19] MEDS: CYANOCOBALAMIN 500 MCG TAB PO SCH (08:31)
[2021-09-19] MEDS: ASPIRIN 81 MG PO SCH (08:31)
[2021-09-19] MEDS: TAMSULOSIN 0.4 MG CAP.ER.24H PO SCH (08:32)
[2021-09-19] MEDS: ONDANSETRON 4 MG TAB PO SCH (08:32)
[2021-09-19] MEDS: predniSONE 5 MG TAB PO SCH (08:32)
[2021-09-19 09:48] LABS: Anisocytosis Slight; HGB 8.3 gm/dL (13.0-17.5); Hypochromasia Marked; MCH 28.4 pg (25.0-35.0); MCHC 30.6 g/dL (31.0-37.0); MCV 92.7 fL (80.0-100.0); Mean Platelet Volume 7.5; Platelet Count 207 k/uL (150-450); Poikilocytosis Moderate; RBC 2.91 m/uL (4.30-5.90); RDW 17.7 % (11.5-15.5); WBC 6.6 k/uL (3.8-10.6)
[2021-09-19 09:50] LABS: African American GFR (CKD) 87 (>60 ml/min/1.73 sqM); Anion Gap 7 mmol/L; Blood Urea Nitrogen 12 mg/dL (9-20); Carbon Dioxide 24 mmol/L (22-30); Chloride 109 mmol/L (98-107); Glucose 131 mg/dL (74-99); Non-African American GFR(CKD) 75 (>60 ml/min/1.73 sqM); Sodium 140 mmol/L (137-145)
[2021-09-19 09:57] LABS: Calcium 6.4 mg/dL (8.4-10.2)
[2021-09-19 11:13] VITALS: BP 138/84; PULSE 92; RESP 20; TEMP 98.7
[2021-09-19 11:55] LABS: Glucose,Whole Blood 134 mg/dL (75-99)
[2021-09-19 12:59] LABS: Band Neutrophils % 3 %; Lymphocytes # (M) 0.99 k/uL (1.0-4.8); Metamyelocytes # (M) 0.13 k/uL (0); Metamyelocytes % 2 %; Myelocytes # (M) 0.07 k/uL (0); Myelocytes % 1 %; Neutrophils % (M) 80 %; Nucleated Red Blood Cells 0 /100 WBC (0-0); Total Cells Counted 200
[2021-09-19] MEDS ORDERED: Potassium Replacement Protocol 1 EACH MISC MISCELLANE PRN (15:12)
[2021-09-19] MEDS: POTASSIUM CHLORIDE ER 20 MEQ TAB.ER PO SCH (15:26)
--- NOTE | 2021-09-19 15:31 | P.DS ---
Providers Date of admission: 09/15/21 20:25 Expected date of discharge: 09/19/21 Attending physician: Corwin Tapia MD Consults: 09/15/21 20:26 Consult Physician Routine Consulting Provider: Jessee Haywood Consult Reason/Comments: Antibiotic selection Do you want consulting provider notified?: Yes, Notify in am 09/16/21 08:40 Consult Physician Routine Consulting Provider: Jessee Haywood Consult Reason/Comments: Fever UTI Do you want consulting provider notified?: Yes 09/18/21 11:22 Consult Physician Urgent Consulting Provider: Armando Williamson Consult Reason/Comments: right hydronephrosis Do you want consulting provider notified?: Yes Primary care physician: GEO Carter Hospital Course: Final diagnosis Assessment and plan: -Generalized weakness and fall secondary to age-related muscle atrophy, cancer, possible infection with fever. -mild dehydration secondary to diarrhea and poor oral intake. -acute urinary tract infection secondary to nephrostomy tube -gait dysfunction -Fevers, possibly secondary to acute urinary infection, improved -Possible chronic kidney disease stage III patient creatinine is 1.3 this appears to be his baseline patient probably has diabetic nephropathy -anemia of chronic disease -Type 2 diabetes uncontrolled with hyperglycemia -Metastatic prostate cancer -hypertension -Hyperlipidemia -DVT prophylaxis: Lovenox -Full code Discharge disposition Patient is being discharged in a stable condition with guarded prognosis to [facility] for continued PT/OT therapy. Patient will follow-up with pcp in the outpatient setting upon discharge. Patient is to continue with oral ceftin 500mg twice daily for the next three days to complete the course and then may discontinue. Patient will also continue with the prednisone on discharge. Patient is to follow-up with oncology and urology in the outpatient setting. Patient states that he receives weekly injections with oncology and will not be receiving these until discharged from [facility] and patient is agreeable with this. Recommend repeat labs for CBC and CMP in the outpatient setting. Total time taken is greater than 35 minutes. Hospital course 71-year-old male who was discharged from my service after he presented with sepsis which was believed to be secondary to urinary tract infection although all the cultures came back negative patient was discharged on empiric Ceftin went home on 13 of September came back because he felt weak and almost fell was supported by the family members denied any syncopal episode patient denied any any fever chills on admission but had fever high-grade today morning his Covid 19 is negative. Patient has not been eating or drinking well at home because patient usually has diarrhea whenever he eats. Patient denied any coughing patient denied any UTI symptoms patient has history of metastatic prostate cancer, patient has a left-sided nephrostomy tube. Patient is still on Ceftin. 09/17/2021 Patient the doesn't have any lightheadedness today patient will be evaluated by physical therapy and occupational therapy patient doesn't have any more fevers. Remains on Rocephin so far all the cultures are negative 09/18/2021 Patient is seen this morning and continues to be weak and recommending [facility] for continued PT/OT therapy. Patient continues on IV ceftriaxone with ID following. Urology consulted for right side hydronephrosis and is pending at this time. Hemoglobin is 7.1 today and patient states he feels weak and more tired and usually needs a blood transfusion when feeling like this. Will order one unit of PRBC and repeat labs. Per nursing staff, patient is still eating very poorly and discussed with the patient about the importance of nutrition. Patient has been accepted at some [facility] and pending urology evaluation. 09/19/2021 Patient has been seen by urology and recommending follow up outpatient in 1-2 weeks. Family at the bedside and requesting to take the patient today to [facility]. Patient will continue with ceftin 500mg twice daily for the next 3 days to complete the course. Patient will also need outpatient follow up with oncology once discharged from [facility]. Patient is agreeable to hold his weekly injections until discharged from [facility]. Patient will continue with accuchecks achs and continue consistent carb diet and sliding scale as needed. Possibly resume oral diabetic agents once eating more and blood sugars more controlled. Patient will be discharged to [facility]. Guarded prognosis. PHYSICAL EXAMINATION: GENERAL: The patient is alert and oriented x3, not in any acute distress. Well developed, well nourished. HEENT: Pupils are round and equally reacting to light. EOMI. No scleral icterus. No conjunctival pallor. Normocephalic, atraumatic. No pharyngeal erythema. No thyromegaly. CARDIOVASCULAR: S1 and S2 present. No murmurs, rubs, or gallops. PULMONARY: Chest is clear to auscultation, no wheezing or crackles. ABDOMEN: Soft, nontender, nondistended, normoactive bowel sounds. No palpable organomegaly. left Sided nephrostomy MUSCULOSKELETAL: No joint swelling or deformity. EXTREMITIES: No cyanosis, clubbing, or pedal edema. NEUROLOGICAL: Gross neurological examination did not reveal any focal deficits. SKIN: No rashes. Please refer to medication reconciliation sheet for a list of medications. Patient Condition at Discharge: Fair Plan - Discharge Summary Discharge Rx Participant: Yes New Discharge Prescriptions: New Loperamide [Imodium] 2 mg PO TID PRN #20 capsule PRN Reason: Diarrhea INSULIN ASPART (NovoLOG) [NovoLOG (formulary)] 0 unit SQ ACHS ml Acetaminophen Tab [Tylenol] 650 mg PO Q6HR PRN tab PRN Reason: Mild Pain Or Fever > 100.5 Continue Aspirin 81 mg PO DAILY Atorvastatin [Lipitor] 80 mg PO HS metFORMIN HCL 1,000 mg PO DAILY Calcium Carbonate/Vitamin D3 [Calcium 600 mg-Vit D3 5 mcg (200 unit)] 1 cap PO BID predniSONE 5 mg PO BID Pantoprazole [Protonix] 40 mg PO DAILY PRN PRN Reason: Heartburn Magnesium 250 mg PO BID ondansetron HCL [Zofran] 8 mg PO Q6H PRN PRN Reason: Nausea Tamsulosin [Flomax] 0.4 mg PO BID Allopurinol [Zyloprim] 100 mg PO DAILY ondansetron HCL [Zofran] 8 mg PO DAILY metFORMIN HCL 500 mg PO HS Abiraterone Acetate [Zytiga] 1,000 mg PO DAILY Cyanocobalamin (Vitamin B-12) [Vitamin B-12] 1,000 mcg PO DAILY Cefuroxime Axetil [Ceftin] 500 mg PO BID 7 Days #14 tab Discharge Medication List Aspirin 81 mg PO DAILY 05/06/14 [History] Allopurinol [Zyloprim] 100 mg PO DAILY 03/02/21 [History] Atorvastatin [Lipitor] 80 mg PO HS 03/02/21 [History] Tamsulosin [Flomax] 0.4 mg PO BID 03/02/21 [History] ondansetron HCL [Zofran] 8 mg PO DAILY 03/26/21 [History] metFORMIN HCL 1,000 mg PO DAILY 06/11/21 [History] metFORMIN HCL 500 mg PO HS 06/11/21 [History] Calcium Carbonate/Vitamin D3 [Calcium 600 mg-Vit D3 5 mcg (200 unit)] 1 cap PO BID 06/18/21 [History] Abiraterone Acetate [Zytiga] 1,000 mg PO DAILY 07/27/21 [History] predniSONE 5 mg PO BID 07/27/21 [History] Pantoprazole [Protonix] 40 mg PO DAILY PRN 07/30/21 [History] Cyanocobalamin (Vitamin B-12) [Vitamin B-12] 1,000 mcg PO DAILY 09/10/21 [History] Magnesium 250 mg PO BID 09/10/21 [History] ondansetron HCL [Zofran] 8 mg PO Q6H PRN 09/10/21 [History] Cefuroxime Axetil [Ceftin] 500 mg PO BID 7 Days #14 tab 09/13/21 [Rx] Acetaminophen Tab [Tylenol] 650 mg PO Q6HR PRN tab 09/18/21 [Rx] INSULIN ASPART (NovoLOG) [NovoLOG (formulary)] 0 unit SQ ACHS ml 09/18/21 [Rx] Loperamide [Imodium] 2 mg PO TID PRN #20 capsule 09/19/21 [Rx] Follow up Appointment(s)/Referral(s): Consuelo Diallo NPC [Primary Care Provider] - 1-2 days Patient Instructions/Handouts: Dehydration (DC), Weakness (DC), Fall Prevention (DC) Activity/Diet/Wound Care/Special Instructions: Activity as tolerated Follow-up with primary care provider on discharge Follow-up with oncology outpatient Continue current diet consistent carb Continue sliding scale NovoLog sliding scale 0-150 equals 0 units 151-200 equals 2 units 201-250 equals 4 units 251-300 equals 6 units 301-350 equals 8 units 351-400 equals 10 units Please notify provider if blood sugar is 400 or above Continue monitoring Accu-Cheks before meals and at bedtime Discharge Disposition: TRANSFER TO SNF/ECF
--- NOTE | 2021-09-19 22:16 | P.GSCN ---
History of Present Illness Consult date: 09/19/21 Reason for Consult: Right sided hydronephrosis History of present illness: This is a 71 yo male admitted to the hospital with weakness and fever. He has hx of castrate resistant prostate cancer. His most recent psa was 552 in . He has hx of bilateral hydronephrosis secondary to prostate cancer invasion into the bladder trigone. He has a left nephrotomy tube and a right ureteral stent. Stent was last changed on 08/01/[address] Porter. He underwent a CT on 09/17 which showed evidence of right sided hydronephrosis, stent in an appropriate position on imaging. creat on presentation was 2.0, trended down 1.0 with IV hydration. Of not he was discharged from the hospital on 09/13 for UTI, culture from current admission and admission on 09/10 showed no growth. His urinary symptoms are stable at his baseline. Review of Systems - Constitutional Reports fatigue, Reports weakness - Cardiovascular Denies chest pain, Denies shortness of breath - Respiratory Denies cough, Denies 7 - Gastrointestinal Reports as per HPI - Genitourinary Reports hematuria, Reports incontinence Past Medical History Past Medical History: Coronary Artery Disease (CAD), Cancer, Diabetes Mellitus, Hyperlipidemia, Hypertension, Prostate Disorder Additional Past Medical History / Comment(s): PROSTATE CANCER (SEED IMPLANTS). kidney stones, gout, frequent UTI's, bone cancer-getting chemo currently, anemia History of Any Multi-Drug Resistant Organisms: None Reported Past Surgical History: Coronary Bypass/CABG, Heart Catheterization, Hernia Repair, Joint Replacement Additional Past Surgical History / Comment(s): LITHOTRIPSY x 2, triple CABG 08/25/2018, rt knee replacement, elieser inguinal hernia and umbilical hernia repair, Past Anesthesia/Blood Transfusion Reactions: No Reported Reaction Date of Last Stent Placement:: 2004 Past Psychological History: No Psychological Hx Reported Smoking Status: Unknown if ever smoked Past Alcohol Use History: None Reported Past Drug Use History: None Reported - Past Family History Mother Family Medical History: Myocardial Infarction ([place]) Father Family Medical History: Myocardial Infarction ([place]) Medications and Allergies Home Medications Medication Instructions Recorded Confirmed Type Aspirin 81 mg PO DAILY 05/06/14 09/15/21 History Allopurinol [Zyloprim] 100 mg PO DAILY 03/02/21 09/15/21 History Atorvastatin [Lipitor] 80 mg PO HS 03/02/21 09/15/21 History Tamsulosin [Flomax] 0.4 mg PO BID 03/02/21 09/15/21 History ondansetron HCL [Zofran] 8 mg PO DAILY 03/26/21 09/15/21 History metFORMIN HCL 1,000 mg PO DAILY 06/11/21 09/15/21 History metFORMIN HCL 500 mg PO HS 06/11/21 09/15/21 History Calcium Carbonate/Vitamin D3 1 cap PO BID 06/18/21 09/15/21 History [Calcium 600 mg-Vit D3 5 mcg (200 unit)] Abiraterone Acetate [Zytiga] 1,000 mg PO DAILY 07/27/21 09/15/21 History predniSONE 5 mg PO BID 07/27/21 09/15/21 History Pantoprazole [Protonix] 40 mg PO DAILY PRN 07/30/21 09/15/21 History Cyanocobalamin (Vitamin B-12) 1,000 mcg PO DAILY 09/10/21 09/15/21 History [Vitamin B-12] Magnesium 250 mg PO BID 09/10/21 09/15/21 History ondansetron HCL [Zofran] 8 mg PO Q6H PRN 09/10/21 09/15/21 History Cefuroxime Axetil [Ceftin] 500 mg PO BID 7 Days #14 tab 09/13/21 09/15/21 Rx Acetaminophen Tab [Tylenol] 650 mg PO Q6HR PRN tab 09/18/21 Rx INSULIN ASPART (NovoLOG) [NovoLOG 0 unit SQ ACHS ml 09/18/21 Rx (formulary)] Loperamide [Imodium] 2 mg PO TID PRN #20 capsule 09/19/21 Rx Allergies Allergy/AdvReac Type Severity Reaction Status Date / Time cephalexin [From Keflex] AdvReac Diarrhea Verified 09/15/21 20:57 Surgical - Exam Vital Signs Temp Pulse Resp BP Pulse Ox 98.8 F 108 H 18 139/100 95 09/15/21 17:29 09/15/21 17:29 09/15/21 17:29 09/15/21 17:29 09/15/21 17:29 - General no distress, no pain - Respiratory normal expansion, normal respiratory effort - Psychiatric oriented to time, oriented to person, oriented to place Results - Labs 09/19/21 09:08 09/19/21 09:08 Abnormal Lab Results - Last 24 Hours (Table) 09/19/21 09/19/21 09/19/21 Range/Units 07:15 09:08 09:08 RBC 2.91 L (4.30-5.90) m/uL Hgb 8.3 L (13.0-17.5) gm/dL Hct 27.0 L (39.0-53.0) % MCHC 30.6 L (31.0-37.0) g/dL RDW 17.7 H (11.5-15.5) % Lymphocytes # (Manual) 0.99 L (1.0-4.8) k/uL Metamyelocytes # (Man) 0.13 H (0) k/uL Myelocytes # (Manual) 0.07 H (0) k/uL Potassium 3.0 L (3.5-5.1) mmol/L Chloride 109 H (98-107) mmol/L Glucose 131 H (74-99) mg/dL POC Glucose (mg/dL) 143 H (75-99) mg/dL Calcium 6.4 L* (8.4-10.2) mg/dL 09/19/21 Range/Units 11:54 RBC (4.30-5.90) m/uL Hgb (13.0-17.5) gm/dL Hct (39.0-53.0) % MCHC (31.0-37.0) g/dL RDW (11.5-15.5) % Lymphocytes # (Manual) (1.0-4.8) k/uL Metamyelocytes # (Man) (0) k/uL Myelocytes # (Manual) (0) k/uL Potassium (3.5-5.1) mmol/L Chloride (98-107) mmol/L Glucose (74-99) mg/dL POC Glucose (mg/dL) 134 H (75-99) mg/dL Calcium (8.4-10.2) mg/dL Microbiology - Last 24 Hours (Table) 09/16/21 09:01 Blood Culture - Preliminary Blood No Growth after 72 hours 09/16/21 09:03 Blood Culture - Preliminary Blood No Growth after 72 hours Diabetes panel 09/19/21 Range/Units 09:08 Sodium 140 (137-145) mmol/L Potassium 3.0 L (3.5-5.1) mmol/L Chloride 109 H (98-107) mmol/L Carbon Dioxide 24 (22-30) mmol/L BUN 12 (9-20) mg/dL Creatinine 1.00 (0.66-1.25) mg/dL Glucose 131 H (74-99) mg/dL Calcium 6.4 L* (8.4-10.2) mg/dL Calcium panel 09/19/21 Range/Units 09:08 Calcium 6.4 L* (8.4-10.2) mg/dL Pituitary panel 09/19/21 Range/Units 09:08 Sodium 140 (137-145) mmol/L Potassium 3.0 L (3.5-5.1) mmol/L Chloride 109 H (98-107) mmol/L Carbon Dioxide 24 (22-30) mmol/L BUN 12 (9-20) mg/dL Creatinine 1.00 (0.66-1.25) mg/dL Glucose 131 H (74-99) mg/dL Calcium 6.4 L* (8.4-10.2) mg/dL Adrenal panel 09/19/21 Range/Units 09:08 Sodium 140 (137-145) mmol/L Potassium 3.0 L (3.5-5.1) mmol/L Chloride 109 H (98-107) mmol/L Carbon Dioxide 24 (22-30) mmol/L BUN 12 (9-20) mg/dL Creatinine 1.00 (0.66-1.25) mg/dL Glucose 131 H (74-99) mg/dL Calcium 6.4 L* (8.4-10.2) mg/dL Assessment and Plan Assessment: This is a 71 yo male admitted to the hospital with weakness and fever. He has hx of castrate resistant locally advanced prostate cancer into the bladder trigon e. He has a left nephrotomy tube and a right ureteral stent. Stent was last changed on 08/01/[address] Porter. He underwent a CT on 09/17 which showed evidence of right sided hydronephrosis, creat a 1.0. -No acute surgical intervention. On CT stent is an appropriate position, Creat is at baseline with IV hydration, stent was recently changed by Dr Porter. Hydronephrosis is due to chronic dilation vs reflux from the stent. He is ok for discharge from urology standpoint. Can f/u as an outpatient with Dr Porter
--- NOTE | 2021-09-19 23:24 | P.PN ---
Progress Note - Text Progress Note Date: 09/19/21 REASON FOR FOLLOWUP: Complicated urinary tract infection. INTERVAL HISTORY: The patient remains to be afebrile, the patient is feeling slightly better. Patient denies having any chest pain, shortness of breath or cough. No abdominal pain or diarrhea. PHYSICAL EXAMINATION: Blood pressure is 156/80 with a pulse of 80, temperature 98.7. He is 96% on room air. General description is an elderly male lying in bed in no distress. Respiratory system: Unlabored breathing, decreased intensity of breath sounds. No wheeze. Heart S1, S2. Regular rate and rhythm. Abdomen soft, no tenderness. LABS: Reviewed DIAGNOSTIC IMPRESSION AND PLAN: Patient with a complicated urinary tract infection with evidence of right-sided hydronephrosis. Urology has been consulted. Patient to continue on Rocephin. Urine cultures has been negative so far in view of overall improvement of his fever with Rocephin. To finish therapy with oral Ceftin once cleared by Urology. An close outpatient follow-up
== END 2021-09-19 16:04 | DRG 699 ==
LOC: EC 17:18 → 5NMEDONC 20:25
PROVIDERS: ADMIT Internal Medicine; ATTEND Internal Medicine
DX: T83.512A Infection and inflammatory reaction due to nephrostomy catheter, initial encounter (principal); N39.0 Urinary tract infection, site not specified; C79.51 Secondary malignant neoplasm of bone; N13.6 Pyonephrosis; C61 Malignant neoplasm of prostate; C67.0 Malignant neoplasm of trigone of bladder; E11.22 Type 2 diabetes mellitus with diabetic chronic kidney disease; I12.9 Hypertensive chronic kidney disease with stage 1 through stage 4 chronic kidney disease, or unspecified chronic kidney disease; N18.30 Chronic kidney disease, stage 3 unspecified; D63.1 Anemia in chronic kidney disease; Z79.4 Long term (current) use of insulin; Z79.84 Long term (current) use of oral hypoglycemic drugs; E11.65 Type 2 diabetes mellitus with hyperglycemia; E78.5 Hyperlipidemia, unspecified; E86.0 Dehydration; I25.10 Atherosclerotic heart disease of native coronary artery without angina pectoris; R62.7 Adult failure to thrive; M62.50 Muscle wasting and atrophy, not elsewhere classified, unspecified site; M10.9 Gout, unspecified; R26.9 Unspecified abnormalities of gait and mobility; Y84.6 Urinary catheterization as the cause of abnormal reaction of the patient, or of later complication, without mention of misadventure at the time of the procedure; Z20.822 Contact with and (suspected) exposure to COVID-19; Z79.82 Long term (current) use of aspirin; Z79.899 Other long term (current) drug therapy; Z82.49 Family history of ischemic heart disease and other diseases of the circulatory system; Z87.440 Personal history of urinary (tract) infections; Z87.442 Personal history of urinary calculi; Z88.1 Allergy status to other antibiotic agents; Z93.6 Other artificial openings of urinary tract status; Z95.1 Presence of aortocoronary bypass graft; Z96.651 Presence of right artificial knee joint; Z96.0 Presence of urogenital implants; Z98.890 Other specified postprocedural states; Z79.52 Long term (current) use of systemic steroids; Z90.5 Acquired absence of kidney
CPT/HCPCS: 36415; 71046; 74018; 74177; 80048; 80053; 81001; 82550; 83036; 83605; 83690; 83735; 84484; 85025; 85027; 86850; 86900; 86901; 86920; 87040; 87324; 87635; 93005; 99285

== ENCOUNTER 2021-10-11 23:07 | Observation (INO) | payer MEDICARE ==
--- NOTE | 2021-10-11 23:18 | ED ---
Male Urogenital HPI - General Stated complaint: Urogenital Time Seen by Provider: 10/11/21 23:11 - Related Data Home Medications Medication Instructions Recorded Confirmed Aspirin 81 mg PO DAILY 05/06/14 09/15/21 Allopurinol [Zyloprim] 100 mg PO DAILY 03/02/21 09/15/21 Atorvastatin [Lipitor] 80 mg PO HS 03/02/21 09/15/21 Tamsulosin [Flomax] 0.4 mg PO BID 03/02/21 09/15/21 ondansetron HCL [Zofran] 8 mg PO DAILY 03/26/21 09/15/21 metFORMIN HCL 1,000 mg PO DAILY 06/11/21 09/15/21 metFORMIN HCL 500 mg PO HS 06/11/21 09/15/21 Calcium Carbonate/Vitamin D3 1 cap PO BID 06/18/21 09/15/21 [Calcium 600 mg-Vit D3 5 mcg (200 unit)] Abiraterone Acetate [Zytiga] 1,000 mg PO DAILY 07/27/21 09/15/21 predniSONE 5 mg PO BID 07/27/21 09/15/21 Pantoprazole [Protonix] 40 mg PO DAILY PRN 07/30/21 09/15/21 Cyanocobalamin (Vitamin B-12) 1,000 mcg PO DAILY 09/10/21 09/15/21 [Vitamin B-12] Magnesium 250 mg PO BID 09/10/21 09/15/21 ondansetron HCL [Zofran] 8 mg PO Q6H PRN 09/10/21 09/15/21 Previous Rx's Medication Instructions Recorded Cefuroxime Axetil [Ceftin] 500 mg PO BID 7 Days #14 tab 09/13/21 Acetaminophen Tab [Tylenol] 650 mg PO Q6HR PRN tab 09/18/21 INSULIN ASPART (NovoLOG) [NovoLOG 0 unit SQ ACHS ml 09/18/21 (formulary)] Loperamide [Imodium] 2 mg PO TID PRN #20 capsule 09/19/21 Allergies Allergy/AdvReac Type Severity Reaction Status Date / Time cephalexin [From Keflex] AdvReac Diarrhea Verified 09/15/21 20:57 Review of Systems ROS Statement: Those systems with pertinent positive or pertinent negative responses have been documented in the HPI. ROS Other: All systems not noted in ROS Statement are negative. Past Medical History Past Medical History: Coronary Artery Disease (CAD), Cancer, Diabetes Mellitus, Hyperlipidemia, Hypertension, Prostate Disorder Additional Past Medical History / Comment(s): PROSTATE CANCER (SEED IMPLANTS). kidney stones, gout, frequent UTI's, bone cancer-getting chemo currently, anemia History of Any Multi-Drug Resistant Organisms: None Reported Past Surgical History: Coronary Bypass/CABG, Heart Catheterization, Hernia Repair, Joint Replacement Additional Past Surgical History / Comment(s): LITHOTRIPSY x 2, triple CABG 08/25/2018, rt knee replacement, elieser inguinal hernia and umbilical hernia repair, Past Anesthesia/Blood Transfusion Reactions: No Reported Reaction Date of Last Stent Placement:: 2004 Past Psychological History: No Psychological Hx Reported Smoking Status: Unknown if ever smoked Past Alcohol Use History: None Reported Past Drug Use History: None Reported - Past Family History Mother Family Medical History: Myocardial Infarction ([place]) Father Family Medical History: Myocardial Infarction ([place]) Course Vital Signs 10/11/21 23:40 Temperature 98.5 F Pulse Rate 99 Respiratory 14 Rate Blood Pressure 144/92 O2 Sat by Pulse 98 Oximetry Medical Decision Making - Lab Data Result diagrams: 10/11/21 23:58 10/11/21 23:58 Lab Results 10/11/21 10/11/21 Range/Units 23:58 23:58 WBC 4.8 (3.8-10.6) k/uL RBC 3.10 L (4.30-5.90) m/uL Hgb 8.9 L (13.0-17.5) gm/dL Hct 28.4 L (39.0-53.0) % MCV 91.7 (80.0-100.0) fL MCH 28.7 (25.0-35.0) pg MCHC 31.3 (31.0-37.0) g/dL RDW 16.5 H (11.5-15.5) % Plt Count 155 (150-450) k/uL MPV 7.2 Neutrophils % (Manual) 72 % Band Neuts % (Manual) 9 % Lymphocytes % (Manual) 14 % Monocytes % (Manual) 2 % Eosinophils % (Manual) 1 % Metamyelocytes % 3 % Neutrophils # (Manual) 3.80 (1.3-7.7) k/uL Lymphocytes # (Manual) 0.67 L (1.0-4.8) k/uL Monocytes # (Manual) 0.10 (0-1.0) k/uL Eosinophils # (Manual) 0.05 (0-0.7) k/uL Metamyelocytes # (Man) 0.14 H (0) k/uL Nucleated RBCs 0 (0-0) /100 WBC Manual Slide Review Performed Polychromasia Present Hypochromasia Moderate Poikilocytosis Slight Anisocytosis Slight Tear Drop Cells Present Ovalocytes Present Fragmented RBCs Present Sodium 132 L (137-145) mmol/L Potassium 5.1 (3.5-5.1) mmol/L Chloride 106 (98-107) mmol/L Carbon Dioxide 20 L (22-30) mmol/L Anion Gap 6 mmol/L BUN 16 (9-20) mg/dL Creatinine 0.80 (0.66-1.25) mg/dL Est GFR (CKD-EPI)AfAm >90 (>60 ml/min/1.73 sqM) Est GFR (CKD-EPI)NonAf >90 (>60 ml/min/1.73 sqM) Glucose 122 H (74-99) mg/dL Calcium 7.2 L (8.4-10.2) mg/dL Total Bilirubin 0.9 (0.2-1.3) mg/dL AST 105 H (17-59) U/L ALT 71 H (4-49) U/L Alkaline Phosphatase 1249 H (38-126) U/L Total Protein 5.9 L (6.3-8.2) g/dL Albumin 2.7 L (3.5-5.0) g/dL Amylase 81 (30-110) U/L Lipase 328 H (23-300) U/L Disposition Clinical Impression: Bilateral flank pain, Weakness, Chronic pain Disposition: ADMITTED IP TO THIS [facility] Condition: Fair Is patient prescribed a controlled substance at d/c from ED?: No Referrals: Dmitry Del Valle MD [Primary Care Provider] - 1-2 days
[2021-10-11] MEDS ORDERED: SODIUM CHLORIDE 0.9% 1,000 ML IV STA (23:31)
[2021-10-11] MEDS ORDERED: MORPHINE SULFATE 4 MG/ML SYRINGE IV STA (23:31)
[2021-10-12 00:21] LABS: ALT 71 U/L (4-49); AST 105 U/L (17-59); African American GFR (CKD) >90 (>60 ml/min/1.73 sqM); Albumin 2.7 g/dL (3.5-5.0); Alkaline Phosphatase 1249 U/L (38-126); Amylase 81 U/L (30-110); Anion Gap 6 mmol/L; Blood Urea Nitrogen 16 mg/dL (9-20); Calcium 7.2 mg/dL (8.4-10.2); Carbon Dioxide 20 mmol/L (22-30); Chloride 106 mmol/L (98-107); Glucose 122 mg/dL (74-99); Lipase 328 U/L (23-300); Non-African American GFR(CKD) >90 (>60 ml/min/1.73 sqM); Potassium 5.1 mmol/L (3.5-5.1); Sodium 132 mmol/L (137-145); Total Bilirubin 0.9 mg/dL (0.2-1.3); Total Protein 5.9 g/dL (6.3-8.2)
[2021-10-12 00:37] LABS: Anisocytosis Slight; HCT 28.4 % (39.0-53.0); HGB 8.9 gm/dL (13.0-17.5); Hypochromasia Moderate; MCH 28.7 pg (25.0-35.0); MCHC 31.3 g/dL (31.0-37.0); MCV 91.7 fL (80.0-100.0); Mean Platelet Volume 7.2; Platelet Count 155 k/uL (150-450); Poikilocytosis Slight; RDW 16.5 % (11.5-15.5); WBC 4.8 k/uL (3.8-10.6)
[2021-10-12 01:27] LABS: Band Neutrophils % 9 %; Eosinophils # (M) 0.05 k/uL (0-0.7); Lymphocytes # (M) 0.67 k/uL (1.0-4.8); Metamyelocytes # (M) 0.14 k/uL (0); Metamyelocytes % 3 %; Neutrophils % (M) 72 %; Nucleated Red Blood Cells 0 /100 WBC (0-0); Total Cells Counted 200
[2021-10-12 01:28] LABS: Polychromasia Present
[2021-10-12 01:29] LABS: Ovalocytes Present; Tear Drop Cells Present
[2021-10-12 01:30] LABS: RBC Fragments Present
--- NOTE | 2021-10-12 01:42 | CT ---
EXAMINATION TYPE: CT abdomen pelvis wo con DATE OF EXAM: 10/12/2021 COMPARISON: 09/17/2021 HISTORY: right flank pain. history of bilateral nephrostomy tubes CT DLP: 720 mGycm Automated exposure control for dose reduction was used. Images obtained from the diaphragm to the floor the pelvis without contrast. There are some fibrotic changes and atelectasis at the lung bases. Heart is borderline enlarged. Ther e is no pericardial effusion. There are sternal wires. There is a mass on the anterior and posterior aspect of the sternum measuring 4.6 cm in diameter. There is dense coronary artery calcification. Liver spleen and stomach pancreas appear intact. The bile ducts are not dilated. There is no dilated ducts. Gallbladder is somewhat contracted. There is no adrenal mass. Left kidney is small with ureteral stent in good position. There is left-si ded nephrostomy tube. There is a 3 cm cortical cyst lateral left kidney. There is no left-sided hydro nephrosis. Appendix is posterior and appears normal. There is right-sided ureteral stent that appears in fairly good position. There is moderate right hyd ronephrosis. Bladder distends smoothly. No atrophy seen over the right kidney. There is no retroperit michael adenopathy. Abdominal aorta is atheromatous. Ureters are not dilated. 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 There are numerous diverticula in the sigmoid colon. I see no sign of diverticulitis. There is some m ild presacral edema. The lumbar vertebrae have normal alignment. There is no compression fracture. There is extensive oste oblastic changes in the lumbar spine and to lesser extent the bony pelvis. IMPRESSION: Bilateral nephrostomy tubes appear in good position. Right-sided hydronephrosis. Advanced left renal atrophy. Kidneys appear unchanged compared to recent exam. Moderate sigmoid diverticulosis without diverticulitis. There is some presacral edema without change. Osteoblastic changes consistent with metastatic disease unchanged. Sternal mass suggestive of metasta tic disease. There is significant improvement in the infiltrates and pleural fluid and atelectasis at the lung bas es compared to old exam.
[2021-10-12] MEDS ORDERED: MORPHINE SULFATE 4 MG/ML SYRINGE IV PRN (02:09)
[2021-10-12] MEDS ORDERED: ONDANSETRON 4 MG/2 ML VIAL IVP PRN (02:09)
[2021-10-12] MEDS ORDERED: LORazepam 2 MG/ML INJ IV PRN (02:09)
[2021-10-12] MEDS ORDERED: NALOXONE 0.4 MG/ML 1 ML VIAL IV PRN (02:09)
[2021-10-12] MEDS: SODIUM CHLORIDE 0.9% 1,000 ML IV SCH ×3 (05:02→18:06)
[2021-10-12 07:05] LABS: Glucose,Whole Blood 90 mg/dL (75-99)
[2021-10-12] MEDS ORDERED: guaiFENesin-DM 100-10MG/5ML 10 ML CUP PO PRN (11:03)
--- NOTE | 2021-10-12 11:17 | P.DS ---
Providers Date of admission: 10/12/21 02:09 Attending physician: Tor Dickey Consults: 10/12/21 02:10 Consult Physician Routine Consulting Provider: Gennaro Porter Consult Reason/Comments: known Do you want consulting provider notified?: Yes Primary care physician: Dmitry Del Valle Hospital Course: Refer to my HPI for further details Patient Condition at Discharge: Fair Plan - Discharge Summary Discharge Rx Participant: No New Discharge Prescriptions: No Action Aspirin 81 mg PO DAILY Atorvastatin [Lipitor] 80 mg PO HS predniSONE 5 mg PO BID Hydrocortisone Cream [Hydrocortisone 2.5% Cream] 1 applic TOPICAL BID@0900,1700 Potassium Chloride ER [K-Dur 20] 20 meq PO Q12H Insulin Lispro [humaLOG Kwikpen] See Protocol SQ BID@0900,1700 Calcium Carbonate/Vitamin D3 [Calcium 600 mg-D3 10 Mcg (400 Iu)] 1 cap PO Q12H Zinc 50 mg PO DAILY Cyanocobalamin [Vitamin B-12] 1,000 mcg PO DAILY Magnesium Oxide [Mag-Ox] 800 mg PO DAILY Tamsulosin [Flomax] 0.8 mg PO HS Allopurinol [Zyloprim] 100 mg PO DAILY ondansetron HCL [Zofran] 8 mg PO DAILY guaiFENesin-DM 100-10MG/5ML [Robitussin DM] 10 ml PO Q4H PRN PRN Reason: Cough Lactobacillus Acidophilus [Acidophilus Probiotic] 1 cap PO BID Magnesium Oxide [Mag-Ox] 400 mg PO HS Cholecalciferol [Vitamin D3 (25 Mcg = 1000 Iu)] 50 mcg PO DAILY Ascorbic Acid [Vitamin C] 500 mg PO DAILY Discharge Medication List Aspirin 81 mg PO DAILY 05/06/14 [History] Allopurinol [Zyloprim] 100 mg PO DAILY 03/02/21 [History] Atorvastatin [Lipitor] 80 mg PO HS 03/02/21 [History] Tamsulosin [Flomax] 0.8 mg PO HS 03/02/21 [History] ondansetron HCL [Zofran] 8 mg PO DAILY 03/26/21 [History] predniSONE 5 mg PO BID 07/27/21 [History] Ascorbic Acid [Vitamin C] 500 mg PO DAILY 10/12/21 [History] Calcium Carbonate/Vitamin D3 [Calcium 600 mg-D3 10 Mcg (400 Iu)] 1 cap PO Q12H 10/12/21 [History] Cholecalciferol [Vitamin D3 (25 Mcg = 1000 Iu)] 50 mcg PO DAILY 10/12/21 [History] Cyanocobalamin [Vitamin B-12] 1,000 mcg PO DAILY 10/12/21 [History] Hydrocortisone Cream [Hydrocortisone 2.5% Cream] 1 applic TOPICAL BID@0900,1700 10/12/21 [History] Insulin Lispro [humaLOG Kwikpen] See Protocol SQ BID@0900,1700 10/12/21 [History] Lactobacillus Acidophilus [Acidophilus Probiotic] 1 cap PO BID 10/12/21 [History] Magnesium Oxide [Mag-Ox] 400 mg PO HS 10/12/21 [History] Magnesium Oxide [Mag-Ox] 800 mg PO DAILY 10/12/21 [History] Potassium Chloride ER [K-Dur 20] 20 meq PO Q12H 10/12/21 [History] Zinc 50 mg PO DAILY 10/12/21 [History] guaiFENesin-DM 100-10MG/5ML [Robitussin DM] 10 ml PO Q4H PRN 10/12/21 [History] Follow up Appointment(s)/Referral(s): Dmitry Del Valle MD [Primary Care Provider] - 1-2 days
--- NOTE | 2021-10-12 11:17 | P.HPIM ---
History of Present Illness 71-year-old male was sent in because of her pain in the right flank area. Patient had a right ureteral stent and has hydronephrosis patient is computed tomography scan of the abdomen which showed hydronephrosis appears to be fairly stable compared to the previous CTs patient's abdominal pain completely resolved at this time. Patient denied any fever chills. Patient doesn't have any leukocytosis no evidence of urinary tract infection at this time patient has a left-sided nephrostomy tube which appears to be draining well. Unfortunately he didn't see any other documentation from a ER physician all the history was obtained from the patient and the nursing staff. Do not see any urine analysis that is available at this time and do not believe is necessary at this time patient has mildly elevated liver enzymes with highly elevated PHOSPHATASE WHICH NEED TO BE REPEATED AN OUTPATIENT AGAIN IN ABOUT 3 DAYS ON FRIDAY. It appears patient was sent to ER with concerns of right ureteral obstruction which is not evident at this time. REVIEW OF SYSTEMS: CONSTITUTIONAL: No fever, no malaise, no fatigue. HEENT: No recent visual problems or hearing problems. Denied any sore throat. CARDIOVASCULAR: No chest pain, orthopnea, PND, no palpitations, no syncope. PULMONARY: No shortness of breath, no cough, no hemoptysis. GASTROINTESTINAL: No diarrhea, no nausea, no vomiting, no abdominal pain. NEUROLOGICAL: No headaches, no weakness, no numbness. HEMATOLOGICAL: Denies any bleeding or petechiae. GENITOURINARY: Denies any burning micturition, frequency, or urgency. MUSCULOSKELETAL/RHEUMATOLOGICAL: Denies any joint pain, swelling, or any muscle pain. ENDOCRINE: Denies any polyuria or polydipsia. The rest of the 14-point review of systems is negative. PHYSICAL EXAMINATION: GENERAL: The patient is alert and oriented x3, not in any acute distress. Well developed, well nourished. HEENT: Pupils are round and equally reacting to light. EOMI. No scleral icterus. No conjunctival pallor. Normocephalic, atraumatic. No pharyngeal erythema. No thyromegaly. CARDIOVASCULAR: S1 and S2 present. No murmurs, rubs, or gallops. PULMONARY: Chest is clear to auscultation, no wheezing or crackles. ABDOMEN: Soft, nontender, nondistended, normoactive bowel sounds. No palpable organomegaly. MUSCULOSKELETAL: No joint swelling or deformity. EXTREMITIES: No cyanosis, clubbing, or pedal edema. NEUROLOGICAL: Gross neurological examination did not reveal any focal deficits. SKIN: No rashes. Assessment and plan -Right sided flank pain with concerns of ureteral obstruction patient does have hydronephrosis which appears to be chronic and stable urology will evaluate the patient if cleared by urology patient will be discharged today. Patient's right-sided flank pain completely resolved at this time. -Prostate cancer with the osseous metastasis and a chronic ureteral obstruction with a right-sided stent and left-sided nephrostomy. -Coronary artery disease -Type 2 diabetes mellitus continue with home regimen next and-hyperlipidemia -Hypertension DVT prophylaxis: Patient will be discharged today. Past Medical History Past Medical History: Coronary Artery Disease (CAD), Cancer, Diabetes Mellitus, Hyperlipidemia, Hypertension, Prostate Disorder Additional Past Medical History / Comment(s): PROSTATE CANCER (SEED IMPLANTS). kidney stones, gout, frequent UTI's, bone cancer , anemia History of Any Multi-Drug Resistant Organisms: None Reported Past Surgical History: Coronary Bypass/CABG, Heart Catheterization, Hernia Repair, Joint Replacement Additional Past Surgical History / Comment(s): LITHOTRIPSY x 2, triple CABG 08/25/2018, rt knee replacement, elieser inguinal hernia and umbilical hernia repair, Past Anesthesia/Blood Transfusion Reactions: No Reported Reaction Date of Last Stent Placement:: 2004 Past Psychological History: No Psychological Hx Reported Smoking Status: Unknown if ever smoked Past Alcohol Use History: None Reported Past Drug Use History: None Reported - Past Family History Mother Family Medical History: Myocardial Infarction ([place]) Father Family Medical History: Myocardial Infarction ([place]) Medications and Allergies Home Medications Medication Instructions Recorded Confirmed Type Aspirin 81 mg PO DAILY 05/06/14 10/12/21 History Allopurinol [Zyloprim] 100 mg PO DAILY 03/02/21 10/12/21 History Atorvastatin [Lipitor] 80 mg PO HS 03/02/21 10/12/21 History Tamsulosin [Flomax] 0.8 mg PO HS 03/02/21 10/12/21 History ondansetron HCL [Zofran] 8 mg PO DAILY 03/26/21 10/12/21 History predniSONE 5 mg PO BID 07/27/21 10/12/21 History Ascorbic Acid [Vitamin C] 500 mg PO DAILY 10/12/21 10/12/21 History Calcium Carbonate/Vitamin D3 1 cap PO Q12H 10/12/21 10/12/21 History [Calcium 600 mg-D3 10 Mcg (400 Iu)] Cholecalciferol [Vitamin D3 (25 50 mcg PO DAILY 10/12/21 10/12/21 History Mcg = 1000 Iu)] Cyanocobalamin [Vitamin B-12] 1,000 mcg PO DAILY 10/12/21 10/12/21 History Hydrocortisone Cream 1 applic TOPICAL BID@0900,1700 10/12/21 10/12/21 History [Hydrocortisone 2.5% Cream] Insulin Lispro [humaLOG Kwikpen] See Protocol SQ BID@0900,1700 10/12/21 10/12/21 History Lactobacillus Acidophilus 1 cap PO BID 10/12/21 10/12/21 History [Acidophilus Probiotic] Magnesium Oxide [Mag-Ox] 400 mg PO HS 10/12/21 10/12/21 History Magnesium Oxide [Mag-Ox] 800 mg PO DAILY 10/12/21 10/12/21 History Potassium Chloride ER [K-Dur 20] 20 meq PO Q12H 10/12/21 10/12/21 History Zinc 50 mg PO DAILY 10/12/21 10/12/21 History guaiFENesin-DM 100-10MG/5ML 10 ml PO Q4H PRN 10/12/21 10/12/21 History [Robitussin DM] Allergies Allergy/AdvReac Type Severity Reaction Status Date / Time cephalexin [From Keflex] AdvReac Diarrhea Verified 10/12/21 07:58 Physical Exam Vitals: Vital Signs Temp Pulse Pulse Resp BP BP Pulse Ox 10/12/21 07:00 98.0 F 75 17 167/85 98 10/12/21 04:42 97.4 F L 88 16 136/79 97 10/12/21 02:58 92 14 139/87 94 L 10/11/21 23:40 98.5 F 99 14 144/92 98 Intake and Output 10/11/21 10/12/21 10/12/21 22:59 06:59 14:59 Intake Total 200 Output Total 500 Balance 200 -500 Intake: Intake, IV Titration 200 Amount Sodium Chloride 0.9% 1, 200 000 ml @ 130 mls/hr IV . Q7H42M [facility] Rx#:[id number] Output: Urine 500 Other: Weight 97.522 kg Results CBC & Chem 7: 10/11/21 23:58 10/11/21 23:58 Labs: Abnormal Lab Results - Last 24 Hours (Table) 10/11/21 10/11/21 Range/Units 23:58 23:58 RBC 3.10 L (4.30-5.90) m/uL Hgb 8.9 L (13.0-17.5) gm/dL Hct 28.4 L (39.0-53.0) % RDW 16.5 H (11.5-15.5) % Lymphocytes # (Manual) 0.67 L (1.0-4.8) k/uL Metamyelocytes # (Man) 0.14 H (0) k/uL Sodium 132 L (137-145) mmol/L Carbon Dioxide 20 L (22-30) mmol/L Glucose 122 H (74-99) mg/dL Calcium 7.2 L (8.4-10.2) mg/dL AST 105 H (17-59) U/L ALT 71 H (4-49) U/L Alkaline Phosphatase 1249 H (38-126) U/L Total Protein 5.9 L (6.3-8.2) g/dL Albumin 2.7 L (3.5-5.0) g/dL Lipase 328 H (23-300) U/L Thrombosis Risk Factor Assmnt - Choose All That Apply Any of the Below Risk Factors Present?: Yes Other Risk Factors: Yes Each Risk Factor Represents 2 Points: Age 61-74 years Thrombosis Risk Factor Assessment Total Risk Factor Score: 2 Thrombosis Risk Factor Assessment Level: Low Risk
[2021-10-12 11:30] LABS: Glucose,Whole Blood 95 mg/dL (75-99)
--- NOTE | 2021-10-12 13:31 | P.GSCN ---
History of Present Illness Consult date: 10/12/21 History of present illness: 71 yo male with hormone insensitive, widely metastatic prostate cancer to the bones, lymph nodes. He has a left n tube and right double j catheter changed novemeber 10. the patient comes in with progressive back pain and weakness.He c/o rt flank pain thinking the right stent was blocked but the pain is gone mow. His cr is normal and there is no hydro on the right.. He is seeing oncology but hasnt seen them in a while. THe pain is due to the mets. His creatinine is normal. His alk phos is notably elevated at 1249. He has had alot of hematuria. his hgb is 8. 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 Review of Systems All systems: negative - Constitutional Denies fever, Denies weight loss - EENT Eyes: denies blurred vision Ears, nose, mouth and throat: Denies dysphagia - Cardiovascular Denies chest pain, Denies shortness of breath - Respiratory Denies cough, Denies 7 - Gastrointestinal Reports as per HPI - Genitourinary Denies dysuria, Denies hematuria - Integumentary Denies rash, Denies unusual bruising - Neurological Denies headaches, Denies syncope - Hematologic/Lymphatic Denies easy bleeding, Denies easy bruising Past Medical History Past Medical History: Coronary Artery Disease (CAD), Cancer, Diabetes Mellitus, Hyperlipidemia, Hypertension, Prostate Disorder Additional Past Medical History / Comment(s): PROSTATE CANCER (SEED IMPLANTS). kidney stones, gout, frequent UTI's, bone cancer , anemia History of Any Multi-Drug Resistant Organisms: None Reported Past Surgical History: Coronary Bypass/CABG, Heart Catheterization, Hernia Repair, Joint Replacement Additional Past Surgical History / Comment(s): LITHOTRIPSY x 2, triple CABG 08/25/2018, rt knee replacement, elieser inguinal hernia and umbilical hernia repair, Past Anesthesia/Blood Transfusion Reactions: No Reported Reaction Date of Last Stent Placement:: 2004 Past Psychological History: No Psychological Hx Reported Smoking Status: Unknown if ever smoked Past Alcohol Use History: None Reported Past Drug Use History: None Reported - Past Family History Mother Family Medical History: Myocardial Infarction ([place]) Father Family Medical History: Myocardial Infarction ([place]) Medications and Allergies Home Medications Medication Instructions Recorded Confirmed Type Aspirin 81 mg PO DAILY 05/06/14 10/12/21 History Allopurinol [Zyloprim] 100 mg PO DAILY 03/02/21 10/12/21 History Atorvastatin [Lipitor] 80 mg PO HS 03/02/21 10/12/21 History Tamsulosin [Flomax] 0.8 mg PO HS 03/02/21 10/12/21 History ondansetron HCL [Zofran] 8 mg PO DAILY 03/26/21 10/12/21 History predniSONE 5 mg PO BID 07/27/21 10/12/21 History Ascorbic Acid [Vitamin C] 500 mg PO DAILY 10/12/21 10/12/21 History Calcium Carbonate/Vitamin D3 1 cap PO Q12H 10/12/21 10/12/21 History [Calcium 600 mg-D3 10 Mcg (400 Iu)] Cholecalciferol [Vitamin D3 (25 50 mcg PO DAILY 10/12/21 10/12/21 History Mcg = 1000 Iu)] Cyanocobalamin [Vitamin B-12] 1,000 mcg PO DAILY 10/12/21 10/12/21 History Hydrocortisone Cream 1 applic TOPICAL BID@0900,1700 10/12/21 10/12/21 History [Hydrocortisone 2.5% Cream] Insulin Lispro [humaLOG Kwikpen] See Protocol SQ BID@0900,1700 10/12/21 10/12/21 History Lactobacillus Acidophilus 1 cap PO BID 10/12/21 10/12/21 History [Acidophilus Probiotic] Magnesium Oxide [Mag-Ox] 400 mg PO HS 10/12/21 10/12/21 History Magnesium Oxide [Mag-Ox] 800 mg PO DAILY 10/12/21 10/12/21 History Potassium Chloride ER [K-Dur 20] 20 meq PO Q12H 10/12/21 10/12/21 History Zinc 50 mg PO DAILY 10/12/21 10/12/21 History guaiFENesin-DM 100-10MG/5ML 10 ml PO Q4H PRN 10/12/21 10/12/21 History [Robitussin DM] Allergies Allergy/AdvReac Type Severity Reaction Status Date / Time cephalexin [From Keflex] AdvReac Diarrhea Verified 10/12/21 07:58 Surgical - Exam Vital Signs Temp Pulse Resp BP Pulse Ox 98.5 F 99 14 144/92 98 10/11/21 23:40 10/11/21 23:40 10/11/21 23:40 10/11/21 23:40 10/11/21 23:40 - General mild distress well developed, well nourished - Eyes PERRL - ENT no hearing loss - Neck no masses - Respiratory normal respiratory effort - Cardiovascular Rhythm: regular - Abdomen left n tube Abdomen: soft, non tender - Genitourinary normal penis with no external lesions, testicles present - Psychiatric oriented to time, oriented to person, oriented to place, speech is normal, memory intact Results - Labs 10/11/21 23:58 10/11/21 23:58 Abnormal Lab Results - Last 24 Hours (Table) 10/11/21 10/11/21 Range/Units 23:58 23:58 RBC 3.10 L (4.30-5.90) m/uL Hgb 8.9 L (13.0-17.5) gm/dL Hct 28.4 L (39.0-53.0) % RDW 16.5 H (11.5-15.5) % Lymphocytes # (Manual) 0.67 L (1.0-4.8) k/uL Metamyelocytes # (Man) 0.14 H (0) k/uL Sodium 132 L (137-145) mmol/L Carbon Dioxide 20 L (22-30) mmol/L Glucose 122 H (74-99) mg/dL Calcium 7.2 L (8.4-10.2) mg/dL AST 105 H (17-59) U/L ALT 71 H (4-49) U/L Alkaline Phosphatase 1249 H (38-126) U/L Total Protein 5.9 L (6.3-8.2) g/dL Albumin 2.7 L (3.5-5.0) g/dL Lipase 328 H (23-300) U/L Diabetes panel 10/11/21 Range/Units 23:58 Sodium 132 L (137-145) mmol/L Potassium 5.1 (3.5-5.1) mmol/L Chloride 106 (98-107) mmol/L Carbon Dioxide 20 L (22-30) mmol/L BUN 16 (9-20) mg/dL Creatinine 0.80 (0.66-1.25) mg/dL Glucose 122 H (74-99) mg/dL Calcium 7.2 L (8.4-10.2) mg/dL AST 105 H (17-59) U/L ALT 71 H (4-49) U/L Alkaline Phosphatase 1249 H (38-126) U/L Total Protein 5.9 L (6.3-8.2) g/dL Albumin 2.7 L (3.5-5.0) g/dL Calcium panel 10/11/21 Range/Units 23:58 Calcium 7.2 L (8.4-10.2) mg/dL Albumin 2.7 L (3.5-5.0) g/dL Pituitary panel 10/11/21 Range/Units 23:58 Sodium 132 L (137-145) mmol/L Potassium 5.1 (3.5-5.1) mmol/L Chloride 106 (98-107) mmol/L Carbon Dioxide 20 L (22-30) mmol/L BUN 16 (9-20) mg/dL Creatinine 0.80 (0.66-1.25) mg/dL Glucose 122 H (74-99) mg/dL Calcium 7.2 L (8.4-10.2) mg/dL Adrenal panel 10/11/21 Range/Units 23:58 Sodium 132 L (137-145) mmol/L Potassium 5.1 (3.5-5.1) mmol/L Chloride 106 (98-107) mmol/L Carbon Dioxide 20 L (22-30) mmol/L BUN 16 (9-20) mg/dL Creatinine 0.80 (0.66-1.25) mg/dL Glucose 122 H (74-99) mg/dL Calcium 7.2 L (8.4-10.2) mg/dL Total Bilirubin 0.9 (0.2-1.3) mg/dL AST 105 H (17-59) U/L ALT 71 H (4-49) U/L Alkaline Phosphatase 1249 H (38-126) U/L Total Protein 5.9 L (6.3-8.2) g/dL Albumin 2.7 L (3.5-5.0) g/dL - Imaging CT scan - abdomen: report reviewed, image reviewed CT scan - pelvis: report reviewed, image reviewed Assessment and Plan Assessment: Impression: widely metastatic ca prostate, hormone insenstive with failure to thrive and back pain and secondary anemia due to bone marrow replacement with prostate cancer and chronic disease. Rec: nothing urological to do. I recommend an oncology consultationThe patient does have hematuria but alot of the anemia is due to decreased marrow blood production due to the mets. He really needs to discuss rx by the oncologists. WIth a psa greater than 500 the real problem is his cancer that is progressingdespite local and metastatic treatment. I can stop the bleeding but it would be only temporary unless the cancer can be controlled with chemo. Un fortunately the patients failure of acceptance of his advanced cancer is a real issue. The right stent doesnt need to be changed. THe left n tube is stable. If oncology needs furthere urological information or investigation please contact me.
[2021-10-12 14:52] LABS: Anisocytosis Slight; HCT 27.8 % (39.0-53.0); HGB 8.5 gm/dL (13.0-17.5); Hypochromasia Marked; MCH 28.5 pg (25.0-35.0); MCHC 30.8 g/dL (31.0-37.0); MCV 92.8 fL (80.0-100.0); Mean Platelet Volume 7.8; Platelet Count 147 k/uL (150-450); Poikilocytosis Slight; RBC 2.99 m/uL (4.30-5.90); RDW 16.4 % (11.5-15.5); Reticulocyte % 1.8 % (0.5-2.0); WBC 4.5 k/uL (3.8-10.6)
[2021-10-12 15:14] LABS: Partial Thromboplastin Time 25.4 sec (22.0-30.0); Prothrombin Time 10.4 sec (9.0-12.0)
[2021-10-12 15:39] LABS: Band Neutrophils % 1 %; Eosinophils # (M) 0.05 k/uL (0-0.7); Lymphocytes # (M) 0.27 k/uL (1.0-4.8); Metamyelocytes # (M) 0.09 k/uL (0); Metamyelocytes % 2 %; Monocytes # (M) 0.18 k/uL (0-1.0); Myelocytes # (M) 0.09 k/uL (0); Myelocytes % 2 %; Neutrophils % (M) 86 %; Nucleated Red Blood Cells 1 /100 WBC (0-0); Total Cells Counted 200
[2021-10-12 15:40] LABS: Ovalocytes Present; Poikilocytosis (M) Present; Tear Drop Cells Present
[2021-10-12 16:10] LABS: Appearance,Urine Cloudy (Clear); Bacteria,Urine Occasional /hpf; Bilirubin,Urine Negative (Negative); Blood,Urine Large (Negative); Color,Urine Red; Glucose,Urine (UA) Negative (Negative); Ketones,Urine Negative (Negative); Leukocyte Esterase,Urine Large (Negative); Nitrite,Urine Negative (Negative); Protein,Urine 2+ (Negative); RBC,Urine >182 /hpf (0-5); Specific Gravity,Urine 1.015 (1.001-1.035); Urobilinogen,Urine <2.0 mg/dL (<2.0); WBC,Urine 172 /hpf (0-5)
[2021-10-12 16:27] LABS: Glucose,Whole Blood 101 mg/dL (75-99)
[2021-10-12] MEDS: HYDROCORTISONE 1% CREAM 30 GM TUBE TOPICAL SCH (17:03)
--- NOTE | 2021-10-12 17:59 | P.CONS ---
History of Present Illness - Reason for Consult Consult date: 10/12/21 Metastatic Prostate Cancer Requesting physician: Gennaro Porter - History of Present Illness Metastatic prostate cancer HPI : This is a very nice patient who was diagnosed with prostate cancer in ,his pre treatment PSA was 48.3,there was a nodule detected on HAYLEY,biopsies revealed poorly differentiated carcinoma involving all cores. On 10/16/2005,he was treated with brachytherapy and went on LHRH agonist. Then due to rising PSA he was put back on LHRH agonist in around 2008,his PSA on 10/21/2019 was less than 0.1. On 05/02/2020,PSA was up to 27.0,serum testosterone was 14.0. On 05/12/2020,repeat PSA was 35.2 On 05/26/2020,CT scan of chest/abdomen/pelvis revealed osseous mets,left hydronephrosis. On 05/26/2020,bone scan revealed diffuse osseous metastasis. He was started on xtandi at that time,however,he did not take it regulary due to his copay,but had been on it now since without interruption. he was also started on xgeva by urology. Repeat PSA on 08/29/2020 was 7.8. Repeat PSA on 11/27/2020 was 18.0. On 01/23/2021,PSA was 63.2 On 02/13/2021,bone scan revealed diffuse osseous mets,CT scan of chest/abdomen/pelvius revealed diffuse osseous mets,no visceral disease,there was a left kidney stone causing hydronephrosis (seening urologist) He ended up with bilateral urostomies due to hydronephrosis. He declined to have provenge. He started taxotere on 03/20/2021. On 04/04/2021,PSA was 274. he developed UTI after his first cycle of chemo,he also fell and landed on left side,has left thigh pain and swelling in left leg,,he was again discharged from the hospital on 04/15/2021,he had blood transfusion while inpatient. He resumed taxotere (changed to weekly dosing due to tolerance) on 04/19/2021. He has a left nephrostomy tube placed on 06/13/2021. Review of Systems All systems: negative Constitutional: Reports as per HPI Past Medical History Past Medical History: Coronary Artery Disease (CAD), Cancer, Diabetes Mellitus, Hyperlipidemia, Hypertension, Prostate Disorder Additional Past Medical History / Comment(s): PROSTATE CANCER (SEED IMPLANTS). kidney stones, gout, frequent UTI's, bone cancer , anemia History of Any Multi-Drug Resistant Organisms: None Reported Past Surgical History: Coronary Bypass/CABG, Heart Catheterization, Hernia Repair, Joint Replacement Additional Past Surgical History / Comment(s): LITHOTRIPSY x 2, triple CABG 08/25/2018, rt knee replacement, elieser inguinal hernia and umbilical hernia repair, Past Anesthesia/Blood Transfusion Reactions: No Reported Reaction Date of Last Stent Placement:: 2004 Past Psychological History: No Psychological Hx Reported Smoking Status: Unknown if ever smoked Past Alcohol Use History: None Reported Past Drug Use History: None Reported - Past Family History Mother Family Medical History: Myocardial Infarction ([place]) Father Family Medical History: Myocardial Infarction ([place]) Medications and Allergies Home Medications Medication Instructions Recorded Confirmed Type Aspirin 81 mg PO DAILY 05/06/14 10/12/21 History Allopurinol [Zyloprim] 100 mg PO DAILY 03/02/21 10/12/21 History Atorvastatin [Lipitor] 80 mg PO HS 03/02/21 10/12/21 History Tamsulosin [Flomax] 0.8 mg PO HS 03/02/21 10/12/21 History ondansetron HCL [Zofran] 8 mg PO DAILY 03/26/21 10/12/21 History predniSONE 5 mg PO BID 07/27/21 10/12/21 History Ascorbic Acid [Vitamin C] 500 mg PO DAILY 10/12/21 10/12/21 History Calcium Carbonate/Vitamin D3 1 cap PO Q12H 10/12/21 10/12/21 History [Calcium 600 mg-D3 10 Mcg (400 Iu)] Cholecalciferol [Vitamin D3 (25 50 mcg PO DAILY 10/12/21 10/12/21 History Mcg = 1000 Iu)] Cyanocobalamin [Vitamin B-12] 1,000 mcg PO DAILY 10/12/21 10/12/21 History Hydrocortisone Cream 1 applic TOPICAL BID@0900,1700 10/12/21 10/12/21 History [Hydrocortisone 2.5% Cream] Insulin Lispro [humaLOG Kwikpen] See Protocol SQ BID@0900,1700 10/12/21 10/12/21 History Lactobacillus Acidophilus 1 cap PO BID 10/12/21 10/12/21 History [Acidophilus Probiotic] Magnesium Oxide [Mag-Ox] 400 mg PO HS 10/12/21 10/12/21 History Magnesium Oxide [Mag-Ox] 800 mg PO DAILY 10/12/21 10/12/21 History Potassium Chloride ER [K-Dur 20] 20 meq PO Q12H 10/12/21 10/12/21 History Zinc 50 mg PO DAILY 10/12/21 10/12/21 History guaiFENesin-DM 100-10MG/5ML 10 ml PO Q4H PRN 10/12/21 10/12/21 History [Robitussin DM] Allergies Allergy/AdvReac Type Severity Reaction Status Date / Time cephalexin [From Keflex] AdvReac Diarrhea Verified 10/12/21 07:58 Physical Exam Vitals: Vital Signs Temp Pulse Pulse Resp BP BP Pulse Ox 10/12/21 07:00 98.0 F 75 17 167/85 98 10/12/21 04:42 97.4 F L 88 16 136/79 97 10/12/21 02:58 92 14 139/87 94 L 10/11/21 23:40 98.5 F 99 14 144/92 98 Intake and Output 10/11/21 10/12/21 10/12/21 22:59 06:59 14:59 Intake Total 200 Output Total 500 Balance 200 -500 Intake: Intake, IV Titration 200 Amount Sodium Chloride 0.9% 1, 200 000 ml @ 130 mls/hr IV . Q7H42M [facility] Rx#:[id number] Output: Urine 500 Other: Weight 97.522 kg - Constitutional General appearance: cooperative, no acute distress - EENT Eyes: EOMI ENT: hard of hearing, NA/AT - Respiratory Respiratory: bilateral: CTA - Cardiovascular Rhythm: regularly irregular - Gastrointestinal General gastrointestinal: soft - Integumentary Integumentary: pale - Neurologic Neurologic: CNII-XII intact - Musculoskeletal Musculoskeletal: generalized weakness - Psychiatric Psychiatric: A&O x's 3 Results CBC & Chem 7: 10/12/21 14:39 10/11/21 23:58 Labs: Abnormal Lab Results - Last 24 Hours (Table) 10/11/21 10/11/21 Range/Units 23:58 23:58 RBC 3.10 L (4.30-5.90) m/uL Hgb 8.9 L (13.0-17.5) gm/dL Hct 28.4 L (39.0-53.0) % RDW 16.5 H (11.5-15.5) % Lymphocytes # (Manual) 0.67 L (1.0-4.8) k/uL Metamyelocytes # (Man) 0.14 H (0) k/uL Sodium 132 L (137-145) mmol/L Carbon Dioxide 20 L (22-30) mmol/L Glucose 122 H (74-99) mg/dL Calcium 7.2 L (8.4-10.2) mg/dL AST 105 H (17-59) U/L ALT 71 H (4-49) U/L Alkaline Phosphatase 1249 H (38-126) U/L Total Protein 5.9 L (6.3-8.2) g/dL Albumin 2.7 L (3.5-5.0) g/dL Lipase 328 H (23-300) U/L Assessment and Plan (1) Anemia Current Visit: No Status: Acute Code(s): D64.9 - ANEMIA, UNSPECIFIED SNOMED Code(s): 206817634 (2) Hematuria Current Visit: No Status: Acute Code(s): R31.9 - HEMATURIA, UNSPECIFIED SNOMED Code(s): 15245061 (3) Metastatic castration-resistant adenocarcinoma of prostate Current Visit: No Status: Chronic Priority: Medium Code(s): C61 - MALIGNANT NEOPLASM OF PROSTATE; Z19.2 - HORMONE RESISTANT MALIGNANCY STATUS SNOMED Code(s): 760631936 Plan: Most recent PSA was 583, hemoglobin stable while here as his baseline is 7.5-8.5 (secondary to metastatic disease in bone/bone marrow) with compoenent of iron deficiency blood loss hematuria. Will re-evaluate disease status and follow-up with Dr. Gastelum within the next 2-4 weeks for any potential adjustments. Anemia work-up and repeat PSA. Pain management at discharge Ok for discharge from oncology stand point. he will call office after discharged from rehab and he will restart zytiga at that time as well Physician Attest: I have completed the full history an physical and agree with above dictation, dictated as a scribe.
[2021-10-12] MEDS: predniSONE 5 MG TAB PO SCH (19:09)
[2021-10-12] MEDS: CALCIUM CARB-VIT D 500 MG-5 MCG TAB PO SCH (19:09)
[2021-10-12] MEDS: MAGNESIUM OXIDE 400 MG TAB PO SCH (19:09)
[2021-10-12] MEDS ORDERED: TAMSULOSIN 0.4 MG CAP.ER.24H PO SCH (21:00)
[2021-10-12] MEDS ORDERED: ATORVASTATIN 80 MG TAB PO SCH (21:00)
[2021-10-13] MEDS: SODIUM CHLORIDE 0.9% 1,000 ML IV SCH ×2 (01:39→10:34)
[2021-10-13 03:24] LABS: % Iron Saturation 43.97 (15.00-50.00)
[2021-10-13 04:36] LABS: Folate, Serum 3.8 ng/mL (4.40-31.00)
[2021-10-13 08:12] VITALS: BP 113/74; PULSE 112; RESP 18; TEMP 98.3
[2021-10-13] MEDS ORDERED: CHOLECALCIFEROL 25 MCG (1000 IU) TABLET PO SCH (09:00)
[2021-10-13] MEDS ORDERED: ASPIRIN 81 MG PO SCH (09:00)
[2021-10-13] MEDS ORDERED: ONDANSETRON 4 MG TAB PO SCH (09:00)
[2021-10-13] MEDS ORDERED: MAGNESIUM OXIDE 400 MG TAB PO SCH (09:00)
[2021-10-13] MEDS ORDERED: ZINC SULFATE 220 MG CAP PO SCH (09:00)
[2021-10-13] MEDS ORDERED: CYANOCOBALAMIN 500 MCG TAB PO SCH (09:00)
[2021-10-13] MEDS ORDERED: allopurinoL 100 MG TAB PO SCH (09:00)
[2021-10-13] MEDS ORDERED: ASCORBIC ACID 500 MG TAB PO SCH (09:00)
[2021-10-13 09:06] LABS: HCT 26.7 % (39.6-50.0); MCH 27.7 pg (27.0-32.0); MCV 92.4 fL (80.0-97.0); Mean Platelet Volume 9.4 fL (9.5-12.2); Platelet Count 127 X 10*3/uL (140-440); RBC 2.89 X 10*6/uL (4.40-5.60); RDW 16.4 % (11.5-14.5); WBC 4.75 X 10*3/uL (4.50-10.00)
[2021-10-13 09:25] LABS: Albumin 2.4 g/dL (3.8-4.9); Albumin/Globulin Ratio 0.96 (1.60-3.17); Anion Gap 9.7 mmol/L (10.00-18.00); BUN/Creat Ratio 16.57 Ratio (12.00-20.00); Blood Urea Nitrogen 11.6 mg/dL (9.0-27.0); Calcium 6.3 mg/dL (8.7-10.3); Carbon Dioxide 20.3 mmol/L (20.0-27.5); Globulin 2.5 g/dL (1.6-3.3); Non-African American GFR(CKD) 94.9 (60.0-200.0); Potassium 4.1 mmol/L (3.5-5.5); Total Bilirubin 0.4 mg/dL (0.30-1.20); Total Protein 4.9 g/dL (6.2-8.2)
[2021-10-13 09:53] LABS: Acanthocytes 2+; Basophils # (M) 0 X 10*3/uL (0.00-0.10); Eosinophils # (M) 0.05 X 10*3/uL (0.04-0.35); Lymphocytes # (M) 0.29 X 10*3/uL (0.90-5.00); Metamyelocytes % 2 % (0-0); Myelocytes % 1 % (0-0); Neutrophils # (M) 4.18 X 10*3/uL (2.00-8.90); Neutrophils % (M) 88 %
[2021-10-13] MEDS: CALCIUM CARB-VIT D 500 MG-5 MCG TAB PO SCH (10:17)
[2021-10-13] MEDS: MAGNESIUM OXIDE 400 MG TAB PO SCH ×2 (10:18→10:19)
[2021-10-13] MEDS: HYDROCORTISONE 1% CREAM 30 GM TUBE TOPICAL SCH (10:20)
[2021-10-13] MEDS: predniSONE 5 MG TAB PO SCH (10:21)
--- NOTE | 2021-10-13 11:14 | P.DS ---
Providers Date of admission: 10/12/21 02:09 Attending physician: Tor Dickey Consults: 10/12/21 02:10 Consult Physician Routine Consulting Provider: Gennaro Porter Consult Reason/Comments: known Do you want consulting provider notified?: Yes 10/12/21 13:38 Consult Physician Urgent Consulting Provider: Monica Gastelum Consult Reason/Comments: metastatic prostate cancer Do you want consulting provider notified?: Yes Primary care physician: [facility] Course: 71-year-old male was sent in because of her pain in the right flank area. Patient had a right ureteral stent and has hydronephrosis patient is computed tomography scan of the abdomen which showed hydronephrosis appears to be fairly stable compared to the previous CTs patient's abdominal pain completely resolved at this time. Patient denied any fever chills. Patient doesn't have any leukocytosis no evidence of urinary tract infection at this time patient has a left-sided nephrostomy tube which appears to be draining well. Unfortunately he didn't see any other documentation from a ER physician all the history was obtained from the patient and the nursing staff. Do not see any urine analysis that is available at this time and do not believe is necessary at this time patient has mildly elevated liver enzymes with highly elevated PHOSPHATASE WHICH NEED TO BE REPEATED AN OUTPATIENT AGAIN IN ABOUT 3 DAYS ON FRIDAY. It appears patient was sent to ER with concerns of right ureteral obstruction which is not evident at this time. 10/13/2021 Patient was discharged yesterday but the end up staying the hospital as a urology recommended oncology evaluation oncology evaluated the patient is recommending outpatient follow-up. Patient urine is significant abnormal because of the nephrostomy tube but no evidence of infection at this time as patient doesn't have any fever and leukocytosis patient will not require any antibiotics patient will be discharged today to subacute rehabilitation. PHYSICAL EXAMINATION: GENERAL: The patient is alert and oriented x3, not in any acute distress. Well developed, well nourished. HEENT: Pupils are round and equally reacting to light. EOMI. No scleral icterus. No conjunctival pallor. Normocephalic, atraumatic. No pharyngeal erythema. No thyromegaly. CARDIOVASCULAR: S1 and S2 present. No murmurs, rubs, or gallops. PULMONARY: Chest is clear to auscultation, no wheezing or crackles. ABDOMEN: Soft, nontender, nondistended, normoactive bowel sounds. No palpable organomegaly. MUSCULOSKELETAL: No joint swelling or deformity. EXTREMITIES: No cyanosis, clubbing, or pedal edema. NEUROLOGICAL: Gross neurological examination did not reveal any focal deficits. SKIN: No rashes. Assessment and plan -Right sided flank pain with concerns of ureteral obstruction patient does have hydronephrosis which appears to be chronic and stable urology will evaluate the patient if cleared by urology patient will be discharged today. Patient's right-sided flank pain completely resolved at this time. -Prostate cancer with the osseous metastasis and a chronic ureteral obstruction with a right-sided stent and left-sided nephrostomy. -Coronary artery disease -Type 2 diabetes mellitus continue with home regimen -hyperlipidemia -Hypertension Patient Condition at Discharge: Fair Plan - Discharge Summary Discharge Rx Participant: No New Discharge Prescriptions: No Action Aspirin 81 mg PO DAILY Atorvastatin [Lipitor] 80 mg PO HS predniSONE 5 mg PO BID Hydrocortisone Cream [Hydrocortisone 2.5% Cream] 1 applic TOPICAL BID@0900,1700 Potassium Chloride ER [K-Dur 20] 20 meq PO Q12H Insulin Lispro [humaLOG Kwikpen] See Protocol SQ BID@0900,1700 Calcium Carbonate/Vitamin D3 [Calcium 600 mg-D3 10 Mcg (400 Iu)] 1 cap PO Q12H Zinc 50 mg PO DAILY Cyanocobalamin [Vitamin B-12] 1,000 mcg PO DAILY Magnesium Oxide [Mag-Ox] 800 mg PO DAILY Tamsulosin [Flomax] 0.8 mg PO HS Allopurinol [Zyloprim] 100 mg PO DAILY ondansetron HCL [Zofran] 8 mg PO DAILY guaiFENesin-DM 100-10MG/5ML [Robitussin DM] 10 ml PO Q4H PRN PRN Reason: Cough Lactobacillus Acidophilus [Acidophilus Probiotic] 1 cap PO BID Magnesium Oxide [Mag-Ox] 400 mg PO HS Cholecalciferol [Vitamin D3 (25 Mcg = 1000 Iu)] 50 mcg PO DAILY Ascorbic Acid [Vitamin C] 500 mg PO DAILY Discharge Medication List Aspirin 81 mg PO DAILY 05/06/14 [History] Allopurinol [Zyloprim] 100 mg PO DAILY 03/02/21 [History] Atorvastatin [Lipitor] 80 mg PO HS 03/02/21 [History] Tamsulosin [Flomax] 0.8 mg PO HS 03/02/21 [History] ondansetron HCL [Zofran] 8 mg PO DAILY 03/26/21 [History] predniSONE 5 mg PO BID 07/27/21 [History] Ascorbic Acid [Vitamin C] 500 mg PO DAILY 10/12/21 [History] Calcium Carbonate/Vitamin D3 [Calcium 600 mg-D3 10 Mcg (400 Iu)] 1 cap PO Q12H 10/12/21 [History] Cholecalciferol [Vitamin D3 (25 Mcg = 1000 Iu)] 50 mcg PO DAILY 10/12/21 [History] Cyanocobalamin [Vitamin B-12] 1,000 mcg PO DAILY 10/12/21 [History] Hydrocortisone Cream [Hydrocortisone 2.5% Cream] 1 applic TOPICAL BID@0900,1700 10/12/21 [History] Insulin Lispro [humaLOG Kwikpen] See Protocol SQ BID@0900,1700 10/12/21 [History] Lactobacillus Acidophilus [Acidophilus Probiotic] 1 cap PO BID 10/12/21 [History] Magnesium Oxide [Mag-Ox] 400 mg PO HS 10/12/21 [History] Magnesium Oxide [Mag-Ox] 800 mg PO DAILY 10/12/21 [History] Potassium Chloride ER [K-Dur 20] 20 meq PO Q12H 10/12/21 [History] Zinc 50 mg PO DAILY 10/12/21 [History] guaiFENesin-DM 100-10MG/5ML [Robitussin DM] 10 ml PO Q4H PRN 10/12/21 [History] Follow up Appointment(s)/Referral(s): Dmitry Del Valle MD [Primary Care Provider] - 1-2 days (please call office to set up registration and appointment date) Monica Gastelum MD [STAFF PHYSICIAN] - 3 Weeks Discharge Disposition: TRANSFER TO SNF/ECF
[2021-10-16 15:26] LABS: Methylmalonic Acid 0.18 umol/L (<0.40)
== END 2021-10-13 14:11 ==
LOC: EC 23:07 → 4SSUR 10-12 02:09
PROVIDERS: ADMIT Hospitalist; ATTEND Hospitalist
DX: R10.9 Unspecified abdominal pain (principal); N13.1 Hydronephrosis with ureteral stricture, not elsewhere classified; C61 Malignant neoplasm of prostate; C79.51 Secondary malignant neoplasm of bone; C79.52 Secondary malignant neoplasm of bone marrow; C77.9 Secondary and unspecified malignant neoplasm of lymph node, unspecified; R33.9 Retention of urine, unspecified; E11.9 Type 2 diabetes mellitus without complications; I10 Essential (primary) hypertension; I25.10 Atherosclerotic heart disease of native coronary artery without angina pectoris; D63.8 Anemia in other chronic diseases classified elsewhere; E78.5 Hyperlipidemia, unspecified; M10.9 Gout, unspecified; I72.3 Aneurysm of iliac artery; I70.0 Atherosclerosis of aorta; N28.1 Cyst of kidney, acquired; E83.30 Disorder of phosphorus metabolism, unspecified; R74.8 Abnormal levels of other serum enzymes; R31.9 Hematuria, unspecified; R53.1 Weakness; K57.30 Diverticulosis of large intestine without perforation or abscess without bleeding; R62.7 Adult failure to thrive; G89.29 Other chronic pain; M54.9 Dorsalgia, unspecified; Z79.84 Long term (current) use of oral hypoglycemic drugs; Z79.82 Long term (current) use of aspirin; Z79.899 Other long term (current) drug therapy; Z79.4 Long term (current) use of insulin; Z88.1 Allergy status to other antibiotic agents; Z85.46 Personal history of malignant neoplasm of prostate; Z95.1 Presence of aortocoronary bypass graft; Z96.651 Presence of right artificial knee joint; Z98.890 Other specified postprocedural states; Z87.442 Personal history of urinary calculi; Z87.440 Personal history of urinary (tract) infections; Z96.0 Presence of urogenital implants; Z93.6 Other artificial openings of urinary tract status; Z19.2 Hormone resistant malignancy status; Z82.49 Family history of ischemic heart disease and other diseases of the circulatory system
CPT/HCPCS: 96374; 99284; 36415; 83921; 84153; 80053 ×2; 82607; 82728; 82150; 82746; 83540; 83550; 83615; 83690; 85025 ×2; 85610; 85045; 85730; 81001; 87086; 87635; 74176; G0378 ×2; J2270; J7512 ×2

== ENCOUNTER 2021-11-09 10:11 | Day surgery (SDC) | payer MEDICARE ==
[2021-11-07 13:26] VITALS: BMI 26.4
--- NOTE | 2021-11-08 07:07 | P.GSHP ---
History of Present Illness H&P Date: 11/08/21 71 yo male with widely metastatic, hormone insensitive prostate cancer with bilateral hydronephrosis due to ureteral obsruction due to his disease. He has a right double j catheter and a left n tube to maintain kidney function He comes for left n tube exchange Past Medical History Past Medical History: Coronary Artery Disease (CAD), Cancer, Diabetes Mellitus, Hearing Disorder / Deafness, Hyperlipidemia, Hypertension, Prostate Disorder Additional Past Medical History / Comment(s): Prostate cancer (Seed implants 2004); current mets to bone. kidney stones, gout, frequent UTI's, anemia. Hx ureteral obstruction w/ DB J cath, nephrostomy tube. History of Any Multi-Drug Resistant Organisms: None Reported Past Surgical History: Coronary Bypass/CABG, Heart Catheterization, Hernia R epair, Joint Replacement Additional Past Surgical History / Comment(s): LITHOTRIPSY x 2, Triple CABG 08/25/2018, rt knee replacement, elieser inguinal hernia and umbilical hernia repair; cysto, exchange DB J cath, nephrostomy tube Past Anesthesia/Blood Transfusion Reactions: No Reported Reaction Date of Last Stent Placement:: 2004 Smoking Status: Never smoker - Past Family History Mother Family Medical History: Myocardial Infarction ([place]) Father Family Medical History: Myocardial Infarction ([place]) Medications and Allergies Home Medications Medication Instructions Recorded Confirmed Type Allopurinol [Zyloprim] 100 mg PO DAILY 03/02/21 11/07/21 History Atorvastatin [Lipitor] 80 mg PO HS 03/02/21 11/07/21 History Tamsulosin [Flomax] 0.4 mg PO HS 03/02/21 11/07/21 History ondansetron HCL [Zofran] 8 mg PO BID 03/26/21 11/07/21 History predniSONE 5 mg PO DAILY 07/27/21 11/07/21 History Calcium Carbonate/Vitamin D3 1 cap PO Q12H 10/12/21 11/07/21 History [Calcium 600 mg-D3 10 Mcg (400 Iu)] Cholecalciferol [Vitamin D3 (25 50 mcg PO DAILY 10/12/21 11/07/21 History Mcg = 1000 Iu)] Cyanocobalamin [Vitamin B-12] 1,000 mcg PO DAILY 10/12/21 11/07/21 History Abiraterone Acetate [Zytiga] 1,000 mg PO QAM 11/07/21 11/07/21 History Ciprofloxacin HCl [Cipro] 500 mg PO BID 11/07/21 11/07/21 History Magnesium 250 mg PO DAILY 11/07/21 11/07/21 History metFORMIN HCL [Glucophage] 1,000 mg PO DAILY 11/07/21 11/07/21 History metFORMIN HCL [Glucophage] 500 mg PO HS 11/07/21 11/07/21 History Allergies Allergy/AdvReac Type Severity Reaction Status Date / Time cephalexin [From Keflex] AdvReac Diarrhea Verified 11/07/21 12:51 Surgical - Exam - General well developed, chronically ill - Eyes PERRL - ENT no hearing loss - Neck trachea midline - Respiratory normal respiratory effort - Cardiovascular Rhythm: regular - Abdomen left n tube Assessment and Plan Assessment: Impression> metastatic prostate cancer causing hydronephrosis PLan: exchange of left n tube
[~2021-11-09 10:11] MED LIST changes: -AMPICILLIN 1,000 MG in SODIUM CHLORIDE 0.9% 50 ML IVPB PRN; +GENTAMICIN 120 MG in SODIUM CHLORIDE 0.9% 100 ML IVPB ONE; -GENTAMICIN 140 MG in SODIUM CHLORIDE 0.9% 100 ML IVPB PRN
[2021-11-09] MEDS ORDERED: SODIUM CHLORIDE 0.9% 500 ML 500 ML IV ONE (10:23)
[2021-11-09 10:37] LABS: Glucose,Whole Blood 91 mg/dL (75-99)
[2021-11-09 10:46] LABS: Anisocytosis Slight; Basophils % (A) 0 %; Eosinophils # (A) 0.1 k/uL (0-0.7); Eosinophils % (A) 1 %; HCT 31.7 % (39.0-53.0); HGB 10.3 gm/dL (13.0-17.5); Hypochromasia Moderate; Lymphocytes # (A) 2.4 k/uL (1.0-4.8); Lymphocytes % (A) 43 %; MCH 29.1 pg (25.0-35.0); MCHC 32.4 g/dL (31.0-37.0); MCV 89.7 fL (80.0-100.0); Mean Platelet Volume 7.6; Monocytes # (A) 0.2 k/uL (0-1.0); Monocytes % (A) 4 %; Neutrophils # (A) 2.7 k/uL (1.3-7.7); Neutrophils % (A) 49 %; Platelet Count 147 k/uL (150-450); Poikilocytosis Slight; RBC 3.53 m/uL (4.30-5.90); RDW 16.8 % (11.5-15.5); WBC 5.6 k/uL (3.8-10.6)
[2021-11-09 10:54] LABS: Calcium 8.1 mg/dL (8.4-10.2); Potassium 3.8 mmol/L (3.5-5.1)
[2021-11-09 10:57] VITALS: TEMP 98
[2021-11-09] MEDS ORDERED: fentaNYL (PF) 50 MCG/ML 2 ML AMP IV ONE (11:40)
[2021-11-09] MEDS ORDERED: LIDOCAINE 1% INJ 10MG/ML (20 ML MDV) ONE (11:40)
[2021-11-09] MEDS ORDERED: MIDAZOLAM 2 MG/2 ML VIAL IV ONE (11:40)
[2021-11-09] MEDS ORDERED: fentaNYL (PF) 50 MCG/ML 2 ML AMP ONE (11:40)
[2021-11-09] MEDS ORDERED: IOPAMIDOL-370 50ML BTL INJ ONE (11:50)
--- NOTE | 2021-11-09 12:16 | IR ---
EXAMINATION TYPE: IR nephrostomy tube change DATE OF EXAM: 11/09/2021 COMPARISON: NONE HISTORY: Left nephrostomy tube exchange over a guidewire. FINDINGS: On the left indwelling tube was cut following gentle hand-injection of contrast material. The 0.035 i nch angled Glidewire was advanced distally and with the aid of the hockey-stick catheter was advanced into the bladder however the catheter could not be advanced beyond the region of the right iliac fos sa region. The 8.5 Green[place] nephrostomy tube was exchanged and fixed in place within the right renal pe lvis. Patient remained in stable condition. There is no immediate complication. 0.6 minutes of fluoroscopy time was utilized and one images submitted. Approximately 5 cc of nonionic contrast injected. IMPRESSION: 1. Successful fluoroscopic-guided left nephrostomy tube exchange.
[2021-11-09 14:15] VITALS: RESP 16
[2021-11-09 14:16] VITALS: BP 125/72; PULSE 100
== END 2021-11-09 13:35 | disposition home or self-care (01) ==
LOC: CATHCVL 10:11
PROVIDERS: ATTEND Radiology Diagnostic Radiology
DX: C61 Malignant neoplasm of prostate (principal); I25.10 Atherosclerotic heart disease of native coronary artery without angina pectoris; I10 Essential (primary) hypertension; E11.9 Type 2 diabetes mellitus without complications; C79.51 Secondary malignant neoplasm of bone; Z87.442 Personal history of urinary calculi; M10.9 Gout, unspecified; Z20.822 Contact with and (suspected) exposure to COVID-19; D64.9 Anemia, unspecified; I25.2 Old myocardial infarction; Z95.1 Presence of aortocoronary bypass graft; Z96.651 Presence of right artificial knee joint; Z87.440 Personal history of urinary (tract) infections; Z98.890 Other specified postprocedural states; Z92.3 Personal history of irradiation; Z95.5 Presence of coronary angioplasty implant and graft; Z79.84 Long term (current) use of oral hypoglycemic drugs; Z79.52 Long term (current) use of systemic steroids; Z79.899 Other long term (current) drug therapy; Z88.1 Allergy status to other antibiotic agents
CPT/HCPCS: 50435; 80048; 85025; 87635; C1729; C1769 ×2; J2250; J3010; J1580; Q9967